=== PATIENT | male | born 1955 | race Caucasian/White ===

== ENCOUNTER → 2017-02-01 | Outpatient (CLI) | payer OTHER ==
[2017-02-01 08:24] LABS: Calcium 8.7 mg/dL (8.4-10.2); Potassium 5.4 mmol/L (3.5-5.1)
== END | disposition home or self-care (01) ==
LOC: LABWHC1 07:04
PROVIDERS: ATTEND Nurse Practitioner Family
DX: I10 Essential (primary) hypertension (principal)
CPT/HCPCS: 36415; 80048

== ENCOUNTER 2017-02-15 09:49 | Inpatient (IN) | payer OTHER ==
[2017-02-15] MEDS ORDERED: SODIUM CHLORIDE 0.9% 1,000 ML IV STA (10:04)
[2017-02-15] MEDS ORDERED: SODIUM CHLORIDE 0.9% 500 ML IV STA (10:04)
--- NOTE | 2017-02-15 10:27 | ED ---
GI Bleed HPI - General Chief complaint: GI Bleed Stated complaint: weakness, bloody stool Time Seen by Provider: 02/15/17 10:00 Source: patient, family, RN notes reviewed Mode of arrival: wheelchair Limitations: no limitations - History of Present Illness Initial comments: This is a 61-year-old male with a history of kidney disease who had the onset yesterday of some blood per rectum. Patient had nausea vomiting dizziness lightheadedness. He recurrence of this this morning. He did have burgundy- colored stool per rectum. His states she did look pale but his color is return to more normal. He also had a glucose level that was 470. He is not a known diabetic. He does have rheumatoid arthritis and is on steroids. Additional history pericarditis renal disease hypertension. The patient does relate the bleeding to his treatment for his kidney disease which she did receive 3 days ago. He states he had a similar episode with some spotting after his last injection. MD complaint: gross hematochezia - Related Data Home Medications Medication Instructions Recorded Confirmed Ergocalciferol (Vitamin D2) 50,000 unit PO QMONTH 02/05/17 02/15/17 [Vitamin D2] Furosemide [Lasix] 20 mg PO BID 02/05/17 02/15/17 Metoprolol Tartrate [Lopressor] 50 mg PO DAILY 02/05/17 02/15/17 Sodium Bicarbonate Tab 650 mg PO DAILY 02/05/17 02/15/17 amLODIPine [Norvasc] 5 mg PO DAILY 02/05/17 02/15/17 Calcitriol 0.25 mcg PO WE 02/12/17 02/15/17 Sulfamethoxazole/Trimethoprim 1 tab PO DAILY 02/12/17 02/15/17 [Bactrim SS 400-80 mg] predniSONE 10 mg PO HS 02/15/17 02/15/17 predniSONE 20 mg PO BID@0800,1200 02/15/17 02/15/17 riTUXimab [Rituxan] 1 ml IV FR 02/15/17 02/15/17 Allergies Allergy/AdvReac Type Severity Reaction Status Date / Time No Known Allergies Allergy Verified 02/15/17 10:39 Review of Systems ROS Statement: Those systems with pertinent positive or pertinent negative responses have been documented in the HPI. ROS Other: All systems not noted in ROS Statement are negative. Past Medical History Past Medical History: Renal Disease, Rheumatoid Arthritis (RA), Syncope Additional Past Medical History / Comment(s): Rheumatoid arthritis, hemorrhoids , colonic polyps, previous cardiac stress test 2 showing no evidence of any reversible ischemia. paricarditis History of Any Multi-Drug Resistant Organisms: None Reported Past Surgical History: No Surgical Hx Reported Additional Past Surgical History / Comment(s): colonoscopy/polypectomy, hemangioma removed from inside L cheek. Past Anesthesia/Blood Transfusion Reactions: No Reported Reaction Past Psychological History: No Psychological Hx Reported Smoking Status: Former smoker Past Alcohol Use History: None Reported Past Drug Use History: None Reported - Past Family History Father Family Medical History: CVA/TIA, Diabetes Mellitus Additional Family Medical History / Comment(s): Father at the age of 64 yrs from diabetic complications. Mother Family Medical History: Cancer Additional Family Medical History / Comment(s): Mother of colon cancer at the age of 74yrs. General Exam - General Exam Comments Initial Comments: This a well-developed asthenic appearing male he does appear to be pale Limitations: no limitations General appearance: alert, in no apparent distress Head exam: Present: atraumatic, normocephalic, normal inspection Eye exam: Present: normal appearance, PERRL, EOMI. Absent: scleral icterus, conjunctival injection, periorbital swelling ENT exam: Present: normal exam, mucous membranes moist Neck exam: Present: normal inspection. Absent: tenderness, meningismus, lymphadenopathy Respiratory exam: Present: normal lung sounds bilaterally. Absent: respiratory distress, wheezes, rales, rhonchi, stridor Cardiovascular Exam: Present: normal rhythm, tachycardia, normal heart sounds. Absent: systolic murmur, diastolic murmur, rubs, gallop, clicks GI/Abdominal exam: Present: soft, normal bowel sounds. Absent: distended, tenderness, guarding, rebound, rigid Rectal exam: Present: normal rectal tone (Burgundy-colored stool heme positive) , heme (+) stool Extremities exam: Present: normal inspection, full ROM, normal capillary refill. Absent: tenderness, pedal edema, joint swelling, calf tenderness Back exam: Present: normal inspection Neurological exam: Present: alert, oriented X3, CN II-XII intact Psychiatric exam: Present: normal affect, normal mood Skin exam: Present: warm, dry, intact, normal color. Absent: rash Course Vital Signs 02/15/17 02/15/17 02/15/17 09:51 10:42 11:35 Temperature 97.3 F L Pulse Rate 131 H 89 90 Respiratory 17 16 18 Rate Blood Pressure 85/61 121/82 125/85 O2 Sat by Pulse 100 98 100 Oximetry Medical Decision Making - Medical Decision Making I did discuss findings the patient family patient will be admitted for transfusion and evaluation of GI bleeding. Patient did have an episode of hypotension but this resolved after fluids. - Lab Data Result diagrams: 02/15/17 10:30 02/15/17 10:31 Lab Results 02/15/17 02/15/17 02/15/17 Range/Units 10:30 10:30 10:31 WBC 10.3 (3.8-10.6) k/uL RBC 2.49 L (4.30-5.90) m/uL Hgb 7.2 L (13.0-17.5) gm/dL Hct 22.0 L (39.0-53.0) % MCV 88.3 (80.0-100.0) fL MCH 29.1 (25.0-35.0) pg MCHC 32.9 (31.0-37.0) g/dL RDW 14.4 (11.5-15.5) % Plt Count 215 (150-450) k/uL Neutrophils % 81 % Lymphocytes % 13 % Monocytes % 5 % Eosinophils % 0 % Basophils % 0 % Neutrophils # 8.3 H (1.3-7.7) k/uL Lymphocytes # 1.4 (1.0-4.8) k/uL Monocytes # 0.5 (0-1.0) k/uL Eosinophils # 0.0 (0-0.7) k/uL Basophils # 0.0 (0-0.2) k/uL PT 10.7 (9.0-12.0) sec INR 1.1 (<1.2) APTT 18.4 L (22.0-30.0) sec Sodium (137-145) mmol/L Potassium (3.5-5.1) mmol/L Chloride (98-107) mmol/L Carbon Dioxide (22-30) mmol/L Anion Gap mmol/L BUN (9-20) mg/dL Creatinine (0.66-1.25) mg/dL Est GFR (MDRD) Af Amer (>60 ml/min/1.73 sqM) Est GFR (MDRD) Non-Af (>60 ml/min/1.73 sqM) Glucose (74-99) mg/dL Calcium (8.4-10.2) mg/dL Total Bilirubin (0.2-1.3) mg/dL AST (17-59) U/L ALT (21-72) U/L Alkaline Phosphatase (38-126) U/L Total Creatine Kinase 43 L (55-170) U/L CK-MB (CK-2) 3.1 H* (0.0-2.4) ng/mL CK-MB (CK-2) Rel Index 7.2 Troponin I 0.034 (0.000-0.034) ng/mL Total Protein (6.3-8.2) g/dL Albumin (3.5-5.0) g/dL Stool Occult Blood (Negative) Acetone, Qual (Negative) Blood Type Blood Type Recheck Antibody Screen Spec Expiration Date 02/15/17 02/15/17 02/15/17 Range/Units 10:31 10:31 10:31 WBC (3.8-10.6) k/uL RBC (4.30-5.90) m/uL Hgb (13.0-17.5) gm/dL Hct (39.0-53.0) % MCV (80.0-100.0) fL MCH (25.0-35.0) pg MCHC (31.0-37.0) g/dL RDW (11.5-15.5) % Plt Count (150-450) k/uL Neutrophils % % Lymphocytes % % Monocytes % % Eosinophils % % Basophils % % Neutrophils # (1.3-7.7) k/uL Lymphocytes # (1.0-4.8) k/uL Monocytes # (0-1.0) k/uL Eosinophils # (0-0.7) k/uL Basophils # (0-0.2) k/uL PT (9.0-12.0) sec INR (<1.2) APTT (22.0-30.0) sec Sodium 134 L (137-145) mmol/L Potassium 4.3 (3.5-5.1) mmol/L Chloride 100 (98-107) mmol/L Carbon Dioxide 24 (22-30) mmol/L Anion Gap 10 mmol/L BUN 70 H (9-20) mg/dL Creatinine 2.50 H (0.66-1.25) mg/dL Est GFR (MDRD) Af Amer 32 (>60 ml/min/1.73 sqM) Est GFR (MDRD) Non-Af 26 (>60 ml/min/1.73 sqM) Glucose 235 H (74-99) mg/dL Calcium 8.5 (8.4-10.2) mg/dL Total Bilirubin 0.4 (0.2-1.3) mg/dL AST 18 (17-59) U/L ALT 48 (21-72) U/L Alkaline Phosphatase 46 (38-126) U/L Total Creatine Kinase (55-170) U/L CK-MB (CK-2) (0.0-2.4) ng/mL CK-MB (CK-2) Rel Index Troponin I (0.000-0.034) ng/mL Total Protein 4.9 L (6.3-8.2) g/dL Albumin 2.8 L (3.5-5.0) g/dL Stool Occult Blood Positive (Negative) Acetone, Qual (Negative) Blood Type O Positive Blood Type Recheck No Antibody Screen NEGATIVE Spec Expiration Date 02/18/2017 - 233002/15/17 Range/Units 10:42 WBC (3.8-10.6) k/uL RBC (4.30-5.90) m/uL Hgb (13.0-17.5) gm/dL Hct (39.0-53.0) % MCV (80.0-100.0) fL MCH (25.0-35.0) pg MCHC (31.0-37.0) g/dL RDW (11.5-15.5) % Plt Count (150-450) k/uL Neutrophils % % Lymphocytes % % Monocytes % % Eosinophils % % Basophils % % Neutrophils # (1.3-7.7) k/uL Lymphocytes # (1.0-4.8) k/uL Monocytes # (0-1.0) k/uL Eosinophils # (0-0.7) k/uL Basophils # (0-0.2) k/uL PT (9.0-12.0) sec INR (<1.2) APTT (22.0-30.0) sec Sodium (137-145) mmol/L Potassium (3.5-5.1) mmol/L Chloride (98-107) mmol/L Carbon Dioxide (22-30) mmol/L Anion Gap mmol/L BUN (9-20) mg/dL Creatinine (0.66-1.25) mg/dL Est GFR (MDRD) Af Amer (>60 ml/min/1.73 sqM) Est GFR (MDRD) Non-Af (>60 ml/min/1.73 sqM) Glucose (74-99) mg/dL Calcium (8.4-10.2) mg/dL Total Bilirubin (0.2-1.3) mg/dL AST (17-59) U/L ALT (21-72) U/L Alkaline Phosphatase (38-126) U/L Total Creatine Kinase (55-170) U/L CK-MB (CK-2) (0.0-2.4) ng/mL CK-MB (CK-2) Rel Index Troponin I (0.000-0.034) ng/mL Total Protein (6.3-8.2) g/dL Albumin (3.5-5.0) g/dL Stool Occult Blood (Negative) Acetone, Qual Negative (Negative) Blood Type Blood Type Recheck Antibody Screen Spec Expiration Date - Radiology Data Radiology results: report reviewed (I did review the imaging and reports no acute findings.), image reviewed Disposition Clinical Impression: GI bleed, Anemia, Renal insufficiency syndrome Disposition: ADMITTED IP TO THIS [facility] Condition: Serious Referrals: Aydee Mcqueen DO [Primary Care Provider] - 1-2 days
[2017-02-15] MEDS ORDERED: PANTOPRAZOLE 40 MG/10 ML VIAL IVP STA (10:28)
[2017-02-15 10:45] LABS: Basophils % (A) 0 %; Eosinophils % (A) 0 %; HGB 7.2 gm/dL (13.0-17.5); Lymphocytes # (A) 1.4 k/uL (1.0-4.8); Lymphocytes % (A) 13 %; MCH 29.1 pg (25.0-35.0); MCHC 32.9 g/dL (31.0-37.0); MCV 88.3 fL (80.0-100.0); Mean Platelet Volume 8.3; Monocytes # (A) 0.5 k/uL (0-1.0); Monocytes % (A) 5 %; Neutrophils # (A) 8.3 k/uL (1.3-7.7); Neutrophils % (A) 81 %; Platelet Count 215 k/uL (150-450); RBC 2.49 m/uL (4.30-5.90); RDW 14.4 % (11.5-15.5); WBC 10.3 k/uL (3.8-10.6)
[2017-02-15 10:55] LABS: Albumin 2.8 g/dL (3.5-5.0); Calcium 8.5 mg/dL (8.4-10.2); Potassium 4.3 mmol/L (3.5-5.1); Total Bilirubin 0.4 mg/dL (0.2-1.3); Total Protein 4.9 g/dL (6.3-8.2)
[2017-02-15 11:03] LABS: INR 1.1 (<1.2); Prothrombin Time 10.7 sec (9.0-12.0)
--- NOTE | 2017-02-15 11:17 | XR ---
EXAMINATION TYPE: XR chest 2V DATE OF EXAM: 02/15/2017 COMPARISON: 01/09/2017 HISTORY: Weakness TECHNIQUE: Frontal and lateral views of the chest are obtained. FINDINGS: There is no heart failure nor confluent pneumonic infiltrate. Heart and mediastinum are no rmal. Costophrenic angles are clear. There are chest leads. Mediastinum is normal. IMPRESSION: Normal chest. There is clearing of left lower lobe infiltrate compared to last exam. There is improved inspiration.
[2017-02-15 11:18] LABS: Partial Thromboplastin Time 18.4 sec (22.0-30.0)
--- NOTE | 2017-02-15 11:18 | XR ---
EXAMINATION TYPE: XR abdomen 1V DATE OF EXAM: 02/15/2017 COMPARISON: NONE HISTORY: Weakness TECHNIQUE: 2 views FINDINGS: Bowel gas pattern is normal. There is no sign of intestinal obstruction or pneumoperitoneum . Fecal pattern is normal. There is mild lumbar dextroscoliosis. Costophrenic angles are clear. There are no pathologic calcifications over the kidneys. IMPRESSION: Nonacute abdomen.
[2017-02-15 11:21] LABS: Troponin I 0.034 ng/mL (0.000-0.034)
[2017-02-15 11:27] LABS: Creatine Kinase MB 3.1 ng/mL (0.0-2.4)
[2017-02-15] MEDS ORDERED: ONDANSETRON 4 MG/2 ML VIAL IVP PRN (12:11)
[2017-02-15] MEDS ORDERED: NALOXONE 0.4 MG/ML 1 ML VIAL IV PRN (12:11)
[2017-02-15] MEDS: SODIUM CHLORIDE 0.9% 1,000 ML IV SCH ×2 (12:25→20:57)
[2017-02-15] MEDS ORDERED: METOPROLOL TARTRATE 50 MG TAB PO SCH (16:00)
[2017-02-15] MEDS: INSULIN ASPART 100 UNIT/ML 1 ML 10 ML VIAL SQ SCH ×2 (16:19→17:27)
[2017-02-15 16:35] LABS: Basophils % (A) 0 %; Eosinophils % (A) 0 %; Lymphocytes # (A) 1.3 k/uL (1.0-4.8); Lymphocytes % (A) 16 %; MCH 29.4 pg (25.0-35.0); MCHC 33.1 g/dL (31.0-37.0); MCV 88.8 fL (80.0-100.0); Mean Platelet Volume 7.4; Monocytes # (A) 0.4 k/uL (0-1.0); Monocytes % (A) 5 %; Neutrophils # (A) 6.3 k/uL (1.3-7.7); Neutrophils % (A) 77 %; Platelet Count 180 k/uL (150-450); RDW 13.5 % (11.5-15.5); WBC 8.1 k/uL (3.8-10.6)
[2017-02-15 16:41] LABS: HCT 18.7 % (39.0-53.0); HGB 6.2 gm/dL (13.0-17.5)
[2017-02-15 16:59] LABS: Glucose,Whole Blood 148 mg/dL (75-99)
[2017-02-15] MEDS: FUROSEMIDE 20 MG TAB PO SCH (17:26)
[2017-02-15] MEDS: PANTOPRAZOLE 40 MG/10 ML VIAL IV SCH (20:58)
[2017-02-15] MEDS ORDERED: predniSONE 10 MG TAB PO SCH (21:00)
[2017-02-15 21:17] LABS: Glucose,Whole Blood 160 mg/dL (75-99)
--- NOTE | 2017-02-15 21:51 | HP ---
HISTORY AND PHYSICAL DATE OF SERVICE: 02/15/2017 CHIEF COMPLAINT: Gastrointestinal bleed. HISTORY OF PRESENT ILLNESS: This 61-year-old gentleman with a past medical history of multiple medical problems including rheumatoid arthritis, history of hemorrhoids, history of colonic polyps, history of previous cardiac stress test, and recent history of pericarditis, also was found to be have vasculitis from a renal biopsy. Patient started on Rituxan. The patient apparently was having GI bleed, after he took Rituxan and burgundy- colored stools were noted without much pain and patient came to [facility] and was admitted for further evaluation and treatment. Initial hemoglobin was found to be 7.2. Subsequently, 6.2. Two Units transfusion arranged at this time. Gastroenterology evaluation in progress. There is no history of fever, rigors or chills. No headache, loss of consciousness, seizures. Patient had rheumatoid arthritis with multiple complications. PAST MEDICAL HISTORY: History of renal disease, history rheumatoid arthritis, syncope, history of hemorrhoids, nicotine dependence. MEDICATIONS: Prior to admission include home medications are: 1. Rituxan 1 mL as before. 2. Prednisone 10 mg q.h.s. and 20 mg p.o. b.i.d. 3. Norvasc 5 mg. 4. Bactrim SS single-strength 1 tab p.o. daily. 5. Sodium bicarb. 6. Tylenol 650 mg p.o. daily. 7. Lopressor 50 mg p.o. daily. 8. Lasix 20 mg p.o. b.i.d. 9. Vitamin D2 50,000 p.o. monthly. 10.Calcitriol 0.5 mg mcg p.o. Wednesday. ALLERGIES: None. FAMILY HISTORY: CVA, TIA, diabetes mellitus. SOCIAL HISTORY: Previous history of smoking. No history of alcohol intake. REVIEW OF SYSTEMS: ENT: No diminished hearing or vision. CARDIOVASCULAR: No angina or palpitations. RESPIRATORY: As mentioned earlier. GI: Mentioned earlier. : No dysuria. NERVOUS SYSTEM: No numbness or weakness. Allergy/Immunology: No asthma or hayfever. Musculoskeletal: As mentioned earlier. Hematology/Oncology: No history of anemia. Musculoskeletal: As mentioned earlier. Endocrine: No history of diabetes or hypothyroidism. Constitutional: As mentioned earlier. Rheumatology: Negative. Dermatology: Negative. Psychiatric: As mentioned earlier. PHYSICAL EXAM: Patient is alert, oriented x3. Pulse is 95, blood pressure 118/70, respiration 16, temperature 97.7. Pulse ox 100% on 2 L. HEENT is conjunctivae pale. Oral mucosa moist. Neck is no jugular venous distention. No carotid bruit. No lymph node enlargement. Cardiovascular system: S1, S2 muffled. Respiratory: Breath sounds diminished in the bases. A few rhonchi and no crackles. ABDOMEN: Soft, nontender. No mass palpable. No guarding. No rigidity. Bowel sounds present. Legs no edema no swelling. Central nervous system: Higher functions as mentioned earlier. Moves all four extremities. No focal deficits. Lymphatics: No lymph nodes palpable in the neck, axillae or groin. SKIN: No ulcer, rash or bleeding. LABS: WBC 8.2, hemoglobin 6.2, sodium 134. ASSESSMENT: 1. Acute gastrointestinal bleed with acute blood loss anemia. 2. History of recently diagnosis of vasculitis on Rituxan status post renal biopsy. 3. History of recent pericarditis. 4. History of rheumatoid arthritis. 5. History of chronic kidney disease stage 3. 6. Indeterminate ANCA recently. 7. History of atrial fibrillation paroxysmal. 8. Hyponatremia. RECOMMENDATIONS AND DISCUSSION: This 61-year-old gentleman who presented with multiple complex medical issues, we will monitor the patient closely, continue the current medications, management and symptomatic treatment. Otherwise at this time I recommend continue with proton pump inhibitors. Monitor hemoglobin closely. 2 units transfusion. Otherwise monitor blood pressure closely and if the patient shows any further bleeding, the patient will be transferred to ICU. Gastroenterology consultation appreciated. Otherwise once the patient is stabilized, EGD and colonoscopy. Prognosis guarded because of multiple complex medical issues. I would also recommend continued followup and nephrology consultation also. Further recommendations to follow. MMODL / IJN: [id number] / DIYA
[2017-02-15 22:01] LABS: Glucose,Whole Blood 143 mg/dL (75-99)
[2017-02-15 22:36] LABS: Basophils % (A) 0 %; Eosinophils % (A) 0 %; Lymphocytes # (A) 1.4 k/uL (1.0-4.8); Lymphocytes % (A) 22 %; MCH 29.2 pg (25.0-35.0); MCHC 32.6 g/dL (31.0-37.0); MCV 89.5 fL (80.0-100.0); Mean Platelet Volume 7.4; Monocytes # (A) 0.3 k/uL (0-1.0); Monocytes % (A) 4 %; Neutrophils # (A) 4.8 k/uL (1.3-7.7); Neutrophils % (A) 72 %; Platelet Count 181 k/uL (150-450); RBC 1.97 m/uL (4.30-5.90); RDW 13.7 % (11.5-15.5); WBC 6.7 k/uL (3.8-10.6)
[2017-02-15 22:38] LABS: HCT 17.6 % (39.0-53.0); HGB 5.8 gm/dL (13.0-17.5)
[2017-02-16] MEDS: INSULIN ASPART 100 UNIT/ML 1 ML 10 ML VIAL SQ SCH ×5 (01:00→21:25)
[2017-02-16 04:33] LABS: Basophils % (A) 0 %; Eosinophils % (A) 0 %; HCT 22.9 % (39.0-53.0); Lymphocytes % (A) 17 %; MCH 29.5 pg (25.0-35.0); MCHC 33.4 g/dL (31.0-37.0); MCV 88.4 fL (80.0-100.0); Mean Platelet Volume 8.4; Monocytes # (A) 0.3 k/uL (0-1.0); Monocytes % (A) 4 %; Neutrophils # (A) 4.5 k/uL (1.3-7.7); Neutrophils % (A) 77 %; Platelet Count 136 k/uL (150-450); RBC 2.59 m/uL (4.30-5.90); RDW 14.2 % (11.5-15.5); WBC 5.9 k/uL (3.8-10.6)
[2017-02-16 04:39] LABS: Calcium 7.6 mg/dL (8.4-10.2); Magnesium 1.7 mg/dL (1.6-2.3); Phosphorus 4.1 mg/dL (2.5-4.5); Potassium 4.1 mmol/L (3.5-5.1)
[2017-02-16 04:41] LABS: HGB 7.7 gm/dL (13.0-17.5)
[2017-02-16] MEDS: SODIUM CHLORIDE 0.9% 1,000 ML IV SCH ×2 (05:00→13:46)
[2017-02-16] MEDS ORDERED: MAGNESIUM SULFATE-D5W PMX 1 GM in DEXTROSE/WATER 1 100ML.BAG IVPB SCH (06:30)
[2017-02-16 07:28] LABS: Glucose,Whole Blood 143 mg/dL (75-99)
[2017-02-16] MEDS ORDERED: predniSONE 20 MG TAB PO SCH (08:00)
--- NOTE | 2017-02-16 08:12 | P.CNPUL ---
History of Present Illness Consult date: 02/16/17 Chief complaint: GI bleeding History of present illness: A 59-year-old male patient with known history of rheumatoid arthritis and vasculitis and a diagnosis was colitis was rather recent as the patient presented with pleural pericarditis an acute kidney injury and further investigation which included a kidney biopsy confirmed presence of vasculitis and the patient was started on a combination of Cytoxan and prednisone. The patient was receiving right proximal and once a week and he was on a 50 mg of prednisone a daily basis. The patient presented yesterday after having bright red blood per rectum. He had 2 bouts of bloody bowel movement and none since he came into the hospital. His hemoglobin gradually dropped and earlier this morning his hemoglobin was as low as 5.8 and the patient was given 2 units of packed RBC and a total of 1 L of normal saline bolus and the fluids are running at the rate of 1 25 mL an hour. Since then he has improved and he looks better and he has no specific complaints. No nausea. No vomiting no abdominal pain. His rectal bleeding was essentially painless. This occurred at home. I'm not sure what type of vasculitis he was diagnosed with over one concern will be vasculitis involving the mesenteric arteries nontender the patient has not had any previous history of GI bleeding in the past. No chest pain. No shortness of breath. Creatinine is stable at 2.0. Is under the care of Dr. Read from nephrology. No alcoholism. Correlation profile is within normal limits. He has known to have colonic polyps based on a previous colonoscopy that was done many years back. Review of Systems Constitutional: Denies chills, Denies fever Eyes: denies blurred vision, denies bulging eye, denies decreased vision Ears: deny: decreased hearing, ear discharge, earache, tinnitus Ears, nose, mouth and throat: Denies headache, Denies sore throat Cardiovascular: Reports chest pain Respiratory: Reports pleurisy which recovered with the treatment of systemic steroids Gastrointestinal: Denies abdominal pain, Denies diarrhea, Denies nausea, Denies vomiting, he is having bright red blood per rectum Genitourinary: Reports as per HPI Musculoskeletal: Denies myalgias Musculoskeletal: absent: ankle pain, ankle stiffness, ankle swelling Integumentary: Denies pruritus, Denies rash Neurological: Denies numbness, Denies weakness Psychiatric: Denies anxiety, Denies depression Endocrine: Denies fatigue, Denies weight change Past Medical History Past Medical History: Renal Disease, Rheumatoid Arthritis (RA), Syncope Additional Past Medical History / Comment(s): Rheumatoid arthritis, vasculitis confirmed by a kidney biopsy, chronic renal failure, immunosuppression febrile with a combination of rituxan and prednisone, hemorrhoids, colonic polyps, previous cardiac stress test 2 showing no evidence of any reversible ischemia, history of paricarditis History of Any Multi-Drug Resistant Organisms: None Reported Past Surgical History: No Surgical Hx Reported Additional Past Surgical History / Comment(s): colonoscopy/polypectomy, hemangioma removed from inside L cheek, kidney biopsy Past Anesthesia/Blood Transfusion Reactions: No Reported Reaction Past Psychological History: No Psychological Hx Reported Additional Psychological History / Comment(s): Pt resides with his spouse and 2 adult children. He is independent. 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 Smoking Status: Former smoker Past Alcohol Use History: None Reported Additional Past Alcohol Use History / Comment(s): Pt started smoking in 1970 and quit about 1990. Past Drug Use History: None Reported - Past Family History Father Family Medical History: CVA/TIA, Diabetes Mellitus Additional Family Medical History / Comment(s): Father at the age of 64 yrs from diabetic complications. Mother Family Medical History: Cancer Additional Family Medical History / Comment(s): Mother of colon cancer at the age of 74yrs. Medications and Allergies Home Medications Medication Instructions Recorded Confirmed Type Ergocalciferol (Vitamin D2) 50,000 unit PO QMONTH 02/05/17 02/15/17 History [Vitamin D2] Furosemide [Lasix] 20 mg PO BID 02/05/17 02/15/17 History Metoprolol Tartrate [Lopressor] 50 mg PO DAILY 02/05/17 02/15/17 History Sodium Bicarbonate Tab 650 mg PO DAILY 02/05/17 02/15/17 History amLODIPine [Norvasc] 5 mg PO DAILY 02/05/17 02/15/17 History Calcitriol 0.25 mcg PO WE 02/12/17 02/15/17 History Sulfamethoxazole/Trimethoprim 1 tab PO DAILY 02/12/17 02/15/17 History [Bactrim SS 400-80 mg] predniSONE 10 mg PO HS 02/15/17 02/15/17 History predniSONE 20 mg PO BID@0800,1200 02/15/17 02/15/17 History riTUXimab [Rituxan] 1 ml IV FR 02/15/17 02/15/17 History Allergies Allergy/AdvReac Type Severity Reaction Status Date / Time No Known Allergies Allergy Verified 02/15/17 10:39 Physical Exam Vitals: Vital Signs Temp Pulse Pulse Resp BP BP Pulse Ox 02/16/17 07:00 65 12 145/90 100 02/16/17 06:30 67 13 145/90 100 02/16/17 06:00 76 14 140/79 100 02/16/17 05:30 69 13 140/79 100 02/16/17 05:00 62 14 107/81 100 02/16/17 04:30 98.2 F 74 12 107/81 100 02/16/17 04:00 72 14 107/81 99 02/16/17 03:30 71 10 L 116/73 100 02/16/17 03:00 70 11 L 116/73 99 02/16/17 02:30 72 12 116/72 100 02/16/17 02:00 61 11 L 125/68 100 02/16/17 01:30 82 16 100 02/16/17 01:00 98.7 F 72 12 117/72 100 02/16/17 00:59 98.7 F 70 15 125/68 02/16/17 00:30 78 13 117/72 97 02/16/17 00:15 98.4 F 75 14 117/72 100 02/16/17 00:00 98.3 F 72 12 112/72 100 02/15/17 23:55 98.3 F 74 11 L 112/72 02/15/17 23:30 98.3 F 77 14 107/72 100 02/15/17 23:00 75 14 113/73 100 02/15/17 22:40 98.3 F 74 13 107/72 02/15/17 22:30 98.1 F 80 14 113/73 100 02/15/17 22:27 98.5 F 76 13 114/75 02/15/17 22:00 98.5 F 81 12 114/75 100 02/15/17 20:00 97.8 F 84 16 125/68 99 02/15/17 16:00 97.5 F L 98 16 117/76 100 02/15/17 14:06 97.7 F 95 16 118/79 100 02/15/17 12:26 97.6 F 98 18 133/82 100 02/15/17 11:35 90 18 125/85 100 02/15/17 10:42 89 16 121/82 98 02/15/17 09:51 97.3 F L 131 H 17 85/61 100 Intake and Output 02/15/17 02/16/17 02/16/17 22:59 06:59 14:59 Intake Total 815 2240 125 Output Total 1050 Balance 815 1190 125 Intake: IV 125 1620 125 Packed unit of Red Blood 620 Cells Sodium Chloride 0.9% 1, 125 1000 125 000 ml @ 125 mls/hr IV . Q8H [facility] Rx#:[id number] Oral 690 Blood Product 0 620 Rc Pheresis 2 As3 Unit 310 [id number] Rc Pheresis 2 As3 Unit 0 310 [id number] Output: Urine 1050 Emesis 0 Other: # Bowel Movements 0 Weight 75.6 kg The patient appeared well nourished and normally developed. Vital signs as documented. Head exam is unremarkable. No scleral icterus or corneal arcus noted. Neck is without jugular venous distension, thyromegaly, or carotid bruits. Carotid upstrokes are brisk bilaterally. Lungs are clear to auscultation and percussion. Cardiac exam reveals the PMI to be normally sized and situated. Rhythm is regular. First and second heart sounds normal. No murmurs, rubs or gallops. Abdominal exam reveals normal bowel sounds, no masses , no organomegaly and no aortic enlargement. Extremities are nonedematous and both femoral and pedal pulses are normal.Examination of the skin revealed no evidence of significant rashes, suspicious appearing nevi or other concerning lesions. Neurologically the patient is awake and alert and there is no focal neurological deficit this point. Results - Laboratory Findings CBC and BMP: 02/16/17 04:11 02/16/17 04:11 PT/INR, D-dimer PT 10.7 sec (9.0-12.0) 02/15/17 10:30 INR 1.1 (<1.2) 02/15/17 10:30 Abnormal lab findings: Abnormal Labs 02/15/17 02/15/17 02/15/17 10:30 10:30 10:31 RBC 2.49 L Hgb 7.2 L Hct 22.0 L Plt Count Neutrophils # 8.3 H APTT 18.4 L Sodium BUN Creatinine Glucose POC Glucose (mg/dL) Calcium Total Creatine Kinase 43 L CK-MB (CK-2) 3.1 H* Total Protein Albumin Crossmatch 02/15/17 02/15/17 02/15/17 10:31 10:31 16:15 RBC 2.10 L Hgb 6.2 L* Hct 18.7 L* Plt Count Neutrophils # APTT Sodium 134 L BUN 70 H Creatinine 2.50 H Glucose 235 H POC Glucose (mg/dL) Calcium Total Creatine Kinase CK-MB (CK-2) Total Protein 4.9 L Albumin 2.8 L Crossmatch See Detail 02/15/17 02/15/17 02/15/17 16:49 21:05 21:58 RBC Hgb Hct Plt Count Neutrophils # APTT Sodium BUN Creatinine Glucose POC Glucose (mg/dL) 148 H 160 H 143 H Calcium Total Creatine Kinase CK-MB (CK-2) Total Protein Albumin Crossmatch 02/15/17 02/16/17 02/16/17 22:15 04:11 04:11 RBC 1.97 L 2.59 L Hgb 5.8 L* 7.7 L D Hct 17.6 L* 22.9 L Plt Count 136 L Neutrophils # APTT Sodium BUN 62 H Creatinine 2.13 H Glucose 144 H POC Glucose (mg/dL) Calcium 7.6 L Total Creatine Kinase CK-MB (CK-2) Total Protein Albumin Crossmatch 02/16/17 07:24 RBC Hgb Hct Plt Count Neutrophils # APTT Sodium BUN Creatinine Glucose POC Glucose (mg/dL) 143 H Calcium Total Creatine Kinase CK-MB (CK-2) Total Protein Albumin Crossmatch - Diagnostic Findings Chest x-ray: image reviewed Assessment and Plan Plan: Assessment 1 acute lower GI bleeding. The patient had bright red blood per rectum and subsequent drop in hemoglobin down to 5.8 and he had received a total of 2 units of packed RBC and subsequent hemoglobin is up to 7.7. The patient is hemodynamically stable. The patient has been diagnosed having a combination of rheumatoid arthritis/vasculitis and currently is in a new suppressive agents. He has known to have previous history of chronic polyps and hemorrhoids based on a previous colonoscopy. No abdominal pain. No evidence of intra-abdominal/ mesenteric vasculitis at least on clinical grounds. 2 rheumatoid arthritis 3 acute vasculitis 4 chronic renal failure secondary to vasculitis currently on a combination of Rituxanand prednisone. Note that this progressive improvement in renal function with the patient's creatinine was as high as 3.7 is currently down to 2.1. 5 immunosuppression treatment with a combination of Rituxan and prednisone 6 acute anemia secondary to GI bleeding 7 pleuro- pericarditis, recovered with systemic steroids and immunosuppressive agents DORCAS Keep the patient nothing by mouth. GI consultation. Will need a colonoscopy to identify the source of bleeding. We will resume prednisone at a dose of 50 mg by mouth on a daily basis. Monitor hemoglobin. Continue IV fluids. May transfer to a medical floor at a later stage I seen by the various consultants. Will also seek the report of the kidney biopsy to identify and classify his exact type of vasculitis.
[2017-02-16] MEDS ORDERED: SULFAMETHOX-TMP 400-80MG 1 EACH TAB PO SCH (09:00)
[2017-02-16] MEDS ORDERED: predniSONE 50 MG TAB PO SCH (09:00)
[2017-02-16] MEDS: amLODIPine 5 MG TAB PO SCH (09:09)
[2017-02-16] MEDS: FUROSEMIDE 20 MG TAB PO SCH ×2 (09:10→16:13)
[2017-02-16] MEDS: SODIUM BICARBONATE TAB 650 MG TAB PO SCH (09:10)
[2017-02-16] MEDS: MAGNESIUM SULFATE-D5W PMX 1 GM in DEXTROSE/WATER 1 100ML.BAG IVPB SCH ×2 (09:10→09:27)
[2017-02-16] MEDS: PANTOPRAZOLE 40 MG/10 ML VIAL IV SCH ×2 (09:10→21:25)
--- NOTE | 2017-02-16 09:11 | P.CRDCN ---
History of Present Illness Consult date: 02/16/17 Chief complaint: Rectal bleeding History of present illness: This is a pleasant 61-year-old gentleman with a past medical history significant for rheumatoid arthritis and vasculitis who was admitted to the hospital recently with pleurisy. At that point the patient was found to be in acute renal failure and he underwent a kidney biopsy which confirmed the diagnosis of vasculitis. The patient was discharged home on prednisone by mouth. Also during that admission the patient had one episode of atrial fibrillation and he was converted to normal sinus mechanism and was discharged home in stable medical condition. He presented to the hospital this time with rectal bleeding. He was in his usual state of health until yesterday morning when he had multiple episodes of painless rectal bleeding. No chest pain or discomfort and no shortness of breath. His hemoglobin dropped to around 5 and the patient received 2 units of packed RBC and the hemoglobin currently above 7. The patient was not on any anticoagulation when he left the hospital last time but he was on prednisone by mouth. Currently the patient is in process to be seen by the GI service. He is hemodynamically stable. He has been maintaining normal sinus mechanism and normal blood pressure. He is on metoprolol at 50 mg daily and I'm going to change that to 25 mg by mouth twice a day. Past Medical History Past Medical History: Renal Disease, Rheumatoid Arthritis (RA), Syncope Additional Past Medical History / Comment(s): Rheumatoid arthritis, vasculitis confirmed by a kidney biopsy, chronic renal failure, immunosuppression febrile with a combination of rituxan and prednisone, hemorrhoids, colonic polyps, previous cardiac stress test 2 showing no evidence of any reversible ischemia, history of paricarditis History of Any Multi-Drug Resistant Organisms: None Reported Past Surgical History: No Surgical Hx Reported Additional Past Surgical History / Comment(s): colonoscopy/polypectomy, hemangioma removed from inside L cheek, kidney biopsy Past Anesthesia/Blood Transfusion Reactions: No Reported Reaction Past Psychological History: No Psychological Hx Reported Additional Psychological History / Comment(s): Pt resides with his spouse and 2 adult children. He is independent. 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 Smoking Status: Former smoker Past Alcohol Use History: None Reported Additional Past Alcohol Use History / Comment(s): Pt started smoking in 1970 and quit about 1990. Past Drug Use History: None Reported - Past Family History Father Family Medical History: CVA/TIA, Diabetes Mellitus Additional Family Medical History / Comment(s): Father at the age of 64 yrs from diabetic complications. Mother Family Medical History: Cancer Additional Family Medical History / Comment(s): Mother of colon cancer at the age of 74yrs. Medications and Allergies Home Medications Medication Instructions Recorded Confirmed Type Ergocalciferol (Vitamin D2) 50,000 unit PO QMONTH 02/05/17 02/15/17 History [Vitamin D2] Furosemide [Lasix] 20 mg PO BID 02/05/17 02/15/17 History Metoprolol Tartrate [Lopressor] 50 mg PO DAILY 02/05/17 02/15/17 History Sodium Bicarbonate Tab 650 mg PO DAILY 02/05/17 02/15/17 History amLODIPine [Norvasc] 5 mg PO DAILY 02/05/17 02/15/17 History Calcitriol 0.25 mcg PO WE 02/12/17 02/15/17 History Sulfamethoxazole/Trimethoprim 1 tab PO DAILY 02/12/17 02/15/17 History [Bactrim SS 400-80 mg] predniSONE 10 mg PO HS 02/15/17 02/15/17 History predniSONE 20 mg PO BID@0800,1200 02/15/17 02/15/17 History riTUXimab [Rituxan] 1 ml IV FR 02/15/17 02/15/17 History Allergies Allergy/AdvReac Type Severity Reaction Status Date / Time No Known Allergies Allergy Verified 02/15/17 10:39 Physical Exam Vitals: Vital Signs Temp Pulse Pulse Resp BP BP Pulse Ox 02/16/17 07:00 65 12 145/90 100 02/16/17 06:30 67 13 145/90 100 02/16/17 06:00 76 14 140/79 100 02/16/17 05:30 69 13 140/79 100 02/16/17 05:00 62 14 107/81 100 02/16/17 04:30 98.2 F 74 12 107/81 100 02/16/17 04:00 72 14 107/81 99 02/16/17 03:30 71 10 L 116/73 100 02/16/17 03:00 70 11 L 116/73 99 02/16/17 02:30 72 12 116/72 100 02/16/17 02:00 61 11 L 125/68 100 02/16/17 01:30 82 16 100 02/16/17 01:00 98.7 F 72 12 117/72 100 02/16/17 00:59 98.7 F 70 15 125/68 02/16/17 00:30 78 13 117/72 97 02/16/17 00:15 98.4 F 75 14 117/72 100 02/16/17 00:00 98.3 F 72 12 112/72 100 02/15/17 23:55 98.3 F 74 11 L 112/72 02/15/17 23:30 98.3 F 77 14 107/72 100 02/15/17 23:00 75 14 113/73 100 02/15/17 22:40 98.3 F 74 13 107/72 02/15/17 22:30 98.1 F 80 14 113/73 100 02/15/17 22:27 98.5 F 76 13 114/75 02/15/17 22:00 98.5 F 81 12 114/75 100 02/15/17 20:00 97.8 F 84 16 125/68 99 02/15/17 16:00 97.5 F L 98 16 117/76 100 02/15/17 14:06 97.7 F 95 16 118/79 100 02/15/17 12:26 97.6 F 98 18 133/82 100 02/15/17 11:35 90 18 125/85 100 02/15/17 10:42 89 16 121/82 98 02/15/17 09:51 97.3 F L 131 H 17 85/61 100 Intake and Output 02/15/17 02/16/17 02/16/17 22:59 06:59 14:59 Intake Total 815 2240 125 Output Total 1050 Balance 815 1190 125 Intake: IV 125 1620 125 Packed unit of Red Blood 620 Cells Sodium Chloride 0.9% 1, 125 1000 125 000 ml @ 125 mls/hr IV . Q8H [facility] Rx#:[id number] Oral 690 Blood Product 0 620 Rc Pheresis 2 As3 Unit 310 [id number] Rc Pheresis 2 As3 Unit 0 310 [id number] Output: Urine 1050 Emesis 0 Other: # Bowel Movements 0 Weight 75.6 kg - Constitutional General appearance: no acute distress - Respiratory Respiratory: bilateral: CTA - Cardiovascular Rhythm: regular Heart sounds: normal: S1, S2 Results 02/16/17 04:11 02/16/17 04:11 Cardiac Enzymes 02/15/17 02/15/17 Range/Units 10:31 10:31 AST 18 (17-59) U/L CK-MB (CK-2) 3.1 H* (0.0-2.4) ng/mL Troponin I 0.034 (0.000-0.034) ng/mL Coagulation 02/15/17 Range/Units 10:30 PT 10.7 (9.0-12.0) sec APTT 18.4 L (22.0-30.0) sec CBC 02/15/17 02/15/17 02/15/17 Range/Units 10:30 16:15 22:15 WBC 10.3 8.1 6.7 (3.8-10.6) k/uL RBC 2.49 L 2.10 L 1.97 L (4.30-5.90) m/uL Hgb 7.2 L 6.2 L* 5.8 L* (13.0-17.5) gm/dL Hct 22.0 L 18.7 L* 17.6 L* (39.0-53.0) % Plt Count 215 180 181 (150-450) k/uL 02/16/17 Range/Units 04:11 WBC 5.9 (3.8-10.6) k/uL RBC 2.59 L (4.30-5.90) m/uL Hgb 7.7 L D (13.0-17.5) gm/dL Hct 22.9 L (39.0-53.0) % Plt Count 136 L (150-450) k/uL Comprehensive Metabolic Panel 02/15/17 02/16/17 Range/Units 10:31 04:11 Sodium 134 L 138 (137-145) mmol/L Potassium 4.3 4.1 (3.5-5.1) mmol/L Chloride 100 106 (98-107) mmol/L Carbon Dioxide 24 26 (22-30) mmol/L BUN 70 H 62 H (9-20) mg/dL Creatinine 2.50 H 2.13 H (0.66-1.25) mg/dL Glucose 235 H 144 H (74-99) mg/dL Calcium 8.5 7.6 L (8.4-10.2) mg/dL AST 18 (17-59) U/L ALT 48 (21-72) U/L Alkaline Phosphatase 46 (38-126) U/L Total Protein 4.9 L (6.3-8.2) g/dL Albumin 2.8 L (3.5-5.0) g/dL Current Medications Generic Name Dose Route Start Last Admin Trade Name Freq PRN Reason Stop Dose Admin Amlodipine Besylate 5 mg 02/16/17 09:00 Norvasc PO DAILY [facility] Calcitriol 0.25 mcg 02/17/17 12:00 Rocaltrol PO We@1200 [facility] Ergocalciferol 50,000 unit 03/04/17 12:00 Vitamin D2 PO QMONTH [facility] Furosemide 20 mg 02/15/17 16:00 02/15/17 17:26 Lasix PO Not Given BID@0900,1600 [facility] Sodium Chloride 1,000 mls @ 125 mls/hr 02/15/17 12:15 02/16/17 05:00 Saline 0.9% IV 125 mls/hr .Q8H [facility] Administration Insulin Aspart 0 unit 02/15/17 12:30 02/16/17 01:00 Novolog SQ Not Given ACHS [facility] Protocol Metoprolol Tartrate 25 mg 02/16/17 09:15 Lopressor PO BID [facility] Naloxone HCl 0.2 mg 02/15/17 12:11 Narcan IV Q2M PRN Opioid Reversal Ondansetron HCl 4 mg 02/15/17 12:11 Zofran IVP Q8HR PRN Nausea And Vomiting Pantoprazole Sodium 40 mg 02/15/17 21:00 02/15/17 20:58 Protonix IV 40 mg BID [facility] Administration Prednisone 50 mg 02/16/17 09:00 PO DAILY [facility] Sodium Bicarbonate 650 mg 02/16/17 09:00 Sodium Bicarbonate Tab PO DAILY [facility] Trimethoprim/Sulfamethoxazole 1 each 02/16/17 09:00 Bactrim Ss PO DAILY [facility] Intake and Output 02/15/17 02/16/17 02/16/17 22:59 06:59 14:59 Intake Total 815 2240 125 Output Total 1050 Balance 815 1190 125 Intake: IV 125 1620 125 Packed unit of Red Blood 620 Cells Sodium Chloride 0.9% 1, 125 1000 125 000 ml @ 125 mls/hr IV . Q8H [facility] Rx#:[id number] Oral 690 Blood Product 0 620 Rc Pheresis 2 As3 Unit 310 [id number] Rc Pheresis 2 As3 Unit 0 310 [id number] Output: Urine 1050 Emesis 0 Other: # Bowel Movements 0 Weight 75.6 kg 02/16/17 04:11 02/16/17 04:11 Assessment and Plan Assessment: Assessment #1 rectal bleeding #2 acute anemia secondary to the above #3 paroxysmal atrial fibrillation #4 vasculitis #5 multiple comorbid conditions Plan #1 hold any kind of anticoagulation at this point #2 change the dose of metoprolol as described above #3 try to adjust the dose of metoprolol down the line to keep the patient in normal sinus mechanism #4 the patient is in process to be seen by the GI service Thank you for allowing us but spitting his care and we'll continue following up with the patient
[2017-02-16] MEDS: METOPROLOL TARTRATE 25 MG TAB PO SCH ×2 (10:13→21:25)
--- NOTE | 2017-02-16 10:19 | XR ---
EXAMINATION TYPE: XR chest 1V DATE OF EXAM: 02/16/2017 COMPARISON: 01/09/2017 HISTORY: Shortness of breath TECHNIQUE: Single frontal view of the chest is obtained. FINDINGS: There is no pneumothorax or pleural effusion. The cardiac silhouette size is within normal limits. The osseous structures are intact. Arthropathy of the shoulders. Subsegmental changes at t he left lung base. IMPRESSION: 1. Left basilar atelectasis or early infiltrate.
[2017-02-16] MEDS: predniSONE 20 MG TAB PO SCH ×2 (10:36→11:09)
[2017-02-16 10:48] LABS: Glucose,Whole Blood 126 mg/dL (75-99)
[2017-02-16 11:38] LABS: Basophils % (A) 0 %; Eosinophils % (A) 0 %; HCT 25.1 % (39.0-53.0); HGB 8.3 gm/dL (13.0-17.5); Lymphocytes # (A) 1.4 k/uL (1.0-4.8); Lymphocytes % (A) 20 %; MCH 29.7 pg (25.0-35.0); MCHC 32.9 g/dL (31.0-37.0); MCV 90.1 fL (80.0-100.0); Mean Platelet Volume 7.3; Monocytes # (A) 0.3 k/uL (0-1.0); Monocytes % (A) 5 %; Neutrophils % (A) 73 %; Platelet Count 148 k/uL (150-450); RBC 2.78 m/uL (4.30-5.90); RDW 13.7 % (11.5-15.5); WBC 6.8 k/uL (3.8-10.6)
--- NOTE | 2017-02-16 15:24 | CONS ---
CONSULTATION REASON FOR CONSULT: Renal failure. HISTORY OF PRESENT ILLNESS: Patient is a 61-year-old male who has a history of acute kidney injury secondary to vasculitis and is currently maintained on Rituxan, prednisone and Bactrim for prophylaxis. He is scheduled for 4 doses of Rituxan and has received his second dose on Wednesday. He was admitted to the hospital with bright red blood per rectum as well as dark blood. His hemoglobin was 5.8 g/dL on admission. He has received 2 units packed RBCs and this morning his hemoglobin is 8.3. There is no active bleeding noted. Serum creatinine was 2.5 on admission, now down to 2.13. His previous creatinine has been as high as 3.3 and 3.15 on 02/01/2017. PAST MEDICAL HISTORY: 1. Recent diagnosis of vasculitic glomerulonephritis. Details of the biopsy are not available at this time. The patient follows with Dr. Piper as outpatient. He is currently maintained on Rituxan and prednisone along with Bactrim for prophylaxis. His renal function seems to be improving. 2. Gastrointestinal bleed. Awaiting GI consult and patient has been started on Protonix. 3. Possible allergy to Bactrim. We will hold off on the Bactrim for now. Patient may continue with the prednisone. He will likely have his 3rd dose of Rituxan coming Wednesday depending on his general condition. PLAN: May DC Bactrim for now. Continue with the prednisone. Maintain the Protonix and repeat labs in a.m. Thank you for this consultation. Will continue to follow the patient with you during his hospitalization. MMODL / IJN: [id number] /
[2017-02-16 17:45] LABS: Glucose,Whole Blood 183 mg/dL (75-99)
[2017-02-16 18:55] LABS: Appearance,Urine Clear (Clear); Bacteria,Urine Rare /hpf; Bilirubin,Urine Negative (Negative); Blood,Urine Moderate (Negative); Color,Urine Light Yellow; Glucose,Urine (UA) 1+ (Negative); Ketones,Urine Negative (Negative); Leukocyte Esterase,Urine Negative (Negative); Mucus,Urine Rare /hpf; Nitrite,Urine Negative (Negative); Protein,Urine Negative (Negative); RBC,Urine 14 /hpf (0-5); Specific Gravity,Urine 1.008 (1.001-1.035); Urobilinogen,Urine <2.0 mg/dL (<2.0); WBC,Urine <1 /hpf (0-5)
[2017-02-16 19:00] LABS: Basophils % (A) 0 %; Eosinophils % (A) 0 %; HCT 25.5 % (39.0-53.0); HGB 8.4 gm/dL (13.0-17.5); Lymphocytes # (A) 1.1 k/uL (1.0-4.8); Lymphocytes % (A) 14 %; MCH 29.8 pg (25.0-35.0); MCHC 33.1 g/dL (31.0-37.0); MCV 90.2 fL (80.0-100.0); Mean Platelet Volume 7.4; Monocytes # (A) 0.2 k/uL (0-1.0); Monocytes % (A) 2 %; Neutrophils # (A) 6.7 k/uL (1.3-7.7); Neutrophils % (A) 82 %; Platelet Count 150 k/uL (150-450); RBC 2.83 m/uL (4.30-5.90); RDW 13.7 % (11.5-15.5); WBC 8.1 k/uL (3.8-10.6)
[2017-02-16] MEDS ORDERED: predniSONE 10 MG TAB PO SCH (21:00)
[2017-02-16 21:14] LABS: Glucose,Whole Blood 198 mg/dL (75-99)
--- NOTE | 2017-02-16 22:58 | PN ---
PROGRESS NOTE DATE OF ADMISSION: 02/16/2017 HISTORY OF PRESENT ILLNESS: This 61-year-old gentleman who was admitted with GI bleed and significant blood loss with a hemoglobin went up to 5.8. Multiple monitor in ICU at this time. The patient also had history of recent diagnosis of vasculitis and rheumatoid arthritis. The patient is on Rituxan drip also. Multiple consultants are following the patient including Cardiology. PAST MEDICAL HISTORY: Reviewed. REVIEW OF SYSTEMS: Cardiovascular: No angina or palpitations. RESPIRATORY: As mentioned earlier. GI no nausea or vomiting or diarrhea : No dysuria. Nervous system: No numbness, weakness. Allergy/Immunology: No asthma or hayfever. Musculoskeletal: As mentioned earlier. CURRENT MEDICATIONS ARE: Reviewed and include: 1. Norvasc 5 mg p.o. daily. 2. Rocaltrol 2.5 mg mcg daily. 3. Vitamin D2 50,000 every month. 4. Lasix 20 mg p.o. b.i.d. 5. NovoLog a.c. and q.h.s. 6. Lopressor 25 mg p.o. b.i.d. 7. Narcan 0.2 q.2h p.r.n. 8. Zofran 4 mg q.8h p.r.n. 9. Protonix 40 mg b.i.d. 10.Prednisone 20 mg b.i.d. 11.Sodium bicarb 650 mg p.o. daily. PHYSICAL EXAM: Patient is alert, oriented x3. Pulse 77, blood pressure 130/70, and respirations 18. Temperature is normal. Pulse ox 98% on room air. HEENT: Conjunctivae normal. Neck: No jugular venous distention. Cardiovascular : S1, S2 muffled. Respiratory: Breath sounds diminished in the bases. A few scattered rhonchi and crackles. ABDOMEN: Soft, nontender. No mass palpable. Legs: No edema and no swelling. NERVOUS SYSTEM: Higher functions as mentioned earlier. Moves all four limbs. No focal deficits. Lymphatics: No lymph nodes palpable in the neck, axillae or groin. Skin no ulcer, rashes or bleeding. LABS: WBC 8.1, hemoglobin is 8.4, creatinine 2.13. ASSESSMENT: 1. Acute gastrointestinal bleed with acute blood loss anemia. 2. History of recently diagnosed vasculitis Rituxan status post renal biopsy. 3. History of recent pericarditis. 4. History of rheumatoid arthritis. 5. History of chronic kidney disease stage 3. 6. Indeterminate ANCA recently. 7. History of atrial ablation, paroxysmal. 8. Hyponatremia. 9. Chronic kidney disease stage 3. PLAN/DISCUSSION: In this 61-year-old gentleman who presented with multiple complex medical issues , we will monitor the patient closely. Patient still has some continued and we will continue to monitor in the ICU. Patient had transfusions q.6. Continue to monitor. Gastroenterology consultation, possible endoscopy, both upper and lower. Guarded prognosis because of multiple complex medical issues. Further recommendations to follow. Discussed with the patient. See orders for details. Nephrology input appreciated. Further recommendations to follow. MMODL / IJN: [id number] / DIYA
--- NOTE | 2017-02-16 23:29 | P.CONS ---
History of Present Illness - Reason for Consult Consult date: 02/15/17 GI bleeding/anemia - History of Present Illness The patient is a 61-year-old male who presented to the emergency room with history of rectal bleeding. The patient reported bleeding that started the day prior to admission associated with nausea and vomiting. The patient has history of rheumatoid arthritis and vasculitis and has recent involvement of the kidney for which he was started on a course of prednisone and Rituxan. He is scheduled to receive a total of 4 doses. He has completed 2 doses already. He reports having experienced around 2 & 1/2 days after each dose the onset of dark or bloody stools. His hemoglobin was 5.8 on admission. The patient has been transfused. The patient has history of polyps and he had prior colonoscopy several years ago. He denied hematemesis. He did report having some heartburn. Review of Systems 12 point review of systems is, otherwise, not revealing. Past Medical History Past Medical History: Renal Disease, Rheumatoid Arthritis (RA), Syncope Additional Past Medical History / Comment(s): Rheumatoid arthritis, hemorrhoids , colonic polyps, previous cardiac stress test 2 showing no evidence of any reversible ischemia. paricarditis History of Any Multi-Drug Resistant Organisms: None Reported Past Surgical History: No Surgical Hx Reported Additional Past Surgical History / Comment(s): colonoscopy/polypectomy, hemangioma removed from inside L cheek. Past Anesthesia/Blood Transfusion Reactions: No Reported Reaction Past Psychological History: No Psychological Hx Reported Additional Psychological History / Comment(s): Pt resides with his spouse and 2 adult children. He is independent. 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 Smoking Status: Former smoker Past Alcohol Use History: None Reported Additional Past Alcohol Use History / Comment(s): Pt started smoking in 1970 and quit about 1990. Past Drug Use History: None Reported - Past Family History Father Family Medical History: CVA/TIA, Diabetes Mellitus Additional Family Medical History / Comment(s): Father at the age of 64 yrs from diabetic complications. Mother Family Medical History: Cancer Additional Family Medical History / Comment(s): Mother of colon cancer at the age of 74yrs. Medications and Allergies Home Medications Medication Instructions Recorded Confirmed Type Ergocalciferol (Vitamin D2) 50,000 unit PO QMONTH 02/05/17 02/15/17 History [Vitamin D2] Furosemide [Lasix] 20 mg PO BID 02/05/17 02/15/17 History Metoprolol Tartrate [Lopressor] 50 mg PO DAILY 02/05/17 02/15/17 History Sodium Bicarbonate Tab 650 mg PO DAILY 02/05/17 02/15/17 History amLODIPine [Norvasc] 5 mg PO DAILY 02/05/17 02/15/17 History Calcitriol 0.25 mcg PO WE 02/12/17 02/15/17 History Sulfamethoxazole/Trimethoprim 1 tab PO DAILY 02/12/17 02/15/17 History [Bactrim SS 400-80 mg] predniSONE 10 mg PO HS 02/15/17 02/15/17 History predniSONE 20 mg PO BID@0800,1200 02/15/17 02/15/17 History riTUXimab [Rituxan] 1 ml IV FR 02/15/17 02/15/17 History Allergies Allergy/AdvReac Type Severity Reaction Status Date / Time No Known Allergies Allergy Verified 02/15/17 10:39 Physical Exam Vitals: Vital Signs Temp Pulse Pulse Resp BP BP Pulse Ox 02/15/17 14:06 97.7 F 95 16 118/79 100 02/15/17 12:26 97.6 F 98 18 133/82 100 02/15/17 11:35 90 18 125/85 100 02/15/17 10:42 89 16 121/82 98 02/15/17 09:51 97.3 F L 131 H 17 85/61 100 Intake and Output 02/15/17 02/15/17 02/15/17 06:59 14:59 22:59 Other: Weight 79.379 kg Patient Weight 02/16/17 06:59 Weight 79.379 kg General: Appeared stated age, very pleasant, in no acute distress Head and neck: Normocephalic and atraumatic. Conjunctivae pink and sclerae not icteric. Mucous membranes moist and pink. No masses in the neck or tracheal shifts Lungs: Clear to auscultation with no dullness to percussion Heart: Regular, no abnormal sounds, murmurs, gallops or friction rubs Abdomen: Soft, no masses, organomegalies or tenderness, bowel sounds present Extremities: No clubbing, cyanosis or edema Neurologic: Alert and oriented 3. Cranial nerves grossly intact. No gross sensory or motor abnormalities Results CBC & Chem 7: 02/16/17 18:40 02/16/17 04:11 Labs: Abnormal Lab Results - Last 24 Hours (Table) 02/15/17 02/15/17 02/15/17 Range/Units 10:30 10:30 10:31 RBC 2.49 L (4.30-5.90) m/uL Hgb 7.2 L (13.0-17.5) gm/dL Hct 22.0 L (39.0-53.0) % Neutrophils # 8.3 H (1.3-7.7) k/uL APTT 18.4 L (22.0-30.0) sec Sodium (137-145) mmol/L BUN (9-20) mg/dL Creatinine (0.66-1.25) mg/dL Glucose (74-99) mg/dL Total Creatine Kinase 43 L (55-170) U/L CK-MB (CK-2) 3.1 H* (0.0-2.4) ng/mL Total Protein (6.3-8.2) g/dL Albumin (3.5-5.0) g/dL 02/15/17 Range/Units 10:31 RBC (4.30-5.90) m/uL Hgb (13.0-17.5) gm/dL Hct (39.0-53.0) % Neutrophils # (1.3-7.7) k/uL APTT (22.0-30.0) sec Sodium 134 L (137-145) mmol/L BUN 70 H (9-20) mg/dL Creatinine 2.50 H (0.66-1.25) mg/dL Glucose 235 H (74-99) mg/dL Total Creatine Kinase (55-170) U/L CK-MB (CK-2) (0.0-2.4) ng/mL Total Protein 4.9 L (6.3-8.2) g/dL Albumin 2.8 L (3.5-5.0) g/dL Assessment and Plan Assessment: 61-year-old male with rectal bleeding and profound anemia. An upper or lower GI source of bleeding should be considered in light of his current therapy. The possibility of colitis in the presence of vasculitis is likely. With his history of polyps, neoplasia should be considered. Plan: I agree with your current management. I would consider a colonoscopy and an upper endoscopy in the next day or 2 once his bleeding tapers off. Will continue PPI as well and continue close monitoring of his hemoglobin with transfusions if needed.
[2017-02-17 00:36] LABS: Basophils % (A) 0 %; Eosinophils % (A) 0 %; HCT 22.5 % (39.0-53.0); HGB 7.3 gm/dL (13.0-17.5); Lymphocytes # (A) 0.8 k/uL (1.0-4.8); Lymphocytes % (A) 15 %; MCH 29.1 pg (25.0-35.0); MCHC 32.3 g/dL (31.0-37.0); MCV 89.9 fL (80.0-100.0); Mean Platelet Volume 7.8; Monocytes # (A) 0.2 k/uL (0-1.0); Monocytes % (A) 4 %; Neutrophils # (A) 4.2 k/uL (1.3-7.7); Neutrophils % (A) 80 %; Platelet Count 132 k/uL (150-450); RBC 2.51 m/uL (4.30-5.90); RDW 15.1 % (11.5-15.5); WBC 5.3 k/uL (3.8-10.6)
[2017-02-17 04:29] LABS: Basophils % (A) 0 %; Eosinophils % (A) 0 %; HCT 21.7 % (39.0-53.0); HGB 7.1 gm/dL (13.0-17.5); Lymphocytes # (A) 0.9 k/uL (1.0-4.8); Lymphocytes % (A) 17 %; MCH 29.4 pg (25.0-35.0); MCHC 32.9 g/dL (31.0-37.0); MCV 89.3 fL (80.0-100.0); Mean Platelet Volume 7.3; Monocytes # (A) 0.2 k/uL (0-1.0); Monocytes % (A) 4 %; Neutrophils # (A) 3.9 k/uL (1.3-7.7); Neutrophils % (A) 77 %; Platelet Count 140 k/uL (150-450); RBC 2.43 m/uL (4.30-5.90); RDW 13.8 % (11.5-15.5)
[2017-02-17 04:52] LABS: Calcium 7.6 mg/dL (8.4-10.2); Magnesium 1.8 mg/dL (1.6-2.3); Phosphorus 4.7 mg/dL (2.5-4.5); Potassium 3.9 mmol/L (3.5-5.1)
[2017-02-17 07:26] LABS: Glucose,Whole Blood 137 mg/dL (75-99)
--- NOTE | 2017-02-17 08:04 | XR ---
EXAMINATION TYPE: XR chest 1V DATE OF EXAM: 02/17/2017 COMPARISON: 02/16/2017 HISTORY: Shortness of breath TECHNIQUE: Single frontal view of the chest is obtained. FINDINGS: There is persistent subsegmental changes at the left lung base. Right lung clear. Arthropa thy shoulders. No pneumothorax or overt failure.. Metallic density overlying the left apex stable. Ch ronic foreign body. IMPRESSION: 1. Left basilar atelectasis or infiltrate stable.
[2017-02-17] MEDS: INSULIN ASPART 100 UNIT/ML 1 ML 10 ML VIAL SQ SCH ×4 (08:07→21:00)
[2017-02-17] MEDS: PANTOPRAZOLE 40 MG/10 ML VIAL IV SCH ×2 (08:07→21:00)
[2017-02-17] MEDS: METOPROLOL TARTRATE 25 MG TAB PO SCH ×2 (08:12→21:00)
[2017-02-17] MEDS: FUROSEMIDE 20 MG TAB PO SCH ×2 (08:12→16:05)
[2017-02-17] MEDS: SODIUM BICARBONATE TAB 650 MG TAB PO SCH (08:13)
[2017-02-17] MEDS: amLODIPine 5 MG TAB PO SCH (08:13)
[2017-02-17] MEDS: predniSONE 20 MG TAB PO SCH ×2 (08:14→12:46)
--- NOTE | 2017-02-17 09:55 | P.PN ---
Subjective Progress Note Date: 02/17/17 Principal diagnosis: GI bleed 3 episodes of painless rectal bleeding yesterday none through the night. Hemoglobin earlier this morning 7.1. Platelet 140. BUN 49. Creatinine improving 2.2. Objective - Vital Signs Vital signs: Vital Signs Temp 98.3 F 02/17/17 08:00 Pulse 68 02/17/17 09:00 Resp 14 02/17/17 09:00 BP 147/80 02/17/17 09:00 Pulse Ox 100 02/17/17 08:00 Intake & Output 02/16/17 02/17/17 02/17/17 18:59 06:59 18:59 Intake Total 1250 120 20 Output Total 1700 1725 Balance -450 -1605 20 Weight 75.6 kg 75.5 kg 75.5 kg Intake: IV 1250 120 20 0.9 KVO 110 20 Sodium Chloride 0.9% 1, 1250 10 000 ml @ 125 mls/hr IV . Q8H [facility] Rx#:[id number] Output: Urine 1700 1725 Other: Voiding Method Urinal Urinal # Bowel Movements 2 1 - Exam General appearance: The patient is alert, oriented, in no acute distress. HET: Head is normocephalic and atraumatic. Pupils are equal and reactive. Oropharynx is clear without lesions. Neck: Supple without lymphadenopathy. Trachea midline. Heart: S1 S2. Regular rate and rhythm. Lungs: No crackles or wheezes are heard. Abdomen: Soft, nontender, nondistended with bowel sounds. No peritoneal signs. No palpable organomegaly or masses. Extremities: Normal skin color and turgor. No cyanosis, rash, ulceration, clubbing, or edema. Radial and pedal pulses are 2/4 bilaterally. Neurological: No focal deficits. Strength and sensation are grossly intact. - Labs CBC & Chem 7: 02/17/17 03:47 02/17/17 03:47 Labs: Abnormal Lab Results - Last 24 Hours (Table) 02/16/17 02/16/17 02/16/17 Range/Units 10:46 11:08 17:41 RBC 2.78 L (4.30-5.90) m/uL Hgb 8.3 L (13.0-17.5) gm/dL Hct 25.1 L (39.0-53.0) % Plt Count 148 L (150-450) k/uL Lymphocytes # (1.0-4.8) k/uL BUN (9-20) mg/dL Creatinine (0.66-1.25) mg/dL Glucose (74-99) mg/dL POC Glucose (mg/dL) 126 H 183 H (75-99) mg/dL Calcium (8.4-10.2) mg/dL Phosphorus (2.5-4.5) mg/dL Urine Glucose (UA) (Negative) Urine Blood (Negative) Urine RBC (0-5) /hpf Urine Bacteria (None) /hpf Urine Mucus (None) /hpf 02/16/17 02/16/17 02/16/17 Range/Units 18:40 18:45 21:12 RBC 2.83 L (4.30-5.90) m/uL Hgb 8.4 L (13.0-17.5) gm/dL Hct 25.5 L (39.0-53.0) % Plt Count (150-450) k/uL Lymphocytes # (1.0-4.8) k/uL BUN (9-20) mg/dL Creatinine (0.66-1.25) mg/dL Glucose (74-99) mg/dL POC Glucose (mg/dL) 198 H (75-99) mg/dL Calcium (8.4-10.2) mg/dL Phosphorus (2.5-4.5) mg/dL Urine Glucose (UA) 1+ H (Negative) Urine Blood Moderate H (Negative) Urine RBC 14 H (0-5) /hpf Urine Bacteria Rare H (None) /hpf Urine Mucus Rare H (None) /hpf 02/17/17 02/17/17 02/17/17 Range/Units 00:08 03:47 03:47 RBC 2.51 L 2.43 L (4.30-5.90) m/uL Hgb 7.3 L 7.1 L (13.0-17.5) gm/dL Hct 22.5 L 21.7 L (39.0-53.0) % Plt Count 132 L 140 L (150-450) k/uL Lymphocytes # 0.8 L 0.9 L (1.0-4.8) k/uL BUN 49 H (9-20) mg/dL Creatinine 2.20 H (0.66-1.25) mg/dL Glucose 109 H (74-99) mg/dL POC Glucose (mg/dL) (75-99) mg/dL Calcium 7.6 L (8.4-10.2) mg/dL Phosphorus 4.7 H (2.5-4.5) mg/dL Urine Glucose (UA) (Negative) Urine Blood (Negative) Urine RBC (0-5) /hpf Urine Bacteria (None) /hpf Urine Mucus (None) /hpf 02/17/17 Range/Units 07:23 RBC (4.30-5.90) m/uL Hgb (13.0-17.5) gm/dL Hct (39.0-53.0) % Plt Count (150-450) k/uL Lymphocytes # (1.0-4.8) k/uL BUN (9-20) mg/dL Creatinine (0.66-1.25) mg/dL Glucose (74-99) mg/dL POC Glucose (mg/dL) 137 H (75-99) mg/dL Calcium (8.4-10.2) mg/dL Phosphorus (2.5-4.5) mg/dL Urine Glucose (UA) (Negative) Urine Blood (Negative) Urine RBC (0-5) /hpf Urine Bacteria (None) /hpf Urine Mucus (None) /hpf Assessment and Plan (1) GI bleed Narrative/Plan: painless rectal bleeding bright red possible colitis possible vasculitis possible diverticular. Last colonoscopy screening 5 years ago. No history of EGD. 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 Presently maintained on Rituxan and prednisone with improved renal function. Current Visit: Yes Status: Acute Code(s): I77.6 - ARTERITIS, UNSPECIFIED SNOMED Code(s): 318468483 (3) Acute blood loss anemia Current Visit: Yes Status: Acute Code(s): D62 - ACUTE POSTHEMORRHAGIC ANEMIA SNOMED Code(s): 372814398 Plan: 1. EGD colonoscopy tomorrow. 2. Clear liquid diet. CBC monitoring. GI prophylaxis. The children[place] court magistrate has discussed the risks, benefits and alternative therapies for the above-mentioned procedure and for both sedation/analgesia as well as necessary blood product administration, if indicated, as they pertain to this patient. The patient has indicated understanding and acceptance of the risks and procedures discussed. Assessment and plan of care discussed with Dr. Fine
--- NOTE | 2017-02-17 09:57 | P.PN ---
Subjective Progress Note Date: 02/17/17 Principal diagnosis: KYLE This is a pleasant 61-year-old gentleman with a past medical history significant for rheumatoid arthritis and vasculitis who was admitted to the hospital recently with pleurisy. At that point the patient was found to be in acute renal failure and he underwent a kidney biopsy which confirmed the diagnosis of vasculitis. The patient was discharged home on prednisone by mouth. Also during that admission the patient had one episode of atrial fibrillation and he was converted to normal sinus mechanism and was discharged home in stable medical condition. He presented to the hospital this time with rectal bleeding. He was in his usual state of health until yesterday morning when he had multiple episodes of painless rectal bleeding. No chest pain or discomfort and no shortness of breath. His hemoglobin dropped to around 5 and the patient received 2 units of packed RBC and the hemoglobin currently above 7. The patient was not on any anticoagulation when he left the hospital last time but he was on prednisone by mouth. Currently the patient is in process to be seen by the GI service. He is hemodynamically stable. He has been maintaining normal sinus mechanism and normal blood pressure. He is on metoprolol at 50 mg daily and I'm going to change that to 25 mg by mouth twice a day. I'll follow-up with the patient today, he seems to be doing good. He denies having any chest pain or discomfort or difficulty breathing. He continues to maintain normal sinus mechanism. The hemoglobin is 7.1 this morning. Objective - Vital Signs Vital signs: Vital Signs Temp 98.3 F 02/17/17 08:00 Pulse 68 02/17/17 09:00 Resp 14 02/17/17 09:00 BP 147/80 02/17/17 09:00 Pulse Ox 100 02/17/17 08:00 Intake & Output 02/16/17 02/17/17 02/17/17 18:59 06:59 18:59 Intake Total 1250 120 20 Output Total 1700 1725 Balance -450 -1605 20 Weight 75.6 kg 75.5 kg 75.5 kg Intake: IV 1250 120 20 0.9 KVO 110 20 Sodium Chloride 0.9% 1, 1250 10 000 ml @ 125 mls/hr IV . Q8H [facility] Rx#:[id number] Output: Urine 1700 1725 Other: Voiding Method Urinal Urinal # Bowel Movements 2 1 - Constitutional General appearance: Present: no acute distress - Respiratory Respiratory: bilateral: CTA - Cardiovascular Rhythm: regular Heart sounds: normal: S1, S2 - Labs CBC & Chem 7: 02/17/17 03:47 02/17/17 03:47 Labs: Abnormal Lab Results - Last 24 Hours (Table) 02/16/17 02/16/17 02/16/17 Range/Units 10:46 11:08 17:41 RBC 2.78 L (4.30-5.90) m/uL Hgb 8.3 L (13.0-17.5) gm/dL Hct 25.1 L (39.0-53.0) % Plt Count 148 L (150-450) k/uL Lymphocytes # (1.0-4.8) k/uL BUN (9-20) mg/dL Creatinine (0.66-1.25) mg/dL Glucose (74-99) mg/dL POC Glucose (mg/dL) 126 H 183 H (75-99) mg/dL Calcium (8.4-10.2) mg/dL Phosphorus (2.5-4.5) mg/dL Urine Glucose (UA) (Negative) Urine Blood (Negative) Urine RBC (0-5) /hpf Urine Bacteria (None) /hpf Urine Mucus (None) /hpf 02/16/17 02/16/17 02/16/17 Range/Units 18:40 18:45 21:12 RBC 2.83 L (4.30-5.90) m/uL Hgb 8.4 L (13.0-17.5) gm/dL Hct 25.5 L (39.0-53.0) % Plt Count (150-450) k/uL Lymphocytes # (1.0-4.8) k/uL BUN (9-20) mg/dL Creatinine (0.66-1.25) mg/dL Glucose (74-99) mg/dL POC Glucose (mg/dL) 198 H (75-99) mg/dL Calcium (8.4-10.2) mg/dL Phosphorus (2.5-4.5) mg/dL Urine Glucose (UA) 1+ H (Negative) Urine Blood Moderate H (Negative) Urine RBC 14 H (0-5) /hpf Urine Bacteria Rare H (None) /hpf Urine Mucus Rare H (None) /hpf 02/17/17 02/17/17 02/17/17 Range/Units 00:08 03:47 03:47 RBC 2.51 L 2.43 L (4.30-5.90) m/uL Hgb 7.3 L 7.1 L (13.0-17.5) gm/dL Hct 22.5 L 21.7 L (39.0-53.0) % Plt Count 132 L 140 L (150-450) k/uL Lymphocytes # 0.8 L 0.9 L (1.0-4.8) k/uL BUN 49 H (9-20) mg/dL Creatinine 2.20 H (0.66-1.25) mg/dL Glucose 109 H (74-99) mg/dL POC Glucose (mg/dL) (75-99) mg/dL Calcium 7.6 L (8.4-10.2) mg/dL Phosphorus 4.7 H (2.5-4.5) mg/dL Urine Glucose (UA) (Negative) Urine Blood (Negative) Urine RBC (0-5) /hpf Urine Bacteria (None) /hpf Urine Mucus (None) /hpf 02/17/17 Range/Units 07:23 RBC (4.30-5.90) m/uL Hgb (13.0-17.5) gm/dL Hct (39.0-53.0) % Plt Count (150-450) k/uL Lymphocytes # (1.0-4.8) k/uL BUN (9-20) mg/dL Creatinine (0.66-1.25) mg/dL Glucose (74-99) mg/dL POC Glucose (mg/dL) 137 H (75-99) mg/dL Calcium (8.4-10.2) mg/dL Phosphorus (2.5-4.5) mg/dL Urine Glucose (UA) (Negative) Urine Blood (Negative) Urine RBC (0-5) /hpf Urine Bacteria (None) /hpf Urine Mucus (None) /hpf Assessment and Plan Assessment: Assessment #1 rectal bleeding #2 acute anemia secondary to the above #3 paroxysmal atrial fibrillation #4 vasculitis #5 multiple comorbid conditions Plan #1 hold any kind of anticoagulation at this point #2 continue the current dose of metoprolol #3 follow-up with the patient. Thank you for allowing us but spitting his care and we'll continue following up with the patient
[2017-02-17] MEDS ORDERED: CALCITRIOL 0.25 MCG CAP PO SCH (12:00)
[2017-02-17 12:04] LABS: Glucose,Whole Blood 179 mg/dL (75-99)
[2017-02-17 14:02] LABS: Basophils % (A) 0 %; Eosinophils % (A) 0 %; HCT 24.8 % (39.0-53.0); HGB 8.2 gm/dL (13.0-17.5); Lymphocytes # (A) 0.8 k/uL (1.0-4.8); Lymphocytes % (A) 14 %; MCH 29.5 pg (25.0-35.0); MCHC 32.9 g/dL (31.0-37.0); MCV 89.5 fL (80.0-100.0); Mean Platelet Volume 7.8; Monocytes # (A) 0.2 k/uL (0-1.0); Monocytes % (A) 3 %; Neutrophils # (A) 4.7 k/uL (1.3-7.7); Neutrophils % (A) 80 %; Platelet Count 130 k/uL (150-450); RBC 2.77 m/uL (4.30-5.90); RDW 14.8 % (11.5-15.5); WBC 5.9 k/uL (3.8-10.6)
[2017-02-17] MEDS ORDERED: PEG 3350-NA SULF,BICARB,CL/KCL 4,000 ML BOTTLE PO ONE (16:00)
--- NOTE | 2017-02-17 16:12 | P.PN ---
Subjective Progress Note Date: 02/17/17 A 59-year-old male patient with known history of rheumatoid arthritis and vasculitis and a diagnosis was colitis was rather recent as the patient presented with pleural pericarditis an acute kidney injury and further investigation which included a kidney biopsy confirmed presence of vasculitis and the patient was started on a combination of Cytoxan and prednisone. The patient was receiving right proximal and once a week and he was on a 50 mg of prednisone a daily basis. The patient presented yesterday after having bright red blood per rectum. He had 2 bouts of bloody bowel movement and none since he came into the hospital. His hemoglobin gradually dropped and earlier this morning his hemoglobin was as low as 5.8 and the patient was given 2 units of packed RBC and a total of 1 L of normal saline bolus and the fluids are running at the rate of 1 25 mL an hour. Since then he has improved and he looks better and he has no specific complaints. No nausea. No vomiting no abdominal pain. His rectal bleeding was essentially painless. This occurred at home. I'm not sure what type of vasculitis he was diagnosed with over one concern will be vasculitis involving the mesenteric arteries nontender the patient has not had any previous history of GI bleeding in the past. No chest pain. No shortness of breath. Creatinine is stable at 2.0. Is under the care of Dr. Read from nephrology. No alcoholism. Correlation profile is within normal limits. He has known to have colonic polyps based on a previous colonoscopy that was done many years back. On 02/18/2016, I'm seeing this patient in follow-up. He remains in intensive care unit. A tentative plan is to undergo a colonoscopy tomorrow. Note that over the past 24 hours the patient had small 3 episodes of painless rectal bleeding and he is mainly occurred last night. Hemoglobin earlier this morning is at 7.1. His BUN is at 49 with a creatinine of 2.2. He remains on a combination of Rituxan and prednisone. 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 He has no other complaints. No nausea. No vomiting. No abdominal pain. No abdominal distention. He'll be kept in ICU for 24 hours for telemonitoring. Objective - Vital Signs Vital signs: Vital Signs Temp 98.2 F 02/17/17 12:00 Pulse 72 02/17/17 15:00 Resp 12 02/17/17 15:00 BP 140/87 02/17/17 15:00 Pulse Ox 97 02/17/17 15:00 Intake & Output 02/16/17 02/17/17 02/17/17 18:59 06:59 18:59 Intake Total 1250 120 80 Output Total 1700 1725 1150 Balance -450 -1605 -1070 Weight 75.6 kg 75.5 kg 75.5 kg Intake: IV 1250 120 80 0.9 KVO 110 80 Sodium Chloride 0.9% 1, 1250 10 000 ml @ 125 mls/hr IV . Q8H [facility] Rx#:[id number] Output: Urine 1700 1725 1150 Other: Voiding Method Urinal Urinal # Bowel Movements 2 1 1 - Exam General appearance: The patient is alert, oriented, in no acute distress. HET: Head is normocephalic and atraumatic. Pupils are equal and reactive. Oropharynx is clear without lesions. Neck: Supple without lymphadenopathy. Trachea midline. Heart: S1 S2. Regular rate and rhythm. Lungs: No crackles or wheezes are heard. Abdomen: Soft, nontender, nondistended with bowel sounds. No peritoneal signs. No palpable organomegaly or masses. Extremities: Normal skin color and turgor. No cyanosis, rash, ulceration, clubbing, or edema. Radial and pedal pulses are 2/4 bilaterally. Neurological: No focal deficits. Strength and sensation are grossly intact. - Labs CBC & Chem 7: 02/17/17 13:25 02/17/17 03:47 Labs: Abnormal Lab Results - Last 24 Hours (Table) 02/16/17 02/16/17 02/16/17 Range/Units 17:41 18:40 18:45 RBC 2.83 L (4.30-5.90) m/uL Hgb 8.4 L (13.0-17.5) gm/dL Hct 25.5 L (39.0-53.0) % Plt Count (150-450) k/uL Lymphocytes # (1.0-4.8) k/uL BUN (9-20) mg/dL Creatinine (0.66-1.25) mg/dL Glucose (74-99) mg/dL POC Glucose (mg/dL) 183 H (75-99) mg/dL Calcium (8.4-10.2) mg/dL Phosphorus (2.5-4.5) mg/dL Urine Glucose (UA) 1+ H (Negative) Urine Blood Moderate H (Negative) Urine RBC 14 H (0-5) /hpf Urine Bacteria Rare H (None) /hpf Urine Mucus Rare H (None) /hpf 02/16/17 02/17/17 02/17/17 Range/Units 21:12 00:08 03:47 RBC 2.51 L 2.43 L (4.30-5.90) m/uL Hgb 7.3 L 7.1 L (13.0-17.5) gm/dL Hct 22.5 L 21.7 L (39.0-53.0) % Plt Count 132 L 140 L (150-450) k/uL Lymphocytes # 0.8 L 0.9 L (1.0-4.8) k/uL BUN (9-20) mg/dL Creatinine (0.66-1.25) mg/dL Glucose (74-99) mg/dL POC Glucose (mg/dL) 198 H (75-99) mg/dL Calcium (8.4-10.2) mg/dL Phosphorus (2.5-4.5) mg/dL Urine Glucose (UA) (Negative) Urine Blood (Negative) Urine RBC (0-5) /hpf Urine Bacteria (None) /hpf Urine Mucus (None) /hpf 02/17/17 02/17/17 02/17/17 Range/Units 03:47 07:23 12:03 RBC (4.30-5.90) m/uL Hgb (13.0-17.5) gm/dL Hct (39.0-53.0) % Plt Count (150-450) k/uL Lymphocytes # (1.0-4.8) k/uL BUN 49 H (9-20) mg/dL Creatinine 2.20 H (0.66-1.25) mg/dL Glucose 109 H (74-99) mg/dL POC Glucose (mg/dL) 137 H 179 H (75-99) mg/dL Calcium 7.6 L (8.4-10.2) mg/dL Phosphorus 4.7 H (2.5-4.5) mg/dL Urine Glucose (UA) (Negative) Urine Blood (Negative) Urine RBC (0-5) /hpf Urine Bacteria (None) /hpf Urine Mucus (None) /hpf 02/17/17 Range/Units 13:25 RBC 2.77 L (4.30-5.90) m/uL Hgb 8.2 L (13.0-17.5) gm/dL Hct 24.8 L (39.0-53.0) % Plt Count 130 L (150-450) k/uL Lymphocytes # 0.8 L (1.0-4.8) k/uL BUN (9-20) mg/dL Creatinine (0.66-1.25) mg/dL Glucose (74-99) mg/dL POC Glucose (mg/dL) (75-99) mg/dL Calcium (8.4-10.2) mg/dL Phosphorus (2.5-4.5) mg/dL Urine Glucose (UA) (Negative) Urine Blood (Negative) Urine RBC (0-5) /hpf Urine Bacteria (None) /hpf Urine Mucus (None) /hpf Assessment and Plan Plan: Assessment 1 acute lower GI bleeding. The patient had bright red blood per rectum and subsequent drop in hemoglobin down to 5.8 and he had received a total of 2 units of packed RBC and subsequent hemoglobin is up to 7.7. The patient is hemodynamically stable. The patient has been diagnosed having a combination of rheumatoid arthritis/vasculitis and currently is in a new suppressive agents. He has known to have previous history of chronic polyps and hemorrhoids based on a previous colonoscopy. No abdominal pain. No evidence of intra-abdominal/ mesenteric vasculitis at least on clinical grounds. On 02/18/2016 the patient is being seen in follow-up. He had 3 episodes of small bloody rectal bleeding overnight. He seemed lobe and is stable for now at 8.2 after receiving a unit of packed RBC. Monitor hemoglobin was at 7.1. The plan is to proceed with a colonoscopy first thing in the morning by gastroenterology. 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 Note that this progressive improvement in renal function with the patient's creatinine was as high as 3.7 5 immunosuppression treatment with a combination of Rituxan and prednisone 6 acute anemia secondary to GI bleeding 7 pleuro- pericarditis, recovered with systemic steroids and immunosuppressive agents DORCAS Monitor hemoglobin. Monitor bleeding. Keep the patient ICU. Proceed with colonoscopy tomorrow. We'll discuss the possibility of tapering the prednisone down to 40 mg with nephrology. Creatinine is at 2.2 and is stable for now. We' ll continue to follow.
--- NOTE | 2017-02-17 16:44 | PN ---
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 He was admitted to the hospital with GI bleed and is scheduled for endoscopy and colonoscopy tomorrow. The patient has been started on Protonix. He also states that his blood sugars were running as high as 400 as outpatient. He is currently receiving insulin per sliding scale post hospitalization. Patient also reported itching and mild redness with Bactrim when he had not received his full dose of prednisone. Therefore the Bactrim was discontinued yesterday. He has been receiving Bactrim for prophylaxis because of immunosuppression. On examination today, patient states he is feeling better. He denies any significant complaints. Blood pressure is 112/68, heart rate 82 per minute. He is afebrile. EXAMINATION OF THE HEART: S1, S2. EXAMINATION OF LUNGS: Bilateral breath sounds are heard. ABDOMEN: Soft, non-tender. Examination of lower extremities shows no evidence of edema. [employer] exam is grossly intact. Labs show sodium 137, potassium 3.9, serum creatinine 2.2, hemoglobin 8.2 g/dL. ASSESSMENT: 1. 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 The patient's states that he has had significant mood changes as well, and in view of significant high blood sugars we will taper down the steroids more rapidly, particularly in view of the kind of GN, in which case Rituxan is the most important treatment modality. We can continue without the Bactrim for now. 2. Gastrointestinal bleed, scheduled for endoscopy and colonoscopy in a.m. 3. Chronic kidney disease mineral bone disorder, maintained on Rocaltrol. 4. Hypertension, currently controlled. Blood pressure has not been significantly low. PLAN: Start Glucotrol. Continue with the sliding scale. Decrease prednisone to 40 and we can start at 30 tomorrow and wean it off within a month or so. Repeat labs in a.m. If serum creatinine is higher, I will discontinue the Lasix. MMODL / IJN: [id number] /
[2017-02-17 17:23] LABS: Glucose,Whole Blood 166 mg/dL (75-99)
[2017-02-17] MEDS: LACTATED RINGERS 1,000 ML IV SCH (21:00)
[2017-02-17 21:14] LABS: Glucose,Whole Blood 136 mg/dL (75-99)
[2017-02-18 06:08] LABS: Basophils % (A) 1 %; Eosinophils % (A) 0 %; HCT 23.6 % (39.0-53.0); HGB 7.9 gm/dL (13.0-17.5); Lymphocytes % (A) 22 %; MCH 29.8 pg (25.0-35.0); MCHC 33.6 g/dL (31.0-37.0); MCV 88.5 fL (80.0-100.0); Mean Platelet Volume 7.3; Monocytes # (A) 0.2 k/uL (0-1.0); Monocytes % (A) 5 %; Neutrophils # (A) 3.1 k/uL (1.3-7.7); Neutrophils % (A) 71 %; Platelet Count 105 k/uL (150-450); RBC 2.67 m/uL (4.30-5.90); WBC 4.4 k/uL (3.8-10.6)
[2017-02-18 06:18] LABS: Calcium 7.9 mg/dL (8.4-10.2)
[2017-02-18 06:24] LABS: Potassium 4.6 mmol/L (3.5-5.1)
[2017-02-18 06:25] LABS: Magnesium 1.8 mg/dL (1.6-2.3); Phosphorus 3.7 mg/dL (2.5-4.5)
--- NOTE | 2017-02-18 06:51 | PN ---
PROGRESS NOTE DATE OF SERVICE: 02/17/2017 This 61-year-old gentleman admitted with lower GI bleed and acute blood loss anemia had multiple transfusions. Hemoglobin apparently is 8.4 today. The patient has some bleeding. Gastroenterology is following the patient closely and endoscope is being planned today. Patient is on preparation at this time. Please also note the patient was receiving Rituxan for vasculitis after renal biopsy. The next dose is due on Wednesday morning. The patient is closely monitored in ICU. PAST MEDICAL HISTORY: Reviewed. REVIEW OF SYSTEMS: CARDIOVASCULAR: No angina or palpitations. RESPIRATORY: As mentioned earlier. GI: As mentioned earlier. : No dysuria. NERVOUS SYSTEM: No numbness or weakness. MEDICATIONS: Current medications are reviewed and include: 1. Norvasc 5 mg p.o. daily. 2. Rocaltrol 0.25 . 3. Vitamin D2, 50,000 units. 4. Lasix 20 mg b.i.d. 5. Glucotrol. 6. Lactated Ringer's. 7. Lopressor 25 mg b.i.d. 8. Narcan. 9. Zofran. 10.Protonix. 11.Prednisone 20 mg. 12.Sodium bicarb. PHYSICAL EXAM: Patient is alert and oriented x3. Pulse 73, blood pressure 143/93, respiration 13, temperature 97.3, pulse ox 98% in room air. HEENT: Conjunctivae pale. NECK: No jugular venous distention. CARDIOVASCULAR: S1, S2 muffled. RESPIRATORY: Breath sounds diminished in the bases. A few scattered rhonchi. ABDOMEN: Soft, nontender. No mass palpable. LEGS: No edema, no swelling. NERVOUS SYSTEM: Higher functions as mentioned earlier. Moves all 4 limbs. No focal deficits. LYMPHATICS: No lymphadenopathy of the neck, axillae or groin. SKIN: No ulcer, rash or bleeding. LABS: Labs are WBC 5.9, hemoglobin is 8.2. The creatinine is 2.20. Other labs are noted. ASSESSMENT: 1. Acute gastrointestinal bleed and acute blood loss anemia, status post multiple transfusions. 2. Recently diagnosed vasculitis on Rituxan, status post renal biopsy. 3. History of recent pericarditis. 4. History of rheumatoid arthritis. 5. History of chronic kidney disease stage 3. 6. Indeterminate ANCA recently. 7. History of a atrial fibrillation paroxysmal. 8. Hyponatremia. 9. Chronic kidney disease stage 3. RECOMMENDATIONS AND DISCUSSION: Recommend to continue current medication, continue symptomatic treatment. Will repeat the hemoglobin. Will await the gastroenterology report. If the endoscope did not show any acute abnormality and the patient is able to tolerate diet, the patient will be discharged tomorrow. Otherwise the patient will need further monitoring. Please note that the patient had Rituxan scheduled for Wednesday morning. We will monitor the patient's condition closely. Prognosis guarded because of multiple complex medical issues. Further recommendations to follow. See orders for details. MMODL / IJN: [id number] / MTDD
[2017-02-18 07:40] LABS: Glucose,Whole Blood 101 mg/dL (75-99)
[2017-02-18] MEDS: PANTOPRAZOLE 40 MG/10 ML VIAL IV SCH ×2 (08:32→21:33)
[2017-02-18] MEDS: amLODIPine 5 MG TAB PO SCH (08:35)
[2017-02-18] MEDS: FUROSEMIDE 20 MG TAB PO SCH ×2 (08:35→17:00)
[2017-02-18] MEDS: METOPROLOL TARTRATE 25 MG TAB PO SCH ×2 (08:35→21:33)
[2017-02-18] MEDS: glipiZIDE 5 MG TAB PO SCH (08:35)
[2017-02-18] MEDS: SODIUM BICARBONATE TAB 650 MG TAB PO SCH (08:35)
[2017-02-18] MEDS: predniSONE 20 MG TAB PO SCH ×2 (08:36→17:00)
[2017-02-18] MEDS: INSULIN ASPART 100 UNIT/ML 1 ML 10 ML VIAL SQ SCH ×4 (08:38→20:12)
--- NOTE | 2017-02-18 09:19 | XR ---
EXAMINATION TYPE: XR chest 1V DATE OF EXAM: 02/18/2017 COMPARISON: 02/17/2017 HISTORY: Shortness of breath TECHNIQUE: Single frontal view of the chest is obtained. FINDINGS: Subsegmental changes at the left lung base persist. Metallic suspect of foreign body overl koki the left bone lung. The shoulders. A pneumothorax or pleural effusion. IMPRESSION: 1. Left basilar atelectasis or infiltrate stable
--- NOTE | 2017-02-18 11:01 | P.PN ---
Subjective Progress Note Date: 02/18/17 Principal diagnosis: KYLE This is a pleasant 61-year-old gentleman with a past medical history significant for rheumatoid arthritis and vasculitis who was admitted to the hospital recently with pleurisy. At that point the patient was found to be in acute renal failure and he underwent a kidney biopsy which confirmed the diagnosis of vasculitis. The patient was discharged home on prednisone by mouth. Also during that admission the patient had one episode of atrial fibrillation and he was converted to normal sinus mechanism and was discharged home in stable medical condition. He presented to the hospital this time with rectal bleeding. He was in his usual state of health until yesterday morning when he had multiple episodes of painless rectal bleeding. No chest pain or discomfort and no shortness of breath. His hemoglobin dropped to around 5 and the patient received 2 units of packed RBC and the hemoglobin currently above 7. The patient was not on any anticoagulation when he left the hospital last time but he was on prednisone by mouth. Currently the patient is in process to be seen by the GI service. He is hemodynamically stable. He has been maintaining normal sinus mechanism and normal blood pressure. He is on metoprolol at 50 mg daily and I'm going to change that to 25 mg by mouth twice a day. I'll follow-up with the patient today on February 182017, he seems to be doing good. He denies having any chest pain or discomfort or difficulty breathing. He continues to maintain normal sinus mechanism. He did not have any more episodes of GI bleeding last night. Hemodynamically he continues to be stable. He is going to undergo upper and lower endoscopy later on today. We 'll follow-up on that. Objective - Vital Signs Vital signs: Vital Signs Temp 98.1 F 02/18/17 08:00 Pulse 70 02/18/17 10:00 Resp 11 L 02/18/17 10:00 BP 138/79 02/18/17 10:00 Pulse Ox 99 02/18/17 10:00 Intake & Output 02/17/17 02/18/17 02/18/17 18:59 06:59 18:59 Intake Total 110 1010 310 Output Total 1650 1 Balance -1540 1009 310 Weight 75.5 kg 75 kg Intake: IV 110 210 60 0.9 KVO 110 10 Lactated Ringers 1,000 ml 200 60 @ 20 mls/hr IV .Q24H [facility] Rx#:[id number] Tube Feeding 800 250 Output: Urine 1650 Stool 1 Other: Voiding Method Urinal Urinal Urinal # Voids 0 1 # Bowel Movements 1 0 - Constitutional General appearance: Present: no acute distress - Respiratory Respiratory: bilateral: CTA - Cardiovascular Rhythm: regular Heart sounds: normal: S1, S2 - Labs CBC & Chem 7: 02/18/17 05:04 02/18/17 05:04 Labs: Abnormal Lab Results - Last 24 Hours (Table) 02/17/17 02/17/17 02/17/17 Range/Units 12:03 13:25 17:21 RBC 2.77 L (4.30-5.90) m/uL Hgb 8.2 L (13.0-17.5) gm/dL Hct 24.8 L (39.0-53.0) % Plt Count 130 L (150-450) k/uL Lymphocytes # 0.8 L (1.0-4.8) k/uL BUN (9-20) mg/dL Creatinine (0.66-1.25) mg/dL Glucose (74-99) mg/dL POC Glucose (mg/dL) 179 H 166 H (75-99) mg/dL Calcium (8.4-10.2) mg/dL 02/17/17 02/18/17 02/18/17 Range/Units 21:12 05:04 05:04 RBC 2.67 L (4.30-5.90) m/uL Hgb 7.9 L (13.0-17.5) gm/dL Hct 23.6 L (39.0-53.0) % Plt Count 105 L (150-450) k/uL Lymphocytes # (1.0-4.8) k/uL BUN 46 H (9-20) mg/dL Creatinine 2.00 H (0.66-1.25) mg/dL Glucose 101 H (74-99) mg/dL POC Glucose (mg/dL) 136 H (75-99) mg/dL Calcium 7.9 L (8.4-10.2) mg/dL 02/18/17 Range/Units 07:37 RBC (4.30-5.90) m/uL Hgb (13.0-17.5) gm/dL Hct (39.0-53.0) % Plt Count (150-450) k/uL Lymphocytes # (1.0-4.8) k/uL BUN (9-20) mg/dL Creatinine (0.66-1.25) mg/dL Glucose (74-99) mg/dL POC Glucose (mg/dL) 101 H (75-99) mg/dL Calcium (8.4-10.2) mg/dL Assessment and Plan Assessment: Assessment #1 rectal bleeding #2 acute anemia secondary to the above #3 paroxysmal atrial fibrillation #4 vasculitis #5 multiple comorbid conditions Plan #1 continue holding any kind of anticoagulation at this point #2 continue the current dose of metoprolol #3 follow-up with the patient. Thank you for allowing us but spitting his care and we'll continue following up with the patient
[2017-02-18 12:21] LABS: Glucose,Whole Blood 77 mg/dL (75-99)
[2017-02-18] MEDS ORDERED: DEXTROSE 50%-WATER 50 ML SYRINGE IVP STA (12:48)
--- NOTE | 2017-02-18 12:56 | P.PN ---
Subjective Patient is seen in follow-up for acute kidney injury. Patient was diagnosed with pauci immune glomerulonephritis in December 2016. Creatinine at that time was 3.3 and is now down to 2.0. He is currently maintained on prednisone 40 mg daily and has also received 2 doses of rituximab. He presented with GI bleed and did receive potassium. Hemoglobin is stable. He scheduled for endoscopy today. He is nonoliguric. No active bleeding. Hemodynamically stable. Bactrim also had to be stopped due to ALLERGIC reaction. Vital signs are stable. General: The patient appeared well nourished and normally developed. HEENT: Head exam is unremarkable. Neck is without jugular venous distension. LUNGS: Lungs are clear to auscultation and percussion. Breath sounds decreased. HEART: Rate and Rhythm are regular. First and second heart sounds normal. No murmurs, rubs or gallops. ABDOMEN: Abdominal exam reveals normal bowel sounds. Non-tender and non- distended. No evidence of peritonitis. EXTREMITITES: No clubbing, cyanosis, or edema. Objective - Vital Signs Vital signs: Vital Signs Temp 98.1 F 02/18/17 12:00 Pulse 68 02/18/17 12:00 Resp 12 02/18/17 12:00 BP 122/74 02/18/17 12:00 Pulse Ox 100 02/18/17 12:00 Intake & Output 02/17/17 02/18/17 02/18/17 18:59 06:59 18:59 Intake Total 110 1010 350 Output Total 1650 1 Balance -1540 1009 350 Weight 75.5 kg 75 kg Intake: IV 110 210 100 0.9 KVO 110 10 Lactated Ringers 1,000 ml 200 100 @ 20 mls/hr IV .Q24H [facility] Rx#:[id number] Tube Feeding 800 250 Output: Urine 1650 Stool 1 Other: Voiding Method Urinal Urinal Urinal # Voids 0 1 # Bowel Movements 1 0 - Labs CBC & Chem 7: 02/18/17 05:04 02/18/17 05:04 Labs: Abnormal Lab Results - Last 24 Hours (Table) 02/17/17 02/17/17 02/17/17 Range/Units 13:25 17:21 21:12 RBC 2.77 L (4.30-5.90) m/uL Hgb 8.2 L (13.0-17.5) gm/dL Hct 24.8 L (39.0-53.0) % Plt Count 130 L (150-450) k/uL Lymphocytes # 0.8 L (1.0-4.8) k/uL BUN (9-20) mg/dL Creatinine (0.66-1.25) mg/dL Glucose (74-99) mg/dL POC Glucose (mg/dL) 166 H 136 H (75-99) mg/dL Calcium (8.4-10.2) mg/dL 02/18/17 02/18/17 02/18/17 Range/Units 05:04 05:04 07:37 RBC 2.67 L (4.30-5.90) m/uL Hgb 7.9 L (13.0-17.5) gm/dL Hct 23.6 L (39.0-53.0) % Plt Count 105 L (150-450) k/uL Lymphocytes # (1.0-4.8) k/uL BUN 46 H (9-20) mg/dL Creatinine 2.00 H (0.66-1.25) mg/dL Glucose 101 H (74-99) mg/dL POC Glucose (mg/dL) 101 H (75-99) mg/dL Calcium 7.9 L (8.4-10.2) mg/dL Assessment and Plan Plan: Assessment: #1. Nonoliguric acute kidney injury secondary to possibly immune glomerulonephritis diagnosed in December 2016. Patient has received 2 doses of rituximab and is scheduled to receive the third dose tomorrow but wants to postpone. He is also on prednisone, which was decreased to 40 mg on 02/17/2017. #2. Acute lower GI bleed status post blood transition. Scheduled for endoscopy today. #3. Chronic kidney disease mineral bone disease maintained on Rocaltrol. #4. Benign hypertension. Partially related to steroids. Controlled. #5. Hyperglycemia due to steroids. Maintained on Glucotrol. Hold. Plan: Continue prednisone 40 mg for now. Dose will be decreased to 30 mg in the next 1 week and then to 20 mg before end of the month. Bactrim is currently held due to possible ALLERGIC reaction. Continue with protonix. Patient wants to take third dose of rituximab next week instead of tomorrow.
--- NOTE | 2017-02-18 13:05 | P.PN ---
<Jeanna Ortiz M - Last Filed: 02/18/17 12:59> Subjective Progress Note Date: 02/18/17 Principal diagnosis: Acute lower GI bleeding A 59-year-old male patient with known history of rheumatoid arthritis and vasculitis and a diagnosis was colitis was rather recent as the patient presented with pleural pericarditis an acute kidney injury and further investigation which included a kidney biopsy confirmed presence of vasculitis and the patient was started on a combination of Cytoxan and prednisone. The patient was receiving right proximal and once a week and he was on a 50 mg of prednisone a daily basis. The patient presented yesterday after having bright red blood per rectum. He had 2 bouts of bloody bowel movement and none since he came into the hospital. His hemoglobin gradually dropped and earlier this morning his hemoglobin was as low as 5.8 and the patient was given 2 units of packed RBC and a total of 1 L of normal saline bolus and the fluids are running at the rate of 1 25 mL an hour. Since then he has improved and he looks better and he has no specific complaints. No nausea. No vomiting no abdominal pain. His rectal bleeding was essentially painless. This occurred at home. I'm not sure what type of vasculitis he was diagnosed with over one concern will be vasculitis involving the mesenteric arteries nontender the patient has not had any previous history of GI bleeding in the past. No chest pain. No shortness of breath. Creatinine is stable at 2.0. Is under the care of Dr. Read from nephrology. No alcoholism. Correlation profile is within normal limits. He has known to have colonic polyps based on a previous colonoscopy that was done many years back. On 02/18/2016, I'm seeing this patient in follow-up. He remains in intensive care unit. A tentative plan is to undergo a colonoscopy tomorrow. Note that over the past 24 hours the patient had small 3 episodes of painless rectal bleeding and he is mainly occurred last night. Hemoglobin earlier this morning is at 7.1. His BUN is at 49 with a creatinine of 2.2. He remains on a combination of Rituxan and prednisone. 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 He has no other complaints. No nausea. No vomiting. No abdominal pain. No abdominal distention. He'll be kept in ICU for 24 hours for telemonitoring. On 02/18/2017 patient remains in the intensive care, hemodynamically stable, has been prepped for EGD and colonoscopy, for which she is scheduled today on at 2 PM. Has not had any further episodes of rectal bleeding. Hemoglobin today is 7.9. He remains on room air with O2 sat 100%. Denies any dyspnea, denies any acute discomfort. Lung sounds are clear to auscultation, no rhonchi, no wheezes. Afebrile. Chest x-ray from 08/08/2017 has been reviewed and shows left basilar atelectasis. His renal profile continues to improve, his BUN is 46, and creatinine is 2, which is slightly improved from yesterday. No acute events overnight, no complaints. Objective - Vital Signs Vital signs: Vital Signs Temp 98.1 F 02/18/17 12:00 Pulse 68 02/18/17 12:00 Resp 12 02/18/17 12:00 BP 122/74 02/18/17 12:00 Pulse Ox 100 02/18/17 12:00 Intake & Output 02/17/17 02/18/17 02/18/17 18:59 06:59 18:59 Intake Total 110 1010 350 Output Total 1650 1 Balance -1540 1009 350 Weight 75.5 kg 75 kg Intake: IV 110 210 100 0.9 KVO 110 10 Lactated Ringers 1,000 ml 200 100 @ 20 mls/hr IV .Q24H [facility] Rx#:[id number] Tube Feeding 800 250 Output: Urine 1650 Stool 1 Other: Voiding Method Urinal Urinal Urinal # Voids 0 1 # Bowel Movements 1 0 - Exam General appearance: The patient is alert, oriented, in no acute distress. HET: Head is normocephalic and atraumatic. Pupils are equal and reactive. Oropharynx is clear without lesions. Neck: Supple without lymphadenopathy. Trachea midline. Heart: S1 S2. Regular rate and rhythm. Lungs: No crackles or wheezes are heard. Abdomen: Soft, nontender, nondistended with bowel sounds. No peritoneal signs. No palpable organomegaly or masses. Extremities: Normal skin color and turgor. No cyanosis, rash, ulceration, clubbing, or edema. Radial and pedal pulses are 2/4 bilaterally. Neurological: No focal deficits. Strength and sensation are grossly intact. - Labs CBC & Chem 7: 02/18/17 05:04 02/18/17 05:04 Labs: Abnormal Lab Results - Last 24 Hours (Table) 02/17/17 02/17/17 02/17/17 Range/Units 13:25 17:21 21:12 RBC 2.77 L (4.30-5.90) m/uL Hgb 8.2 L (13.0-17.5) gm/dL Hct 24.8 L (39.0-53.0) % Plt Count 130 L (150-450) k/uL Lymphocytes # 0.8 L (1.0-4.8) k/uL BUN (9-20) mg/dL Creatinine (0.66-1.25) mg/dL Glucose (74-99) mg/dL POC Glucose (mg/dL) 166 H 136 H (75-99) mg/dL Calcium (8.4-10.2) mg/dL 02/18/17 02/18/17 02/18/17 Range/Units 05:04 05:04 07:37 RBC 2.67 L (4.30-5.90) m/uL Hgb 7.9 L (13.0-17.5) gm/dL Hct 23.6 L (39.0-53.0) % Plt Count 105 L (150-450) k/uL Lymphocytes # (1.0-4.8) k/uL BUN 46 H (9-20) mg/dL Creatinine 2.00 H (0.66-1.25) mg/dL Glucose 101 H (74-99) mg/dL POC Glucose (mg/dL) 101 H (75-99) mg/dL Calcium 7.9 L (8.4-10.2) mg/dL Assessment and Plan Plan: Assessment 1 acute lower GI bleeding. The patient had bright red blood per rectum and subsequent drop in hemoglobin down to 5.8 and he had received a total of 2 units of packed RBC and today hemoglobin is up to 7.9. The patient is hemodynamically stable. The patient has been diagnosed having a combination of rheumatoid arthritis/vasculitis and currently is in a new suppressive agents. He has known to have previous history of chronic polyps and hemorrhoids based on a previous colonoscopy. No abdominal pain. No evidence of intra-abdominal/ mesenteric vasculitis at least on clinical grounds. On 02/18/2016 the patient is being seen in follow-up. He had 3 episodes of small bloody rectal bleeding overnight. He seemed lobe and is stable for now at 8.2 after receiving a unit of packed RBC. Monitor hemoglobin was at 7.1. The plan is to proceed with a colonoscopy first thing in the morning by gastroenterology. On 02/18/2017 patient is awaiting EGD and colonoscopy, no further episodes of bleeding per rectum. Remains hemodynamically stable. Hemoglobin today 7.9. 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 Note that this progressive improvement in renal function with the patient's creatinine was as high as 3.7 5 immunosuppression treatment with a combination of Rituxan and prednisone 6 acute anemia secondary to GI bleeding 7 pleuro- pericarditis, recovered with systemic steroids and immunosuppressive agents PLAN Proceed with EGD and colonoscopy, continue monitoring for reading per rectum. Continue monitoring vitals. Patient remains stable, renal profile continues to improve. Denies any dyspnea, is on room air, afebrile. No specific complaints at this time. I performed a history & physical examination of the patient and discussed their management with my nurse practitioner, Jeanna Ortiz. I reviewed the nurse practitioner's note and agree with the documented findings and plan of care. Lung sounds are clear. The findings and the impression was discussed with the patient. I attest to the documentation by the nurse practitioner. Time with Patient: Greater than 30 <Hong Madden - Last Filed: 02/18/17 16:20> Objective - Vital Signs Vital signs: Vital Signs Temp 98.1 F 02/18/17 12:00 Pulse 94 02/18/17 15:00 Resp 15 02/18/17 15:00 BP 115/75 02/18/17 15:00 Pulse Ox 100 02/18/17 15:00 Intake & Output 02/17/17 02/18/17 02/18/17 18:59 06:59 18:59 Intake Total 110 1010 780 Output Total 1650 1 Balance -1540 1009 780 Weight 75.5 kg 75 kg 75 kg Intake: IV 110 210 530 0.9 KVO 110 10 Lactated Ringers 1,000 ml 200 180 @ 20 mls/hr IV .Q24H [facility] Rx#:[id number] Tube Feeding 800 250 Output: Urine 1650 Stool 1 Other: Voiding Method Urinal Urinal Urinal # Voids 0 1 # Bowel Movements 1 0 - Labs CBC & Chem 7: 02/18/17 05:04 02/18/17 05:04 Labs: Abnormal Lab Results - Last 24 Hours (Table) 02/17/17 02/17/17 02/18/17 Range/Units 17:21 21:12 05:04 RBC 2.67 L (4.30-5.90) m/uL Hgb 7.9 L (13.0-17.5) gm/dL Hct 23.6 L (39.0-53.0) % Plt Count 105 L (150-450) k/uL BUN (9-20) mg/dL Creatinine (0.66-1.25) mg/dL Glucose (74-99) mg/dL POC Glucose (mg/dL) 166 H 136 H (75-99) mg/dL Calcium (8.4-10.2) mg/dL 02/18/17 02/18/17 02/18/17 Range/Units 05:04 07:37 13:04 RBC (4.30-5.90) m/uL Hgb (13.0-17.5) gm/dL Hct (39.0-53.0) % Plt Count (150-450) k/uL BUN 46 H (9-20) mg/dL Creatinine 2.00 H (0.66-1.25) mg/dL Glucose 101 H (74-99) mg/dL POC Glucose (mg/dL) 101 H 172 H (75-99) mg/dL Calcium 7.9 L (8.4-10.2) mg/dL Assessment and Plan Plan: This is a joint evaluation that was done along with a nurse practitioner. I tested above-mentioned formation. I was able to review the results of the endoscopy. The patient underwent EGD and colonoscopy. He was found to have slight sliding hernia/hiatal hernia and there was no other abnormalities in the upper GI system. There was no evidence of any ulceration in the stomach or the duodenum. Colonoscopy was within normal limits. The patient out of the intensive care unit. Continue immunosuppression treatment.
[2017-02-18 13:06] LABS: Glucose,Whole Blood 172 mg/dL (75-99)
[2017-02-18] MEDS ORDERED: PROPOFOL 10 MG/ML 20 ML VIAL IV ONE (13:19)
[2017-02-18] MEDS ORDERED: LIDOCAINE 1% INJ 10MG/ML (20 ML MDV) ONE (13:19)
[2017-02-18] MEDS ORDERED: IV FLUID CONTINUATION 1,000 ML IV ONE (13:21)
--- NOTE | 2017-02-18 14:04 | P.PCN ---
Date of Procedure: 02/18/17 Procedure(s) Performed: Procedures: 1. Esophagogastroduodenoscopy. 2. Total colonoscopy. Preoperative diagnosis: GI bleeding and profound anemia. Postoperative diagnosis: 1. Sliding hiatal hernia with no obvious esophagitis or complicated reflux disease. 2. No ulcers or active bleeding in the stomach or duodenum. 3. Colon exam including the terminal ileum within normal limits. Preparation: GoLYTELY prep. Sedation: Was provided by anesthesia. Brief clinical history: The patient is a 61-year-old male who presented to the emergency room with history of rectal bleeding. The patient reported bleeding that started the day prior to admission associated with nausea and vomiting. The patient has history of rheumatoid arthritis and vasculitis and has recent involvement of the kidney for which he was started on a course of prednisone and Rituxan. He is scheduled to receive a total of 4 doses. He has completed 2 doses already. He reports having experienced 2 & 1/2 days after each dose the onset of dark or bloody stools. His hemoglobin was 5.8 on admission. The patient has been transfused. His hemoglobin was 8.4 after transfusions and has drifted down gradually, today it is 7.9. The patient has history of polyps and he had prior colonoscopy several years ago. He denied hematemesis. He did report having some heartburn. The details are summarized in the history and physical and dictated consultations and progress notes. This evaluation to assess for a source of bleeding and profound anemia. Procedure: With the patient on his left lateral decubitus position and after informed consent and adequate sedation, I passed the Olympus-GIF 160 video upper endoscope through the cricopharyngeus down the esophagus. GE junction was around 36 cm from the incisors and there was a sliding hiatal hernia measuring around 2 cm but no obvious esophagitis or complicated reflux disease. No mucosal tears or varices. The endoscope was then passed into the stomach which was insufflated with air and inspected in detail including the retroflex view in the cardia. Finally the endoscope was passed through the pylorus into the duodenum. The stomach, pyloric channel, duodenal bulb, post bulbar area and descending duodenum appeared normal with no evidence of bleeding. The endoscope was withdrawn and I proceeded to do colonoscopy. Perianal area did not show any fissures or fistulas. There were no masses felt on digital rectal examination. The Olympus CFQ 160L video colonoscope was then inserted in the rectum in the usual fashion and advanced to the cecum. I intubated the ileocecal valve and examined the terminal ileum. Terminal ileum and colon appeared healthy with no edema, erythema, friability, ulceration, exudation or spontaneous bleeding. No polyps or tumors were seen or any obvious diverticular disease or any evidence of bleeding. I retroflexed the endoscope in the rectum before the endoscope was withdrawn. Low-grade internal hemorrhoids were noted but there was no evidence of bleeding. The patient tolerated the procedure well. Plan: The patient was reassured and I discussed with his . Because of the profound anemia and the paucity of findings today, we will proceed with a capsule endoscopy today to rule out small bowel pathology. Further plans will be made accordingly.
[2017-02-18] MEDS ORDERED: SIMETHICONE 40 MG/0.6 ML DROPS 2,000 MG/30 ML BOTTLE PO ONE (14:55)
[2017-02-18 16:43] VITALS: BMI 24.4
[2017-02-18 17:01] LABS: Glucose,Whole Blood 82 mg/dL (75-99)
[2017-02-18 19:59] LABS: Glucose,Whole Blood 93 mg/dL (75-99)
--- NOTE | 2017-02-18 21:24 | PN ---
PROGRESS NOTE DATE OF SERVICE: 02/18/17 This 61-year-old gentleman admitted with lower gastrointestinal bleed is being closely monitored at this time. Hemoglobin is gone down to 7.9 today. The patient is closely monitored. Accu-Cheks are being monitored. Creatinine is 2. The patient tomorrow which has been rescheduled at this time. The patient also underwent endoscopes by Dr. Fine. The EGD showed a sliding hiatal hernia with no obvious esophagitis or complicated Crohn disease. No ulcers or active bleeding terminal ileum was within normal limits. Capsule endoscopy is being planned at this time. There is no history of fever, rigors or chills. PAST MEDICAL HISTORY: Reviewed. REVIEW OF SYSTEMS: Cardiovascular: No angina or palpitations. RESPIRATORY: As mentioned earlier. GI: As mentioned earlier. : No dysuria. NERVOUS SYSTEM: No numbness weakness. CURRENT MEDICATIONS: Reviewed and include: 1. Norvasc 5 mg p.o. daily. 2. Rocaltrol 0.25 mg p.o. daily. 3. Vitamin D2 50,000 units. 4. Lasix 20 mg p.o. b.i.d. 5. Glucotrol 5 mg a.c. at breakfast. 6. NovoLog scale. 7. Lactated Ringers q 24 hours. 8. Lopressor 25 mg p.o. b.i.d. 9. Narcan 0.2 q.2h p.r.n. 10.Zofran 4 mg IV q.8h. 11.Protonix 40 mg IV b.i.d. 12.Prednisone 20 mg b.i.d. 13.Sodium bicarb 650 mg p.o. daily. PHYSICAL EXAM: Patient is alert, oriented x2. Pulse is 69, blood pressure is 141/81, respiration 18, temperature 97.4. Pulse ox 100% on room air. HEENT: Conjunctivae pale. Oral mucosa moist. Neck is no jugular venous distention. No carotid bruit. No lymph node enlargement. Cardiovascular system: S1, S2 muffled. No S3, no S4. RESPIRATORY : Breath sounds diminished in the bases. No rhonchi and no crackles. ABDOMEN: Soft, nontender. No mass palpable. Legs no edema. Central nervous system: Higher functions as mentioned earlier. Moves all 4 limbs. No focal motor or sensory deficits. Lymphatics: No lymph nodes palpable in the neck, axillae or groin. Skin: No ulcer, rash, bleeding. LABS: At this time shows WBC 4.2, hemoglobin 7.9, creatinine 2, glucose 101. 77, 172. ASSESSMENT: 1. Acute gastrointestinal bleed and acute blood loss anemia, status post multiple transfusions. 2. History of recently diagnosed vasculitis on Rituxan, status post renal biopsy. 3. EGD and colonoscopy not showing acute lesions. 4. History of recent. 5. Rheumatoid arthritis. 6. History of chronic kidney disease stage 3. 7. History of ANCA indeterminate recently. 8. History of atrial fibrillation, paroxysmal. 9. Hyponatremia. 10.Chronic kidney disease stage 3. RECOMMENDATIONS AND DISCUSSION: Recommend to continue current management and symptomatic treatment. Otherwise avoid antiplatelet agents, anticoagulants. Otherwise I would recommend continued continue to monitor, await capsule enteroscopy. Repeat labs, CBC, BMP. Guarded prognosis because of multiple complex medical issues. Further recommendations to follow. MMODL / IJN: [id number] / DIYA
[2017-02-18] MEDS: LACTATED RINGERS 1,000 ML IV SCH (21:38)
[2017-02-19 07:04] LABS: Glucose,Whole Blood 114 mg/dL (75-99)
[2017-02-19 07:42] LABS: Basophils % (A) 0 %; Eosinophils % (A) 0 %; HCT 24.5 % (39.0-53.0); HGB 7.9 gm/dL (13.0-17.5); Lymphocytes # (A) 1.1 k/uL (1.0-4.8); Lymphocytes % (A) 25 %; MCH 29.8 pg (25.0-35.0); MCHC 32.3 g/dL (31.0-37.0); MCV 92.4 fL (80.0-100.0); Mean Platelet Volume 7.6; Monocytes # (A) 0.2 k/uL (0-1.0); Monocytes % (A) 5 %; Neutrophils # (A) 2.9 k/uL (1.3-7.7); Neutrophils % (A) 67 %; Platelet Count 141 k/uL (150-450); RBC 2.65 m/uL (4.30-5.90); RDW 14.9 % (11.5-15.5); WBC 4.3 k/uL (3.8-10.6)
[2017-02-19 07:43] LABS: Magnesium 1.6 mg/dL (1.6-2.3); Phosphorus 3.6 mg/dL (2.5-4.5); Potassium 3.8 mmol/L (3.5-5.1)
[2017-02-19 08:00] VITALS: BP 133/85; RESP 20; TEMP 98.5
--- NOTE | 2017-02-19 08:19 | XR ---
EXAMINATION TYPE: XR chest 1V DATE OF EXAM: 02/19/2017 COMPARISON: 02/18/2017 HISTORY: Shortness of breath TECHNIQUE: Single frontal view of the chest is obtained. FINDINGS: Subsegmental changes at the left lung base persist. Metallic suspect of foreign body overl koki the left bone lung. The shoulders. A pneumothorax or pleural effusion. IMPRESSION: 1. Near complete resolution of left basilar atelectasis
[2017-02-19] MEDS: glipiZIDE 5 MG TAB PO SCH (08:31)
[2017-02-19] MEDS: amLODIPine 5 MG TAB PO SCH (08:31)
[2017-02-19] MEDS: predniSONE 20 MG TAB PO SCH (08:31)
[2017-02-19] MEDS: FUROSEMIDE 20 MG TAB PO SCH (08:31)
[2017-02-19] MEDS: SODIUM BICARBONATE TAB 650 MG TAB PO SCH (08:31)
[2017-02-19] MEDS: PANTOPRAZOLE 40 MG/10 ML VIAL IV SCH (08:32)
[2017-02-19] MEDS: METOPROLOL TARTRATE 25 MG TAB PO SCH (08:32)
[2017-02-19] MEDS: INSULIN ASPART 100 UNIT/ML 1 ML 10 ML VIAL SQ SCH (08:35)
[2017-02-19 11:04] LABS: Glucose,Whole Blood 138 mg/dL (75-99)
--- NOTE | 2017-02-19 11:08 | P.PN ---
Progress Note - Text Patient's chart reviewed. Transferred from 6 floor and seen by gee hall presented with GI bleeding and granulation is on hold. Spoke to internal medicine nurse practitioner. From a cardiac standpoint adequately she should be held until a clear-cut source of GI bleeding was determined and following that and granulation may be restarted for history of paroxysmal atrial fibrillation with an elevated MAGGI VASC score by primary team/primary care physician. No further cardiac workup or cardiac intervention at this point indicated. Patient has a history of atrial fibrillation and has been on anticoagulation and adequate aeration is indicated given his underlying risk factors. But he also has a risk of future GI bleeding and that needs to be taken to count in the decision-making process by the primary team Nurse practitioner of the internal medicine team
--- NOTE | 2017-02-19 11:24 | P.PN ---
Progress Note - Text Progress Note Date: 02/19/[address] Crowe Discharge summary progress note Final diagnoses1. Diabetes mellitus, steroid-induced
[2017-02-19 11:34] VITALS: PULSE 109
--- NOTE | 2017-02-19 20:34 | PN ---
PROGRESS NOTE Patient is seen for followup for acute kidney injury from , maintained on Rituxan and prednisone. The patient admitted to the hospital with GI bleed which is stable. His sugars have been running high as outpatient, currently they improved. I started him on glyburide. However, his blood sugars had been dropping. Therefore, this will be discontinued. Patient will be discharged home on sliding scale. EXAMINATION: Blood pressure is 133/85, heart rate 74 per minute. Patient is afebrile. Examination of the heart S1, S2. Examination of the lungs bilateral breath sounds are heard. Abdomen is soft, nontender. Examination of the lower extremities shows no edema. LAB: Show sodium 136, potassium 3.8, creatinine down to 1.8, hemoglobin 7.9. ASSESSMENT: 1. Acute kidney injury from acute glomerulonephritis, maintained on Rituxan and prednisone. Currently doing well. Creatinine continues to decrease. 2. Gastrointestinal bleed status post endoscopy, which did not show any active bleeding or ulcers. PLAN: The patient can be discharged home. I will decrease his prednisone to 30 mg. He should continue with Rituxan, which is scheduled for today. We will continue with the Protonix and for now we will do the sliding scale and reassess his hyperglycemia which is steroid induced as outpatient. MMODL / IJN: [id number] /
--- NOTE | 2017-02-20 09:23 | DS ---
DISCHARGE SUMMARY FINAL DIAGNOSES: 1. Acute gastrointestinal bleed and acute blood loss anemia, status post multiple transfusions, exact location unknown, status post EGD, colonoscopy and as well as capsule enteroscopy. 2. History of recently diagnosed vasculitis on status post renal biopsy. 3. 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 4. History of EGD colonoscopy not showing acute lesions. 5. Rheumatoid arthritis. 6. History of chronic kidney stage 3 underlying. 7. History of anca indeterminate. 8. History of atrial ablation paroxysmal. 10.Hyponatremia. 11.Chronic kidney disease stage 3. DISCHARGE DISPOSITION: Patient being discharged in stable condition with guarded prognosis. Total time taken: 35 minutes. HISTORY: This 61-year-old woman with a past medical history of multiple medical problems , was admitted with acute blood loss anemia. The patient had multiple transfusions. Hemoglobin stabilized at 7.9 at this time. EGD and colonoscopy showed no acute abnormality. Gastroenterology performed capsule enteroscopy. The final report is pending at this time. Patient improved significantly. On exam, vital signs stable. Cardiovascular system: S1, S2 muffled. Abdomen soft. Nervous system: No focal deficits. The patient was seen by Dr. Toth also. DISCHARGE ADVICE AND MEDICATIONS: Patient being discharged in stable condition with guarded prognosis. 1. Diet is cardiac diet. 2. Activity limited until followup. 3. Follow up with Dr. Mcqueen in 2-3 days. 4. Follow up with Dr. Fine and cardiology as advised. 5. Follow up with Dr. Toth as advised. 6. Medications to be as follows Norvasc 5 mg p.o. daily. 7. Calcitriol 0.5 mcg p.o. daily. 8. Vitamin D2 50,000. 9. Lasix 20 mg p.o. b.i.d. 10.Humalog scale as before Accu-Cheks a.c. and q.h.s. 11.Lopressor 25 mg p.o. b.i.d. 12.Protonix 40 mg. 13.Prednisone 30 mg p.o. daily per Nephrology. 14.Rituxan per Nephrology. 15.Sodium bicarb 650 p.o. daily. Once again, the patient is being discharged in stable condition with guarded prognosis. MMODL / IJN: [id number] / [facility]
[2017-03-04] MEDS ORDERED: ERGOCALCIFEROL 50,000 UNIT CAP PO SCH (12:00)
== END 2017-02-19 13:45 | disposition home or self-care (01) | DRG 377 ==
LOC: EC 09:49 → 6SEL 12:16 → 6ICU 21:57 → 5ONC 02-18 19:56
PROVIDERS: ADMIT Hospitalist; ATTEND Hospitalist
PROC: 30230N1 Transfusion of Nonautologous Red Blood Cells into Peripheral Vein, Open Approach (ICD-10-PCS; 2017-02-15)
PROC: 0DJ07ZZ Inspection of Upper Intestinal Tract, Via Natural or Artificial Opening (ICD-10-PCS; 2017-02-18)
PROC: 0DJ08ZZ Inspection of Upper Intestinal Tract, Via Natural or Artificial Opening Endoscopic (ICD-10-PCS; principal; 2017-02-18 12:20)
PROC: 0DJD8ZZ Inspection of Lower Intestinal Tract, Via Natural or Artificial Opening Endoscopic (ICD-10-PCS; 2017-02-18 12:20)
DX: K92.2 Gastrointestinal hemorrhage, unspecified (principal); N00.7 Acute nephritic syndrome with diffuse crescentic glomerulonephritis; I95.9 Hypotension, unspecified; N17.9 Acute kidney failure, unspecified; E87.1 Hypo-osmolality and hyponatremia; E09.65 Drug or chemical induced diabetes mellitus with hyperglycemia; N18.3 Chronic kidney disease, stage 3 (moderate); I48.0 Paroxysmal atrial fibrillation; D62 Acute posthemorrhagic anemia; F41.9 Anxiety disorder, unspecified; I12.9 Hypertensive chronic kidney disease with stage 1 through stage 4 chronic kidney disease, or unspecified chronic kidney disease; I77.89 Other specified disorders of arteries and arterioles; K44.9 Diaphragmatic hernia without obstruction or gangrene; K64.8 Other hemorrhoids; M06.9 Rheumatoid arthritis, unspecified; M89.9 Disorder of bone, unspecified; T38.0X5A Adverse effect of glucocorticoids and synthetic analogues, initial encounter; Z79.52 Long term (current) use of systemic steroids; Z79.899 Other long term (current) drug therapy; Z87.891 Personal history of nicotine dependence; Z86.010 Personal history of colon polyps; Z88.1 Allergy status to other antibiotic agents
CPT/HCPCS: 36415; 43235; 45378; 71045; 71046; 74018; 80048; 80053; 81001; 82009; 82272; 82330; 82550; 82553; 83036; 83735; 84100; 84132; 84478; 84484; 85025; 85610; 85652; 85730; 86140; 86850; 86900; 86901; 86920; 91110; 93005; 96360; 96361; 96374; 99285; 99291

== ENCOUNTER 2017-02-20 16:50 | Inpatient (IN) | payer OTHER ==
[2017-02-20] MEDS ORDERED: SODIUM CHLORIDE 0.9% 1,000 ML IV STA (17:09)
[2017-02-20] MEDS ORDERED: ACETAMINOPHEN TAB 500 MG TAB PO STA (17:10)
--- NOTE | 2017-02-20 17:13 | ED ---
General Adult HPI - General Chief complaint: GI Bleed Stated complaint: Poss GI Bleed Time Seen by Provider: 02/20/17 16:55 Source: patient, family, RN notes reviewed Mode of arrival: wheelchair Limitations: no limitations - History of Present Illness Initial comments: This is a 61-year-old male who presents to the emergency department stating that he was just discharged yesterday after having been in the hospital for a GI bleed. Patient states there were unable to find with a GI bleed was after they have scoped him and had him swallowed camera. Patient states she had not blood in the hospital for 2 days and then go home. Patient states this morning he felt as though he needed a bowel movement and he had a bowel movement was all bright red blood. Patient states on the way here he passed out in a car. Patient states he does get lightheaded if he stands. Patient denies any chest pain palpitations difficulty breathing or shortness of breath. Patient denies any abdominal pain. Patient denies any headache patient denies numbness or focal weakness. - Related Data Home Medications Medication Instructions Recorded Confirmed Ergocalciferol (Vitamin D2) 50,000 unit PO QMONTH 02/05/17 02/20/17 [Vitamin D2] Furosemide [Lasix] 20 mg PO BID 02/05/17 02/20/17 Sodium Bicarbonate Tab 650 mg PO DAILY 02/05/17 02/20/17 amLODIPine [Norvasc] 5 mg PO DAILY 02/05/17 02/20/17 Calcitriol 0.25 mcg PO WE 02/12/17 02/20/17 INSULIN LISPRO (HumaLOG) [humaLOG] See Protocol SQ ACHS 02/20/17 02/20/17 riTUXimab [Rituxan] 10 mg IV FR 02/20/17 02/20/17 Previous Rx's Medication Instructions Recorded Metoprolol Tartrate [Lopressor] 25 mg PO BID #60 tab 02/19/17 Pantoprazole Sodium [Protonix] 40 mg PO BID #60 tablet. 02/19/17 predniSONE 30 mg PO DAILY #90 tab 02/19/17 Allergies Allergy/AdvReac Type Severity Reaction Status Date / Time No Known Allergies Allergy Verified 02/20/17 17:46 Review of Systems ROS Statement: Those systems with pertinent positive or pertinent negative responses have been documented in the HPI. ROS Other: All systems not noted in ROS Statement are negative. Past Medical History Past Medical History: Renal Disease, Rheumatoid Arthritis (RA), Syncope Additional Past Medical History / Comment(s): Rheumatoid arthritis, hemorrhoids , colonic polyps, previous cardiac stress test 2 showing no evidence of any reversible ischemia. paricarditis History of Any Multi-Drug Resistant Organisms: None Reported Past Surgical History: No Surgical Hx Reported Additional Past Surgical History / Comment(s): colonoscopy/polypectomy, hemangioma removed from inside L cheek. Past Anesthesia/Blood Transfusion Reactions: No Reported Reaction Past Psychological History: No Psychological Hx Reported Smoking Status: Former smoker Past Alcohol Use History: None Reported Past Drug Use History: None Reported - Past Family History Father Family Medical History: CVA/TIA, Diabetes Mellitus Additional Family Medical History / Comment(s): Father at the age of 64 yrs from diabetic complications. Mother Family Medical History: Cancer Additional Family Medical History / Comment(s): Mother of colon cancer at the age of 74yrs. General Exam - General Exam Comments Initial Comments: GENERAL: Patient is well-developed and well-nourished. Patient is nontoxic and well- hydrated and is in mild distress. ENT: Neck is soft and supple. No significant lymphadenopathy is noted. Oropharynx is clear. Moist mucous membranes. Neck has full range of motion without eliciting any pain. EYES: Conjunctiva is pale. Extraocular movements were intact and pupils were equal round and reactive to light. Eyelids were unremarkable. PULMONARY: Unlabored respirations. Good breath sounds bilaterally. No audible rales rhonchi or wheezing was noted. CARDIOVASCULAR: There is a regular rate and rhythm without any murmurs gallops or rubs. ABDOMEN: Soft and nontender with normal bowel sounds. No palpable organomegaly was noted. There is no palpable pulsatile mass. SKIN: Patient's skin is pale. NEUROLOGIC: Patient is alert and oriented x3. Cranial nerves II through XII are grossly intact. Motor and sensory are also intact. Normal speech, volume and content. Symmetrical smile. MUSCULOSKELETAL: Normal extremities with adequate strength and full range of motion. No lower extremity swelling or edema. No calf tenderness. LYMPHATICS: No significant lymphadenopathy is noted PSYCHIATRIC: Normal psychiatric evaluation. Normal interpersonal interactions appears functionally intact in deals appropriately with others. No signs of depression. No signs of anxiety. Limitations: no limitations Course Vital Signs 01/08/0202/20/17 02/20/17 16:53 17:08 17:59 Temperature 100.5 F H Pulse Rate 107 H 111 H 97 Respiratory 20 16 16 Rate Blood Pressure 74/47 114/64 99/65 O2 Sat by Pulse 99 100 100 Oximetry Medical Decision Making - Medical Decision Making EKG shows normal sinus rhythm at 97 bpm MS interval is 116 QRS is 80 QT interval 334 QTC is 424 patient's EKG shows some T-wave inversions in precordial leads which are the same as the previous EKG the patient had. No acute changes from the previous EKG are noted Patient's hemoglobin was 6.0. I gave the patient 2 units of packed red blood cells. I spoke with Dr. Crowe he agreed to accept the admission. I spoke with Dr. Fine to make him aware that the patient was in the emergency department and going to the ICU and actively bleeding. Spoke with Dr. Ashby he agreed to be on consult. I wrote admitting orders. - Lab Data Result diagrams: 02/20/17 17:20 02/20/17 17:20 Lab Results 02/20/17 02/20/17 Range/Units 17:20 17:20 WBC 5.2 (3.8-10.6) k/uL RBC 2.00 L (4.30-5.90) m/uL Hgb 6.0 L* D (13.0-17.5) gm/dL Hct 18.0 L* (39.0-53.0) % MCV 90.2 (80.0-100.0) fL MCH 30.0 (25.0-35.0) pg MCHC 33.3 (31.0-37.0) g/dL RDW 14.9 (11.5-15.5) % Plt Count 157 (150-450) k/uL Neutrophils % 70 % Lymphocytes % 23 % Monocytes % 4 % Eosinophils % 0 % Basophils % 0 % Neutrophils # 3.6 (1.3-7.7) k/uL Lymphocytes # 1.2 (1.0-4.8) k/uL Monocytes # 0.2 (0-1.0) k/uL Eosinophils # 0.0 (0-0.7) k/uL Basophils # 0.0 (0-0.2) k/uL Sodium 133 L (137-145) mmol/L Potassium 4.2 (3.5-5.1) mmol/L Chloride 98 (98-107) mmol/L Carbon Dioxide 26 (22-30) mmol/L Anion Gap 9 mmol/L BUN 59 H (9-20) mg/dL Creatinine 2.00 H (0.66-1.25) mg/dL Est GFR (MDRD) Af Amer 41 (>60 ml/min/1.73 sqM) Est GFR (MDRD) Non-Af 34 (>60 ml/min/1.73 sqM) Glucose 187 H (74-99) mg/dL Calcium 7.1 L (8.4-10.2) mg/dL Magnesium 1.4 L (1.6-2.3) mg/dL Total Bilirubin 0.4 (0.2-1.3) mg/dL AST 17 (17-59) U/L ALT 44 (21-72) U/L Alkaline Phosphatase 36 L (38-126) U/L Total Protein 4.0 L (6.3-8.2) g/dL Albumin 2.2 L (3.5-5.0) g/dL Critical Care Time Critical Care Time: Yes Total Critical Care Time: 35 Disposition Clinical Impression: Lower gastrointestinal hemorrhage Disposition: ADMITTED IP TO THIS HOSP Referrals: Aydee Mcqueen DO [Primary Care Provider] - 1-2 days Time of Disposition: 18:13
[2017-02-20 17:37] LABS: Basophils % (A) 0 %; Eosinophils % (A) 0 %; Lymphocytes # (A) 1.2 k/uL (1.0-4.8); Lymphocytes % (A) 23 %; MCHC 33.3 g/dL (31.0-37.0); MCV 90.2 fL (80.0-100.0); Monocytes # (A) 0.2 k/uL (0-1.0); Monocytes % (A) 4 %; Neutrophils # (A) 3.6 k/uL (1.3-7.7); Neutrophils % (A) 70 %; Platelet Count 157 k/uL (150-450); RDW 14.9 % (11.5-15.5); WBC 5.2 k/uL (3.8-10.6)
[2017-02-20 17:45] LABS: Albumin 2.2 g/dL (3.5-5.0); Calcium 7.1 mg/dL (8.4-10.2); Magnesium 1.4 mg/dL (1.6-2.3); Potassium 4.2 mmol/L (3.5-5.1); Total Bilirubin 0.4 mg/dL (0.2-1.3)
[2017-02-20 18:01] LABS: INR 1.2 (<1.2); Prothrombin Time 11.2 sec (9.0-12.0)
[2017-02-20 18:12] LABS: Creatine Kinase MB 1.1 ng/mL (0.0-2.4); Troponin I 0.014 ng/mL (0.000-0.034)
[2017-02-20] MEDS ORDERED: NALOXONE 0.4 MG/ML 1 ML VIAL IV PRN ×2 (18:13→20:23)
[2017-02-20 19:18] LABS: Glucose,Whole Blood 164 mg/dL (75-99)
[2017-02-20] MEDS ORDERED: TEMAZEPAM 15 MG CAP PO PRN (19:51)
[2017-02-20] MEDS ORDERED: ALPRAZolam 0.25 MG TAB PO PRN (19:51)
[2017-02-20] MEDS ORDERED: HYDROmorphone 2 MG/ML 1 ML SYRINGE IVP PRN (19:51)
[2017-02-20] MEDS ORDERED: HYDROcodone/APAP 5-325MG 1 EACH TAB PO PRN (19:51)
[2017-02-20] MEDS ORDERED: ACETAMINOPHEN TAB 325 MG TAB PO PRN (20:23)
--- NOTE | 2017-02-20 20:36 | XR ---
EXAMINATION TYPE: XR chest 1V portable DATE OF EXAM: 02/20/2017 CLINICAL HISTORY: Difficulty breathing progress study. TECHNIQUE: Single AP portable upright view of the chest is obtained. COMPARISON: Chest x-ray from one day earlier FINDINGS: There is no suspicious new focal airspace opacity, pleural effusion, or pneumothorax seen bilaterally. Continued improved aeration left lung base is present. Cardiac silhouette size is within normal limits. Osseous structures are intact. IMPRESSION: Resolved left basilar atelectasis, no new infiltrate is seen.
[2017-02-20] MEDS: PANTOPRAZOLE 40 MG/10 ML VIAL IVP SCH (21:09)
[2017-02-20] MEDS: METOPROLOL TARTRATE 25 MG TAB PO SCH (21:09)
[2017-02-20] MEDS ORDERED: MAGNESIUM SULFATE-D5W PMX 1 GM in DEXTROSE/WATER 1 100ML.BAG IVPB SCH (23:15)
[2017-02-20 23:36] LABS: Appearance,Urine Clear (Clear); Bilirubin,Urine Negative (Negative); Blood,Urine Moderate (Negative); Color,Urine Light Yellow; Glucose,Urine (UA) Negative (Negative); Ketones,Urine Negative (Negative); Leukocyte Esterase,Urine Negative (Negative); Mucus,Urine Rare /hpf; Nitrite,Urine Negative (Negative); Protein,Urine Negative (Negative); RBC,Urine 5 /hpf (0-5); Specific Gravity,Urine 1.011 (1.001-1.035); Urobilinogen,Urine <2.0 mg/dL (<2.0); WBC,Urine 1 /hpf (0-5)
[2017-02-21] MEDS: MAGNESIUM SULFATE-D5W PMX 1 GM in DEXTROSE/WATER 1 100ML.BAG IVPB SCH ×2 (00:01→01:01)
[2017-02-21 00:50] LABS: Basophils % (A) 0 %; Eosinophils % (A) 0 %; HCT 23.2 % (39.0-53.0); Lymphocytes # (A) 1.8 k/uL (1.0-4.8); Lymphocytes % (A) 34 %; MCH 30.2 pg (25.0-35.0); MCHC 33.6 g/dL (31.0-37.0); MCV 89.9 fL (80.0-100.0); Mean Platelet Volume 7.2; Monocytes # (A) 0.3 k/uL (0-1.0); Monocytes % (A) 5 %; Neutrophils % (A) 57 %; Platelet Count 109 k/uL (150-450); RBC 2.58 m/uL (4.30-5.90); RDW 14.3 % (11.5-15.5); WBC 5.2 k/uL (3.8-10.6)
[2017-02-21 00:52] LABS: HGB 7.8 gm/dL (13.0-17.5)
[2017-02-21 05:35] LABS: Basophils % (A) 1 %; Eosinophils % (A) 0 %; HCT 22.5 % (39.0-53.0); HGB 7.5 gm/dL (13.0-17.5); Lymphocytes # (A) 1.7 k/uL (1.0-4.8); Lymphocytes % (A) 41 %; MCH 29.5 pg (25.0-35.0); MCHC 33.3 g/dL (31.0-37.0); MCV 88.5 fL (80.0-100.0); Mean Platelet Volume 7.9; Monocytes # (A) 0.2 k/uL (0-1.0); Monocytes % (A) 4 %; Neutrophils # (A) 2.2 k/uL (1.3-7.7); Neutrophils % (A) 51 %; Platelet Count 117 k/uL (150-450); RBC 2.54 m/uL (4.30-5.90); RDW 15.4 % (11.5-15.5); WBC 4.2 k/uL (3.8-10.6)
[2017-02-21 05:51] LABS: Albumin 2.1 g/dL (3.5-5.0); C Reactive Protein 7.7 mg/L (<10.0); Magnesium 2.2 mg/dL (1.6-2.3); Phosphorus 3.1 mg/dL (2.5-4.5); Potassium 3.8 mmol/L (3.5-5.1); Total Bilirubin 0.4 mg/dL (0.2-1.3); Total Protein 3.8 g/dL (6.3-8.2)
[2017-02-21 07:45] LABS: Erythrocyte Sedimentation Rate 7 mm/hr (0-15)
[2017-02-21] MEDS: PANTOPRAZOLE 40 MG/10 ML VIAL IVP SCH ×2 (08:33→20:49)
[2017-02-21] MEDS: METOPROLOL TARTRATE 25 MG TAB PO SCH ×3 (08:36→21:01)
--- NOTE | 2017-02-21 09:18 | HP ---
HISTORY AND PHYSICAL CHIEF COMPLAINT: GI bleed. HISTORY OF PRESENT ILLNESS: This 61-year-old gentleman with a past history of multiple medical problems including chronic kidney disease, recently diagnosed vasculitis was on Rituxan as well as steroids previously admitted with GI bleed. Patient had blood-loss anemia. Patient transfused and monitored closely in ICU. The patient had EGD and colonoscopy that showed no acute abnormality. Patient also had a capsule endoscopy, but in the meantime, hemoglobin stabilized. There no more bleeding. Patient is feeling better. Patient went home. Last night she was okay, but this morning when the patient was sitting patient felt dizziness and feeling weak and subsequently patient had bright red maroon-colored significant amount of blood per rectum and with some clots. Also the patient was taken to [facility] and was admitted for evaluation and treatment. On the way, the was driving him and the patient had light-headed, dizzy and presyncopal episode. There is no history of fever, rigors. No headache, loss of consciousness, seizures. Hemoglobin is found to be 6. Multiple transfusion has been arranged at this time. Dr. Fine and Dr. Madden have been consulted. PAST MEDICAL HISTORY: History of recent vasculitis, history of chronic kidney disease, atrial fibrillation, history of rheumatoid arthritis, history of syncope. MEDICATIONS: Prior to admission include home medications: 1. Rituxan 10 mg IV Wednesday. 2. Prednisone 30 mg p.o. daily. 3. Norvasc 5 mg p.o. daily. 4. Sodium bicarb 650 p.o. daily. 5. Protonix 40 mg p.o. b.i.d. 6. Lopressor 25 mg p.o. b.i.d. 7. Humalog q.a.c. and at bedtime. 8. Lasix 20 mg p.o. b.i.d. 9. Vitamin D2 50,000 monthly. 10.Calcitriol 0.5 mg p.o. Wednesday. ALLERGIES: None. FAMILY HISTORY: History of CVA, TIA, history of diabetes mellitus type 2. SOCIAL HISTORY: Previous history of smoking. No history of current smoking or alcohol intake. REVIEW OF SYSTEMS: ENT: No diminished hearing or vision. CARDIOVASCULAR: No angina. RESPIRATORY: No cough. GI: As mentioned earlier. : No dysuria. NERVOUS SYSTEM: No numbness, weakness. ALLERGY/IMMUNOLOGY: No history of asthma. MUSCULOSKELETAL: As mentioned earlier. HEMATOLOGY/ONCOLOGY: As mentioned. ENDOCRINE: As mentioned earlier. CONSTITUTIONAL: As mentioned earlier. DERMATOLOGY: Negative. RHEUMATOLOGY: Negative. PSYCHIATRY: As mentioned earlier. PHYSICAL EXAMINATION: Alert and oriented x3. Pulse is 82, blood pressure 130/89, respirations 14, temperature 98.6, pulse ox 100% on 2 L. Blood pressure was initially 74/47. HEENT: Conjunctivae normal. Oral mucosa moist, but pale. NECK: No jugular venous distention. No carotid bruit. No lymph node enlargement. CARDIOVASCULAR: S1, S2. No S3, no S4. RESPIRATORY: Breath sounds diminished in the bases. No rhonchi, no crackles. ABDOMEN: Soft, nontender. No mass palpable. No guarding. No rigidity. LEGS: No edema, no swelling. NERVOUS SYSTEM: Higher functions as mentioned earlier, moves all 4 limbs. No focal motor sensory deficits. LYMPHATICS: No lymphadenopathy in the neck, axillae, groin. SKIN: No rashes. LABS: WBC 5, hemoglobin 6, and INR to 1.2. Sodium 133. Creatinine is 2. ASSESSMENT: 1. Acute gastrointestinal blood loss anemia, recurrent etiology and site of bleeding unknown with hypotension secondary to GI bleed. 2. History of recent gastrointestinal bleed and with a normal EGD, colonoscopy pending capsule enteroscopy. 3. History of recently diagnosed vasculitis, status post renal biopsy. 4. Chronic kidney disease stage III. 5. Steroid induced diabetes mellitus type 2. 6. History of rheumatoid arthritis. 7. History of atrial fibrillation paroxysmal. 8. Hyponatremia. 9. Hypoalbuminemia, mild to moderate protein calorie malnutrition. RECOMMENDATION AND DISCUSSION: This 61-year-old gentleman who presented with multiple complex medical issues, will monitor the patient closely. Continue the current medications, symptomatic treatment. At this time I recommend at least 2 units transfusion. Monitor closely and if needed, we will transfuse more. The H and H q.4. Discussed with Gastroenterology. Dr. Fine is going to check a capsule enteroscopy study and proceed further. Otherwise I would also recommend consult Dr. Madden for ICU management. Hold antiplatelet agents and anticoagulants. Dr. Toth also will be consulted for from the Nephrology point of view. Guarded prognosis because of multiple complex medical issues. Copy of dictation forwarded to Dr. Mcqueen who is the primary physician. MMODL / IJN: [id number] /
--- NOTE | 2017-02-21 09:37 | P.NPCON ---
History of Present Illness - Reason for Consult end stage renal disease - History of Present Illness Reason for consultation: End-stage renal disease History of present illness: Patient is a 61-year-old male seen in renal consultation for acute kidney injury. 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 He has received 2 doses of rituximab and is currently maintained on prednisone 30 mg daily. Patient was recently admitted to the hospital for lower GI bleed and at that time endoscopy studies were negative. Patient was discharged home and returned last night again with lower GI bleed. Patient states he went to the bathroom and noticed bright red blood in the toilet seat. Last bloody bowel movement was 11:30 last night. He denies any abdominal pain. Denies vomiting. Denies chest pain or shortness of breath. His hemoglobin was 6.0 on admission for which she did receive blood transfusion. Hemoglobin is 7.5 this morning. Admits to good urine output. No hematuria or dysuria. Creatinine is stable at 2.0. Patient states he didn't eat much all last week or even when he was discharged. He is scheduled to be started on PPN today. He does admit to puffiness in his hands and some lower extremity edema. Vital signs are stable. General: The patient appeared well nourished and normally developed. HEENT: Head exam is unremarkable. Neck is without jugular venous distension. LUNGS: Lungs are clear to auscultation and percussion. Breath sounds decreased. HEART: Rate and Rhythm are regular. First and second heart sounds normal. No murmurs, rubs or gallops. ABDOMEN: Abdominal exam reveals normal bowel sounds. Non-tender and non- distended. No evidence of peritonitis. EXTREMITITES: 1+ edema. Past Medical History Past Medical History: Atrial Fibrillation, GI Bleed, Renal Disease, Rheumatoid Arthritis (RA), Syncope Additional Past Medical History / Comment(s): Rheumatoid arthritis, hemorrhoids , colonic polyps, previous cardiac stress test 2 showing no evidence of any reversible ischemia. paricarditis History of Any Multi-Drug Resistant Organisms: None Reported Past Surgical History: No Surgical Hx Reported Additional Past Surgical History / Comment(s): colonoscopy/polypectomy, hemangioma removed from inside L cheek. Past Anesthesia/Blood Transfusion Reactions: No Reported Reaction Past Psychological History: No Psychological Hx Reported Additional Psychological History / Comment(s): Pt resides with his spouse and 2 adult children. He is independent. 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 Smoking Status: Former smoker Past Alcohol Use History: None Reported Additional Past Alcohol Use History / Comment(s): Pt started smoking in 1970 and quit about 1990. Past Drug Use History: None Reported - Past Family History Father Family Medical History: CVA/TIA, Diabetes Mellitus Additional Family Medical History / Comment(s): Father at the age of 64 yrs from diabetic complications. Mother Family Medical History: Cancer Additional Family Medical History / Comment(s): Mother of colon cancer at the age of 74yrs. Medications and Allergies Home Medications Medication Instructions Recorded Confirmed Type Ergocalciferol (Vitamin D2) 50,000 unit PO QMONTH 02/05/17 02/20/17 History [Vitamin D2] Furosemide [Lasix] 20 mg PO BID 02/05/17 02/20/17 History Sodium Bicarbonate Tab 650 mg PO DAILY 02/05/17 02/20/17 History amLODIPine [Norvasc] 5 mg PO DAILY 02/05/17 02/20/17 History Calcitriol 0.25 mcg PO WE 02/12/17 02/20/17 History Metoprolol Tartrate [Lopressor] 25 mg PO BID #60 tab 02/19/17 02/20/17 Rx Pantoprazole Sodium [Protonix] 40 mg PO BID #60 tablet. 02/19/17 02/20/17 Rx predniSONE 30 mg PO DAILY #90 tab 02/19/17 02/20/17 Rx INSULIN LISPRO (HumaLOG) [humaLOG] See Protocol SQ ACHS 02/20/17 02/20/17 History riTUXimab [Rituxan] 10 mg IV FR 02/20/17 02/20/17 History Allergies Allergy/AdvReac Type Severity Reaction Status Date / Time No Known Allergies Allergy Verified 02/20/17 17:46 Physical Exam Vitals: Vital Signs Temp Pulse Resp BP Pulse Ox 02/21/17 08:00 97.9 F 78 12 107/68 98 02/21/17 07:00 67 13 114/70 98 02/21/17 06:50 68 12 114/70 98 02/21/17 06:40 66 12 114/70 96 02/21/17 06:30 68 11 L 114/70 97 02/21/17 06:20 67 13 114/70 97 02/21/17 06:10 69 13 114/70 99 02/21/17 06:00 70 13 113/65 97 02/21/17 05:50 65 11 L 113/65 98 02/21/17 05:40 69 11 L 113/65 99 02/21/17 05:30 69 11 L 113/65 99 02/21/17 05:20 67 10 L 113/65 99 02/21/17 05:10 113/65 02/21/17 05:00 92/54 02/21/17 04:50 92/54 99 02/21/17 04:40 75 12 92/54 98 02/21/17 04:30 76 14 92/54 98 02/21/17 04:20 74 13 92/54 98 02/21/17 04:10 76 8 L 92/54 97 02/21/17 04:00 98.5 F 75 12 98/51 98 02/21/17 03:50 75 13 98/51 98 02/21/17 03:40 75 12 98/51 99 02/21/17 03:30 74 12 98/51 98 02/21/17 03:20 72 12 98/51 98 02/21/17 03:10 73 13 98/51 98 02/21/17 03:00 78 10 L 107/74 100 02/21/17 02:50 68 14 107/74 98 02/21/17 02:40 66 12 107/74 98 02/21/17 02:30 64 12 107/74 98 02/21/17 02:20 62 12 107/74 98 02/21/17 02:10 66 12 107/74 97 02/21/17 02:00 70 12 101/65 97 02/21/17 01:50 70 11 L 101/65 98 02/21/17 01:40 66 12 101/65 99 02/21/17 01:30 67 12 101/65 98 02/21/17 01:20 66 11 L 101/65 98 02/21/17 01:10 66 11 L 101/65 97 02/21/17 01:00 64 10 L 104/68 97 02/21/17 00:50 62 12 104/68 98 02/21/17 00:40 68 17 104/68 99 02/21/17 00:30 71 14 103/69 99 02/21/17 00:20 66 13 103/69 99 02/21/17 00:10 70 13 103/69 99 02/21/17 00:09 98.9 F 73 13 103/69 99 02/21/17 00:00 71 15 96/68 99 02/20/17 23:50 72 17 100 02/20/17 23:40 72 16 103/71 100 02/20/17 23:30 98.9 F 69 119/71 99 02/20/17 23:20 119/71 02/20/17 23:10 119/71 02/20/17 23:00 68 31 H 120/73 100 02/20/17 22:50 68 14 120/73 100 02/20/17 22:40 69 13 122/71 100 02/20/17 22:30 79 9 L 124/76 100 02/20/17 22:20 73 12 124/76 100 02/20/17 22:10 119 H 22 124/75 100 02/20/17 22:00 97.2 F L 85 11 L 118/70 100 02/20/17 21:50 97.8 F 76 12 118/70 100 02/20/17 21:40 90 17 107/68 100 02/20/17 21:30 81 14 119/72 99 02/20/17 21:20 85 8 L 119/72 100 02/20/17 21:14 97.3 F L 85 16 119/72 100 02/20/17 21:10 98.6 F 82 14 138/87 100 02/20/17 21:00 82 12 116/73 100 02/20/17 20:50 86 13 116/73 100 02/20/17 20:40 98.6 F 82 15 115/70 100 02/20/17 20:30 80 13 111/65 100 02/20/17 20:20 88 28 H 111/65 100 02/20/17 20:10 84 13 118/73 100 02/20/17 20:00 100.2 F H 80 23 109/73 100 02/20/17 19:50 88 18 109/73 100 02/20/17 19:40 79 14 116/65 100 02/20/17 19:30 84 21 117/75 100 02/20/17 19:20 83 17 117/75 100 02/20/17 19:17 88 117/75 100 02/20/17 18:57 97.9 F 86 16 104/60 100 02/20/17 18:55 97.9 F 86 16 104/60 100 02/20/17 18:45 97.9 F 88 16 97/65 100 02/20/17 17:59 97 16 99/65 100 02/20/17 17:08 111 H 16 114/64 100 02/20/17 16:53 100.5 F H 107 H 20 74/47 99 Intake and Output 02/20/17 02/21/17 02/21/17 22:59 06:59 14:59 Intake Total 1240 160 40 Output Total 500 Balance 1240 -340 40 Intake: IV 160 40 KVO 160 40 Blood Product 1240 Rc As-1 Unit 310 [id number] Rc As-1 Unit 310 [id number] Output: Urine 500 Other: Voiding Method Urinal # Voids 1 Weight 75.75 kg 71.9 kg Results - Lab Results Most recent lab results Calcium 7.0 mg/dL (8.4-10.2) L 02/21/17 05:18 Phosphorus 3.1 mg/dL (2.5-4.5) 02/21/17 05:18 Magnesium 2.2 mg/dL (1.6-2.3) 02/21/17 05:18 02/21/17 05:18 02/21/17 05:18 Assessment and Plan Plan: Assessment: #1. 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 Creatinine is stable at 2. He has received 2 doses of rituximab so far. Also maintained on prednisone 30 mg daily. He seems to be responding well to the treatment. His urinalysis this admission reveals no protein and only 5 RBCs. #2. Lower GI bleed status post protestation. Hemoglobin 7.5 this morning. EGD and colonoscopy from February 18 revealed no acute abnormalities. #3. Lower extremity edema. Plan: Resume prednisone 30 mg once daily. Can further be tapered to 20 mg daily over the next few days. Maintain Protonix. Monitor hemoglobin and transfuse as needed. GI recommendations pending. PPN to be initiated today. Add Lasix 20 mg daily. He is scheduled to receive third dose of rituximab this Wednesday. Thank you for the consultation. I will continue to follow the patient with you during his hospital stay.
[2017-02-21] MEDS: predniSONE 10 MG TAB PO SCH ×5 (10:29→21:02)
[2017-02-21] MEDS: FUROSEMIDE 10 MG/ML 2 ML VIAL IV SCH (10:34)
[2017-02-21] MEDS: SODIUM CHLORIDE 0.9% 1,000 ML IV SCH (11:26)
[2017-02-21] MEDS ORDERED: MVI, ADULT NO.4 WITH VIT K 10 ML, TRACE (CONC-1ML/DOSE) 1 ML in AMINO ACID 4.25%-D10W+L... IV SCH ×3 (12:00)
--- NOTE | 2017-02-21 13:57 | P.CNPUL ---
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 The patient was earlier in the hospital this week for GI bleeding. He was in the ICU briefly. He underwent an EGD and a colonoscopy and the procedure did not yield any positive findings and no source of bleeding was identified. The patient was discharged home. Within 48 hours of discharge, the patient presented back. The patient had 2 episodes of bright red bloody rectal bleed at home and another episode here in IC at around 11 PM. For that reason the patient presented back to the hospital. He is a little been on admission was 6.0. He received transfusion and his hemoglobin this morning is up to 7.5. Fortunately his renal function is stable at at creatinine of 2.0. No abdominal pain. No nausea or vomiting. No diarrhea. No intake of any anticoagulants or nonsteroidal anti-inflammatory medications. No alcoholism. The patient is hemodynamically stable at this point. Note that the capsule endoscopy has also been done yet the results have not been reported and yielded yet. Review of Systems Constitutional: Denies chills, Denies fever Eyes: denies blurred vision, denies bulging eye, denies decreased vision Ears: deny: decreased hearing, ear discharge, earache, tinnitus Ears, nose, mouth and throat: Denies headache, Denies sore throat Cardiovascular: Reports chest pain Respiratory: Reports pleurisy which recovered with the treatment of systemic steroids Gastrointestinal: Denies abdominal pain, Denies diarrhea, Denies nausea, Denies vomiting, he is having bright red blood per rectum Genitourinary: Reports as per HPI Musculoskeletal: Denies myalgias Musculoskeletal: absent: ankle pain, ankle stiffness, ankle swelling Integumentary: Denies pruritus, Denies rash Neurological: Denies numbness, Denies weakness Psychiatric: Denies anxiety, Denies depression Endocrine: Denies fatigue, Denies weight change Past Medical History Past Medical History: Atrial Fibrillation, GI Bleed, Renal Disease, Rheumatoid Arthritis (RA), Syncope Additional Past Medical History / Comment(s): Rheumatoid arthritis, hemorrhoids , colonic polyps, previous cardiac stress test 2 showing no evidence of any reversible ischemia. 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 Past Anesthesia/Blood Transfusion Reactions: No Reported Reaction Past Psychological History: No Psychological Hx Reported Additional Psychological History / Comment(s): Pt resides with his spouse and 2 adult children. He is independent. 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 Smoking Status: Former smoker Past Alcohol Use History: None Reported Additional Past Alcohol Use History / Comment(s): Pt started smoking in 1970 and quit about 1990. Past Drug Use History: None Reported - Past Family History Father Family Medical History: CVA/TIA, Diabetes Mellitus Additional Family Medical History / Comment(s): Father at the age of 64 yrs from diabetic complications. Mother Family Medical History: Cancer Additional Family Medical History / Comment(s): Mother of colon cancer at the age of 74yrs. Medications and Allergies Home Medications Medication Instructions Recorded Confirmed Type Ergocalciferol (Vitamin D2) 50,000 unit PO QMONTH 02/05/17 02/20/17 History [Vitamin D2] Furosemide [Lasix] 20 mg PO BID 02/05/17 02/20/17 History Sodium Bicarbonate Tab 650 mg PO DAILY 02/05/17 02/20/17 History amLODIPine [Norvasc] 5 mg PO DAILY 02/05/17 02/20/17 History Calcitriol 0.25 mcg PO WE 02/12/17 02/20/17 History Metoprolol Tartrate [Lopressor] 25 mg PO BID #60 tab 02/19/17 02/20/17 Rx Pantoprazole Sodium [Protonix] 40 mg PO BID #60 tablet. 02/19/17 02/20/17 Rx predniSONE 30 mg PO DAILY #90 tab 02/19/17 02/20/17 Rx INSULIN LISPRO (HumaLOG) [humaLOG] See Protocol SQ ACHS 02/20/17 02/20/17 History riTUXimab [Rituxan] 10 mg IV FR 02/20/17 02/20/17 History Allergies Allergy/AdvReac Type Severity Reaction Status Date / Time No Known Allergies Allergy Verified 02/20/17 17:46 Physical Exam Vitals: Vital Signs Temp Pulse Resp BP Pulse Ox 02/21/17 13:00 100 21 119/73 98 02/21/17 12:00 95 21 129/77 100 02/21/17 11:00 98.3 F 89 14 121/77 99 02/21/17 10:00 80 10 L 128/71 97 02/21/17 09:00 78 15 107/78 98 02/21/17 08:00 97.9 F 78 10 L 107/68 98 02/21/17 07:00 67 13 114/70 98 02/21/17 06:50 68 12 114/70 98 02/21/17 06:40 66 12 114/70 96 02/21/17 06:30 68 11 L 114/70 97 02/21/17 06:20 67 13 114/70 97 02/21/17 06:10 69 13 114/70 99 02/21/17 06:00 70 13 113/65 97 02/21/17 05:50 65 11 L 113/65 98 02/21/17 05:40 69 11 L 113/65 99 02/21/17 05:30 69 11 L 113/65 99 02/21/17 05:20 67 10 L 113/65 99 02/21/17 05:10 113/65 02/21/17 05:00 92/54 02/21/17 04:50 92/54 99 02/21/17 04:40 75 12 92/54 98 02/21/17 04:30 76 14 92/54 98 02/21/17 04:20 74 13 92/54 98 02/21/17 04:10 76 8 L 92/54 97 02/21/17 04:00 98.5 F 75 12 98/51 98 02/21/17 03:50 75 13 98/51 98 02/21/17 03:40 75 12 98/51 99 02/21/17 03:30 74 12 98/51 98 02/21/17 03:20 72 12 98/51 98 02/21/17 03:10 73 13 98/51 98 02/21/17 03:00 78 10 L 107/74 100 02/21/17 02:50 68 14 107/74 98 02/21/17 02:40 66 12 107/74 98 02/21/17 02:30 64 12 107/74 98 02/21/17 02:20 62 12 107/74 98 01/07/18 02:10 66 12 107/74 97 02/21/17 02:00 70 12 101/65 97 02/21/17 01:50 70 11 L 101/65 98 02/21/17 01:40 66 12 101/65 99 02/21/17 01:30 67 12 101/65 98 02/21/17 01:20 66 11 L 101/65 98 02/21/17 01:10 66 11 L 101/65 97 02/21/17 01:00 64 10 L 104/68 97 02/21/17 00:50 62 12 104/68 98 02/21/17 00:40 68 17 104/68 99 02/21/17 00:30 71 14 103/69 99 02/21/17 00:20 66 13 103/69 99 02/21/17 00:10 70 13 103/69 99 02/21/17 00:09 98.9 F 73 13 103/69 99 02/21/17 00:00 71 15 96/68 99 02/20/17 23:50 72 17 100 02/20/17 23:40 72 16 103/71 100 02/20/17 23:30 98.9 F 69 119/71 99 02/20/17 23:20 119/71 02/20/17 23:10 119/71 02/20/17 23:00 68 31 H 120/73 100 02/20/17 22:50 68 14 120/73 100 02/20/17 22:40 69 13 122/71 100 02/20/17 22:30 79 9 L 124/76 100 02/20/17 22:20 73 12 124/76 100 02/20/17 22:10 119 H 22 124/75 100 02/20/17 22:00 97.2 F L 85 11 L 118/70 100 02/20/17 21:50 97.8 F 76 12 118/70 100 02/20/17 21:40 90 17 107/68 100 02/20/17 21:30 81 14 119/72 99 02/20/17 21:20 85 8 L 119/72 100 02/20/17 21:14 97.3 F L 85 16 119/72 100 02/20/17 21:10 98.6 F 82 14 138/87 100 01/06/18 21:00 82 12 116/73 100 02/20/17 20:50 86 13 116/73 100 02/20/17 20:40 98.6 F 82 15 115/70 100 02/20/17 20:30 80 13 111/65 100 02/20/17 20:20 88 28 H 111/65 100 02/20/17 20:10 84 13 118/73 100 02/20/17 20:00 100.2 F H 80 23 109/73 100 02/20/17 19:50 88 18 109/73 100 02/20/17 19:40 79 14 116/65 100 02/20/17 19:30 84 21 117/75 100 02/20/17 19:20 83 17 117/75 100 02/20/17 19:17 88 117/75 100 02/20/17 18:57 97.9 F 86 16 104/60 100 02/20/17 18:55 97.9 F 86 16 104/60 100 02/20/17 18:45 97.9 F 88 16 97/65 100 02/20/17 17:59 97 16 99/65 100 02/20/17 17:08 111 H 16 114/64 100 02/20/17 16:53 100.5 F H 107 H 20 74/47 99 Intake and Output 02/20/17 02/21/17 02/21/17 22:59 06:59 14:59 Intake Total 1240 160 230 Output Total 500 1250 Balance 1240 -340 -1020 Intake: IV 160 130 KVO 160 130 Intake, IV Titration 100 Amount Sodium Chloride 0.9% 1, 100 000 ml @ 50 mls/hr IV . Q20H [facility] Rx#:[id number] Blood Product 1240 As-1 Unit 310 [id number] As-1 Unit 310 [id number] Output: Urine 500 1250 Other: Voiding Method Urinal Urinal # Voids 1 0 Weight 75.75 kg 71.9 kg 71.9 kg Patient Weight 02/22/17 06:59 Weight 71.9 kg The patient appeared well nourished and normally developed. Vital signs as documented. Head exam is unremarkable. No scleral icterus or corneal arcus noted. Neck is without jugular venous distension, thyromegaly, or carotid bruits. Carotid upstrokes are brisk bilaterally. Lungs are clear to auscultation and percussion. Cardiac exam reveals the PMI to be normally sized and situated. Rhythm is regular. First and second heart sounds normal. No murmurs, rubs or gallops. Abdominal exam reveals normal bowel sounds, no masses , no organomegaly and no aortic enlargement. Extremities are nonedematous and both femoral and pedal pulses are normal.Examination of the skin revealed no evidence of significant rashes, suspicious appearing nevi or other concerning lesions. Neurologically the patient is awake and alert and there is no focal neurological deficit this point. Results - Laboratory Findings CBC and BMP: 02/21/17 05:18 02/21/17 05:18 PT/INR, D-dimer PT 11.2 sec (9.0-12.0) 02/20/17 17:20 INR 1.2 (<1.2) H 02/20/17 17:20 Abnormal lab findings: Abnormal Labs 02/20/17 02/20/17 02/20/17 17:20 17:20 17:20 RBC Hgb Hct Plt Count INR 1.2 H APTT 19.0 L Sodium 133 L BUN 59 H Creatinine 2.00 H Glucose 187 H POC Glucose (mg/dL) Calcium 7.1 L Magnesium 1.4 L Alkaline Phosphatase 36 L Total Creatine Kinase Total Protein 4.0 L Albumin 2.2 L Triglycerides Urine Blood Urine Mucus Crossmatch See Detail 02/20/17 02/20/17 02/20/17 17:20 17:20 19:16 RBC 2.00 L Hgb 6.0 L* D Hct 18.0 L* Plt Count INR APTT Sodium BUN Creatinine Glucose POC Glucose (mg/dL) 164 H Calcium Magnesium Alkaline Phosphatase Total Creatine Kinase 24 L Total Protein Albumin Triglycerides Urine Blood Urine Mucus Crossmatch 02/20/17 02/21/17 02/21/17 23:25 00:37 05:18 RBC 2.58 L 2.54 L Hgb 7.8 L D 7.5 L Hct 23.2 L 22.5 L Plt Count 109 L 117 L INR APTT Sodium BUN Creatinine Glucose POC Glucose (mg/dL) Calcium Magnesium Alkaline Phosphatase Total Creatine Kinase Total Protein Albumin Triglycerides Urine Blood Moderate H Urine Mucus Rare H Crossmatch 02/21/17 02/21/17 05:18 05:18 RBC Hgb Hct Plt Count INR APTT Sodium 135 L BUN 57 H Creatinine 2.00 H Glucose 115 H POC Glucose (mg/dL) Calcium 7.0 L Magnesium Alkaline Phosphatase 30 L Total Creatine Kinase Total Protein 3.8 L Albumin 2.1 L Triglycerides 376 H Urine Blood Urine Mucus Crossmatch - Diagnostic Findings Chest x-ray: image reviewed Assessment and Plan Plan: Assessment 1 acute GI bleeding. The patient had bright red blood per rectum and subsequent drop in hemoglobin down to 6.0 and he had received a total of 2 units of packed RBC and subsequent hemoglobin is up to 7.5. The patient is hemodynamically stable. The patient has been diagnosed having a combination of rheumatoid arthritis/vasculitis and currently is in a new suppressive agents. He underwent a recent endoscopy including EGD and colonoscopy and capsule endoscopy. The EGD and colonoscopy did not yield any source of bleeding. The capsule endoscopy results are still pending for now. The patient is being monitored in the ICU. We will reconsult GI. 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 Note that this progressive improvement in renal function with the patient's creatinine was as high as 3.7 is currently down to 2.1. 5 immunosuppression treatment with a combination of Rituxan and prednisone 6 acute anemia secondary to GI bleeding 7 pleuro- pericarditis, recovered with systemic steroids and immunosuppressive agents Plan Monitor hemoglobin. Keep the patient ICU. Consult GI. Retrieve the results of the capsule endoscopy. We'll follow.
[2017-02-21 14:50] LABS: Basophils % (A) 0 %; Eosinophils % (A) 0 %; HCT 20.6 % (39.0-53.0); HGB 7.1 gm/dL (13.0-17.5); Lymphocytes # (A) 1.4 k/uL (1.0-4.8); Lymphocytes % (A) 31 %; MCH 30.1 pg (25.0-35.0); MCHC 34.5 g/dL (31.0-37.0); MCV 87.2 fL (80.0-100.0); Mean Platelet Volume 7.4; Monocytes # (A) 0.2 k/uL (0-1.0); Monocytes % (A) 4 %; Neutrophils # (A) 2.7 k/uL (1.3-7.7); Neutrophils % (A) 61 %; Platelet Count 123 k/uL (150-450); RBC 2.37 m/uL (4.30-5.90); RDW 14.5 % (11.5-15.5); WBC 4.3 k/uL (3.8-10.6)
[2017-02-21 17:20] LABS: Glucose,Whole Blood 284 mg/dL (75-99)
[2017-02-21] MEDS: INSULIN ASPART 100 UNIT/ML 1 ML 10 ML VIAL SQ SCH ×2 (17:41→20:55)
--- NOTE | 2017-02-21 19:03 | PN ---
PROGRESS NOTE DATE OF SERVICE: 02/21/2017 This is a 61-year-old gentleman who was admitted with recurrent acute gastrointestinal bleed, also had capsule endoscopy recently. Capsule endoscopy showed negative per the staff. The official report is not available at this time, but however, after multiple transfusions hemoglobin is stable at 7.1 and creatinine is 2. Dr. Madden and Dr. Read is following the patient closely. Steroids have been tapered off. TPN has been started. The patient also had previously pleural pericarditis. Patient being closely monitored. PAST MEDICAL HISTORY: Reviewed. REVIEW OF SYSTEMS: Cardiovascular: As mentioned. RESPIRATORY: As mentioned earlier. GI as mentioned earlier. : No dysuria. CURRENT MEDICATIONS: Reviewed and include: 1. Tylenol 650 q.4h p.r.n. 2. [place] 5 mg q.6h p.r.n. 3. Xanax 0.5 t.i.d. p.r.n. 4. TPN. 6. Lasix 20 mg IV daily. 7. Dilaudid. 8. NovoLog. 9. Lopressor. 10.Narcan. 11.Protonix. 12.Prednisone. 13.Restoril. PHYSICAL EXAM: Patient is alert, oriented times three. Pulse 96, blood pressure 106/72, temperature 98.2, pulse ox 98% on room air. HEENT is conjunctivae pale. Oral mucosa moist. Neck is no jugular venous distention. No carotid bruit. No lymph node enlargement. Cardiovascular S1-S2. No S3, no S4. Respiratory: Breath sounds diminished in the bases. A few scattered rhonchi and crackles. ABDOMEN: Soft, obese, nontender. Legs: No edema, no swelling. Central nervous system: Diffusely weak. LABS: WBC 4.2, hemoglobin 7.1. Otherwise, total protein 3.8, albumin is 2.1, 376. ASSESSMENT: 1. Acute gastrointestinal bleed, recurrent etiology and site of bleeding unknown with hypotension secondary to gastrointestinal bleed. 2. History of recent gastrointestinal bleed and with normal EGD, colonoscopy with normal capsule endoscopy. 3. History of recently diagnosed gastritis status post renal biopsy. 4. Chronic kidney disease stage 3. 5. History of steroid induced diabetes mellitus type 2. 6. History of rheumatoid arthritis. 7. History of atrial ablation paroxysmal. 8. Hyponatremia. 9. Hypoalbuminemia, mild to moderate protein calorie malnutrition. 10.History of ANCA positivity. RECOMMENDATIONS AND DISCUSSION: In this 61-year-old gentleman who presented with multiple complex medical issues , we will monitor the patient closely. Continue the current medications, continue symptomatic treatment. Otherwise, currently we will continue to monitor with Gastroenterology. Capsule endoscopy is normal at this time. I would consider repeat colonoscopy if the patient has recurrence of bleeding. Otherwise continue to monitor. Prognosis guarded because of multiple complex medical issues. Further recommendations to follow. See orders for details. MMODL / IJN: [id number] / MTDD
[2017-02-21 20:55] LABS: Glucose,Whole Blood 189 mg/dL (75-99)
[2017-02-21 21:09] LABS: Basophils % (A) 0 %; Eosinophils % (A) 1 %; HCT 24.8 % (39.0-53.0); HGB 8.2 gm/dL (13.0-17.5); Lymphocytes # (A) 0.8 k/uL (1.0-4.8); Lymphocytes % (A) 24 %; MCH 28.7 pg (25.0-35.0); MCHC 32.9 g/dL (31.0-37.0); MCV 87.3 fL (80.0-100.0); Mean Platelet Volume 7.8; Monocytes # (A) 0.1 k/uL (0-1.0); Monocytes % (A) 3 %; Neutrophils # (A) 2.5 k/uL (1.3-7.7); Neutrophils % (A) 71 %; Platelet Count 108 k/uL (150-450); RBC 2.85 m/uL (4.30-5.90); RDW 15.4 % (11.5-15.5); WBC 3.5 k/uL (3.8-10.6)
[2017-02-22 04:41] LABS: Ionized Calcium 4.3 mg/dL (4.5-5.3)
[2017-02-22 04:54] LABS: Albumin 1.9 g/dL (3.5-5.0); Magnesium 1.8 mg/dL (1.6-2.3); Phosphorus 3.6 mg/dL (2.5-4.5); Potassium 3.9 mmol/L (3.5-5.1); Total Bilirubin 0.2 mg/dL (0.2-1.3); Total Protein 3.7 g/dL (6.3-8.2)
[2017-02-22 05:29] LABS: Basophils % (A) 0 %; Eosinophils % (A) 0 %; Lymphocytes # (A) 1.1 k/uL (1.0-4.8); Lymphocytes % (A) 28 %; MCH 29.4 pg (25.0-35.0); MCHC 32.3 g/dL (31.0-37.0); Mean Platelet Volume 7.9; Monocytes # (A) 0.2 k/uL (0-1.0); Monocytes % (A) 4 %; Neutrophils # (A) 2.6 k/uL (1.3-7.7); Neutrophils % (A) 66 %; Platelet Count 114 k/uL (150-450); RBC 2.08 m/uL (4.30-5.90); RDW 15.3 % (11.5-15.5); WBC 3.9 k/uL (3.8-10.6)
[2017-02-22 05:35] LABS: HCT 18.9 % (39.0-53.0); HGB 6.1 gm/dL (13.0-17.5)
[2017-02-22] MEDS: 1: MVI, ADULT NO.4 WITH VIT K 10 ML, TRACE (CONC-1ML/DOSE) 1 ML in AMINO ACID 4.25%-D10W IV SCH ×6 (05:52→19:14)
--- NOTE | 2017-02-22 07:49 | P.CONS ---
History of Present Illness - Reason for Consult Consult date: 02/21/17 GI bleeding/anemia - History of Present Illness The patient is a 61-year-old male who was recently hospitalized for GI bleeding and profound anemia. I performed an upper endoscopy and colonoscopy on and since that did not show significant findings, I followed that with the capsule endoscopy same night which was normal. The patient was discharged yesterday then returned because of recurrent bleeding. He described waking up in the morning on the day of this admission feeling dizzy and weak and when he had a bowel movement the first movement was dark bloody and that was followed by a more reddish bowel movement. He was brought to the emergency room and was found to have profound anemia. The patient initially presented to the emergency room with history of rectal bleeding. The patient reported bleeding that started the day prior to admission associated with nausea and vomiting. The patient has history of rheumatoid arthritis and vasculitis and has recent involvement of the kidney for which he was started on a course of prednisone and Rituxan. He is scheduled to receive a total of 4 doses. He has completed 2 doses already. He reports having experienced 2 & 1/2 days after each dose the onset of dark or bloody stools. His hemoglobin was 5.8 on admission. The patient has been transfused. His hemoglobin was 8.4 after transfusions and has drifted down gradually, today it is 7.9. The patient has history of polyps and he had prior colonoscopy several years ago. He denied hematemesis. He did report having some heartburn. The details are summarized in the history and physical and dictated consultations and progress notes. This evaluation to assess for a source of bleeding and profound anemia. Review of Systems 12 point review of systems is, otherwise, not revealing Past Medical History Past Medical History: Atrial Fibrillation, GI Bleed, Renal Disease, Rheumatoid Arthritis (RA), Syncope Additional Past Medical History / Comment(s): Rheumatoid arthritis, hemorrhoids , colonic polyps, previous cardiac stress test 2 showing no evidence of any reversible ischemia. paricarditis History of Any Multi-Drug Resistant Organisms: None Reported Past Surgical History: No Surgical Hx Reported Additional Past Surgical History / Comment(s): colonoscopy/polypectomy, hemangioma removed from inside L cheek. Past Anesthesia/Blood Transfusion Reactions: No Reported Reaction Past Psychological History: No Psychological Hx Reported Additional Psychological History / Comment(s): Pt resides with his spouse and 2 adult children. He is independent. 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 Smoking Status: Former smoker Past Alcohol Use History: None Reported Additional Past Alcohol Use History / Comment(s): Pt started smoking in 1970 and quit about 1990. Past Drug Use History: None Reported - Past Family History Father Family Medical History: CVA/TIA, Diabetes Mellitus Additional Family Medical History / Comment(s): Father at the age of 64 yrs from diabetic complications. Mother Family Medical History: Cancer Additional Family Medical History / Comment(s): Mother of colon cancer at the age of 74yrs. Medications and Allergies Home Medications Medication Instructions Recorded Confirmed Type Ergocalciferol (Vitamin D2) 50,000 unit PO QMONTH 02/05/17 02/20/17 History [Vitamin D2] Furosemide [Lasix] 20 mg PO BID 02/05/17 02/20/17 History Sodium Bicarbonate Tab 650 mg PO DAILY 02/05/17 02/20/17 History amLODIPine [Norvasc] 5 mg PO DAILY 02/05/17 02/20/17 History Calcitriol 0.25 mcg PO WE 02/12/17 02/20/17 History Metoprolol Tartrate [Lopressor] 25 mg PO BID #60 tab 02/19/17 02/20/17 Rx Pantoprazole Sodium [Protonix] 40 mg PO BID #60 tablet. 02/19/17 02/20/17 Rx predniSONE 30 mg PO DAILY #90 tab 02/19/17 02/20/17 Rx INSULIN LISPRO (HumaLOG) [humaLOG] See Protocol SQ ACHS 02/20/17 02/20/17 History riTUXimab [Rituxan] 10 mg IV FR 02/20/17 02/20/17 History Allergies Allergy/AdvReac Type Severity Reaction Status Date / Time No Known Allergies Allergy Verified 02/20/17 17:46 Physical Exam Vitals: Vital Signs Temp Pulse Resp BP Pulse Ox 02/21/17 09:00 78 15 107/78 98 02/21/17 08:00 97.9 F 78 12 107/68 98 02/21/17 07:00 67 13 114/70 98 02/21/17 06:50 68 12 114/70 98 02/21/17 06:40 66 12 114/70 96 02/21/17 06:30 68 11 L 114/70 97 02/21/17 06:20 67 13 114/70 97 02/21/17 06:10 69 13 114/70 99 02/21/17 06:00 70 13 113/65 97 02/21/17 05:50 65 11 L 113/65 98 02/21/17 05:40 69 11 L 113/65 99 02/21/17 05:30 69 11 L 113/65 99 02/21/17 05:20 67 10 L 113/65 99 02/21/17 05:10 113/65 02/21/17 05:00 92/54 02/21/17 04:50 92/54 99 02/21/17 04:40 75 12 92/54 98 02/21/17 04:30 76 14 92/54 98 02/21/17 04:20 74 13 92/54 98 02/21/17 04:10 76 8 L 92/54 97 02/21/17 04:00 98.5 F 75 12 98/51 98 02/21/17 03:50 75 13 98/51 98 02/21/17 03:40 75 12 98/51 99 02/21/17 03:30 74 12 98/51 98 02/21/17 03:20 72 12 98/51 98 02/21/17 03:10 73 13 98/51 98 02/21/17 03:00 78 10 L 107/74 100 02/21/17 02:50 68 14 107/74 98 02/21/17 02:40 66 12 107/74 98 02/21/17 02:30 64 12 107/74 98 02/21/17 02:20 62 12 107/74 98 02/21/17 02:10 66 12 107/74 97 02/21/17 02:00 70 12 101/65 97 02/21/17 01:50 70 11 L 101/65 98 02/21/17 01:40 66 12 101/65 99 02/21/17 01:30 67 12 101/65 98 02/21/17 01:20 66 11 L 101/65 98 02/21/17 01:10 66 11 L 101/65 97 02/21/17 01:00 64 10 L 104/68 97 02/21/17 00:50 62 12 104/68 98 02/21/17 00:40 68 17 104/68 99 02/21/17 00:30 71 14 103/69 99 02/21/17 00:20 66 13 103/69 99 02/21/17 00:10 70 13 103/69 99 02/21/17 00:09 98.9 F 73 13 103/69 99 02/21/17 00:00 71 15 96/68 99 02/20/17 23:50 72 17 100 02/20/17 23:40 72 16 103/71 100 02/20/17 23:30 98.9 F 69 119/71 99 02/20/17 23:20 119/71 02/20/17 23:10 119/71 02/20/17 23:00 68 31 H 120/73 100 02/20/17 22:50 68 14 120/73 100 02/20/17 22:40 69 13 122/71 100 02/20/17 22:30 79 9 L 124/76 100 02/20/17 22:20 73 12 124/76 100 02/20/17 22:10 119 H 22 124/75 100 02/20/17 22:00 97.2 F L 85 11 L 118/70 100 02/20/17 21:50 97.8 F 76 12 118/70 100 02/20/17 21:40 90 17 107/68 100 02/20/17 21:30 81 14 119/72 99 02/20/17 21:20 85 8 L 119/72 100 02/20/17 21:14 97.3 F L 85 16 119/72 100 02/20/17 21:10 98.6 F 82 14 138/87 100 02/20/17 21:00 82 12 116/73 100 02/20/17 20:50 86 13 116/73 100 02/20/17 20:40 98.6 F 82 15 115/70 100 02/20/17 20:30 80 13 111/65 100 02/20/17 20:20 88 28 H 111/65 100 02/20/17 20:10 84 13 118/73 100 02/20/17 20:00 100.2 F H 80 23 109/73 100 02/20/17 19:50 88 18 109/73 100 02/20/17 19:40 79 14 116/65 100 02/20/17 19:30 84 21 117/75 100 02/20/17 19:20 83 17 117/75 100 02/20/17 19:17 88 117/75 100 02/20/17 18:57 97.9 F 86 16 104/60 100 02/20/17 18:55 97.9 F 86 16 104/60 100 02/20/17 18:45 97.9 F 88 16 97/65 100 02/20/17 17:59 97 16 99/65 100 02/20/17 17:08 111 H 16 114/64 100 02/20/17 16:53 100.5 F H 107 H 20 74/47 99 Intake and Output 02/20/17 02/21/17 02/21/17 22:59 06:59 14:59 Intake Total 1240 160 60 Output Total 500 300 Balance 1240 -340 -240 Intake: IV 160 60 KVO 160 60 Blood Product 1240 Rc As-1 Unit 310 [id number] Rc As-1 Unit 310 [id number] Output: Urine 500 300 Other: Voiding Method Urinal # Voids 1 Weight 75.75 kg 71.9 kg General: Appeared stated age, very pleasant, in no acute distress Head and neck: Normocephalic and atraumatic. Conjunctivae pink and sclerae not icteric. Mucous membranes moist and pink. No masses in the neck or tracheal shifts Lungs: Clear to auscultation with no dullness to percussion Heart: Regular, no abnormal sounds, murmurs, gallops or friction rubs Abdomen: Soft, no masses, organomegalies or tenderness, bowel sounds present Extremities: No clubbing, cyanosis or edema Neurologic: Alert and oriented 3. Cranial nerves grossly intact. No gross sensory or motor abnormalities Results CBC & Chem 7: 02/22/17 05:21 02/22/17 04:21 Labs: Abnormal Lab Results - Last 24 Hours (Table) 02/20/17 02/20/17 02/20/17 Range/Units 17:20 17:20 17:20 RBC (4.30-5.90) m/uL Hgb (13.0-17.5) gm/dL Hct (39.0-53.0) % Plt Count (150-450) k/uL INR 1.2 H (<1.2) APTT 19.0 L (22.0-30.0) sec Sodium 133 L (137-145) mmol/L BUN 59 H (9-20) mg/dL Creatinine 2.00 H (0.66-1.25) mg/dL Glucose 187 H (74-99) mg/dL POC Glucose (mg/dL) (75-99) mg/dL Calcium 7.1 L (8.4-10.2) mg/dL Magnesium 1.4 L (1.6-2.3) mg/dL Alkaline Phosphatase 36 L (38-126) U/L Total Creatine Kinase (55-170) U/L Total Protein 4.0 L (6.3-8.2) g/dL Albumin 2.2 L (3.5-5.0) g/dL Urine Blood (Negative) Urine Mucus (None) /hpf Crossmatch See Detail 02/20/17 02/20/17 02/20/17 Range/Units 17:20 17:20 19:16 RBC 2.00 L (4.30-5.90) m/uL Hgb 6.0 L* D (13.0-17.5) gm/dL Hct 18.0 L* (39.0-53.0) % Plt Count (150-450) k/uL INR (<1.2) APTT (22.0-30.0) sec Sodium (137-145) mmol/L BUN (9-20) mg/dL Creatinine (0.66-1.25) mg/dL Glucose (74-99) mg/dL POC Glucose (mg/dL) 164 H (75-99) mg/dL Calcium (8.4-10.2) mg/dL Magnesium (1.6-2.3) mg/dL Alkaline Phosphatase (38-126) U/L Total Creatine Kinase 24 L (55-170) U/L Total Protein (6.3-8.2) g/dL Albumin (3.5-5.0) g/dL Urine Blood (Negative) Urine Mucus (None) /hpf Crossmatch 02/20/17 02/21/17 02/21/17 Range/Units 23:25 00:37 05:18 RBC 2.58 L 2.54 L (4.30-5.90) m/uL Hgb 7.8 L D 7.5 L (13.0-17.5) gm/dL Hct 23.2 L 22.5 L (39.0-53.0) % Plt Count 109 L 117 L (150-450) k/uL INR (<1.2) APTT (22.0-30.0) sec Sodium (137-145) mmol/L BUN (9-20) mg/dL Creatinine (0.66-1.25) mg/dL Glucose (74-99) mg/dL POC Glucose (mg/dL) (75-99) mg/dL Calcium (8.4-10.2) mg/dL Magnesium (1.6-2.3) mg/dL Alkaline Phosphatase (38-126) U/L Total Creatine Kinase (55-170) U/L Total Protein (6.3-8.2) g/dL Albumin (3.5-5.0) g/dL Urine Blood Moderate H (Negative) Urine Mucus Rare H (None) /hpf Crossmatch 02/21/17 Range/Units 05:18 RBC (4.30-5.90) m/uL Hgb (13.0-17.5) gm/dL Hct (39.0-53.0) % Plt Count (150-450) k/uL INR (<1.2) APTT (22.0-30.0) sec Sodium 135 L (137-145) mmol/L BUN 57 H (9-20) mg/dL Creatinine 2.00 H (0.66-1.25) mg/dL Glucose 115 H (74-99) mg/dL POC Glucose (mg/dL) (75-99) mg/dL Calcium 7.0 L (8.4-10.2) mg/dL Magnesium (1.6-2.3) mg/dL Alkaline Phosphatase 30 L (38-126) U/L Total Creatine Kinase (55-170) U/L Total Protein 3.8 L (6.3-8.2) g/dL Albumin 2.1 L (3.5-5.0) g/dL Urine Blood (Negative) Urine Mucus (None) /hpf Crossmatch Assessment and Plan Assessment: Recurrent GI bleeding and profound anemia. No clear etiology based on thorough recent workup. Intravascular lesion would be likely in light of his history. Plan: Agree with your current management. Consideration could be given to angiography with extreme caution because of his kidney issues. I am not planning to repeat endoscopies at this time and this can be considered based on his course. I will discuss with you and follow with you with interest.
[2017-02-22 07:51] LABS: Glucose,Whole Blood 232 mg/dL (75-99)
[2017-02-22] MEDS: INSULIN ASPART 100 UNIT/ML 1 ML 10 ML VIAL SQ SCH ×4 (08:00→21:10)
[2017-02-22] MEDS: predniSONE 10 MG TAB PO SCH ×3 (08:33→21:10)
[2017-02-22] MEDS: METOPROLOL TARTRATE 25 MG TAB PO SCH ×2 (08:33→21:10)
[2017-02-22] MEDS: SODIUM CHLORIDE 0.9% 1,000 ML IV SCH (08:34)
--- NOTE | 2017-02-22 09:14 | P.PN ---
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 The patient was earlier in the hospital this week for GI bleeding. He was in the ICU briefly. He underwent an EGD and a colonoscopy and the procedure did not yield any positive findings and no source of bleeding was identified. The patient was discharged home. Within 48 hours of discharge, the patient presented back. The patient had 2 episodes of bright red bloody rectal bleed at home and another episode here in IC at around 11 PM. For that reason the patient presented back to the hospital. He is a little been on admission was 6.0. He received transfusion and his hemoglobin this morning is up to 7.5. Fortunately his renal function is stable at at creatinine of 2.0. No abdominal pain. No nausea or vomiting. No diarrhea. No intake of any anticoagulants or nonsteroidal anti-inflammatory medications. No alcoholism. The patient is hemodynamically stable at this point. Note that the capsule endoscopy has also been done, and supposedly results are nondiagnostic. Patient was reevaluated today on 02/22/2017, clinically he is doing well, however he continues to drop his hemoglobin down, and he had one episode of black tarry stools today. More blood is being transfused, he is now receiving one of 2 units which were ordered this morning for a hemoglobin of 6.1. Patient remains on prednisone, he is at 30 mg daily. Renal functioning is about baseline with a BUN of 40 creatinine 1.75, patient presented initially with glomerulonephritis , and it was felt to be related to anca Induced vasculitis. So far the patient has received a total of 2 out of 4 units ordered for low hemoglobin. Patient denies any nausea vomiting abdominal pain, no shortness of breath, no chest pain. Objective - Vital Signs Vital signs: Vital Signs Temp 97.9 F 02/22/17 08:00 Pulse 75 02/22/17 08:00 Resp 14 02/22/17 08:00 BP 146/72 02/22/17 08:00 Pulse Ox 99 02/22/17 08:00 Intake & Output 02/21/17 02/22/17 02/22/17 18:59 06:59 18:59 Intake Total 730 1638 266 Output Total 1250 950 Balance -520 688 266 Weight 71.9 kg 72 kg Intake: IV 130 KVO 130 Intake, IV Titration 600 1398 266 Amount Mvi, Adult No.4 with Vit 250 798 83 K 10 ml Trace (Conc-1Ml/ Dose) 1 ml In Amino Acid 4.25%-D10w+Lytes*E* 1,000 ml @ 50 mls/hr IV . [id number] [facility]IOR Rx#:[id number] Mvi, Adult No.4 with Vit 83 K 10 ml Trace (Conc-1Ml/ Dose) 1 ml In Amino Acid 4.25%-D10w+Lytes*E* 1,000 ml @ 83 mls/hr IV .BY DURATION YUNIOR Rx#: [id number] Sodium Chloride 0.9% 1, 350 600 100 000 ml @ 50 mls/hr IV . Q20H [facility]IOR Rx#:[id number] Oral 240 Blood Product 0 Rc As-3 Unit 0 [id number] Output: Urine 1250 950 Other: Voiding Method Urinal Urinal # Voids 0 1 # Bowel Movements 1 - Exam Physical Exam: Revealed a 61-year-old white male, slightly pale, in no distress. HEENT:[Neck is supple.] [No neck masses.] [No thyromegaly.] [No JVD.] Chest: [Clear throughout, no crackles, no rhonchi, no wheezes.] Cardiac Exam: [Normal S1 and S2, no S3 gallop, no murmur.] Abdomen: [Soft, nontender, no megaly, no rebound, no guarding, normal bowel sounds.] Extremities: [No clubbing, no edema, no cyanosis.] Neurological Exam: [No focal neurologic deficit.] Lymphatic: No lymphadenopathy. Psychiatric: Normal mood affect and mental status examination. - Labs CBC & Chem 7: 02/22/17 05:21 02/22/17 04:21 Labs: Abnormal Lab Results - Last 24 Hours (Table) 02/20/17 02/21/17 02/21/17 Range/Units 17:20 05:18 14:35 WBC (3.8-10.6) k/uL RBC 2.37 L (4.30-5.90) m/uL Hgb 7.1 L (13.0-17.5) gm/dL Hct 20.6 L (39.0-53.0) % Plt Count 123 L (150-450) k/uL Lymphocytes # (1.0-4.8) k/uL Sodium (137-145) mmol/L BUN (9-20) mg/dL Creatinine (0.66-1.25) mg/dL Glucose (74-99) mg/dL POC Glucose (mg/dL) (75-99) mg/dL Calcium (8.4-10.2) mg/dL Ionized Calcium Shanthi (4.5-5.3) mg/dL AST (17-59) U/L Alkaline Phosphatase (38-126) U/L Total Protein (6.3-8.2) g/dL Albumin (3.5-5.0) g/dL Triglycerides 376 H (<150) mg/dL Crossmatch See Detail 02/21/17 02/21/17 02/21/17 Range/Units 17:18 20:49 20:51 WBC 3.5 L (3.8-10.6) k/uL RBC 2.85 L (4.30-5.90) m/uL Hgb 8.2 L (13.0-17.5) gm/dL Hct 24.8 L (39.0-53.0) % Plt Count 108 L (150-450) k/uL Lymphocytes # 0.8 L (1.0-4.8) k/uL Sodium (137-145) mmol/L BUN (9-20) mg/dL Creatinine (0.66-1.25) mg/dL Glucose (74-99) mg/dL POC Glucose (mg/dL) 284 H 189 H (75-99) mg/dL Calcium (8.4-10.2) mg/dL Ionized Calcium Shanthi (4.5-5.3) mg/dL AST (17-59) U/L Alkaline Phosphatase (38-126) U/L Total Protein (6.3-8.2) g/dL Albumin (3.5-5.0) g/dL Triglycerides (<150) mg/dL Crossmatch 02/22/17 02/22/17 02/22/17 Range/Units 04:21 05:21 07:50 WBC (3.8-10.6) k/uL RBC 2.08 L (4.30-5.90) m/uL Hgb 6.1 L* D (13.0-17.5) gm/dL Hct 18.9 L* (39.0-53.0) % Plt Count 114 L (150-450) k/uL Lymphocytes # (1.0-4.8) k/uL Sodium 135 L (137-145) mmol/L BUN 40 H (9-20) mg/dL Creatinine 1.75 H (0.66-1.25) mg/dL Glucose 204 H (74-99) mg/dL POC Glucose (mg/dL) 232 H (75-99) mg/dL Calcium 7.0 L (8.4-10.2) mg/dL Ionized Calcium Shanthi 4.3 L (4.5-5.3) mg/dL AST 15 L (17-59) U/L Alkaline Phosphatase 29 L (38-126) U/L Total Protein 3.7 L (6.3-8.2) g/dL Albumin 1.9 L (3.5-5.0) g/dL Triglycerides (<150) mg/dL Crossmatch Assessment and Plan Assessment: 1 acute GI bleeding. The patient had bright red blood per rectum and subsequent drop in hemoglobin down to 6.0 and he had received a total of 2 units of packed RBC and subsequent hemoglobin is up to 7.5. The patient is hemodynamically stable. The patient has been diagnosed having a combination of rheumatoid arthritis/vasculitis and currently is in a new suppressive agents. He underwent a recent endoscopy including EGD and colonoscopy and capsule endoscopy. The EGD and colonoscopy did not yield any source of bleeding. The capsule endoscopy results are nondiagnostic, patient is being followed by gastroenterology, I have a feeling at this point that are planning to observe. 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 Note that this progressive improvement in renal function with the patient's creatinine was as high as 3.7 is currently down to 1.75 5 immunosuppression treatment with a combination of Rituxan and prednisone 6 acute anemia secondary to GI bleeding 7 pleuro- pericarditis, recovered with systemic steroids and immunosuppressive agents Plan: Continue present treatment plan, continue to monitor in the ICU, transfuse for hemoglobin below 7, await GI input regarding further diagnostic or therapeutic plans. Prognosis is relatively guarded. We'll continue to follow while in the ICU. Time with Patient: Less than 30
[2017-02-22] MEDS: PANTOPRAZOLE 40 MG/10 ML VIAL IVP SCH ×2 (09:16→21:10)
[2017-02-22] MEDS: FAT EMULSION 20% 250 ML IV SCH (09:19)
[2017-02-22] MEDS ORDERED: POTASSIUM CHLORIDE ER 20 MEQ TAB.ER PO ONE (09:30)
[2017-02-22] MEDS: FUROSEMIDE 10 MG/ML 2 ML VIAL IV SCH (09:30)
[2017-02-22] MEDS ORDERED: CALCIUM GLUCONATE 1,000 MG in SODIUM CHLORIDE 0.9% 100 ML IVPB ONE (10:00)
[2017-02-22] MEDS: MAGNESIUM SULFATE-D5W PMX 1 GM in DEXTROSE/WATER 1 100ML.BAG IVPB SCH ×2 (12:02→13:34)
[2017-02-22 12:49] LABS: Glucose,Whole Blood 181 mg/dL (75-99)
[2017-02-22] MEDS ORDERED: MAGNESIUM CITRATE 296 ML BOTTLE PO ONE (13:11)
[2017-02-22 14:13] LABS: Basophils % (A) 1 %; Eosinophils % (A) 0 %; HCT 27.4 % (39.0-53.0); Lymphocytes # (A) 1.6 k/uL (1.0-4.8); Lymphocytes % (A) 26 %; MCH 31.1 pg (25.0-35.0); MCHC 34.8 g/dL (31.0-37.0); MCV 89.2 fL (80.0-100.0); Monocytes # (A) 0.3 k/uL (0-1.0); Monocytes % (A) 4 %; Neutrophils # (A) 4.2 k/uL (1.3-7.7); Neutrophils % (A) 68 %; Platelet Count 132 k/uL (150-450); RBC 3.07 m/uL (4.30-5.90); RDW 15.9 % (11.5-15.5); WBC 6.2 k/uL (3.8-10.6)
[2017-02-22 14:16] LABS: HGB 9.6 gm/dL (13.0-17.5)
--- NOTE | 2017-02-22 14:55 | PN ---
PROGRESS NOTE DATE OF SERVICE: 02/22/2017 Patient is a 61-year-old pleasant white male who was recently hospitalized a week ago to [facility] with acute GI bleed. He underwent an upper endoscopy as well as colonoscopy by Dr. Fine on February 18, which was unremarkable. Subsequently, he had a small bowel capsule endoscopy done that was also unremarkable. The patient; however, was discharged home on Wednesday and he returned back on Wednesday with more bleeding. He had multiple episodes of black tarry stools with large clots and was noted to have severe anemia with a hemoglobin of 6.2. So far, he received 4 units of blood transfusion during this hospitalization. However, since being admitted to the hospital on Wednesday, he did not have any further episodes of bleeding. He did have one dark colored stool this morning. No abdominal pain. No nausea, vomiting. Never had these symptoms in the past. Last hemoglobin was 9.3 g/dL. He reports no abdominal pain. No fever, chills, or night sweats. PHYSICAL EXAMINATION: He appears comfortable, in no apparent distress. Vital signs are stable. Blood pressure is 130/82, pulse rate 86 per minute and afebrile. HEENT examination unremarkable. Conjunctivae are pink and sclerae nonicteric. Oral cavity no lesions. NECK: No JVD or lymph node enlargement. CHEST: Clear to auscultation. HEART: Regular rate and rhythm. ABDOMEN: Soft. Bowel sounds are positive. No organomegaly. EXTREMITIES: No pedal edema. SKIN; No rashes. NEURO: Alert and oriented x3. No focal deficits. LAB: From this morning, hemoglobin was 6.1, WBC of 3.9, platelets 114. BUN was 40, creatinine 1.75. IMPRESSION: Obscure acute gastrointestinal bleed, possibly small bowel source of bleeding. Patient was admitted to hospital a week ago with similar symptoms. EGD, colonoscopy by Dr. Fine was unremarkable and a small bowel capsule endoscopy was also unremarkable. During this hospitalization, he presents with a hemoglobin of 6, requiring 2 units of blood and this morning it dropped to 6, again and he received 2 units of blood. Currently, hemodynamically stable and clinically no active bleeding in the last 24 hours. RECOMMENDATIONS: I had a lengthy discussion with the patient regarding further management. He was given an option to be transferred to [facility], but at this time, he and his refuse to go there. Hence, I suggested that we can continue to investigate either with a repeat small bowel capsule endoscopy or consider a tagged RBC scan at this time. However, since it appears that he is not bleeding in the last 24 hours, I recommend to proceed with a repeat small bowel capsule endoscopy, which will be done later today and based on the findings, we can consider further workup or if he has severe active bleeding, transfer him to a tertiary institute. The family was a agreeable with this plan. Will follow him closely during his hospital stay. Thank you for this consultation. TIESHA / GURPREET: [id number] /
[2017-02-22 15:36] LABS: Hemoglobin A1C 5.9 % (4.0-6.0)
[2017-02-22 17:48] LABS: Glucose,Whole Blood 156 mg/dL (75-99)
[2017-02-22 21:10] LABS: Glucose,Whole Blood 274 mg/dL (75-99)
--- NOTE | 2017-02-22 22:28 | PN ---
PROGRESS NOTE The patient is seen for followup for an acute kidney injury secondary to immune vasculitis, maintained on Rituxan and prednisone. The patient was admitted to the hospital with an episode of GI bleed and he has not had any further bleeding since his hospitalization. Hemoglobin was initially down to 6.1. It is at 9.6 g/dL now. The possibility of transfer to a tertiary care center was discussed with the patient. At this time is reluctant regarding transfer unless there is any further intervention that may be planned. Currently we are awaiting GI input. It appears that had the patient did have a discussion with GI later on during the day and the plan is to proceed with capsule endoscopy for now. EXAMINATION: This morning the patient is comfortable. Blood pressure is 134/81, heart rate 79 per minute. Patient is afebrile. Examination of the heart S1, S2. Examination lungs bilateral breath sounds are heard. Abdomen is soft, nontender. Examination lower extremities shows no evidence of edema. [employer] exam is grossly intact. LABS SHOW: A hemoglobin 9.6 g/dL, serum creatinine was 1.75. Sodium 135, potassium 3.9. ASSESSMENT: 1. Acute kidney injury secondary to vasculitis. Currently, he is improving. The patient has been maintained on Rituxan and prednisone. His renal function has improved. 2. Acute gastrointestinal bleed with negative colonoscopy and endoscopy previously. Awaiting capsule endoscopy and then possible transfer to a tertiary care center. 3. Rheumatoid arthritis. Currently stable. 4. History of pericarditis. PLAN: No changes from nephrology standpoint. Awaiting decision regarding further intervention from Nephrology standpoint. Continue with the IV fluids at 50 mL an hour for now. MMODL / IJN: [id number] /
[2017-02-23] MEDS: SODIUM CHLORIDE 0.9% 1,000 ML IV SCH ×2 (04:12→07:14)
[2017-02-23 05:23] LABS: HCT 26.8 % (39.0-53.0); HGB 9.2 gm/dL (13.0-17.5); MCH 29.8 pg (25.0-35.0); MCHC 34.3 g/dL (31.0-37.0); MCV 86.8 fL (80.0-100.0); Mean Platelet Volume 7.3; Platelet Count 127 k/uL (150-450); RBC 3.08 m/uL (4.30-5.90); RDW 14.9 % (11.5-15.5); WBC 5.8 k/uL (3.8-10.6)
[2017-02-23 05:45] LABS: Albumin 2.3 g/dL (3.5-5.0); Calcium 7.8 mg/dL (8.4-10.2); Magnesium 2.3 mg/dL (1.6-2.3); Phosphorus 3.6 mg/dL (2.5-4.5); Potassium 4.4 mmol/L (3.5-5.1); Total Bilirubin 0.4 mg/dL (0.2-1.3); Total Protein 4.2 g/dL (6.3-8.2)
[2017-02-23 06:11] LABS: Band Neutrophils % 2 %; Lymphocytes # (M) 0.87 k/uL (1.0-4.8); Monocytes # (M) 0.52 k/uL (0-1.0); Myelocytes # (M) 0.06 k/uL (0); Myelocytes % 1 %; Neutrophils % (M) 74 %; Nucleated Red Blood Cells 0 /100 WBC (0-0); Total Cells Counted 200
[2017-02-23] MEDS: 1: MVI, ADULT NO.4 WITH VIT K 10 ML, TRACE (CONC-1ML/DOSE) 1 ML in AMINO ACID 4.25%-D10W IV SCH ×6 (06:59→17:53)
[2017-02-23 07:24] LABS: Glucose,Whole Blood 195 mg/dL (75-99)
[2017-02-23] MEDS: INSULIN ASPART 100 UNIT/ML 1 ML 10 ML VIAL SQ SCH ×4 (07:57→21:52)
[2017-02-23] MEDS: FUROSEMIDE 10 MG/ML 2 ML VIAL IV SCH (08:31)
[2017-02-23] MEDS: predniSONE 10 MG TAB PO SCH ×3 (08:31→20:30)
[2017-02-23] MEDS: PANTOPRAZOLE 40 MG/10 ML VIAL IVP SCH ×2 (08:31→20:30)
[2017-02-23] MEDS: METOPROLOL TARTRATE 25 MG TAB PO SCH ×2 (08:31→20:30)
--- NOTE | 2017-02-23 09:59 | P.PN ---
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 The patient was earlier in the hospital this week for GI bleeding. He was in the ICU briefly. He underwent an EGD and a colonoscopy and the procedure did not yield any positive findings and no source of bleeding was identified. The patient was discharged home. Within 48 hours of discharge, the patient presented back. The patient had 2 episodes of bright red bloody rectal bleed at home and another episode here in IC at around 11 PM. For that reason the patient presented back to the hospital. He is a little been on admission was 6.0. He received transfusion and his hemoglobin this morning is up to 7.5. Fortunately his renal function is stable at at creatinine of 2.0. No abdominal pain. No nausea or vomiting. No diarrhea. No intake of any anticoagulants or nonsteroidal anti-inflammatory medications. No alcoholism. The patient is hemodynamically stable at this point. Note that the capsule endoscopy has also been done, and supposedly results are nondiagnostic. Patient was reevaluated today on 02/22/2017, clinically he is doing well, however he continues to drop his hemoglobin down, and he had one episode of black tarry stools today. More blood is being transfused, he is now receiving one of 2 units which were ordered this morning for a hemoglobin of 6.1. Patient remains on prednisone, he is at 30 mg daily. Renal functioning is about baseline with a BUN of 40 creatinine 1.75, patient presented initially with glomerulonephritis , and it was felt to be related to anca Induced vasculitis. So far the patient has received a total of 2 out of 4 units ordered for low hemoglobin. Patient denies any nausea vomiting abdominal pain, no shortness of breath, no chest pain. Reevaluated today on 02/23/2017, patient is doing well, hemoglobin is stable today patient received a total of 4 units of packed RBCs since admission. Hemoglobin today is 9.2 and it was 9.6 yesterday. Electrolytes are normal BUN is 37 creatinine is 1.51, improving. Patient had another capsule endoscopy, results of which are pending again. Gastroenterology on the case seems to be inclined to consider sending the patient to [facility]. Objective - Vital Signs Vital signs: Vital Signs Temp 97.7 F 02/23/17 08:00 Pulse 80 02/23/17 09:00 Resp 14 02/23/17 09:00 BP 147/78 02/23/17 09:00 Pulse Ox 99 02/23/17 09:00 Intake & Output 02/22/17 02/23/17 02/23/17 18:59 06:59 18:59 Intake Total 2261 1855 225 Output Total 1850 1 Balance 411 1855 224 Weight 72 kg 73.8 kg Intake: IV 60 0 KVO 60 0 Intake, IV Titration 1581 1630 0 Amount Calcium Gluconate 1,000 100 mg In Sodium Chloride 0.9 % 100 ml @ 100 mls/hr IVPB ONCE ONE Rx#: [id number] Fat Emulsion 20% 250 ml @ 168 84 21 mls/hr IV MoWeFr [facility] Rx#:[id number] Magnesium Sulfate-D5w Pmx 200 1 gm In Dextrose/Water 1 100ml.bag @ 100 mls/hr IVPB Q1H [facility] Rx#: [id number] Mvi, Adult No.4 with Vit 83 K 10 ml Trace (Conc-1Ml/ Dose) 1 ml In Amino Acid 4.25%-D10w+Lytes*E* 1,000 ml @ 50 mls/hr IV . [id number] [facility] Rx#:[id number] Mvi, Adult No.4 with Vit 830 996 0 K 10 ml Trace (Conc-1Ml/ Dose) 1 ml In Amino Acid 4.25%-D10w+Lytes*E* 1,000 ml @ 83 mls/hr IV .BY DURATION [facility] Rx#: [id number] Sodium Chloride 0.9% 1, 200 550 0 000 ml @ 50 mls/hr IV . Q20H [facility] Rx#:[id number] Oral 225 Tube Feeding 225 Blood Product 620 Rc As-1 Unit 310 [id number] Rc As-3 Unit 310 [id number] Output: Urine 1850 Urine/Stool Mix 1 Other: Voiding Method Urinal Urinal Urinal # Voids 1 1 # Bowel Movements 1 1 - Exam Physical Exam: Revealed a 61-year-old white male, slightly pale, in no distress. HEENT:[Neck is supple.] [No neck masses.] [No thyromegaly.] [No JVD.] Chest: [Clear throughout, no crackles, no rhonchi, no wheezes.] Cardiac Exam: [Normal S1 and S2, no S3 gallop, no murmur.] Abdomen: [Soft, nontender, no megaly, no rebound, no guarding, normal bowel sounds.] Extremities: [No clubbing, no edema, no cyanosis.] Neurological Exam: [No focal neurologic deficit.] Lymphatic: No lymphadenopathy. Psychiatric: Normal mood affect and mental status examination. - Labs CBC & Chem 7: 02/23/17 04:53 02/23/17 04:53 Labs: Abnormal Lab Results - Last 24 Hours (Table) 02/20/17 02/22/17 02/22/17 Range/Units 17:20 12:32 13:22 RBC 3.07 L (4.30-5.90) m/uL Hgb 9.6 L D (13.0-17.5) gm/dL Hct 27.4 L (39.0-53.0) % RDW 15.9 H (11.5-15.5) % Plt Count 132 L (150-450) k/uL Lymphocytes # (Manual) (1.0-4.8) k/uL Myelocytes # (Manual) (0) k/uL Sodium (137-145) mmol/L BUN (9-20) mg/dL Creatinine (0.66-1.25) mg/dL Glucose (74-99) mg/dL POC Glucose (mg/dL) 181 H (75-99) mg/dL Calcium (8.4-10.2) mg/dL Alkaline Phosphatase (38-126) U/L Total Protein (6.3-8.2) g/dL Albumin (3.5-5.0) g/dL Crossmatch See Detail 02/22/17 02/22/17 02/23/17 Range/Units 17:46 20:45 04:53 RBC (4.30-5.90) m/uL Hgb (13.0-17.5) gm/dL Hct (39.0-53.0) % RDW (11.5-15.5) % Plt Count (150-450) k/uL Lymphocytes # (Manual) (1.0-4.8) k/uL Myelocytes # (Manual) (0) k/uL Sodium 134 L (137-145) mmol/L BUN 37 H (9-20) mg/dL Creatinine 1.51 H (0.66-1.25) mg/dL Glucose 207 H (74-99) mg/dL POC Glucose (mg/dL) 156 H 274 H (75-99) mg/dL Calcium 7.8 L (8.4-10.2) mg/dL Alkaline Phosphatase 24 L (38-126) U/L Total Protein 4.2 L (6.3-8.2) g/dL Albumin 2.3 L (3.5-5.0) g/dL Crossmatch 02/23/17 02/23/17 Range/Units 04:53 07:20 RBC 3.08 L (4.30-5.90) m/uL Hgb 9.2 L (13.0-17.5) gm/dL Hct 26.8 L (39.0-53.0) % RDW (11.5-15.5) % Plt Count 127 L (150-450) k/uL Lymphocytes # (Manual) 0.87 L (1.0-4.8) k/uL Myelocytes # (Manual) 0.06 H (0) k/uL Sodium (137-145) mmol/L BUN (9-20) mg/dL Creatinine (0.66-1.25) mg/dL Glucose (74-99) mg/dL POC Glucose (mg/dL) 195 H (75-99) mg/dL Calcium (8.4-10.2) mg/dL Alkaline Phosphatase (38-126) U/L Total Protein (6.3-8.2) g/dL Albumin (3.5-5.0) g/dL Crossmatch Assessment and Plan Assessment: 1 acute GI bleeding. The patient had bright red blood per rectum and subsequent drop in hemoglobin down to 6.0 and he had received a total of 2 units of packed RBC and subsequent hemoglobin is up to 7.5. The patient is hemodynamically stable. The patient has been diagnosed having a combination of rheumatoid arthritis/vasculitis and currently is in a new suppressive agents. He underwent a recent endoscopy including EGD and colonoscopy and capsule endoscopy. The EGD and colonoscopy did not yield any source of bleeding. The capsule endoscopy results are nondiagnostic, patient is being followed by gastroenterology, repeat capsule endoscopy was done, results of which are pending, hemoglobin today is 9.2, may or may not require transfer to [facility]. We will leave it up to the gastroenterology staff on the case to decide. 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 Note that this progressive improvement in renal function with the patient's creatinine was as high as 3.7 is currently down to 1.5 5 immunosuppression treatment with a combination of Rituxan and prednisone 6 acute anemia secondary to GI bleeding 7 pleuro- pericarditis, recovered with systemic steroids and immunosuppressive agents Plan: Continue present treatment plan, await further input from gastroenterology on the case, and hopefully will have an answer from the capsule endoscopy which was repeated yesterday, may consider transferring the patient out of the ICU in the next 24 hours. Assuming his hemoglobin remains stable and no active bleeding. Time with Patient: Less than 30
--- NOTE | 2017-02-23 10:07 | P.PN ---
Subjective Progress Note Date: 02/23/17 Principal diagnosis: GI bleed anemia No active bleeding since Wednesday. Hemoglobin 9.2. Afebrile. Small bowel capsule study completed results pending. Denies abdominal pain. Objective - Vital Signs Vital signs: Vital Signs Temp 97.7 F 02/23/17 08:00 Pulse 80 02/23/17 09:00 Resp 14 02/23/17 09:00 BP 147/78 02/23/17 09:00 Pulse Ox 99 02/23/17 09:00 Intake & Output 02/22/17 02/23/17 02/23/17 18:59 06:59 18:59 Intake Total 2261 1855 225 Output Total 1850 1 Balance 411 1855 224 Weight 72 kg 73.8 kg Intake: IV 60 0 KVO 60 0 Intake, IV Titration 1581 1630 0 Amount Calcium Gluconate 1,000 100 mg In Sodium Chloride 0.9 % 100 ml @ 100 mls/hr IVPB ONCE ONE Rx#: [id number] Fat Emulsion 20% 250 ml @ 168 84 21 mls/hr IV MoWeFr [facility] Rx#:[id number] Magnesium Sulfate-D5w Pmx 200 1 gm In Dextrose/Water 1 100ml.bag @ 100 mls/hr IVPB Q1H [facility] Rx#: [id number] Mvi, Adult No.4 with Vit 83 K 10 ml Trace (Conc-1Ml/ Dose) 1 ml In Amino Acid 4.25%-D10w+Lytes*E* 1,000 ml @ 50 mls/hr IV . [id number] [facility] Rx#:[id number] Mvi, Adult No.4 with Vit 830 996 0 K 10 ml Trace (Conc-1Ml/ Dose) 1 ml In Amino Acid 4.25%-D10w+Lytes*E* 1,000 ml @ 83 mls/hr IV .BY DURATION [facility] Rx#: [id number] Sodium Chloride 0.9% 1, 200 550 0 000 ml @ 50 mls/hr IV . Q20H [facility] Rx#:[id number] Oral 225 Tube Feeding 225 Blood Product 620 Rc As-1 Unit 310 [id number] Rc As-3 Unit 310 [id number] Output: Urine 1850 Urine/Stool Mix 1 Other: Voiding Method Urinal Urinal Urinal # Voids 1 1 # Bowel Movements 1 1 - Exam General appearance: The patient is alert, oriented, in no acute distress. HET: Head is normocephalic and atraumatic. Pupils are equal and reactive. Oropharynx is clear without lesions. Neck: Supple without lymphadenopathy. Trachea midline. Heart: S1 S2. Regular rate and rhythm. Lungs: No crackles or wheezes are heard. Abdomen: Soft, nontender, nondistended with bowel sounds. No peritoneal signs. No palpable organomegaly or masses. Extremities: Normal skin color and turgor. No cyanosis, rash, ulceration, clubbing, or edema. Radial and pedal pulses are 2/4 bilaterally. Neurological: No focal deficits. Strength and sensation are grossly intact. - Labs CBC & Chem 7: 02/23/17 04:53 02/23/17 04:53 Labs: Abnormal Lab Results - Last 24 Hours (Table) 02/20/17 02/22/17 02/22/17 Range/Units 17:20 12:32 13:22 RBC 3.07 L (4.30-5.90) m/uL Hgb 9.6 L D (13.0-17.5) gm/dL Hct 27.4 L (39.0-53.0) % RDW 15.9 H (11.5-15.5) % Plt Count 132 L (150-450) k/uL Lymphocytes # (Manual) (1.0-4.8) k/uL Myelocytes # (Manual) (0) k/uL Sodium (137-145) mmol/L BUN (9-20) mg/dL Creatinine (0.66-1.25) mg/dL Glucose (74-99) mg/dL POC Glucose (mg/dL) 181 H (75-99) mg/dL Calcium (8.4-10.2) mg/dL Alkaline Phosphatase (38-126) U/L Total Protein (6.3-8.2) g/dL Albumin (3.5-5.0) g/dL Crossmatch See Detail 02/22/17 02/22/17 02/23/17 Range/Units 17:46 20:45 04:53 RBC (4.30-5.90) m/uL Hgb (13.0-17.5) gm/dL Hct (39.0-53.0) % RDW (11.5-15.5) % Plt Count (150-450) k/uL Lymphocytes # (Manual) (1.0-4.8) k/uL Myelocytes # (Manual) (0) k/uL Sodium 134 L (137-145) mmol/L BUN 37 H (9-20) mg/dL Creatinine 1.51 H (0.66-1.25) mg/dL Glucose 207 H (74-99) mg/dL POC Glucose (mg/dL) 156 H 274 H (75-99) mg/dL Calcium 7.8 L (8.4-10.2) mg/dL Alkaline Phosphatase 24 L (38-126) U/L Total Protein 4.2 L (6.3-8.2) g/dL Albumin 2.3 L (3.5-5.0) g/dL Crossmatch 02/23/17 02/23/17 Range/Units 04:53 07:20 RBC 3.08 L (4.30-5.90) m/uL Hgb 9.2 L (13.0-17.5) gm/dL Hct 26.8 L (39.0-53.0) % RDW (11.5-15.5) % Plt Count 127 L (150-450) k/uL Lymphocytes # (Manual) 0.87 L (1.0-4.8) k/uL Myelocytes # (Manual) 0.06 H (0) k/uL Sodium (137-145) mmol/L BUN (9-20) mg/dL Creatinine (0.66-1.25) mg/dL Glucose (74-99) mg/dL POC Glucose (mg/dL) 195 H (75-99) mg/dL Calcium (8.4-10.2) mg/dL Alkaline Phosphatase (38-126) U/L Total Protein (6.3-8.2) g/dL Albumin (3.5-5.0) g/dL Crossmatch Assessment and Plan (1) Acute blood loss anemia Current Visit: No Status: Acute Code(s): D62 - ACUTE POSTHEMORRHAGIC ANEMIA SNOMED Code(s): 576769818 (2) Anemia Current Visit: No Status: Acute Code(s): D64.9 - ANEMIA, UNSPECIFIED SNOMED Code(s): 840756198 (3) GI bleed Current Visit: No Status: Acute Code(s): K92.2 - GASTROINTESTINAL HEMORRHAGE , UNSPECIFIED SNOMED Code(s): 18827772 (4) Vasculitis, ANCA positive Current Visit: No Status: Acute Code(s): I77.6 - ARTERITIS, UNSPECIFIED SNOMED Code(s): 195913268 Plan: 1. Will review capsule study. Further recommendations forthcoming. Assessment and plan of care discussed with Dr. Paez.
[2017-02-23 12:18] LABS: Glucose,Whole Blood 171 mg/dL (75-99)
--- NOTE | 2017-02-23 12:21 | P.PN ---
Progress Note - Text Progress Note Date: 02/23/17 Small bowel capsule reviewed with Dr. Paez. Technically a good study. Evidence of old blood mixed with bilious secretions seen in last 1-1/2 hours of study. Source of small bowel bleed is unclear considering fresh blood was not identified. Results of capsule discussed with spouse and patient as well as attending [employer] Eloy Bai. Transfer to tertiary was discussed but patient declined. Recommend to observe over night. Full liquid diet. Agreeable to transfer out of ICU to medical floor with close observation CBC monitoring. If patient has recurrent bleed recommend transfer to tertiary center where further workup can be initiated possible double balloon endoscopy possible angiography to help delineate small bowel source more clearly. Patient and spouse agree with plan of care.
--- NOTE | 2017-02-23 17:48 | P.PN ---
Subjective Progress Note Date: 02/22/17 Progress note being dictated for Dr. Crowe. Interval history: This is a 61-year-old gentleman admitted with recurrent acute GI bleed, recent EGD, on colonoscopy, capsule study reported as negative. Hemoglobin 6.1 this morning, status post 2 units packed RBC transfusion with repeat hemoglobin currently 9.6. Vital signs stable. One small dark stool this morning. No further signs or symptoms of bleeding. Transfer to tertiary center offered, patient and spouse currently declining. Repeat small bowel capsule endoscopy initiated as per GI. Review of systems: CONSTITUTIONAL: No fever, no malaise, no fatigue. No focal deficits. No lightheadedness, no dizziness HEENT: No recent visual problems or hearing problems. Denied any sore throat. CARDIOVASCULAR: No chest pain, orthopnea, PND, no palpitations, no syncope. PULMONARY: No shortness of breath, no cough, no hemoptysis. GASTROINTESTINAL: No diarrhea, no nausea, no vomiting, no abdominal pain. Normoactive bowel sounds. NEUROLOGICAL: No headaches, no weakness, no numbness. HEMATOLOGICAL: Denies any bleeding or petechiae. GENITOURINARY: Denies any burning micturition, frequency, or urgency. MUSCULOSKELETAL/RHEUMATOLOGICAL: Denies any joint pain, swelling, or any muscle pain. ENDOCRINE: Denies any polyuria or polydipsia. PSYCHIATRIC: No anxiety, no depression The rest of the 14 point review of systems is negative Active Medications Acetaminophen (Tylenol Tab) 650 mg PO Q4HR PRN PRN Reason: Fever and/or Mild Pain Hydrocodone Bitart/Acetaminophen ([place] 5-325) 1 each PO Q6HR PRN PRN Reason: Moderate Pain Alprazolam (Xanax) 0.25 mg PO TID PRN PRN Reason: Anxiety Furosemide (Lasix) 20 mg IV DAILY [facility] Last Admin: 02/22/17 09:30 Dose: 20 mg Hydromorphone HCl (Dilaudid) 0.5 mg IVP Q6HR PRN PRN Reason: Severe Pain Sodium Chloride (Saline 0.9%) 1,000 mls @ 50 mls/hr IV .Q20H [facility] Last Admin: 02/22/17 08:34 Dose: 50 mls/hr Parenteral Vitamin Supplement 10 ml/ Chromium/Copper/Manganese/Seleni/Zn 1 ml/ Amino Ac/Electrol/Dextrose/Calcium 1,011 mls @ 83 mls/hr IV .BY DURATION [facility] Last Admin: 02/22/17 05:52 Dose: 83 mls/hr Amino Ac/Electrol/Dextrose/Calcium (Clinimix E 4.25%-D10% Solution) 1,000 mls @ 83 mls/hr IV .BY DURATION [facility] Fat Emulsion Intravenous (Lipids 20%) 250 mls @ 21 mls/hr IV MoWeFr [facility] Last Admin: 02/22/17 09:19 Dose: 21 mls/hr Insulin Aspart (Novolog) 0 unit SQ ACHS [facility] PRN Reason: Protocol Last Admin: 02/22/17 12:55 Dose: 2 unit Metoprolol Tartrate (Lopressor) 25 mg PO BID [facility] Last Admin: 02/22/17 08:33 Dose: 25 mg Naloxone HCl (Narcan) 0.2 mg IV Q2M PRN PRN Reason: Opioid Reversal Naloxone HCl (Narcan) 0.2 mg IV Q2M PRN PRN Reason: Opioid Reversal Pantoprazole Sodium (Protonix) 40 mg IVP BID [facility] Last Admin: 02/22/17 09:16 Dose: 40 mg Prednisone () 10 mg PO TID [facility] Last Admin: 02/22/17 08:33 Dose: 10 mg Temazepam (Restoril) 15 mg PO HS PRN PRN Reason: Insomnia Objective - Vital Signs Vital signs: Vital Signs Temp 97.9 F 02/22/17 16:00 Pulse 79 02/22/17 17:00 Resp 16 02/22/17 17:00 BP 139/90 02/22/17 17:00 Pulse Ox 98 02/22/17 17:00 Intake & Output 02/21/17 02/22/17 02/22/17 18:59 06:59 18:59 Intake Total 730 1638 2157 Output Total 8663 456 2392 Balance -520 688 307 Weight 71.9 kg 72 kg 72 kg Intake: IV 130 60 KVO 130 60 Intake, IV Titration 600 1398 1477 Amount Calcium Gluconate 1,000 100 mg In Sodium Chloride 0.9 % 100 ml @ 100 mls/hr IVPB ONCE ONE Rx#: [id number] Fat Emulsion 20% 250 ml @ 147 21 mls/hr IV MoWeFr [facility] Rx#:[id number] Magnesium Sulfate-D5w Pmx 200 1 gm In Dextrose/Water 1 100ml.bag @ 100 mls/hr IVPB Q1H [facility] Rx#: [id number] Mvi, Adult No.4 with Vit 250 798 83 K 10 ml Trace (Conc-1Ml/ Dose) 1 ml In Amino Acid 4.25%-D10w+Lytes*E* 1,000 ml @ 50 mls/hr IV . [id number] [facility] Rx#:[id number] Mvi, Adult No.4 with Vit 747 K 10 ml Trace (Conc-1Ml/ Dose) 1 ml In Amino Acid 4.25%-D10w+Lytes*E* 1,000 ml @ 83 mls/hr IV .BY DURATION [facility] Rx#: [id number] Sodium Chloride 0.9% 1, 350 600 200 000 ml @ 50 mls/hr IV . Q20H [facility] Rx#:[id number] Oral 240 Blood Product 0 620 Rc As-1 Unit 310 [id number] Rc As-3 Unit 0 310 [id number] Output: Urine 0955 405 5173 Other: Voiding Method Urinal Urinal Urinal # Voids 0 1 1 # Bowel Movements 1 1 - Exam PHYSICAL EXAM: VITAL SIGNS: As above GENERAL: Sitting up in bed, no acute distress HEENT: Conjunctivae normal. eyes normal. NECK: No JVD. No thyroid enlargement. No LNs CARDIOVASCULAR: S1, S2 muffled. No murmur RESPIRATION: Breath sounds diminished in the bases. No rhonchi or crackles. No bronchial breathing. ABDOMEN: Soft, nontender . No guarding. no masses palpable. No ascites, No hepatosplenomegaly.Bowel sounds heard. LEGS: No edema. no swelling PSYCHIATRY: Alert and oriented -3, mood and affect normal. NERVOUS SYSTEM: Cranial N 2-12 grossly normal. Moves all 4 limbs. Diffuse weakness No focal deficits. No sensory deficit. No signs of cerebellar dysfucntion. Skin: no ulcer no rash Joints: No active swelling. No inflammation. Lymphatic system. No LN neck axilla or groin. - Labs CBC & Chem 7: 02/23/17 04:53 02/23/17 04:53 Labs: Abnormal Lab Results - Last 24 Hours (Table) 02/20/17 02/21/17 02/21/17 Range/Units 17:20 20:49 20:51 WBC 3.5 L (3.8-10.6) k/uL RBC 2.85 L (4.30-5.90) m/uL Hgb 8.2 L (13.0-17.5) gm/dL Hct 24.8 L (39.0-53.0) % RDW (11.5-15.5) % Plt Count 108 L (150-450) k/uL Lymphocytes # 0.8 L (1.0-4.8) k/uL Sodium (137-145) mmol/L BUN (9-20) mg/dL Creatinine (0.66-1.25) mg/dL Glucose (74-99) mg/dL POC Glucose (mg/dL) 189 H (75-99) mg/dL Calcium (8.4-10.2) mg/dL Ionized Calcium Shanthi (4.5-5.3) mg/dL AST (17-59) U/L Alkaline Phosphatase (38-126) U/L Total Protein (6.3-8.2) g/dL Albumin (3.5-5.0) g/dL Crossmatch See Detail 02/22/17 02/22/17 02/22/17 Range/Units 04:21 05:21 07:50 WBC (3.8-10.6) k/uL RBC 2.08 L (4.30-5.90) m/uL Hgb 6.1 L* D (13.0-17.5) gm/dL Hct 18.9 L* (39.0-53.0) % RDW (11.5-15.5) % Plt Count 114 L (150-450) k/uL Lymphocytes # (1.0-4.8) k/uL Sodium 135 L (137-145) mmol/L BUN 40 H (9-20) mg/dL Creatinine 1.75 H (0.66-1.25) mg/dL Glucose 204 H (74-99) mg/dL POC Glucose (mg/dL) 232 H (75-99) mg/dL Calcium 7.0 L (8.4-10.2) mg/dL Ionized Calcium Shanthi 4.3 L (4.5-5.3) mg/dL AST 15 L (17-59) U/L Alkaline Phosphatase 29 L (38-126) U/L Total Protein 3.7 L (6.3-8.2) g/dL Albumin 1.9 L (3.5-5.0) g/dL Crossmatch 02/22/17 02/22/17 Range/Units 12:32 13:22 WBC (3.8-10.6) k/uL RBC 3.07 L (4.30-5.90) m/uL Hgb 9.6 L D (13.0-17.5) gm/dL Hct 27.4 L (39.0-53.0) % RDW 15.9 H (11.5-15.5) % Plt Count 132 L (150-450) k/uL Lymphocytes # (1.0-4.8) k/uL Sodium (137-145) mmol/L BUN (9-20) mg/dL Creatinine (0.66-1.25) mg/dL Glucose (74-99) mg/dL POC Glucose (mg/dL) 181 H (75-99) mg/dL Calcium (8.4-10.2) mg/dL Ionized Calcium Shanthi (4.5-5.3) mg/dL AST (17-59) U/L Alkaline Phosphatase (38-126) U/L Total Protein (6.3-8.2) g/dL Albumin (3.5-5.0) g/dL Crossmatch Assessment and Plan Assessment: 1. Acute GI bleed, recurrent, etiology and site of bleeding unknown with hypotension secondary to GI bleed 2. Recent GI bleed with normal EGD, colonoscopy and capsule endoscopy 3. Recent diagnosed vasculitis status post renal biopsy 4. Chronic kidney disease, stage III 5. Steroid-induced diabetes mellitus type 2 Plan: Continue on current medication regime ,monitoring and symptomatic treatment. As mentioned above small bowel capsule endoscopy initiated as per GI. Transfer to tertiary center on hold per patient. Close monitoring of CBC with repeat labs ordered for a.m. Close monitoring and await capsule study results. The impression and plan of care has been dictated as directed. : I performed a history and examination of this patient, discussed the same with the dictator. I agree with the dictator's note ,documented as a scribe. Any additional findings or plans will be noted.
--- NOTE | 2017-02-23 17:56 | P.PN ---
Subjective Progress Note Date: 02/23/17 Progress note being dictated for Dr. Kaur Interval history: This is a 61-year-old gentleman admitted with recurrent acute GI bleed, recent EGD, on colonoscopy, capsule study reported as negative. Hemoglobin 6.1 this morning, status post 2 units packed RBC transfusion with repeat hemoglobin currently 9.6. Vital signs stable. One small dark stool this morning. No further signs or symptoms of bleeding. Transfer to tertiary center offered, patient and spouse currently declining. Repeat small bowel capsule endoscopy initiated as per GI. Review of systems: CONSTITUTIONAL: No fever, no malaise, no fatigue. No focal deficits. No lightheadedness, no dizziness HEENT: No recent visual problems or hearing problems. Denied any sore throat. CARDIOVASCULAR: No chest pain, orthopnea, PND, no palpitations, no syncope. PULMONARY: No shortness of breath, no cough, no hemoptysis. GASTROINTESTINAL: No diarrhea, no nausea, no vomiting, no abdominal pain. Normoactive bowel sounds. NEUROLOGICAL: No headaches, no weakness, no numbness. HEMATOLOGICAL: Denies any bleeding or petechiae. GENITOURINARY: Denies any burning micturition, frequency, or urgency. MUSCULOSKELETAL/RHEUMATOLOGICAL: Denies any joint pain, swelling, or any muscle pain. ENDOCRINE: Denies any polyuria or polydipsia. PSYCHIATRIC: No anxiety, no depression The rest of the 14 point review of systems is negative Active Medications Acetaminophen (Tylenol Tab) 650 mg PO Q4HR PRN PRN Reason: Fever and/or Mild Pain Hydrocodone Bitart/Acetaminophen (Ary 5-325) 1 each PO Q6HR PRN PRN Reason: Moderate Pain Alprazolam (Xanax) 0.25 mg PO TID PRN PRN Reason: Anxiety Furosemide (Lasix) 20 mg IV DAILY [facility] Last Admin: 02/22/17 09:30 Dose: 20 mg Hydromorphone HCl (Dilaudid) 0.5 mg IVP Q6HR PRN PRN Reason: Severe Pain Sodium Chloride (Saline 0.9%) 1,000 mls @ 50 mls/hr IV .Q20H [facility] Last Admin: 02/22/17 08:34 Dose: 50 mls/hr Parenteral Vitamin Supplement 10 ml/ Chromium/Copper/Manganese/Seleni/Zn 1 ml/ Amino Ac/Electrol/Dextrose/Calcium 1,011 mls @ 83 mls/hr IV .BY DURATION [facility] Last Admin: 02/22/17 05:52 Dose: 83 mls/hr Amino Ac/Electrol/Dextrose/Calcium (Clinimix E 4.25%-D10% Solution) 1,000 mls @ 83 mls/hr IV .BY DURATION [facility] Fat Emulsion Intravenous (Lipids 20%) 250 mls @ 21 mls/hr IV MoWeFr [facility] Last Admin: 02/22/17 09:19 Dose: 21 mls/hr Insulin Aspart (Novolog) 0 unit SQ ACHS [facility] PRN Reason: Protocol Last Admin: 02/22/17 12:55 Dose: 2 unit Metoprolol Tartrate (Lopressor) 25 mg PO BID [facility] Last Admin: 02/22/17 08:33 Dose: 25 mg Naloxone HCl (Narcan) 0.2 mg IV Q2M PRN PRN Reason: Opioid Reversal Naloxone HCl (Narcan) 0.2 mg IV Q2M PRN PRN Reason: Opioid Reversal Pantoprazole Sodium (Protonix) 40 mg IVP BID [facility] Last Admin: 02/22/17 09:16 Dose: 40 mg Prednisone () 10 mg PO TID [facility] Last Admin: 02/22/17 08:33 Dose: 10 mg Temazepam (Restoril) 15 mg PO HS PRN PRN Reason: Insomnia 02/23/2017 hemoglobin remained stable at 9.2 .No further bleeding reported. No abdominal pain. VSS. Capsule study reporting old blood mixed with bilious secretions, source of small bowel bleed unclear. Diet advanced per GI. Blood sugars stable. Objective - Vital Signs Vital signs: Vital Signs Temp 97.8 F 02/23/17 15:00 Pulse 80 02/23/17 15:00 Resp 16 02/23/17 15:00 BP 145/86 02/23/17 15:00 Pulse Ox 98 02/23/17 15:00 Intake & Output 02/22/17 02/23/17 02/23/17 18:59 06:59 18:59 Intake Total 2261 1855 725 Output Total 1850 926 Balance 411 1855 -201 Weight 72 kg 73.8 kg Intake: IV 60 0 KVO 60 0 Intake, IV Titration 1581 1630 0 Amount Calcium Gluconate 1,000 100 mg In Sodium Chloride 0.9 % 100 ml @ 100 mls/hr IVPB ONCE ONE Rx#: [id number] Fat Emulsion 20% 250 ml @ 168 84 21 mls/hr IV MoWeFr [facility] Rx#:[id number] Magnesium Sulfate-D5w Pmx 200 1 gm In Dextrose/Water 1 100ml.bag @ 100 mls/hr IVPB Q1H [facility] Rx#: [id number] Mvi, Adult No.4 with Vit 83 K 10 ml Trace (Conc-1Ml/ Dose) 1 ml In Amino Acid 4.25%-D10w+Lytes*E* 1,000 ml @ 50 mls/hr IV . [id number] [facility] Rx#:[id number] Mvi, Adult No.4 with Vit 830 996 0 K 10 ml Trace (Conc-1Ml/ Dose) 1 ml In Amino Acid 4.25%-D10w+Lytes*E* 1,000 ml @ 83 mls/hr IV .BY DURATION [facility] Rx#: [id number] Sodium Chloride 0.9% 1, 200 550 0 000 ml @ 50 mls/hr IV . Q20H [facility] Rx#:[id number] Oral 725 Tube Feeding 225 Blood Product 620 Rc As-1 Unit 310 [id number] Rc As-3 Unit 310 [id number] Output: Urine 1850 925 Urine/Stool Mix 1 Other: Voiding Method Urinal Urinal Urinal # Voids 1 1 # Bowel Movements 1 1 - Exam PHYSICAL EXAM: VITAL SIGNS: As above GENERAL: Sitting up in bed, no acute distress HEENT: Conjunctivae normal. eyes normal. NECK: No JVD. No thyroid enlargement. No LNs CARDIOVASCULAR: S1, S2 muffled. No murmur RESPIRATION: Breath sounds diminished in the bases. No rhonchi or crackles. No bronchial breathing. ABDOMEN: Soft, nontender . No guarding. no masses palpable. Bowel sounds heard. LEGS: No edema. no swelling PSYCHIATRY: Alert and oriented -3, mood and affect normal. NERVOUS SYSTEM: Cranial N 2-12 grossly normal. Moves all 4 limbs. Diffuse weakness No focal deficits. No sensory deficit. Skin: no ulcer no rash Joints: No active swelling. No inflammation. Lymphatic system. No LN neck axilla or groin. - Labs CBC & Chem 7: 02/23/17 04:53 02/23/17 04:53 Labs: Abnormal Lab Results - Last 24 Hours (Table) 02/22/17 02/23/17 02/23/17 Range/Units 20:45 04:53 04:53 RBC 3.08 L (4.30-5.90) m/uL Hgb 9.2 L (13.0-17.5) gm/dL Hct 26.8 L (39.0-53.0) % Plt Count 127 L (150-450) k/uL Lymphocytes # (Manual) 0.87 L (1.0-4.8) k/uL Myelocytes # (Manual) 0.06 H (0) k/uL Sodium 134 L (137-145) mmol/L BUN 37 H (9-20) mg/dL Creatinine 1.51 H (0.66-1.25) mg/dL Glucose 207 H (74-99) mg/dL POC Glucose (mg/dL) 274 H (75-99) mg/dL Calcium 7.8 L (8.4-10.2) mg/dL Alkaline Phosphatase 24 L (38-126) U/L Total Protein 4.2 L (6.3-8.2) g/dL Albumin 2.3 L (3.5-5.0) g/dL 02/23/17 02/23/17 Range/Units 07:20 12:17 RBC (4.30-5.90) m/uL Hgb (13.0-17.5) gm/dL Hct (39.0-53.0) % Plt Count (150-450) k/uL Lymphocytes # (Manual) (1.0-4.8) k/uL Myelocytes # (Manual) (0) k/uL Sodium (137-145) mmol/L BUN (9-20) mg/dL Creatinine (0.66-1.25) mg/dL Glucose (74-99) mg/dL POC Glucose (mg/dL) 195 H 171 H (75-99) mg/dL Calcium (8.4-10.2) mg/dL Alkaline Phosphatase (38-126) U/L Total Protein (6.3-8.2) g/dL Albumin (3.5-5.0) g/dL Assessment and Plan Assessment: 1. Acute GI bleed, recurrent, etiology and site of bleeding unknown with hypotension secondary to GI bleed, status post small bowel capsule study reported old blood mixed with bilious secretions with source unclear. 2. Recent GI bleed with normal EGD, colonoscopy and capsule endoscopy 3. Recent diagnosed vasculitis status post renal biopsy 4. Chronic kidney disease, stage III 5. Steroid-induced diabetes mellitus type 2 Plan: Continue on current medication regime ,monitoring and symptomatic treatment. Transfer out of ICU to [facility] with remote telemetry. Close monitoring of CBC with repeat labs ordered for a.m. Discussed transfer to tertiary center if recurrent bleed occurs. Advance diet as per GI. Discharge planning in progress for tomorrow. Prognosis guarded given multiple complex medical issues. The impression and plan of care has been dictated as directed. : I performed a history and examination of this patient, discussed the same with the dictator. I agree with the dictator's note ,documented as a scribe. Any additional findings or plans will be noted.
[2017-02-23 17:59] LABS: Glucose,Whole Blood 153 mg/dL (75-99)
[2017-02-23 21:06] LABS: Glucose,Whole Blood 216 mg/dL (75-99)
[2017-02-24] MEDS: 1: MVI, ADULT NO.4 WITH VIT K 10 ML, TRACE (CONC-1ML/DOSE) 1 ML in AMINO ACID 4.25%-D10W IV SCH ×3 (06:32)
[2017-02-24 07:38] LABS: Glucose,Whole Blood 182 mg/dL (75-99)
[2017-02-24] MEDS: FUROSEMIDE 10 MG/ML 2 ML VIAL IV SCH (07:42)
[2017-02-24] MEDS: METOPROLOL TARTRATE 25 MG TAB PO SCH (07:42)
[2017-02-24] MEDS: PANTOPRAZOLE 40 MG/10 ML VIAL IVP SCH (07:42)
[2017-02-24] MEDS: predniSONE 10 MG TAB PO SCH ×2 (07:42→16:15)
[2017-02-24] MEDS: INSULIN ASPART 100 UNIT/ML 1 ML 10 ML VIAL SQ SCH ×2 (07:42→12:45)
[2017-02-24] MEDS: FAT EMULSION 20% 250 ML IV SCH (07:48)
[2017-02-24 07:51] VITALS: RESP 16
[2017-02-24 08:15] LABS: Albumin 2.4 g/dL (3.5-5.0); Calcium 8.1 mg/dL (8.4-10.2); Phosphorus 3.4 mg/dL (2.5-4.5); Potassium 4.3 mmol/L (3.5-5.1); Total Bilirubin 0.4 mg/dL (0.2-1.3); Total Protein 4.4 g/dL (6.3-8.2)
[2017-02-24 08:23] LABS: Anisocytosis Slight; Basophils % (A) 0 %; Eosinophils % (A) 0 %; HCT 27.9 % (39.0-53.0); HGB 9.3 gm/dL (13.0-17.5); Lymphocytes # (A) 1.3 k/uL (1.0-4.8); Lymphocytes % (A) 25 %; MCH 29.4 pg (25.0-35.0); MCHC 33.1 g/dL (31.0-37.0); MCV 88.8 fL (80.0-100.0); Mean Platelet Volume 8.1; Monocytes # (A) 0.3 k/uL (0-1.0); Monocytes % (A) 5 %; Neutrophils # (A) 3.4 k/uL (1.3-7.7); Neutrophils % (A) 68 %; Platelet Count 130 k/uL (150-450); RBC 3.15 m/uL (4.30-5.90); RDW 16.3 % (11.5-15.5)
--- NOTE | 2017-02-24 10:11 | P.PN ---
Subjective Progress Note Date: 02/24/17 Principal diagnosis: GI bleed anemia Feels well. No bleeding. Ambulating. Denies abdominal pain. Hemoglobin 9.2. Afebrile. Tolerating full liquid diet. Objective - Vital Signs Vital signs: Vital Signs Temp 97.8 F 02/24/17 07:00 Pulse 70 02/24/17 07:00 Resp 16 02/24/17 07:00 BP 122/77 02/24/17 07:00 Pulse Ox 98 02/24/17 07:00 Intake & Output 02/23/17 02/24/17 02/24/17 18:59 06:59 18:59 Intake Total 725 Output Total 926 Balance -201 Intake: IV 0 KVO 0 Intake, IV Titration 0 Amount Mvi, Adult No.4 with Vit 0 K 10 ml Trace (Conc-1Ml/ Dose) 1 ml In Amino Acid 4.25%-D10w+Lytes*E* 1,000 ml @ 83 mls/hr IV .BY DURATION [facility] Rx#: [id number] Sodium Chloride 0.9% 1, 0 000 ml @ 50 mls/hr IV . Q20H [facility] Rx#:[id number] Oral 725 Output: Urine 925 Urine/Stool Mix 1 Other: Voiding Method Urinal Toilet Urinal # Voids 2 - Exam General appearance: The patient is alert, oriented, in no acute distress. HET: Head is normocephalic and atraumatic. Pupils are equal and reactive. Oropharynx is clear without lesions. Neck: Supple without lymphadenopathy. Trachea midline. Heart: S1 S2. Regular rate and rhythm. Lungs: No crackles or wheezes are heard. Abdomen: Soft, nontender, nondistended with bowel sounds. No peritoneal signs. No palpable organomegaly or masses. Extremities: Normal skin color and turgor. No cyanosis, rash, ulceration, clubbing, or edema. Radial and pedal pulses are 2/4 bilaterally. Neurological: No focal deficits. Strength and sensation are grossly intact. - Labs CBC & Chem 7: 02/24/17 07:11 02/24/17 07:11 Labs: Abnormal Lab Results - Last 24 Hours (Table) 02/23/17 02/23/17 02/23/17 Range/Units 12:17 17:57 21:03 RBC (4.30-5.90) m/uL Hgb (13.0-17.5) gm/dL Hct (39.0-53.0) % RDW (11.5-15.5) % Plt Count (150-450) k/uL BUN (9-20) mg/dL Creatinine (0.66-1.25) mg/dL Glucose (74-99) mg/dL POC Glucose (mg/dL) 171 H 153 H 216 H (75-99) mg/dL Calcium (8.4-10.2) mg/dL AST (17-59) U/L Total Protein (6.3-8.2) g/dL Albumin (3.5-5.0) g/dL 02/24/17 02/24/17 02/24/17 Range/Units 07:11 07:11 07:31 RBC 3.15 L (4.30-5.90) m/uL Hgb 9.3 L (13.0-17.5) gm/dL Hct 27.9 L (39.0-53.0) % RDW 16.3 H (11.5-15.5) % Plt Count 130 L (150-450) k/uL BUN 34 H (9-20) mg/dL Creatinine 1.64 H (0.66-1.25) mg/dL Glucose 167 H (74-99) mg/dL POC Glucose (mg/dL) 182 H (75-99) mg/dL Calcium 8.1 L (8.4-10.2) mg/dL AST 16 L (17-59) U/L Total Protein 4.4 L (6.3-8.2) g/dL Albumin 2.4 L (3.5-5.0) g/dL Assessment and Plan (1) GI bleed Narrative/Plan: Suspect small bowel pathology status post capsule endoscopy with evidence of old blood mixed with bilious secretions in the distal bowel however origin of bleeding is unclear secondary to absence of active bleeding on capsule study. Current Visit: No Status: Acute Code(s): K92.2 - GASTROINTESTINAL HEMORRHAGE , UNSPECIFIED SNOMED Code(s): 26860602 (2) Acute blood loss anemia Current Visit: No Status: Acute Code(s): D62 - ACUTE POSTHEMORRHAGIC ANEMIA SNOMED Code(s): 367054594 (3) Anemia Current Visit: No Status: Acute Code(s): D64.9 - ANEMIA, UNSPECIFIED SNOMED Code(s): 345226023 (4) Vasculitis, ANCA positive Current Visit: No Status: Acute Code(s): I77.6 - ARTERITIS, UNSPECIFIED SNOMED Code(s): 294561848 Plan: 1. Low residue diet. 2. Discharge per medicine. 3. Follow-up in GI office in 7-10 days. 4. CBC in 3-5 days. 5. Long discussion was held at bedside yesterday and today if patient has recurrent bleeding he is to be transferred to a tertiary center which he understands. Assessment and plan a care discussed with Dr. Paez
[2017-02-24 11:04] VITALS: BMI 24.0
[2017-02-24 11:26] LABS: Glucose,Whole Blood 160 mg/dL (75-99)
--- NOTE | 2017-02-24 11:58 | P.PN ---
Subjective Patient is seen in follow-up for acute kidney injury. Renal function has improved since admission with creatinine of 1.64 today. Patient's currently maintained on prednisone 30 mg daily for vasculitis. Patient percent of a GI bleed for which she did receive blood for estrogen. Hemoglobin is stable. Denies any melena or hematochezia or hematemesis. Admits to good urine output. No hematuria or dysuria. Vital signs are stable. General: The patient appeared well nourished and normally developed. HEENT: Head exam is unremarkable. Neck is without jugular venous distension. LUNGS: Lungs are clear to auscultation and percussion. Breath sounds decreased. HEART: Rate and Rhythm are regular. First and second heart sounds normal. No murmurs, rubs or gallops. ABDOMEN: Abdominal exam reveals normal bowel sounds. Non-tender and non- distended. No evidence of peritonitis. EXTREMITITES: No clubbing, cyanosis, or edema. Objective - Vital Signs Vital signs: Vital Signs Temp 97.8 F 02/24/17 07:00 Pulse 70 02/24/17 07:00 Resp 16 02/24/17 07:00 BP 122/77 02/24/17 07:00 Pulse Ox 98 02/24/17 07:00 Intake & Output 02/23/17 02/24/17 02/24/17 18:59 06:59 18:59 Intake Total 725 Output Total 926 Balance -201 Weight 73.8 kg Intake: IV 0 KVO 0 Intake, IV Titration 0 Amount Mvi, Adult No.4 with Vit 0 K 10 ml Trace (Conc-1Ml/ Dose) 1 ml In Amino Acid 4.25%-D10w+Lytes*E* 1,000 ml @ 83 mls/hr IV .BY DURATION [facility] Rx#: [id number] Sodium Chloride 0.9% 1, 0 000 ml @ 50 mls/hr IV . Q20H [facility] Rx#:[id number] Oral 725 Output: Urine 925 Urine/Stool Mix 1 Other: Voiding Method Urinal Toilet Urinal # Voids 2 - Labs CBC & Chem 7: 02/24/17 07:11 02/24/17 07:11 Labs: Abnormal Lab Results - Last 24 Hours (Table) 02/23/17 02/23/17 02/23/17 Range/Units 12:17 17:57 21:03 RBC (4.30-5.90) m/uL Hgb (13.0-17.5) gm/dL Hct (39.0-53.0) % RDW (11.5-15.5) % Plt Count (150-450) k/uL BUN (9-20) mg/dL Creatinine (0.66-1.25) mg/dL Glucose (74-99) mg/dL POC Glucose (mg/dL) 171 H 153 H 216 H (75-99) mg/dL Calcium (8.4-10.2) mg/dL AST (17-59) U/L Total Protein (6.3-8.2) g/dL Albumin (3.5-5.0) g/dL 02/24/17 02/24/17 02/24/17 Range/Units 07:11 07:11 07:31 RBC 3.15 L (4.30-5.90) m/uL Hgb 9.3 L (13.0-17.5) gm/dL Hct 27.9 L (39.0-53.0) % RDW 16.3 H (11.5-15.5) % Plt Count 130 L (150-450) k/uL BUN 34 H (9-20) mg/dL Creatinine 1.64 H (0.66-1.25) mg/dL Glucose 167 H (74-99) mg/dL POC Glucose (mg/dL) 182 H (75-99) mg/dL Calcium 8.1 L (8.4-10.2) mg/dL AST 16 L (17-59) U/L Total Protein 4.4 L (6.3-8.2) g/dL Albumin 2.4 L (3.5-5.0) g/dL 02/24/17 Range/Units 11:18 RBC (4.30-5.90) m/uL Hgb (13.0-17.5) gm/dL Hct (39.0-53.0) % RDW (11.5-15.5) % Plt Count (150-450) k/uL BUN (9-20) mg/dL Creatinine (0.66-1.25) mg/dL Glucose (74-99) mg/dL POC Glucose (mg/dL) 160 H (75-99) mg/dL Calcium (8.4-10.2) mg/dL AST (17-59) U/L Total Protein (6.3-8.2) g/dL Albumin (3.5-5.0) g/dL Assessment and Plan Plan: Assessment: #1. 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 Creatinine is relatively stable at 1.64 today. He has received 2 doses of rituximab so far. Also maintained on prednisone 30 mg daily. He seems to be responding well to the treatment. His urinalysis this admission reveals no protein and only 5 RBCs. #2. Lower GI bleed status post blood transfusion. Hemoglobin 9.3 this morning. EGD and colonoscopy from February 18 revealed no acute abnormalities. Likely sources small bowel. #3. Lower extremity edema. Improved. Plan: Continue prednisone 30 mg once daily. Can further be tapered to 20 mg daily over the next 2 weeks. Maintain Protonix. Monitor hemoglobin and transfuse as needed. Continue Lasix 20 mg daily. He is scheduled to receive third dose of rituximab this Wednesday. Potential discharge today. He'll need to follow-up as an outpatient in the next 2 weeks.
--- NOTE | 2017-02-24 12:04 | P.PN ---
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 The patient was earlier in the hospital this week for GI bleeding. He was in the ICU briefly. He underwent an EGD and a colonoscopy and the procedure did not yield any positive findings and no source of bleeding was identified. The patient was discharged home. Within 48 hours of discharge, the patient presented back. The patient had 2 episodes of bright red bloody rectal bleed at home and another episode here in IC at around 11 PM. For that reason the patient presented back to the hospital. He is a little been on admission was 6.0. He received transfusion and his hemoglobin this morning is up to 7.5. Fortunately his renal function is stable at at creatinine of 2.0. No abdominal pain. No nausea or vomiting. No diarrhea. No intake of any anticoagulants or nonsteroidal anti-inflammatory medications. No alcoholism. The patient is hemodynamically stable at this point. Note that the capsule endoscopy has also been done, and supposedly results are nondiagnostic. Patient was reevaluated today on 02/22/2017, clinically he is doing well, however he continues to drop his hemoglobin down, and he had one episode of black tarry stools today. More blood is being transfused, he is now receiving one of 2 units which were ordered this morning for a hemoglobin of 6.1. Patient remains on prednisone, he is at 30 mg daily. Renal functioning is about baseline with a BUN of 40 creatinine 1.75, patient presented initially with glomerulonephritis , and it was felt to be related to anca Induced vasculitis. So far the patient has received a total of 2 out of 4 units ordered for low hemoglobin. Patient denies any nausea vomiting abdominal pain, no shortness of breath, no chest pain. Reevaluated today on 02/23/2017, patient is doing well, hemoglobin is stable today patient received a total of 4 units of packed RBCs since admission. Hemoglobin today is 9.2 and it was 9.6 yesterday. Electrolytes are normal BUN is 37 creatinine is 1.51, improving. Patient had another capsule endoscopy, results of which are pending again. Gastroenterology on the case seems to be inclined to consider sending the patient to [facility]. On 02/24/2017 patient seen in follow-up on medical surgical floor. Doing very well, his last episode of GI bleeding with passing of bright red stool was last Wednesday, no further episodes since then. Patient is status post post transfusion with 4 units of packed red blood cells, his current hemoglobin is 9.3. His renal profile is stable, his BUN is 34, and creatinine is 1.64. He states he feels better today. He was started on the regular diet, a few does not have any further episodes of bleeding he will be discharged home today. Objective - Vital Signs Vital signs: Vital Signs Temp 97.8 F 02/24/17 07:00 Pulse 70 02/24/17 07:00 Resp 16 02/24/17 07:00 BP 122/77 02/24/17 07:00 Pulse Ox 98 02/24/17 07:00 Intake & Output 02/23/17 02/24/17 02/24/17 18:59 06:59 18:59 Intake Total 725 Output Total 926 Balance -201 Weight 73.8 kg Intake: IV 0 KVO 0 Intake, IV Titration 0 Amount Mvi, Adult No.4 with Vit 0 K 10 ml Trace (Conc-1Ml/ Dose) 1 ml In Amino Acid 4.25%-D10w+Lytes*E* 1,000 ml @ 83 mls/hr IV .BY DURATION [facility] Rx#: [id number] Sodium Chloride 0.9% 1, 0 000 ml @ 50 mls/hr IV . Q20H [facility] Rx#:[id number] Oral 725 Output: Urine 925 Urine/Stool Mix 1 Other: Voiding Method Urinal Toilet Urinal # Voids 2 - Exam Physical Exam: Revealed a 61-year-old white male, slightly pale, in no distress. HEENT:[Neck is supple.] [No neck masses.] [No thyromegaly.] [No JVD.] Chest: [Clear throughout, no crackles, no rhonchi, no wheezes.] Cardiac Exam: [Normal S1 and S2, no S3 gallop, no murmur.] Abdomen: Soft, nontender, no megaly, no rebound, no guarding, normal bowel sounds. Extremities: [No clubbing, no edema, no cyanosis.] Neurological Exam: [No focal neurologic deficit.] Lymphatic: No lymphadenopathy. Psychiatric: Normal mood affect and mental status examination. - Labs CBC & Chem 7: 02/24/17 07:11 02/24/17 07:11 Labs: Abnormal Lab Results - Last 24 Hours (Table) 02/23/17 02/23/17 02/23/17 Range/Units 12:17 17:57 21:03 RBC (4.30-5.90) m/uL Hgb (13.0-17.5) gm/dL Hct (39.0-53.0) % RDW (11.5-15.5) % Plt Count (150-450) k/uL BUN (9-20) mg/dL Creatinine (0.66-1.25) mg/dL Glucose (74-99) mg/dL POC Glucose (mg/dL) 171 H 153 H 216 H (75-99) mg/dL Calcium (8.4-10.2) mg/dL AST (17-59) U/L Total Protein (6.3-8.2) g/dL Albumin (3.5-5.0) g/dL 02/24/17 02/24/17 02/24/17 Range/Units 07:11 07:11 07:31 RBC 3.15 L (4.30-5.90) m/uL Hgb 9.3 L (13.0-17.5) gm/dL Hct 27.9 L (39.0-53.0) % RDW 16.3 H (11.5-15.5) % Plt Count 130 L (150-450) k/uL BUN 34 H (9-20) mg/dL Creatinine 1.64 H (0.66-1.25) mg/dL Glucose 167 H (74-99) mg/dL POC Glucose (mg/dL) 182 H (75-99) mg/dL Calcium 8.1 L (8.4-10.2) mg/dL AST 16 L (17-59) U/L Total Protein 4.4 L (6.3-8.2) g/dL Albumin 2.4 L (3.5-5.0) g/dL 02/24/17 Range/Units 11:18 RBC (4.30-5.90) m/uL Hgb (13.0-17.5) gm/dL Hct (39.0-53.0) % RDW (11.5-15.5) % Plt Count (150-450) k/uL BUN (9-20) mg/dL Creatinine (0.66-1.25) mg/dL Glucose (74-99) mg/dL POC Glucose (mg/dL) 160 H (75-99) mg/dL Calcium (8.4-10.2) mg/dL AST (17-59) U/L Total Protein (6.3-8.2) g/dL Albumin (3.5-5.0) g/dL Assessment and Plan Plan: Assessment: 1 acute GI bleeding. The patient had bright red blood per rectum and subsequent drop in hemoglobin down to 6.0 and he had received a total of 4 units of packed RBC and subsequent hemoglobin is up to 7.5. The patient is hemodynamically stable. The patient has been diagnosed having a combination of rheumatoid arthritis/vasculitis and currently is in a new suppressive agents. He underwent a recent endoscopy including EGD and colonoscopy and capsule endoscopy. The EGD and colonoscopy did not yield any source of bleeding. The capsule endoscopy results are nondiagnostic, patient is being followed by gastroenterology, repeat capsule endoscopy was done, results were nondiagnostic hemoglobin today is 9.3. 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 Note that this progressive improvement in renal function with the patient's creatinine was as high as 3.7 is currently down to 1.5 5 immunosuppression treatment with a combination of Rituxan and prednisone 6 acute anemia secondary to GI bleeding 7 pleuro- pericarditis, recovered with systemic steroids and immunosuppressive agents Plan: Patient remains hemodynamically stable, no further episodes of bleeding since Wednesday. He has been up ambulating tolerating activity well. No acute distress, lung sounds are clear to auscultation. he was started on regular diet per gastroenterology, if no further bleeding by this afternoon, patient will be discharged home. I performed a history & physical examination of the patient and discussed their management with my nurse practitioner, Jeanna Ortiz. I reviewed the nurse practitioner's note and agree with the documented findings and plan of care. Lung sounds are clear. The findings and the impression was discussed with the patient. I attest to the documentation by the nurse practitioner. Time with Patient: Less than 30
[2017-02-24 15:16] VITALS: BP 125/75; PULSE 89; TEMP 98.4
--- NOTE | 2017-02-25 16:14 | P.DS ---
Providers Date of admission: 02/20/17 18:13 Expected date of discharge: 02/24/17 Attending physician: Debby Kaur Consults: 02/20/17 18:13 Consult Physician Urgent Consulting Provider: Hong Madden Consult Reason/Comments: Critical care management Do you want consulting provider notified?: Yes Consult Physician Urgent Consulting Provider: Sivakumar Fine Consult Reason/Comments: GI bleed Do you want consulting provider notified?: Yes 02/20/17 19:51 Consult Physician Routine Consulting Provider: Dianne Toth Consult Reason/Comments: vasculitis Do you want consulting provider notified?: Yes Primary care physician: Aydee Charisse [facility] Course: final Diagnoses: 1. Acute GI bleed, recurrent, etiology and site of bleeding unknown with hypotension secondary to GI bleed, status post small bowel capsule study reported old blood mixed with bilious secretions with source unclear.acute blood loss anemia, status post blood transfusions. 2. Recent GI bleed with normal EGD, colonoscopy and capsule endoscopy 3. Recent diagnosed vasculitis status post renal biopsy 4. Chronic kidney disease, stage III 5. Steroid-induced diabetes mellitus type 2 Hospital course:This is a 61-year-old gentleman admitted with recurrent acute GI bleed, recent EGD, on colonoscopy, capsule study reported as negative. status post transfusion of packed RBCs.evaluated by GI, pulmonary, nephrology. No further signs or symptoms of bleeding. Transfer to tertiary center offered, patient and spouse currently declined. Repeat small bowel capsule endoscopy performed reporting old blood mixed with bilious secretions, source unclear. Diet advanced. No abdominal pain, no further bleeding. Hemoglobin remained stable. significant clinical improvement. Patient and are in agreement if bleeding should reoccur, patient to be further evaluated at tertiary center.patient has been cleared by consults for discharge. Patient is being discharged home in a stable condition with guarded prognosis. Physical exam:VSS,cardiovascular regular S1 and S2, no edema, pulmonary, good air entry, bilateral bases diminished, no crackles or wheezes. Abdomen soft nontender nondistended, positive bowel sounds. Psychiatry alert and oriented 3 , mood and affect normal, no focal deficits. The impression and plan of care has been dictated as directed. : I performed a history and examination of this patient, discussed the same with the dictator. I agree with the dictator's note ,documented as a scribe. Any additional findings or plans will be noted. Patient Condition at Discharge: Stable Plan - Discharge Summary New Discharge Prescriptions: Continue Sodium Bicarbonate Tab 650 mg PO DAILY Furosemide [Lasix] 20 mg PO BID Ergocalciferol (Vitamin D2) [Vitamin D2] 50,000 unit PO QMONTH Calcitriol 0.25 mcg PO WE Pantoprazole Sodium [Protonix] 40 mg PO BID #60 tablet. predniSONE 30 mg PO DAILY #90 tab Metoprolol Tartrate [Lopressor] 25 mg PO BID #60 tab INSULIN LISPRO (HumaLOG) [humaLOG] See Protocol SQ ACHS riTUXimab [Rituxan] 10 mg IV FR #0 Discontinued amLODIPine [Norvasc] 5 mg PO DAILY Discharge Medication List Ergocalciferol (Vitamin D2) [Vitamin D2] 50,000 unit PO QMONTH 02/05/17 [History ] Furosemide [Lasix] 20 mg PO BID 02/05/17 [History] Sodium Bicarbonate Tab 650 mg PO DAILY 02/05/17 [History] Calcitriol 0.25 mcg PO WE 02/12/17 [History] Metoprolol Tartrate [Lopressor] 25 mg PO BID #60 tab 02/19/17 [Rx] Pantoprazole Sodium [Protonix] 40 mg PO BID #60 tablet. 02/19/17 [Rx] predniSONE 30 mg PO DAILY #90 tab 02/19/17 [Rx] INSULIN LISPRO (HumaLOG) [humaLOG] See Protocol SQ ACHS 02/20/17 [History] riTUXimab [Rituxan] 10 mg IV FR #0 02/24/17 [Rx] Follow up Appointment(s)/Referral(s): Aidee Paez MD [STAFF PHYSICIAN] - 10 Days Aydee Mcqueen DO [Primary Care Provider] - 3 Days Dianne Toth MD [STAFF PHYSICIAN] - 1 Week Ambulatory/Diagnostic Orders: Complete Blood Count w/diff [LAB.AMB] Time Frame: 3 Days, Location: Determined By Patient Discharge Disposition: HOME SELF-CARE
== END 2017-02-24 17:05 | disposition home or self-care (01) | DRG 378 ==
LOC: EC 16:50 → 6ICU 18:13 → 5MS5E 02-23 15:39
PROVIDERS: ADMIT Hospitalist; ATTEND Hospitalist
DX: K92.2 Gastrointestinal hemorrhage, unspecified (principal); D62 Acute posthemorrhagic anemia; E44.0 Moderate protein-calorie malnutrition; N17.9 Acute kidney failure, unspecified; E87.1 Hypo-osmolality and hyponatremia; I48.0 Paroxysmal atrial fibrillation; D50.0 Iron deficiency anemia secondary to blood loss (chronic); N18.3 Chronic kidney disease, stage 3 (moderate); E09.9 Drug or chemical induced diabetes mellitus without complications; I77.6 Arteritis, unspecified; M06.9 Rheumatoid arthritis, unspecified; N05.7 Unspecified nephritic syndrome with diffuse crescentic glomerulonephritis; T38.0X5A Adverse effect of glucocorticoids and synthetic analogues, initial encounter; Z79.52 Long term (current) use of systemic steroids; Z79.899 Other long term (current) drug therapy; Z80.0 Family history of malignant neoplasm of digestive organs; Z83.3 Family history of diabetes mellitus; Z86.010 Personal history of colon polyps; Z87.891 Personal history of nicotine dependence; Z79.4 Long term (current) use of insulin; Z82.3 Family history of stroke
CPT/HCPCS: 36415; 71045; 80053; 81001; 82330; 82550; 82553; 83036; 83735; 84100; 84132; 84478; 84484; 85025; 85610; 85652; 85730; 86140; 86850; 86900; 86901; 86920; 91110; 93005; 96360; 99291

== ENCOUNTER → 2017-04-01 | Outpatient (CLI) | payer OTHER ==
[2017-04-01 07:11] LABS: HCT 30.1 % (39.0-53.0); HGB 9.7 gm/dL (13.0-17.5); MCH 28.9 pg (25.0-35.0); MCHC 32.2 g/dL (31.0-37.0); MCV 89.9 fL (80.0-100.0); Mean Platelet Volume 7.5; Platelet Count 296 k/uL (150-450); RBC 3.35 m/uL (4.30-5.90); RDW 13.7 % (11.5-15.5); WBC 10.6 k/uL (3.8-10.6)
[2017-04-01 07:28] LABS: Appearance,Urine Clear (Clear); Bilirubin,Urine Negative (Negative); Blood,Urine Moderate (Negative); Color,Urine Light Yellow; Glucose,Urine (UA) Negative (Negative); Ketones,Urine Negative (Negative); Leukocyte Esterase,Urine Negative (Negative); Nitrite,Urine Negative (Negative); Protein,Urine Negative (Negative); RBC,Urine 13 /hpf (0-5); Specific Gravity,Urine 1.009 (1.001-1.035); Urobilinogen,Urine <2.0 mg/dL (<2.0); WBC,Urine <1 /hpf (0-5)
[2017-04-01 07:46] LABS: Albumin 3.4 g/dL (3.5-5.0); Calcium 9.4 mg/dL (8.4-10.2); Magnesium 1.7 mg/dL (1.6-2.3); Phosphorus 4.3 mg/dL (2.5-4.5); Potassium 4.4 mmol/L (3.5-5.1); Total Bilirubin 0.5 mg/dL (0.2-1.3); Total Protein 5.9 g/dL (6.3-8.2); Uric Acid 7.8 mg/dL (3.5-8.5)
[2017-04-01 09:57] LABS: Creatinine,Urine Random 74.5 mg/dL
[2017-04-01 11:35] LABS: Vitamin D 25 Hydroxy 18.3 ng/mL (30.0-100.0)
[2017-04-01 11:36] LABS: Iron Saturation 8.37 (15.00-50.00)
[2017-04-01 11:42] LABS: Parathyroid Hormone Intact 47.7 pg/mL (14.0-72.0)
== END | disposition home or self-care (01) ==
LOC: LABWHC1 06:51
PROVIDERS: ATTEND Internal Medicine
DX: I77.6 Arteritis, unspecified (principal); N39.0 Urinary tract infection, site not specified; R80.9 Proteinuria, unspecified; E21.3 Hyperparathyroidism, unspecified; E55.9 Vitamin D deficiency, unspecified; M10.9 Gout, unspecified
CPT/HCPCS: 36415; 80053; 81001; 82306; 82570; 82728; 83540; 83550; 83735; 83970; 84100; 84156; 84550; 85027

== ENCOUNTER → 2017-05-06 | Outpatient (CLI) | payer OTHER ==
[2017-05-06 07:33] LABS: HGB 8.5 gm/dL (13.0-17.5); Hypochromasia Slight; MCH 27.8 pg (25.0-35.0); MCHC 31.5 g/dL (31.0-37.0); MCV 88.1 fL (80.0-100.0); Mean Platelet Volume 7.4; Platelet Count 388 k/uL (150-450); RBC 3.07 m/uL (4.30-5.90); RDW 14.3 % (11.5-15.5); WBC 6.8 k/uL (3.8-10.6)
[2017-05-06 07:44] LABS: Albumin 3.2 g/dL (3.5-5.0); Calcium 9.5 mg/dL (8.4-10.2); Phosphorus 4.9 mg/dL (2.5-4.5); Potassium 4.6 mmol/L (3.5-5.1); Total Bilirubin 0.3 mg/dL (0.2-1.3); Total Protein 5.8 g/dL (6.3-8.2); Uric Acid 8.2 mg/dL (3.5-8.5)
[2017-05-06 08:02] LABS: Appearance,Urine Clear (Clear); Bilirubin,Urine Negative (Negative); Blood,Urine Small (Negative); Color,Urine Light Yellow; Glucose,Urine (UA) Negative (Negative); Ketones,Urine Negative (Negative); Leukocyte Esterase,Urine Negative (Negative); Mucus,Urine Rare /hpf; Nitrite,Urine Negative (Negative); Protein,Urine Negative (Negative); RBC,Urine 2 /hpf (0-5); Specific Gravity,Urine 1.011 (1.001-1.035); Urobilinogen,Urine <2.0 mg/dL (<2.0); WBC,Urine <1 /hpf (0-5)
[2017-05-06 09:16] LABS: Creatinine,Urine Random 99.4 mg/dL
[2017-05-06 11:37] LABS: Vitamin D 25 Hydroxy 49.9 ng/mL (30.0-100.0)
[2017-05-06 12:27] LABS: Iron Saturation 17.21 (15.00-50.00)
[2017-05-07 15:16] LABS: C-ANCA <1:20 Titer (<1:20)
== END | disposition home or self-care (01) ==
LOC: LABWHC1 06:48
PROVIDERS: ATTEND Internal Medicine
DX: I77.6 Arteritis, unspecified (principal); D64.9 Anemia, unspecified; N39.0 Urinary tract infection, site not specified; N25.81 Secondary hyperparathyroidism of renal origin; E55.9 Vitamin D deficiency, unspecified; M10.9 Gout, unspecified
CPT/HCPCS: 36415; 80053; 81001; 82306; 82570; 82728; 83516; 83540; 83550; 83735; 83970; 84100; 84156; 84550; 85027; 86255

== ENCOUNTER → 2017-07-02 | Outpatient (CLI) | payer OTHER ==
[2017-07-02 07:12] LABS: HCT 38.5 % (39.0-53.0); HGB 12.4 gm/dL (13.0-17.5); MCHC 32.3 g/dL (31.0-37.0); MCV 86.7 fL (80.0-100.0); Mean Platelet Volume 7.3; Platelet Count 246 k/uL (150-450); RBC 4.44 m/uL (4.30-5.90); RDW 15.4 % (11.5-15.5); WBC 7.6 k/uL (3.8-10.6)
[2017-07-02 07:22] LABS: Albumin 3.9 g/dL (3.5-5.0); Appearance,Urine Clear (Clear); Bilirubin,Urine Negative (Negative); Blood,Urine Small (Negative); Calcium 9.3 mg/dL (8.4-10.2); Color,Urine Light Yellow; Glucose,Urine (UA) Negative (Negative); Ketones,Urine Negative (Negative); Leukocyte Esterase,Urine Negative (Negative); Magnesium 2.1 mg/dL (1.6-2.3); Mucus,Urine Rare /hpf; Nitrite,Urine Negative (Negative); Phosphorus 5.2 mg/dL (2.5-4.5); Potassium 4.5 mmol/L (3.5-5.1); Protein,Urine Negative (Negative); RBC,Urine 2 /hpf (0-5); Specific Gravity,Urine 1.012 (1.001-1.035); Total Bilirubin 0.3 mg/dL (0.2-1.3); Total Protein 6.1 g/dL (6.3-8.2); Uric Acid 6.3 mg/dL (3.5-8.5); Urobilinogen,Urine <2.0 mg/dL (<2.0); WBC,Urine <1 /hpf (0-5)
[2017-07-02 08:47] LABS: Creatinine,Urine Random 82.5 mg/dL
[2017-07-03 00:44] LABS: Parathyroid Hormone Intact 52.1 pg/mL (14.0-72.0)
[2017-07-03 00:55] LABS: Iron Saturation 29.6 (15.00-50.00); Vitamin D 25 Hydroxy 39.8 ng/mL (30.0-100.0)
== END | disposition home or self-care (01) ==
LOC: LABWHC1 06:43
PROVIDERS: ATTEND Internal Medicine
DX: E55.9 Vitamin D deficiency, unspecified (principal); D64.9 Anemia, unspecified; E21.3 Hyperparathyroidism, unspecified; N39.0 Urinary tract infection, site not specified; M10.9 Gout, unspecified; I77.6 Arteritis, unspecified; R80.9 Proteinuria, unspecified
CPT/HCPCS: 36415; 80053; 81001; 82306; 82570; 82728; 83540; 83550; 83735; 83970; 84100; 84156; 84550; 85027

== ENCOUNTER → 2017-09-01 | Outpatient (CLI) | payer OTHER ==
[2017-09-01 07:26] LABS: HCT 42.4 % (39.0-53.0); HGB 14.1 gm/dL (13.0-17.5); MCH 28.5 pg (25.0-35.0); MCHC 33.2 g/dL (31.0-37.0); MCV 85.8 fL (80.0-100.0); Platelet Count 225 k/uL (150-450); RBC 4.94 m/uL (4.30-5.90); WBC 5.7 k/uL (3.8-10.6)
[2017-09-01 07:29] LABS: Appearance,Urine Clear (Clear); Bilirubin,Urine Negative (Negative); Blood,Urine Trace (Negative); Color,Urine Light Yellow; Glucose,Urine (UA) Negative (Negative); Ketones,Urine Negative (Negative); Leukocyte Esterase,Urine Negative (Negative); Mucus,Urine Rare /hpf; Nitrite,Urine Negative (Negative); PH, Urine 5.5 (5.0-8.0); Protein,Urine Negative (Negative); RBC,Urine 2 /hpf (0-5); Urobilinogen,Urine <2.0 mg/dL (<2.0); WBC,Urine <1 /hpf (0-5)
[2017-09-01 07:42] LABS: Albumin 3.6 g/dL (3.5-5.0); Calcium 8.9 mg/dL (8.4-10.2); Phosphorus 4.2 mg/dL (2.5-4.5); Potassium 4.7 mmol/L (3.5-5.1); Total Bilirubin 0.4 mg/dL (0.2-1.3); Total Protein 5.8 g/dL (6.3-8.2); Uric Acid 6.8 mg/dL (3.5-8.5)
[2017-09-01 09:59] LABS: Creatinine,Urine Random 89.2 mg/dL
[2017-09-01 16:26] LABS: Iron Saturation 30.68 (15.00-50.00)
[2017-09-01 16:33] LABS: Vitamin D 25 Hydroxy 31.2 ng/mL (30.0-100.0)
[2017-09-01 16:41] LABS: Parathyroid Hormone Intact 60.8 pg/mL (14.0-72.0)
== END | disposition home or self-care (01) ==
LOC: LABWHC1 06:56
PROVIDERS: ATTEND Internal Medicine
DX: I77.6 Arteritis, unspecified (principal); D64.9 Anemia, unspecified; N39.0 Urinary tract infection, site not specified; R80.9 Proteinuria, unspecified; E21.3 Hyperparathyroidism, unspecified; E55.9 Vitamin D deficiency, unspecified; M10.9 Gout, unspecified
CPT/HCPCS: 36415; 80053; 81001; 82306; 82570; 82728; 83540; 83550; 83735; 83970; 84100; 84156; 84550; 85027

== ENCOUNTER → 2017-11-02 | Outpatient (CLI) | payer OTHER ==
[2017-11-02 08:09] LABS: HCT 36.8 % (39.0-53.0); HGB 12.3 gm/dL (13.0-17.5); MCH 29.8 pg (25.0-35.0); MCHC 33.4 g/dL (31.0-37.0); MCV 89.5 fL (80.0-100.0); Mean Platelet Volume 7.2; Platelet Count 202 k/uL (150-450); RBC 4.11 m/uL (4.30-5.90); RDW 13.8 % (11.5-15.5); WBC 5.4 k/uL (3.8-10.6)
[2017-11-02 08:13] LABS: Appearance,Urine Clear (Clear); Bilirubin,Urine Negative (Negative); Blood,Urine Negative (Negative); Color,Urine Light Yellow; Glucose,Urine (UA) Negative (Negative); Ketones,Urine Negative (Negative); Leukocyte Esterase,Urine Negative (Negative); Nitrite,Urine Negative (Negative); Protein,Urine Negative (Negative); Specific Gravity,Urine 1.012 (1.001-1.035); Urobilinogen,Urine <2.0 mg/dL (<2.0)
[2017-11-02 08:40] LABS: Albumin 3.5 g/dL (3.5-5.0); Calcium 8.8 mg/dL (8.4-10.2); Phosphorus 3.8 mg/dL (2.5-4.5); Potassium 4.6 mmol/L (3.5-5.1); Total Bilirubin 0.6 mg/dL (0.2-1.3); Total Protein 5.9 g/dL (6.3-8.2); Uric Acid 6.9 mg/dL (3.5-8.5)
[2017-11-02 09:37] LABS: Creatinine,Urine Random 102.4 mg/dL
[2017-11-02 16:21] LABS: Parathyroid Hormone Intact 56.5 pg/mL (14.0-72.0)
[2017-11-02 17:07] LABS: Iron Saturation 33.77 (15.00-50.00)
[2017-11-02 17:19] LABS: Vitamin D 25 Hydroxy 21.1 ng/mL (30.0-100.0)
== END ==
LOC: LABWHC1 06:57
PROVIDERS: ATTEND Nurse Practitioner Family
DX: D64.9 Anemia, unspecified (principal); N39.0 Urinary tract infection, site not specified; R80.9 Proteinuria, unspecified; E21.3 Hyperparathyroidism, unspecified; E55.9 Vitamin D deficiency, unspecified; M10.9 Gout, unspecified; I77.6 Arteritis, unspecified
CPT/HCPCS: 36415; 80053; 81003; 82306; 82570; 82728; 83540; 83550; 83735; 83970; 84100; 84156; 84550; 85027

== ENCOUNTER → 2018-02-18 | Outpatient (CLI) | payer OTHER ==
[2018-02-18 07:28] LABS: Appearance,Urine Clear (Clear); Bilirubin,Urine Negative (Negative); Blood,Urine Negative (Negative); Color,Urine Light Yellow; Glucose,Urine (UA) Negative (Negative); Ketones,Urine Negative (Negative); Leukocyte Esterase,Urine Negative (Negative); Nitrite,Urine Negative (Negative); Protein,Urine Negative (Negative); Specific Gravity,Urine 1.014 (1.001-1.035); Urobilinogen,Urine <2.0 mg/dL (<2.0)
[2018-02-18 07:30] LABS: HGB 13.5 gm/dL (13.0-17.5); MCH 29.9 pg (25.0-35.0); MCHC 33.7 g/dL (31.0-37.0); MCV 88.8 fL (80.0-100.0); Platelet Count 225 k/uL (150-450); RBC 4.51 m/uL (4.30-5.90); RDW 12.8 % (11.5-15.5); WBC 6.3 k/uL (3.8-10.6)
[2018-02-18 11:51] LABS: Total Protein,Urine Random 5.9 mg/dL (0.0-13.5)
[2018-02-18 12:46] LABS: Creatinine,Urine Random 114.4 mg/dL
[2018-02-18 16:02] LABS: Iron Saturation 34.96 (15.00-50.00)
[2018-02-18 16:10] LABS: Vitamin D 25 Hydroxy 30.9 ng/mL (30.0-100.0)
[2018-02-18 16:14] LABS: Phosphorus 4.1 mg/dL (2.4-5.1); Uric Acid 6.9 mg/dL (3.7-8.7)
[2018-02-18 16:15] LABS: Albumin 3.9 g/dL (3.80-4.90); Albumin/Globulin Ratio 2.6 (1.20-2.10); Calcium 8.4 mg/dL (8.7-10.3); Globulin 1.5 g/dL (1.6-3.3); Magnesium 1.9 mg/dL (1.5-2.4); Potassium 4.3 mmol/L (3.5-5.5); Total Bilirubin 0.3 mg/dL (0.3-1.2); Total Protein 5.4 g/dL (6.2-8.2)
[2018-02-18 16:17] LABS: Parathyroid Hormone Intact 86.3 pg/mL (14.0-72.0)
== END | disposition home or self-care (01) ==
LOC: LABWHC1 06:44
PROVIDERS: ATTEND Nurse Practitioner Family
DX: N39.0 Urinary tract infection, site not specified (principal); R80.9 Proteinuria, unspecified; D64.9 Anemia, unspecified; I77.6 Arteritis, unspecified; E79.0 Hyperuricemia without signs of inflammatory arthritis and tophaceous disease; E83.39 Other disorders of phosphorus metabolism
CPT/HCPCS: 36415; 80053; 81003; 82306; 82570; 82728; 83540; 83550; 83735; 83970; 84100; 84156; 84550; 85027

== ENCOUNTER → 2018-05-25 | Outpatient (CLI) | payer OTHER ==
[2018-05-25 08:01] LABS: Appearance,Urine Clear (Clear); Bilirubin,Urine Negative (Negative); Blood,Urine Negative (Negative); Color,Urine Yellow; Glucose,Urine (UA) Negative (Negative); Ketones,Urine Negative (Negative); Leukocyte Esterase,Urine Negative (Negative); Nitrite,Urine Negative (Negative); Protein,Urine Negative (Negative); Specific Gravity,Urine 1.016 (1.001-1.035); Urobilinogen,Urine <2.0 mg/dL (<2.0)
[2018-05-25 12:01] LABS: Iron Saturation 26.09 (15.00-50.00)
[2018-05-25 12:03] LABS: Parathyroid Hormone Intact 67.4 pg/mL (14.0-72.0)
[2018-05-25 12:09] LABS: Albumin 3.9 g/dL (3.80-4.90); Albumin/Globulin Ratio 2.44 (1.60-3.17); Calcium 8.5 mg/dL (8.7-10.3); Globulin 1.6 g/dL (1.6-3.3); Magnesium 1.9 mg/dL (1.5-2.4); Phosphorus 3.5 mg/dL (2.4-5.1); Potassium 4.3 mmol/L (3.5-5.5); Total Bilirubin 0.3 mg/dL (0.3-1.2); Total Protein 5.5 g/dL (6.2-8.2); Uric Acid 5.4 mg/dL (3.7-8.7)
[2018-05-25 12:10] LABS: Vitamin D 25 Hydroxy 26.3 ng/mL (30.0-100.0)
[2018-05-25 13:47] LABS: Total Protein,Urine Random 5.6 mg/dL (0.0-13.5)
== END | disposition home or self-care (01) ==
LOC: LABWHC1 06:49
PROVIDERS: ATTEND Internal Medicine
DX: E55.9 Vitamin D deficiency, unspecified (principal); E21.3 Hyperparathyroidism, unspecified; N39.0 Urinary tract infection, site not specified; I77.6 Arteritis, unspecified; D64.9 Anemia, unspecified; R80.9 Proteinuria, unspecified; M10.9 Gout, unspecified
CPT/HCPCS: 36415; 80053; 81003; 82306; 82570; 82728; 83540; 83550; 83735; 83970; 84100; 84156; 84550

== ENCOUNTER → 2018-08-25 | Outpatient (CLI) | payer OTHER ==
[2018-08-25 07:25] LABS: Appearance,Urine Clear (Clear); Bilirubin,Urine Negative (Negative); Blood,Urine Negative (Negative); Color,Urine Yellow; Glucose,Urine (UA) Negative (Negative); HGB 13.3 gm/dL (13.0-17.5); Ketones,Urine Negative (Negative); Leukocyte Esterase,Urine Negative (Negative); MCH 29.7 pg (25.0-35.0); MCHC 33.2 g/dL (31.0-37.0); MCV 89.6 fL (80.0-100.0); Mean Platelet Volume 7.1; Nitrite,Urine Negative (Negative); Platelet Count 242 k/uL (150-450); Protein,Urine Negative (Negative); RBC 4.47 m/uL (4.30-5.90); RDW 13.4 % (11.5-15.5); Specific Gravity,Urine 1.012 (1.001-1.035); Urobilinogen,Urine <2.0 mg/dL (<2.0); WBC 6.4 k/uL (3.8-10.6)
[2018-08-25 11:44] LABS: Iron Saturation 18.68 (15.00-50.00)
[2018-08-25 11:48] LABS: African American GFR (CKD) 45.4 (60.0-200.0); Albumin 3.9 g/dL (3.80-4.90); Albumin/Globulin Ratio 2.44 (1.60-3.17); Anion Gap 7.6 mmol/L (4.00-12.00); BUN/Creat Ratio 15.56 Ratio (12.00-20.00); Calcium 8.8 mg/dL (8.7-10.3); Carbon Dioxide 26.4 mmol/L (21.6-31.8); Globulin 1.6 g/dL (1.6-3.3); Parathyroid Hormone Intact 68.4 pg/mL (14.0-72.0); Phosphorus 3.6 mg/dL (2.4-5.1); Potassium 4.4 mmol/L (3.5-5.5); Total Bilirubin 0.4 mg/dL (0.3-1.2); Total Protein 5.5 g/dL (6.2-8.2); Uric Acid 5.7 mg/dL (3.7-8.7)
[2018-08-25 12:21] LABS: Total Protein,Urine Random 5.6 mg/dL (0.0-13.5)
[2018-08-25 14:36] LABS: Hemoglobin A1C 6.1 % (4.0-6.0)
== END | disposition home or self-care (01) ==
LOC: LABWHC1 06:44
PROVIDERS: ATTEND Nurse Practitioner Family
DX: D64.9 Anemia, unspecified (principal); R73.09 Other abnormal glucose; E83.39 Other disorders of phosphorus metabolism; E21.3 Hyperparathyroidism, unspecified; I77.6 Arteritis, unspecified; M10.9 Gout, unspecified; E55.9 Vitamin D deficiency, unspecified
CPT/HCPCS: 36415; 80053; 81003; 82306; 82570; 82728; 83036; 83540; 83550; 83735; 83970; 84100; 84156; 84550; 85027

== ENCOUNTER → 2018-11-22 | Outpatient (CLI) | payer OTHER ==
[2018-11-22 07:31] LABS: Appearance,Urine Clear (Clear); Bilirubin,Urine Negative (Negative); Blood,Urine Negative (Negative); Color,Urine Light Yellow; Glucose,Urine (UA) Negative (Negative); Ketones,Urine Negative (Negative); Leukocyte Esterase,Urine Negative (Negative); Nitrite,Urine Negative (Negative); Protein,Urine Negative (Negative); Specific Gravity,Urine 1.011 (1.001-1.035); Urobilinogen,Urine <2.0 mg/dL (<2.0)
[2018-11-22 11:47] LABS: Creatinine,Urine Random 76.8 mg/dL
[2018-11-22 11:53] LABS: Total Protein,Urine Random 4.4 mg/dL (0.0-13.5)
[2018-11-22 17:21] LABS: Hemoglobin A1C 5.6 % (4.0-6.0)
[2018-11-22 17:52] LABS: Albumin 4.1 g/dL (3.80-4.90); Albumin/Globulin Ratio 2.41 (1.60-3.17); Anion Gap 6.8 mmol/L (4.00-12.00); BUN/Creat Ratio 18.75 Ratio (12.00-20.00); Calcium 8.6 mg/dL (8.7-10.3); Carbon Dioxide 26.2 mmol/L (21.6-31.8); Globulin 1.7 g/dL (1.6-3.3); Iron Saturation 29.92 (15.00-50.00); Magnesium 1.9 mg/dL (1.5-2.4); Potassium 4.6 mmol/L (3.5-5.5); Total Bilirubin 0.4 mg/dL (0.3-1.2); Total Protein 5.8 g/dL (6.2-8.2); Uric Acid 5.5 mg/dL (3.7-8.7)
== END | disposition home or self-care (01) ==
LOC: LABWHC1 06:38
PROVIDERS: ATTEND Nurse Practitioner Family
DX: I77.6 Arteritis, unspecified (principal); E21.3 Hyperparathyroidism, unspecified; R73.09 Other abnormal glucose; E55.9 Vitamin D deficiency, unspecified; D64.9 Anemia, unspecified; N39.0 Urinary tract infection, site not specified; R80.9 Proteinuria, unspecified; M10.9 Gout, unspecified
CPT/HCPCS: 36415; 80053; 81003; 82306; 82570; 82728; 83036; 83540; 83550; 83735; 83970; 84100; 84156; 84550

== ENCOUNTER → 2019-03-21 | Outpatient (CLI) | payer OTHER ==
[2019-03-21 08:29] LABS: Appearance,Urine Clear (Clear); Bilirubin,Urine Negative (Negative); Blood,Urine Negative (Negative); Color,Urine Yellow; Glucose,Urine (UA) Negative (Negative); Ketones,Urine Negative (Negative); Leukocyte Esterase,Urine Negative (Negative); Nitrite,Urine Negative (Negative); Protein,Urine Negative (Negative); Specific Gravity,Urine 1.017 (1.001-1.035); Urobilinogen,Urine <2.0 mg/dL (<2.0)
[2019-03-21 08:32] LABS: HCT 45.7 % (39.0-53.0); HGB 15.5 gm/dL (13.0-17.5); MCH 30.9 pg (25.0-35.0); MCHC 33.9 g/dL (31.0-37.0); MCV 91.3 fL (80.0-100.0); Mean Platelet Volume 7.8; Platelet Count 183 k/uL (150-450); RBC 5.01 m/uL (4.30-5.90); RDW 13.3 % (11.5-15.5); WBC 6.6 k/uL (3.8-10.6)
[2019-03-21 11:44] LABS: % Iron Saturation 31.64 (15.00-50.00); African American GFR (CKD) 66.8 (60.0-200.0); Albumin 4.2 g/dL (3.80-4.90); Albumin/Globulin Ratio 2.63 (1.60-3.17); Anion Gap 6.3 mmol/L (4.00-12.00); Calcium 9.1 mg/dL (8.7-10.3); Carbon Dioxide 26.7 mmol/L (21.6-31.8); Globulin 1.6 g/dL (1.6-3.3); Magnesium 1.9 mg/dL (1.5-2.4); Non-African American GFR(CKD) 57.7 (60.0-200.0); Phosphorus 3.9 mg/dL (2.4-5.1); Potassium 4.3 mmol/L (3.5-5.5); Total Bilirubin 0.6 mg/dL (0.3-1.2); Total Protein 5.8 g/dL (6.2-8.2); Uric Acid 5.3 mg/dL (3.7-8.7)
[2019-03-21 11:55] LABS: Ferritin 430.9 ng/mL (22.0-322.0)
== END | disposition home or self-care (01) ==
LOC: LABWHC1 06:54
PROVIDERS: ATTEND Internal Medicine
DX: I77.6 Arteritis, unspecified (principal); D64.9 Anemia, unspecified; N39.0 Urinary tract infection, site not specified; N25.81 Secondary hyperparathyroidism of renal origin; M10.9 Gout, unspecified; E55.9 Vitamin D deficiency, unspecified
CPT/HCPCS: 36415; 80053; 81003; 82306; 82728; 83540; 83550; 83735; 83970; 84100; 84550; 85027

== ENCOUNTER → 2019-07-18 | Outpatient (CLI) | payer OTHER ==
[2019-07-18 10:07] LABS: Appearance,Urine Clear (Clear); Bilirubin,Urine Negative (Negative); Blood,Urine Negative (Negative); Color,Urine Light Yellow; Glucose,Urine (UA) Negative (Negative); Ketones,Urine Negative (Negative); Leukocyte Esterase,Urine Negative (Negative); Nitrite,Urine Negative (Negative); Protein,Urine Negative (Negative); Specific Gravity,Urine 1.013 (1.001-1.035); Urobilinogen,Urine <2.0 mg/dL (<2.0)
[2019-07-18 14:44] LABS: HCT 50.2 % (39.0-53.0); HGB 15.9 gm/dL (13.0-17.5); MCH 29.2 pg (25.0-35.0); MCHC 31.6 g/dL (31.0-37.0); MCV 92.2 fL (80.0-100.0); Mean Platelet Volume 8.7; Platelet Count 207 k/uL (150-450); RBC 5.44 m/uL (4.30-5.90); RDW 13.6 % (11.5-15.5); WBC 7.2 k/uL (3.8-10.6)
[2019-07-18 17:03] LABS: % Iron Saturation 40.77 (15.00-50.00); African American GFR (CKD) 61.1 (60.0-200.0); Albumin 4.2 g/dL (3.80-4.90); Albumin/Globulin Ratio 2.63 (1.60-3.17); Anion Gap 4.1 mmol/L (4.00-12.00); BUN/Creat Ratio 18.57 Ratio (12.00-20.00); Calcium 9.1 mg/dL (8.7-10.3); Carbon Dioxide 27.9 mmol/L (21.6-31.8); Globulin 1.6 g/dL (1.6-3.3); Magnesium 1.9 mg/dL (1.5-2.4); Non-African American GFR(CKD) 52.7 (60.0-200.0); Phosphorus 3.6 mg/dL (2.4-5.1); Potassium 4.6 mmol/L (3.5-5.5); Total Bilirubin 0.7 mg/dL (0.3-1.2); Total Protein 5.8 g/dL (6.2-8.2); Uric Acid 5.3 mg/dL (3.7-8.7)
[2019-07-18 17:50] LABS: Ferritin 385.6 ng/mL (22.0-322.0)
== END | disposition home or self-care (01) ==
LOC: LABWHC1 08:46
PROVIDERS: ATTEND Internal Medicine
DX: I77.6 Arteritis, unspecified (principal); D64.9 Anemia, unspecified; N39.0 Urinary tract infection, site not specified; N25.81 Secondary hyperparathyroidism of renal origin; E55.9 Vitamin D deficiency, unspecified; M10.9 Gout, unspecified
CPT/HCPCS: 36415; 80053; 81003; 82306; 82728; 83540; 83550; 83735; 83970; 84100; 84550; 85027

== ENCOUNTER → 2019-11-29 | Outpatient (CLI) | payer MEDICARE, BC ==
[2019-11-29 08:33] LABS: HCT 47.6 % (39.0-53.0); HGB 15.8 gm/dL (13.0-17.5); MCH 30.6 pg (25.0-35.0); MCHC 33.2 g/dL (31.0-37.0); MCV 92.1 fL (80.0-100.0); Mean Platelet Volume 7.2; Platelet Count 213 k/uL (150-450); RBC 5.16 m/uL (4.30-5.90); WBC 6.7 k/uL (3.8-10.6)
[2019-11-29 08:35] LABS: Appearance,Urine Clear (Clear); Bilirubin,Urine Negative (Negative); Blood,Urine Negative (Negative); Color,Urine Light Yellow; Glucose,Urine (UA) Negative (Negative); Ketones,Urine Negative (Negative); Leukocyte Esterase,Urine Negative (Negative); Nitrite,Urine Negative (Negative); PH, Urine 5.5 (5.0-8.0); Protein,Urine Negative (Negative); Specific Gravity,Urine 1.012 (1.001-1.035); Urobilinogen,Urine <2.0 mg/dL (<2.0)
[2019-11-29 17:48] LABS: % Iron Saturation 25.65 (15.00-50.00); African American GFR (CKD) 66.4 (60.0-200.0); Albumin 4.1 g/dL (3.80-4.90); Albumin/Globulin Ratio 2.28 (1.60-3.17); Anion Gap 9.1 mmol/L (4.00-12.00); BUN/Creat Ratio 21.54 Ratio (12.00-20.00); Calcium 8.9 mg/dL (8.7-10.3); Carbon Dioxide 25.9 mmol/L (21.6-31.8); Globulin 1.8 g/dL (1.6-3.3); Magnesium 1.9 mg/dL (1.5-2.4); Non-African American GFR(CKD) 57.3 (60.0-200.0); Phosphorus 3.8 mg/dL (2.4-5.1); Potassium 4.6 mmol/L (3.5-5.5); Total Bilirubin 0.7 mg/dL (0.2-1.2); Total Protein 5.9 g/dL (6.2-8.2); Uric Acid 4.8 mg/dL (3.7-8.7)
[2019-11-29 18:13] LABS: Ferritin 390.3 ng/mL (22.0-322.0)
== END | disposition home or self-care (01) ==
LOC: LABWHC1 07:13
PROVIDERS: ATTEND Nurse Practitioner Family
DX: N39.0 Urinary tract infection, site not specified (principal); D64.9 Anemia, unspecified; E83.39 Other disorders of phosphorus metabolism; N25.81 Secondary hyperparathyroidism of renal origin; E55.9 Vitamin D deficiency, unspecified; M10.9 Gout, unspecified; I77.6 Arteritis, unspecified
CPT/HCPCS: 36415; 80053; 81003; 82306; 82728; 83540; 83550; 83735; 83970; 84100; 84550; 85027

== ENCOUNTER → 2020-02-13 | Outpatient (CLI) | payer MEDICARE, BC ==
--- NOTE | 2020-02-13 15:25 | CT ---
EXAMINATION TYPE: CT sinus w con DATE OF EXAM: 02/13/2020 COMPARISON: None. HISTORY: Arteritis and chronic cough. ANCA positive CT DLP: 603 mGycm Automated exposure control for dose reduction was used. CONTRAST: CT scan of the facial bones is performed with IV Contrast, patient injected with 100ml mL of Isovue 3 00. FINDINGS: Heterogeneous hyperdense material completely fills right sphenoid sinus. Heterogeneous hype rdense material partially fills right-sided ethmoid sinuses. There is mucosal thickening and partial opacification of the posterior left ethmoid sinuses. Ostiomeatal complexes patent bilaterally on beckie nal image 29 Visualized portion of mastoid air cells show no abnormal opacification. The globes are intact bilate rally. Visualized portion of brain parenchyma is unremarkable. IMPRESSION: Some acute on chronic right sphenoid and bilateral ethmoid sinus disease as detailed flaquita stewart
--- NOTE | 2020-02-13 15:45 | CT ---
EXAMINATION TYPE: CT chest w con DATE OF EXAM: 02/13/2020 COMPARISON: Chest x-ray February 20, 2017 and older x-rays HISTORY: Arteritis and chronic cough. ANCA Positive. CT DLP: 328.9 mGycm. Automated Exposure Control for Dose Reduction was Utilized. TECHNIQUE: CT scan of the thorax is performed following with IV Contrast, patient injected with 100m l mL of Isovue 300. FINDINGS: LUNGS: Focal mild to moderate scarring in the left lung base anterolaterally. Additional scarring and /or atelectasis in the medial posterior right lower lobe. Occasional scattered subpleural micronodule right upper lobe axial image 16. Few nonspecific groundglass nodules in the right midlung anteriorly along fissure, 4 reference 6 x 4 mm nodule axial image 35. MEDIASTINUM: There are no greater than 1 cm hilar or mediastinal lymph nodes. Few prominent with scat tered subcentimeter thoracic lymph nodes. No cardiomegaly or pericardial effusion is seen. Slight h eterogeneity lower pole left thyroid suspicious for nodule, consider ultrasound follow-up. OTHER: No additional significant abnormality is seen. IMPRESSION: Some mild chronic parenchymal changes. No suspicious acute pulmonary process.
== END | disposition home or self-care (01) ==
LOC: RADCTMAIN 13:55
PROVIDERS: ATTEND Internal Medicine Rheumatology
DX: J32.2 Chronic ethmoidal sinusitis (principal); J32.3 Chronic sphenoidal sinusitis; R91.8 Other nonspecific abnormal finding of lung field
CPT/HCPCS: 71260; 70487; Q9967

== ENCOUNTER → 2020-02-13 | Outpatient (CLI) | payer MEDICARE, BC ==
[~2020-02-13] MED LIST: SODIUM CHLORIDE 0.9% 500 ML 500 ML IV NR; SODIUM CHLORIDE 0.9% 500 ML 500 ML in EMPTY BAG 1 BAG IV PRN
[2020-02-13 11:33] VITALS: BP 161/90; PULSE 66; RESP 16; TEMP 97.8
== END | disposition home or self-care (01) ==
LOC: PROCWHC3 11:03
PROVIDERS: ATTEND Internal Medicine Nephrology
DX: N17.9 Acute kidney failure, unspecified (principal)
CPT/HCPCS: 36415; 82565; 84520; 96360; 96361

== ENCOUNTER 2020-05-13 17:18 | Inpatient (IN) | payer MEDICARE, BC ==
--- NOTE | 2020-05-13 18:08 | ED ---
General Adult HPI - General Chief complaint: Weakness Stated complaint: COVID+ Time Seen by Provider: 05/13/20 17:40 Source: patient, EMS Mode of arrival: EMS - History of Present Illness Initial comments: Dictation was produced using [employer] dictation software. please excuse any grammatical, word or spelling errors. This patient was cared for during a federal and state declared state of emergency secondary to Covid 19 Chief Complaint: 64-year-old male past medical history of arthritis, rheumatoid arthritis, GI bleed presents to the emergency department for worsening Covid symptoms History of Present Illness: Patient is a 64-year-old male has multiple co morbidities. He states that he was tested positive for Covid 3 days ago. He has been symptomatically for 4 days. Patient has multiple comorbidities. He states that over the last 2 days he's been having worsening symptoms. States he feels very ill. He has muscle aches, constitutional symptoms. Patient denies any history of respiratory issues. Patient does complain of shortness of breath. He also has chest pain clearly with all his diffuse myalgias. The ROS documented in this emergency department record has been reviewed and confirmed by me. Those systems with pertinent positive or negative responses have been documented in the HPI. All other systems are other negative and/or noncontributory. PHYSICAL EXAM: General Impression: Alert and oriented x3, fatigue HEENT: Normocephalic atraumatic, extra-ocular movements intact, pupils equal and reactive to light bilaterally, mucous membranes moist. Cardiovascular: Heart regular rate and rhythm Chest: Able to complete full sentences, no retractions, no tachypnea Abdomen: abdomen soft, non-tender, non-distended, no organomegaly Musculoskeletal: Pulses present and equal in all extremities, no peripheral edema Motor: no focal deficits noted Neurological: CN II-XII grossly intact, no focal motor or sensory deficits noted Skin: Intact with no visualized rashes Psych: Normal affect and mood ED course: 64-year-old male presents to the emergency department for worsening Covid symptoms. He is been symptomatic for approximately 4 days. Signs upon arrival shows oxygen saturation 94% on 3 L nasal cannula. Rest of vital signs w ithin acceptable limits. His cannula was removed and patient oxygen dropped to 89%. He has multiple comorbidities. Laboratory evaluation obtained. CBC unremarkable. Coag panel is negative. D-dimer is 0.94. Metabolic panel is within acceptable limits. CRP is 149. Chest x-ray shows diffuse bilateral infiltrates. Elevated d-dimer prompted order of CT of the chest showing no evidence of PE but there is extensive bilateral pulmonary and for traits consistent with pneumonia. Patient be admi tted for hypoxic respiratory failure. Patient given 10 mg of by mouth Decadron. He is satting well with 2 L nasal cannula. Patient be admitted to covid unit. For oxygen therapy. - Related Data Home Medications Medication Instructions Recorded Confirmed allopurinoL [Zyloprim] 100 mg PO BID 05/18/17 05/13/20 Carvedilol [Coreg] 6.25 mg PO BID 05/13/20 05/13/20 Fluticasone Nasal [place] [Flonase 1 spray EA NOSTRIL DAILY 05/13/20 05/13/20 Nasal [place]] Fluticasone/Vilanterol [Breo 1 puff INHALATION RT-BID 05/13/20 05/13/20 Ellipta 200-25 Mcg INH] Losartan [Cozaar] 25 mg PO DAILY 05/13/20 05/13/20 Rituxan (Unknown Dose) 1 dose IV Q112D 05/13/20 05/13/20 calcitrioL [Calcitriol] 0.25 mcg PO QMONTHLY 05/13/20 05/13/20 Allergies Allergy/AdvReac Type Severity Reaction Status Date / Time amlodipine Allergy Unknown Verified 05/13/20 18:47 sulfamethoxazole Allergy Rash/Hives Verified 05/13/20 18:47 [From Bactrim] trimethoprim [From Bactrim] Allergy Rash/Hives Verified 05/13/20 18:47 metoprolol AdvReac Swelling Verified 05/13/20 18:47 Review of Systems ROS Statement: Those systems with pertinent positive or pertinent negative responses have been documented in the HPI. ROS Other: All systems not noted in ROS Statement are negative. Past Medical History Past Medical History: GI Bleed, Rheumatoid Arthritis (RA) Additional Past Medical History / Comment(s): Rheumatoid arthritis, hemorrhoids, colonic polyps, previous cardiac stress test 2 showing no evidence of any reversible ischemia. Hospitalization x 2 for rectal bleedingl 2016 and 2017. Gout - left little toe. Vasculitis History of Any Multi-Drug Resistant Organisms: None Reported Past Surgical History: No Surgical Hx Reported Additional Past Surgical History / Comment(s): colonoscopy/polypectomy, hemangioma removed from inside L cheek. Past Anesthesia/Blood Transfusion Reactions: No Reported Reaction Past Psychological History: No Psychological Hx Reported Smoking Status: Former smoker Past Alcohol Use History: None Reported Past Drug Use History: None Reported - Past Family History Father Family Medical History: CVA/TIA, Diabetes Mellitus Additional Family Medical History / Comment(s): Father at the age of 64 yrs from diabetic complications. Mother Family Medical History: Cancer Additional Family Medical History / Comment(s): Mother of colon cancer at the age of 74yrs. Course Vital Signs 05/13/20 05/13/20 17:21 18:53 Temperature 99 F Pulse Rate 77 84 Respiratory 22 22 Rate Blood Pressure 117/75 112/69 O2 Sat by Pulse 94 L 92 L Oximetry Medical Decision Making - Lab Data Result diagrams: 05/13/20 18:22 05/13/20 18:22 Lab Results 05/13/20 05/13/20 05/13/20 Range/Units 18:22 18:22 18:22 WBC 7.3 (3.8-10.6) k/uL RBC 5.15 (4.30-5.90) m/uL Hgb 15.4 (13.0-17.5) gm/dL Hct 43.6 (39.0-53.0) % MCV 84.5 (80.0-100.0) fL MCH 29.8 (25.0-35.0) pg MCHC 35.2 (31.0-37.0) g/dL RDW 13.0 (11.5-15.5) % Plt Count 268 (150-450) k/uL MPV 7.4 Neutrophils % 77 % Lymphocytes % 17 % Monocytes % 5 % Eosinophils % 0 % Basophils % 0 % Neutrophils # 5.7 (1.3-7.7) k/uL Lymphocytes # 1.2 (1.0-4.8) k/uL Monocytes # 0.4 (0-1.0) k/uL Eosinophils # 0.0 (0-0.7) k/uL Basophils # 0.0 (0-0.2) k/uL PT 10.1 (9.0-12.0) sec INR 0.9 (<1.2) APTT 23.8 (22.0-30.0) sec D-Dimer 0.94 H (<0.60) mg/L FEU Sodium 133 L (137-145) mmol/L Potassium 4.7 (3.5-5.1) mmol/L Chloride 96 L (98-107) mmol/L Carbon Dioxide 27 (22-30) mmol/L Anion Gap 10 mmol/L BUN 26 H (9-20) mg/dL Creatinine 1.26 H (0.66-1.25) mg/dL Est GFR (CKD-EPI)AfAm 69 (>60 ml/min/1.73 sqM) Est GFR (CKD-EPI)NonAf 59 (>60 ml/min/1.73 sqM) Glucose 100 H (74-99) mg/dL Calcium 8.7 (8.4-10.2) mg/dL Total Bilirubin 0.8 (0.2-1.3) mg/dL AST 54 (17-59) U/L ALT 28 (4-49) U/L Alkaline Phosphatase 63 (38-126) U/L Troponin I (0.000-0.034) ng/mL C-Reactive Protein 149.3 H (<10.0) mg/L Total Protein 5.9 L (6.3-8.2) g/dL Albumin 3.5 (3.5-5.0) g/dL 05/13/20 Range/Units 18:22 WBC (3.8-10.6) k/uL RBC (4.30-5.90) m/uL Hgb (13.0-17.5) gm/dL Hct (39.0-53.0) % MCV (80.0-100.0) fL MCH (25.0-35.0) pg MCHC (31.0-37.0) g/dL RDW (11.5-15.5) % Plt Count (150-450) k/uL MPV Neutrophils % % Lymphocytes % % Monocytes % % Eosinophils % % Basophils % % Neutrophils # (1.3-7.7) k/uL Lymphocytes # (1.0-4.8) k/uL Monocytes # (0-1.0) k/uL Eosinophils # (0-0.7) k/uL Basophils # (0-0.2) k/uL PT (9.0-12.0) sec INR (<1.2) APTT (22.0-30.0) sec D-Dimer (<0.60) mg/L FEU Sodium (137-145) mmol/L Potassium (3.5-5.1) mmol/L Chloride (98-107) mmol/L Carbon Dioxide (22-30) mmol/L Anion Gap mmol/L BUN (9-20) mg/dL Creatinine (0.66-1.25) mg/dL Est GFR (CKD-EPI)AfAm (>60 ml/min/1.73 sqM) Est GFR (CKD-EPI)NonAf (>60 ml/min/1.73 sqM) Glucose (74-99) mg/dL Calcium (8.4-10.2) mg/dL Total Bilirubin (0.2-1.3) mg/dL AST (17-59) U/L ALT (4-49) U/L Alkaline Phosphatase (38-126) U/L Troponin I <0.012 (0.000-0.034) ng/mL C-Reactive Protein (<10.0) mg/L Total Protein (6.3-8.2) g/dL Albumin (3.5-5.0) g/dL Disposition Clinical Impression: COVID-19, Hypoxia Disposition: ADMITTED IP TO THIS HOSP Condition: Fair Referrals: Aydee Mcqueen DO [Primary Care Provider] - 1-2 days Decision Time: 20:49
[2020-05-13 18:32] LABS: Basophils % (A) 0 %; Eosinophils % (A) 0 %; HCT 43.6 % (39.0-53.0); HGB 15.4 gm/dL (13.0-17.5); Lymphocytes # (A) 1.2 k/uL (1.0-4.8); Lymphocytes % (A) 17 %; MCH 29.8 pg (25.0-35.0); MCHC 35.2 g/dL (31.0-37.0); MCV 84.5 fL (80.0-100.0); Mean Platelet Volume 7.4; Monocytes # (A) 0.4 k/uL (0-1.0); Monocytes % (A) 5 %; Neutrophils # (A) 5.7 k/uL (1.3-7.7); Neutrophils % (A) 77 %; Platelet Count 268 k/uL (150-450); RBC 5.15 m/uL (4.30-5.90); WBC 7.3 k/uL (3.8-10.6)
--- NOTE | 2020-05-13 18:36 | XR ---
EXAMINATION TYPE: XR chest 1V portable DATE OF EXAM: 05/13/2020 COMPARISON: 02/20/2017 HISTORY: Weakness. Short of breath. Fever. TECHNIQUE: FINDINGS: There is a 3 cm irregular patch of infiltrate in the right lower lobe. There is no heart fa ilure. Heart size is normal. There is slight coarsening of interstitial markings in the left lower lo be. There are chest leads. IMPRESSION: There are some bilateral pneumonic infiltrates in the lower lung shrestha as above which ap pear new compared to old exam. Normal heart.
[2020-05-13 18:47] LABS: INR 0.9 (<1.2); Partial Thromboplastin Time 23.8 sec (22.0-30.0); Prothrombin Time 10.1 sec (9.0-12.0)
[2020-05-13 18:52] LABS: Albumin 3.5 g/dL (3.5-5.0); Calcium 8.7 mg/dL (8.4-10.2); Potassium 4.7 mmol/L (3.5-5.1); Total Bilirubin 0.8 mg/dL (0.2-1.3); Total Protein 5.9 g/dL (6.3-8.2)
[2020-05-13 18:56] LABS: D-Dimer 0.94 mg/L FEU (<0.60)
[2020-05-13 19:04] LABS: C Reactive Protein 149.3 mg/L (<10.0)
[2020-05-13] MEDS ORDERED: HYDROcodone/APAP 5-325MG 1 EACH TAB PO STA (19:26)
--- NOTE | 2020-05-13 19:55 | CT ---
EXAMINATION TYPE: CT angio chest DATE OF EXAM: 05/13/2020 COMPARISON: 02/13/2020 HISTORY: Shortness of breath, fever and cough. CT DLP: 325.3 mGycm Automated exposure control for dose reduction was used. CONTRAST: Performed with IV Contrast, patient injected with 100 mL of Isovue 370. There are 3-D post processed images. There is patchy airspace and interstitial infiltrates in the lung shrestha bilaterally. There is patchy peripheral areas of groundglass interstitial infiltrate. There is some coalescent density at the pos terior lung bases. There is no pleural effusion. Heart size is normal. There is no pericardial effusi on. There is no mediastinal adenopathy. There are a few bronchial lymph nodes measuring up to 1 cm. There is normal contrast opacification of the pulmonary arteries. There is no mediastinal adenopathy. Thoracic vertebra have normal alignment. There is no compression fracture. The sternum is intact. I s ee no bony destructive process. IMPRESSION: No evidence of pulmonary embolism. Extensive bilateral pulmonary infiltrates with groundglass interst itial density consistent with predominantly interstitial pneumonia. This is a change compared to old exam.
[2020-05-13] MEDS ORDERED: dexAMETHasone 4 MG TAB PO STA (20:47)
[2020-05-13] MEDS ORDERED: NALOXONE 0.4 MG/ML 1 ML VIAL IV PRN (20:50)
[2020-05-13] MEDS: SODIUM CHLORIDE 0.9% 1,000 ML IV SCH (21:01)
[2020-05-13] MEDS ORDERED: REMDESIVIR 200 MG in SODIUM CHLORIDE 0.9% 250 ML IVPB ONE (21:37)
[2020-05-13] MEDS: ENOXAPARIN 40 MG/0.4 ML SYRINGE SQ SCH (22:22)
[2020-05-13] MEDS: ZINC SULFATE 220 MG CAP PO SCH (22:23)
[2020-05-13] MEDS: CHOLECALCIFEROL 25 MCG (1000 IU) TABLET PO SCH (22:23)
[2020-05-13] MEDS: ASCORBIC ACID 500 MG TAB PO SCH (22:23)
[2020-05-13] MEDS: ONDANSETRON 4 MG/2 ML VIAL IVP PRN (22:42)
[2020-05-14] MEDS: DEXAMETHASONE SOD PHOSPHATE 10 MG/ML 1 ML VIAL IV SCH (09:13)
[2020-05-14] MEDS: ASCORBIC ACID 500 MG TAB PO SCH (09:13)
[2020-05-14] MEDS: CHOLECALCIFEROL 25 MCG (1000 IU) TABLET PO SCH (09:13)
[2020-05-14] MEDS: ENOXAPARIN 40 MG/0.4 ML SYRINGE SQ SCH (09:13)
[2020-05-14] MEDS: ZINC SULFATE 220 MG CAP PO SCH (09:23)
[2020-05-14] MEDS ORDERED: LORazepam 2 MG/ML INJ IV PRN (10:27)
--- NOTE | 2020-05-14 10:30 | P.HPIM ---
History of Present Illness This is a pleasant 64 years old male with past medical history of rheumatoid arthritis, gout and history of GI bleed.he Is a patient of Dr. Forde. Patient is lethargic and weak and is not very good historian. He states his main complaint was inability to eat and drink with dizziness and weakness for about a week or more, yesterday his sister convinced him to come to the hospital. Also patient can benefit from fever and mild dyspnea with, but no phlegm and no chest pain. Patient has diarrhea about 2-3 times per day with the total abdominal pain but no vomiting No headache or blurred vision or slurred speech or weakness or numbness Patient smokes about half pack per day and patient is consult but he does not want to quit and he declines nicotine patch, patient states he drinks every day but he states he drinks only one beer with no liquor or wine. No illicit tracts Patient states that he was diagnosed with Covid on 05/09 On admission patient is afebrile and his saturation 94% on 4 L oxygen via nasal cannula, on room air is oxygen dropped to 89%. Labs show an unremarkable CBC, and INR. D-dimer slightly elevated at 0.9. Sodium is 133, creatinine 1.2. Creatinine slightly elevated at 1.2, over baseline creatinine is 1.0 and goes up to 2 or 3 easily. Liver enzymes are not elevated. C-reactive protein is elevated at 149. EKG: Normal sinus rhythm at [address]-T changes Chest x-ray: Ayad bilateral pneumonic infiltrates in the lower lung shrestha. CTA of the chest: No pulmonary embolism, bilateral groundglass opacity Emergency room patient was started on dexamethasone, zinc and vitamin C. Also received remdesivir by guard chief Review of Systems CONSTITUTIONAL: No fever, no malaise, no fatigue. HEENT: No recent visual problems or hearing problems. Denied any sore throat. CARDIOVASCULAR: No orthopnea, PND, no palpitations, no syncope. PULMONARY: No chest pain and tenderness, no hemoptysis. GASTROINTESTINAL: No diarrhea, no nausea, no vomiting, no abdominal pain. Normoactive bowel sounds. NEUROLOGICAL: No headaches, no weakness, no numbness. HEMATOLOGICAL: Denies any bleeding or petechiae. GENITOURINARY: Denies any burning micturition, frequency, or urgency. MUSCULOSKELETAL/RHEUMATOLOGICAL: Denies any joint pain, swelling, or any muscle pain. ENDOCRINE: Denies any polyuria or polydipsia. Past Medical History Past Medical History: GI Bleed, Rheumatoid Arthritis (RA) Additional Past Medical History / Comment(s): Rheumatoid arthritis, hemorrhoids, colonic polyps, previous cardiac stress test 2 showing no evidence of any reversible ischemia. Hospitalization x 2 for rectal bleedingl 2016 and 2017. Gout - left little toe. Vasculitis History of Any Multi-Drug Resistant Organisms: None Reported Past Surgical History: No Surgical Hx Reported Additional Past Surgical History / Comment(s): colonoscopy/polypectomy, hemangioma removed from inside L cheek. Past Anesthesia/Blood Transfusion Reactions: No Reported Reaction Past Psychological History: No Psychological Hx Reported Smoking Status: Former smoker Past Alcohol Use History: None Reported Past Drug Use History: None Reported - Past Family History Father Family Medical History: CVA/TIA, Diabetes Mellitus Additional Family Medical History / Comment(s): Father at the age of 64 yrs from diabetic complications. Mother Family Medical History: Cancer Additional Family Medical History / Comment(s): Mother of colon cancer at the age of 74yrs. Medications and Allergies Home Medications Medication Instructions Recorded Confirmed Type allopurinoL [Zyloprim] 100 mg PO BID 05/18/17 05/13/20 History Carvedilol [Coreg] 6.25 mg PO BID 05/13/20 05/13/20 History Fluticasone Nasal [place] [Flonase 1 spray EA NOSTRIL DAILY 05/13/20 05/13/20 History Nasal [place]] Fluticasone/Vilanterol [Breo 1 puff INHALATION RT-BID 05/13/20 05/13/20 History Ellipta 200-25 Mcg INH] Losartan [Cozaar] 25 mg PO DAILY 05/13/20 05/13/20 History Rituxan (Unknown Dose) 1 dose IV Q112D 05/13/20 05/13/20 History calcitrioL [Calcitriol] 0.25 mcg PO QMONTHLY 05/13/20 05/13/20 History Allergies Allergy/AdvReac Type Severity Reaction Status Date / Time amlodipine Allergy Unknown Verified 05/13/20 18:47 sulfamethoxazole Allergy Rash/Hives Verified 05/13/20 18:47 [From Bactrim] trimethoprim [From Bactrim] Allergy Rash/Hives Verified 05/13/20 18:47 metoprolol AdvReac Swelling Verified 05/13/20 18:47 Physical Exam Vitals: Vital Signs Temp Pulse Resp BP Pulse Ox 05/14/20 07:36 94 L 05/14/20 06:48 97.6 F 64 18 96/62 95 05/14/20 03:16 71 18 98/64 94 L 05/14/20 01:00 98.8 F 68 18 101/62 95 05/13/20 21:04 98.6 F 84 18 106/71 95 05/13/20 19:10 89 L 05/13/20 18:53 84 22 112/69 92 L 05/13/20 17:21 99 F 77 22 117/75 94 L Intake and Output 05/13/20 05/14/20 05/14/20 22:59 06:59 14:59 Other: Weight 74.843 kg GENERAL: The patient is alert and oriented x3, not in any acute distress. Well developed, well nourished. HEENT: Pupils are round and equally reacting to light. EOMI. No scleral icterus. No conjunctival pallor. Normocephalic, atraumatic. No pharyngeal erythema. No thyromegaly. CARDIOVASCULAR: S1 and S2 present. No murmurs, rubs, or gallops. -PULMONARY: Chest is clear to auscultation, no wheezing. Bilateral mild crepitation ABDOMEN: Soft, nontender, nondistended, normoactive bowel sounds. No palpable organomegaly. MUSCULOSKELETAL: No joint swelling or deformity. EXTREMITIES: No cyanosis, clubbing, or pedal edema. NEUROLOGICAL: Gross neurological examination did not reveal any focal deficits. SKIN: No rashes. No petechiae Results CBC & Chem 7: 05/13/20 18:22 05/13/20 18:22 Labs: Abnormal Lab Results - Last 24 Hours (Table) 05/13/20 05/13/20 Range/Units 18:22 18:22 D-Dimer 0.94 H (<0.60) mg/L FEU Sodium 133 L (137-145) mmol/L Chloride 96 L (98-107) mmol/L BUN 26 H (9-20) mg/dL Creatinine 1.26 H (0.66-1.25) mg/dL Glucose 100 H (74-99) mg/dL C-Reactive Protein 149.3 H (<10.0) mg/L Total Protein 5.9 L (6.3-8.2) g/dL Assessment and Plan Assessment: Acute Covid pneumonia Acute hypoxic respiratory failure secondary to above Increase inflammatory markers Nicotine dependence Topical abuse at-risk of alcohol withdrawal Chronic rheumatoid arthritis Chronic kidney disease stage III Gout History of GI bleed Plan: This is a pleasant 60 years old male who presents because of Covid and hypoxia. Continue zinc, vitamin C, steroids. Pulmonary consult. Continue with remd esivir Some gentle hydration, given 2 as needed and foraminotomy Labs and medication were reviewed.. Continue same treatment. Continue with symptomatic treatment. Resume home medication. Monitor lytes and vitals. DVT and GI prophylaxis. Further recommendations depends on the clinical course of the patient DVT prophylaxis: Subcutaneous Lovenox GI Prophylaxis: Pepcid Prognosis is guarded
--- NOTE | 2020-05-14 11:37 | P.CNPUL ---
History of Present Illness Consult date: 05/14/20 Requesting physician: Debby Crowe Reason for consult: dyspnea, cough, hypoxemia, pneumonia, abnormal CXR/CT Chief complaint: Shortness of breath, cough, weakness, fatigue, muscle soreness. History of present illness: 64-year-old male, who is seen in the emergency department for weakness, and the patient has additional symptoms including shortness of breath, cough, and muscle soreness. The patient tested positive for COVID 19 on May 09. He's been having symptoms so far about 14 days. He was hoping to be able to stay home. The patient does look chronically ill. His oral intake has been poor. His symptoms have worsened over the last 2 or 3 days. In addition, the patient has joint aches, some fever, and chills. He was seen in the emergency room by Dr. Redmond. The patient mentions that he has a number of different rheumatologic illnesses including rheumatoid arthritis, microscopic polyangiitis, and vasculitis. He apparently takes Rituxan for this. He also has a history of hemorrhoids, GI bleed, colonic polyps, gout, and rectal bleeding. White count is 7.3, hemoglobin 15.4, hematocrit 43.6, and platelet count 260,000. PT INR and PTT normal. D-dimer is 0.94. Sodium 133, potassium 4.7, chlorides 96, CO2 27, anion gap 10, BUN 26, and creatinine 1.26. C-reactive protein is 149.3. Review of Systems REVIEW OF SYSTEMS: CONSTITUTIONAL: Fever, chills, muscle aches, joint aches, weakness and fatigue. NEUROLOGIC: [ Negative.] HEENT: [ Negative.] CARDIAC: [Negative.] PULMONARY: Shortness of breath and cough. Pain with coughing. GI: [Negative.] : [Negative.] RHEUMATOLOGIC: Severe muscle soreness. IMMUNOLOGIC: [ Negative.] ENDOCRINE: [Negative. ] DERMATOLOGIC: [Negative.] Past Medical History Past Medical History: GI Bleed, Rheumatoid Arthritis (RA) Additional Past Medical History / Comment(s): Rheumatoid arthritis, hemorrhoids, colonic polyps, previous cardiac stress test 2 showing no evidence of any reversible ischemia. Hospitalization x 2 for rectal bleedingl 2016 and 2017. Gout - left little toe. Vasculitis History of Any Multi-Drug Resistant Organisms: None Reported Past Surgical History: No Surgical Hx Reported Additional Past Surgical History / Comment(s): colonoscopy/polypectomy, hemangioma removed from inside L cheek. Past Anesthesia/Blood Transfusion Reactions: No Reported Reaction Past Psychological History: No Psychological Hx Reported Smoking Status: Former smoker Past Alcohol Use History: None Reported Past Drug Use History: None Reported - Past Family History Father Family Medical History: CVA/TIA, Diabetes Mellitus Additional Family Medical History / Comment(s): Father at the age of 64 yrs from diabetic complications. Mother Family Medical History: Cancer Additional Family Medical History / Comment(s): Mother of colon cancer at the age of 74yrs. Medications and Allergies Home Medications Medication Instructions Recorded Confirmed Type allopurinoL [Zyloprim] 100 mg PO BID 05/18/17 05/13/20 History Carvedilol [Coreg] 6.25 mg PO BID 05/13/20 05/13/20 History Fluticasone Nasal [place] [Flonase 1 spray EA NOSTRIL DAILY 05/13/20 05/13/20 History Nasal [place]] Fluticasone/Vilanterol [Breo 1 puff INHALATION RT-BID 05/13/20 05/13/20 History Ellipta 200-25 Mcg INH] Losartan [Cozaar] 25 mg PO DAILY 05/13/20 05/13/20 History Rituxan (Unknown Dose) 1 dose IV Q112D 05/13/20 05/13/20 History calcitrioL [Calcitriol] 0.25 mcg PO QMONTHLY 05/13/20 05/13/20 History Allergies Allergy/AdvReac Type Severity Reaction Status Date / Time amlodipine Allergy Unknown Verified 05/13/20 18:47 sulfamethoxazole Allergy Rash/Hives Verified 05/13/20 18:47 [From Bactrim] trimethoprim [From Bactrim] Allergy Rash/Hives Verified 05/13/20 18:47 metoprolol AdvReac Swelling Verified 05/13/20 18:47 Physical Exam Osteopathic Statement: *. No significant issues noted on an osteopathic structural exam other than those noted in the History and Physical/Consult. Vitals: Vital Signs Temp Pulse Resp BP Pulse Ox 05/14/20 10:00 78 16 94/68 95 05/14/20 09:00 97.5 F L 78 16 97/71 95 05/14/20 08:00 86 18 95 03/30/21 07:36 94 L 05/14/20 06:48 97.6 F 64 18 96/62 95 05/14/20 03:16 71 18 98/64 94 L 05/14/20 01:00 98.8 F 68 18 101/62 95 05/13/20 21:04 98.6 F 84 18 106/71 95 05/13/20 19:10 89 L 05/13/20 18:53 84 22 112/69 92 L 05/13/20 17:21 99 F 77 22 117/75 94 L Intake and Output 05/13/20 05/14/20 05/14/20 22:59 06:59 14:59 Other: Weight 74.843 kg No acute distress, oriented 3. Chronically ill-appearing. Patient's currently on 4 L nasal cannula. No audible wheezing, conversational dyspnea, or use of accessory muscles. HEENT examination is grossly unremarkable. Mucous membranes are moist. No oral lesions. Neck supple. Full range of motion. No adenopathy thyromegaly or neck vein distention. Cardiovascular examination reveals regular rhythm rate. S1-S2 normal. No S3 or S4. No discernible murmur noted. Heart sounds distant. Heart rate 78 bpm. Lungs reveal clear breath sounds. Her sounds are equal bilaterally. No adventitious lung sounds including wheezes rhonchi or crackles. Abdomen soft bowel sounds are heard. No masses or tenderness. Extremities are intact. No cyanosis clubbing or edema. Skin is without rash or lesion. Neurologic examination is brief but nonfocal. Results - Laboratory Findings CBC and BMP: 05/13/20 18:22 05/13/20 18:22 PT/INR, D-dimer PT 10.1 sec (9.0-12.0) 05/13/20 18:22 INR 0.9 (<1.2) 05/13/20 18:22 D-Dimer 0.94 mg/L FEU (<0.60) H 05/13/20 18:22 Abnormal lab findings: Abnormal Labs 05/13/20 05/13/20 18:22 18:22 D-Dimer 0.94 H Sodium 133 L Chloride 96 L BUN 26 H Creatinine 1.26 H Glucose 100 H C-Reactive Protein 149.3 H Total Protein 5.9 L - Diagnostic Findings Chest x-ray: image reviewed CT scan - chest: image reviewed Assessment and Plan Assessment: Acute hypoxemic, secondary to COVID 19 pneumonitis/pneumonia. Significant systemic symptoms including muscle aches, joint aches, fever, chills, etc., all secondary to COVID 19. History of rheumatoid arthritis. History of microscopic polyangiitis (MPO). History of hypertension. History of vasculitis. History of gout. History of GI bleed. Plan: Plan dated 05/14/2020. The patient is outside the window for REM. The patient should get all other usual medications including Lovenox, Decadron, vitamin C, vitamin D3, and zinc. The patient apparently gets Rituxan therapy for his microscopic polyangiitis, and rheumatoid arthritis, and vasculitis. The patient looks chronically ill. He is currently on 4 L nasal cannula. We will continue to follow and make recommendations were appropriate. Prognosis is guarded. Time with Patient: Greater than 30
[2020-05-14] MEDS: THIAMINE 100 MG/ML 2 ML VIAL IVP SCH (17:58)
[2020-05-14] MEDS: SODIUM CHLORIDE 0.9% 1,000 ML IV SCH (17:59)
[2020-05-14] MEDS: HYDROcodone/APAP 5-325MG 1 EACH TAB PO PRN (21:12)
[2020-05-14] MEDS ORDERED: REMDESIVIR 100 MG in SODIUM CHLORIDE 0.9% 250 ML IVPB SCH (22:00)
[2020-05-15] MEDS: SODIUM CHLORIDE 0.9% 1,000 ML IV SCH ×3 (02:07→08:31)
[2020-05-15] MEDS: HYDROcodone/APAP 5-325MG 1 EACH TAB PO PRN (02:14)
[2020-05-15] MEDS: CHOLECALCIFEROL 25 MCG (1000 IU) TABLET PO SCH (08:29)
[2020-05-15] MEDS: DEXAMETHASONE SOD PHOSPHATE 10 MG/ML 1 ML VIAL IV SCH (08:30)
[2020-05-15] MEDS: ENOXAPARIN 40 MG/0.4 ML SYRINGE SQ SCH (08:30)
[2020-05-15] MEDS: ASCORBIC ACID 500 MG TAB PO SCH (08:30)
[2020-05-15] MEDS: THIAMINE 100 MG/ML 2 ML VIAL IVP SCH (08:30)
[2020-05-15] MEDS: ZINC SULFATE 220 MG CAP PO SCH (08:30)
[2020-05-15 09:40] LABS: African American GFR (CKD) 66.4 (60.0-200.0); Anion Gap 7.8 mmol/L (4.00-12.00); BUN/Creat Ratio 26.15 Ratio (12.00-20.00); Calcium 8.3 mg/dL (8.7-10.3); Carbon Dioxide 27.2 mmol/L (21.6-31.8); Non-African American GFR(CKD) 57.3 (60.0-200.0); Potassium 4.4 mmol/L (3.5-5.5)
--- NOTE | 2020-05-15 12:55 | P.PN ---
Subjective Progress Note Date: 05/15/20 Principal diagnosis: Acute CoVID 19 pneumonia 64-year-old male, who is seen in the emergency department for weakness, and the patient has additional symptoms including shortness of breath, cough, and muscle soreness. The patient tested positive for COVID 19 on May 09. He's been having symptoms so far about 14 days. He was hoping to be able to stay home. The patient does look chronically ill. His oral intake has been poor. His symptoms have worsened over the last 2 or 3 days. In addition, the patient has joint aches, some fever, and chills. He was seen in the emergency room by Dr. Redmond. The patient mentions that he has a number of different rheumatologic illnesses including rheumatoid arthritis, microscopic polyangiitis, and vasculitis. He apparently takes Rituxan for this. He also has a history of hemorrhoids, GI bleed, colonic polyps, gout, and rectal bleeding. White count is 7.3, hemoglobin 15.4, hematocrit 43.6, and platelet count 260,000. PT INR and PTT normal. D-dimer is 0.94. Sodium 133, potassium 4.7, chlorides 96, CO2 27, anion gap 10, BUN 26, and creatinine 1.26. C-reactive protein is 149.3. The patient is seen today 05/15/2020 in follow-up on the regular medical floor. He is currently sitting up in bed. Awake and alert in no acute distress. Maintaining O2 saturations in the 90s on 5 L/m per nasal cannula. No worsening shortness of breath, cough or congestion. He is receiving Lovenox, dexamethasone, multivitamins. Sodium 136. Potassium 4.4. Creatinine 1.3. Objective - Vital Signs Vital signs: Vital Signs Temp 99.9 F H 05/15/20 08:00 Pulse 102 H 05/15/20 08:00 Resp 20 05/15/20 08:00 BP 133/69 05/15/20 08:00 Pulse Ox 95 05/15/20 08:00 Intake & Output 05/14/20 05/15/20 05/15/20 18:59 06:59 18:59 Intake Total 180 Output Total 600 Balance -600 180 Intake: Oral 180 Output: Urine 600 Other: Voiding Method Toilet # Voids 1 - Exam No acute distress, oriented 3. Chronically ill-appearing. Patient's currently on 5 L nasal cannula. No audible wheezing, conversational dyspnea, or use of accessory muscles. HEENT examination is grossly unremarkable. Mucous membranes are moist. No oral lesions. Neck supple. Full range of motion. No adenopathy thyromegaly or neck vein distention. Cardiovascular examination reveals regular rhythm rate. S1-S2 normal. No S3 or S4. No discernible murmur noted. Heart sounds distant. Heart rate 78 bpm. Lungs reveal coarse crackles in the bilateral bases Abdomen soft bowel sounds are heard. No masses or tenderness. Extremities are intact. No cyanosis clubbing or edema. Skin is without rash or lesion. Neurologic examination is brief but nonfocal. - Labs CBC & Chem 7: 05/13/20 18:22 05/15/20 05:18 Labs: Abnormal Lab Results - Last 24 Hours (Table) 05/14/20 05/15/20 Range/Units 18:12 05:18 BUN 34.0 H (9.0-27.0) mg/dL Est GFR (CKD-EPI)NonAf 57.3 L (60.0-200.0) BUN/Creatinine Ratio 26.15 H (12.00-20.00) Ratio Glucose 241 H (70-110) mg/dL Calcium 8.3 L (8.7-10.3) mg/dL Coronavirus (PCR) Detected A (Not Detectd) Microbiology - Last 24 Hours (Table) 05/13/20 18:22 Blood Culture - Preliminary Blood No Growth after 24 hours Assessment and Plan Assessment: Acute on chronic hypoxemic respiratory failure secondary to CoVID 19 pneumonitis/pneumonia 2 History of microscopic polyangiitis 3 History of vasculitis 4 History of rheumatoid arthritis 5 History of gout 6 Hypertension 7 History of GI bleed Plan: The patient was seen and evaluated by Dr. Núñez Continue with the current treatment plan Titrate down the FiO2 as tolerated Repeat chest x-ray and inflammatory markers in a.m. We will continue to follow I, the cosigning physician, performed a history & physical examination of the patient. Lungs sounds worse crackles in the posterior bases. Maintaining good O2 saturations in the 90s on 5 L/m per nasal cannula I discussed the assessment and plan of care with my nurse practitioner, Anne Marie Amado. I attest to the above note as dictated by her.
--- NOTE | 2020-05-15 15:26 | P.PN ---
Subjective This is a pleasant 64 years old male with past medical history of rheumatoid arthritis, gout and history of GI bleed.he Is a patient of Dr. Forde. Patient is lethargic and weak and is not very good historian. He states his main complaint was inability to eat and drink with dizziness and weakness for about a week or more, yesterday his sister convinced him to come to the hospital. Also patient can benefit from fever and mild dyspnea with, but no phlegm and no chest pain. Patient has diarrhea about 2-3 times per day with the total abdominal pain but no vomiting No headache or blurred vision or slurred speech or weakness or numbness Patient smokes about half pack per day and patient is consult but he does not want to quit and he declines nicotine patch, patient states he drinks every day but he states he drinks only one beer with no liquor or wine. No illicit tracts Patient states that he was diagnosed with Covid on 05/09 On admission patient is afebrile and his saturation 94% on 4 L oxygen via nasal cannula, on room air is oxygen dropped to 89%. Labs show an unremarkable CBC, and INR. D-dimer slightly elevated at 0.9. Sodium is 133, creatinine 1.2. Creatinine slightly elevated at 1.2, over baseline creatinine is 1.0 and goes up to 2 or 3 easily. Liver enzymes are not elevated. C-reactive protein is elevated at 149. EKG: Normal sinus rhythm at [address]-T changes Chest x-ray: Ayad bilateral pneumonic infiltrates in the lower lung shrestha. CTA of the chest: No pulmonary embolism, bilateral groundglass opacity Emergency room patient was started on dexamethasone, zinc and vitamin C. Also received remdesivir by shirt ironer supervisor 05/15/2020 Today patient still with some dyspnea and his oxygen requirement went up slightly from 4 up to 5 L/m. He has low-grade temperature today 99.9, his oxygen requirement up to 5 L. Creatinine is stable at 1.3. Patient remains on dexamethasone and gentle hydration of normal sinus 50 mm per hour and multiple vitamins Pulmonary input is appreciated Repeat chest x-ray and inflammatory markers tomorrow Review of Systems CONSTITUTIONAL: No fever, no malaise, no fatigue. HEENT: No recent visual problems or hearing problems. Denied any sore throat. CARDIOVASCULAR: No orthopnea, PND, no palpitations, no syncope. PULMONARY: No chest pain and tenderness, no hemoptysis. GASTROINTESTINAL: No diarrhea, no nausea, no vomiting, no abdominal pain. Normoactive bowel sounds. NEUROLOGICAL: No headaches, no weakness, no numbness. Active Medications Generic Name Dose Route Start Last Admin Trade Name Freq PRN Reason Stop Dose Admin Hydrocodone Bitart/Acetaminophen 1 each 05/13/20 21:23 05/15/20 02:14 Hydrocodone/Apap 5-325mg 1 Each Tab PO 1 each Q4HR PRN Administration Pain Ascorbic Acid 500 mg 05/13/20 21:45 05/15/20 08:30 Ascorbic Acid 500 Mg Tab PO 500 mg DAILY YUNIOR Administration Cholecalciferol 50 mcg 05/13/20 21:45 05/15/20 08:29 Cholecalciferol 25 Mcg (1000 Iu) Tablet PO 50 mcg DAILY YUNIOR Administration Dexamethasone Sodium Phosphate 6 mg 05/14/20 09:00 05/15/20 08:30 Dexamethasone Sod Phosphate 10 Mg/Ml 1 Ml Vial IV 6 mg DAILY YUNIOR Administration Enoxaparin Sodium 40 mg 05/13/20 21:45 05/15/20 08:30 Enoxaparin 40 Mg/0.4 Ml Syringe SQ 40 mg DAILY YUNIOR Administration Sodium Chloride 1,000 mls @ 20 mls/hr 05/13/20 21:00 05/15/20 08:31 Saline 0.9% IV 20 mls/hr .Q24H YUNIOR Administration Sodium Chloride 1,000 mls @ 50 mls/hr 05/14/20 10:30 05/15/20 08:31 Saline 0.9% IV 50 mls/hr .Q20H YUNIOR Administration Lorazepam 1 mg 05/14/20 10:27 Lorazepam 2 Mg/Ml Inj IV Q6HR PRN Anxiety Naloxone HCl 0.2 mg 05/13/20 20:50 Naloxone 0.4 Mg/Ml 1 Ml Vial IV Q2M PRN Opioid Reversal Ondansetron HCl 4 mg 05/13/20 20:50 05/13/20 22:42 Ondansetron 4 Mg/2 Ml Vial IVP 4 mg Q8HR PRN Administration Nausea And Vomiting Thiamine HCl 100 mg 05/14/20 10:30 05/15/20 08:30 Thiamine 100 Mg/Ml 2 Ml Vial IVP 100 mg DAILY YUNIOR Administration Zinc Sulfate 220 mg 05/13/20 21:45 05/15/20 08:30 Zinc Sulfate 220 Mg Cap PO 220 mg DAILY YUNIOR Administration Objective - Vital Signs Vital signs: Vital Signs Temp 97.2 F L 05/15/20 14:00 Pulse 72 05/15/20 14:00 Resp 18 05/15/20 14:00 BP 113/67 05/15/20 14:00 Pulse Ox 94 L 05/15/20 14:00 Intake & Output 05/14/20 05/15/20 05/15/20 18:59 06:59 18:59 Intake Total 416 Output Total 600 Balance -600 416 Intake: Oral 416 Output: Urine 600 Other: Voiding Method Toilet # Voids 1 - Exam GENERAL: The patient is alert and oriented x3, not in any acute distress. Well developed, well nourished. HEENT: Pupils are round and equally reacting to light. EOMI. No scleral icterus. No conjunctival pallor. Normocephalic, atraumatic. No pharyngeal erythema. No thyromegaly. CARDIOVASCULAR: S1 and S2 present. No murmurs, rubs, or gallops. -PULMONARY: Chest is clear to auscultation, no wheezing. Bilateral mild crepitation ABDOMEN: Soft, nontender, nondistended, normoactive bowel sounds. No palpable organomegaly. MUSCULOSKELETAL: No joint swelling or deformity. EXTREMITIES: No cyanosis, clubbing, or pedal edema. NEUROLOGICAL: Gross neurological examination did not reveal any focal deficits. SKIN: No rashes. No petechiae - Labs CBC & Chem 7: 05/13/20 18:22 05/15/20 05:18 Labs: Abnormal Lab Results - Last 24 Hours (Table) 05/14/20 05/15/20 Range/Units 18:12 05:18 BUN 34.0 H (9.0-27.0) mg/dL Est GFR (CKD-EPI)NonAf 57.3 L (60.0-200.0) BUN/Creatinine Ratio 26.15 H (12.00-20.00) Ratio Glucose 241 H (70-110) mg/dL Calcium 8.3 L (8.7-10.3) mg/dL Coronavirus (PCR) Detected A (Not Detectd) Microbiology - Last 24 Hours (Table) 05/13/20 18:22 Blood Culture - Preliminary Blood No Growth after 24 hours Assessment and Plan Assessment: Acute Covid pneumonia Acute hypoxic respiratory failure secondary to above Increase inflammatory markers Nicotine dependence Topical abuse at-risk of alcohol withdrawal Chronic rheumatoid arthritis Chronic kidney disease stage III Gout History of GI bleed Plan: This is a pleasant 60 years old male who presents because of Covid and hypoxia. Continue zinc, vitamin C, steroids. Pulmonary consult. Continue with remdesivir Some gentle hydration, given 2 as needed and foraminotomy Labs and medication were reviewed.. Continue same treatment. Continue with symptomatic treatment. Resume home medication. Monitor lytes and vitals. DVT and GI prophylaxis. Further recommendations depends on the clinical course of the patient DVT prophylaxis: Subcutaneous Lovenox GI Prophylaxis: Pepcid Prognosis is guarded
[2020-05-15] MEDS: ONDANSETRON 4 MG/2 ML VIAL IVP PRN (22:56)
[2020-05-16] MEDS: SODIUM CHLORIDE 0.9% 1,000 ML IV SCH ×3 (03:49→23:34)
[2020-05-16] MEDS: ASCORBIC ACID 500 MG TAB PO SCH (09:14)
[2020-05-16] MEDS: DEXAMETHASONE SOD PHOSPHATE 10 MG/ML 1 ML VIAL IV SCH (09:14)
[2020-05-16] MEDS: CHOLECALCIFEROL 25 MCG (1000 IU) TABLET PO SCH (09:14)
[2020-05-16] MEDS: ZINC SULFATE 220 MG CAP PO SCH (09:14)
[2020-05-16] MEDS: ENOXAPARIN 40 MG/0.4 ML SYRINGE SQ SCH (09:15)
[2020-05-16] MEDS: THIAMINE 100 MG/ML 2 ML VIAL IVP SCH (09:32)
--- NOTE | 2020-05-16 10:12 | XR ---
EXAMINATION TYPE: XR chest 1V DATE OF EXAM: 05/16/2020 COMPARISON: Chest x-ray and CT 05/13/2020 HISTORY: Chest x-ray dated 05/13/2020 TECHNIQUE: Single frontal view of the chest is obtained. FINDINGS: Patchy bibasilar density is again noted, additional groundglass opacities seen on previous CT not as well-visualized on plain film. There is no evident pneumothorax or pleural effusion. Metal lic density is present at the left lung apex thought to be vascular. Cardiac mediastinal silhouette i s within normal limits. IMPRESSION: Correlate for pneumonia.
[2020-05-16] MEDS ORDERED: bisacodyL 5 MG TABLET.DR PO STA (10:25)
[2020-05-16 12:51] LABS: African American GFR (CKD) 81.2 (60.0-200.0); Anion Gap 9.2 mmol/L (4.00-12.00); BUN/Creat Ratio 27.27 Ratio (12.00-20.00); C Reactive Protein 3.4 mg/dL (0.0-0.8); Calcium 8.4 mg/dL (8.7-10.3); Carbon Dioxide 27.8 mmol/L (21.6-31.8); Non-African American GFR(CKD) 70.1 (60.0-200.0); Potassium 4.7 mmol/L (3.5-5.5)
--- NOTE | 2020-05-16 12:56 | P.PN ---
Subjective Progress Note Date: 05/16/20 Principal diagnosis: Acute hypoxic respiratory failure secondary to acute covid 19 pneumonitis. 64-year-old male, who is seen in the emergency department for weakness, and the patient has additional symptoms including shortness of breath, cough, and muscle soreness. The patient tested positive for COVID 19 on May 09. He's been having symptoms so far about 14 days. He was hoping to be able to stay home. The patient does look chronically ill. His oral intake has been poor. His symptoms have worsened over the last 2 or 3 days. In addition, the patient has joint aches, some fever, and chills. He was seen in the emergency room by Dr. Redmond. The patient mentions that he has a number of different rheumatologic illnesses including rheumatoid arthritis, microscopic polyangiitis, and vasculitis. He apparently takes Rituxan for this. He also has a history of hemorrhoids, GI bleed, colonic polyps, gout, and rectal bleeding. White count is 7.3, hemoglobin 15.4, hematocrit 43.6, and platelet count 260,000. PT INR and PTT normal. D-dimer is 0.94. Sodium 133, potassium 4.7, chlorides 96, CO2 27, anion gap 10, BUN 26, and creatinine 1.26. C-reactive protein is 149.3. The patient is seen today 05/15/2020 in follow-up on the regular medical floor. He is currently sitting up in bed. Awake and alert in no acute distress. Maintaining O2 saturations in the 90s on 5 L/m per nasal cannula. No worsening shortness of breath, cough or congestion. He is receiving Lovenox, dexamethasone, multivitamins. Sodium 136. Potassium 4.4. Creatinine 1.3. Patient was reevaluated today on 05/16/2020, remains on the regular medical floor, remains on 5 L nasal cannula, O2 saturation is in the low 90s. Patient is feeling a bit better, continues to have some cough and shortness of breath. CBC is relatively normal, left was abnormal renal profile is abnormal with creatinine up to 1.3. Pro-calcitonin is 0.11 not considered to be clinically significant. Chest x-ray is basically the same, not much different compared to the chest x-ray on admission. Patient remains on the Covid 19 cocktail. Objective - Vital Signs Vital signs: Vital Signs Temp 98.1 F 05/16/20 09:06 Pulse 86 05/16/20 09:06 Resp 18 05/16/20 09:06 BP 112/74 05/16/20 09:06 Pulse Ox 90 L 05/16/20 09:06 Intake & Output 05/15/20 05/16/20 05/16/20 18:59 06:59 18:59 Intake Total 416 480 100 Balance 416 480 100 Intake: Oral 416 480 100 Other: Voiding Method Toilet Urinal # Voids 1 2 - Exam Physical Exam: Revealed a 64-year-old white male in no distress, on 5 L nasal cannula. Head: Atraumatic, normocephalic. HEENT:[Neck is supple.] [No neck masses.] [No thyromegaly.] [No JVD.] Chest: [Fine crackles at the bases no rhonchi and no wheezes. Cardiac Exam: [Normal S1 and S2, no S3 gallop, no murmur.] Abdomen: [Soft, nontender, no megaly, no rebound, no guarding, normal bowel sounds.] Extremities: [No clubbing, no edema, no cyanosis.] Neurological Exam: [No focal neurologic deficit.] Alert oriented 3. Psychiatric: Normal mood affect and normal mental status examination. Skin: No rashes. [place] skeletal: No deformities noted limitation in range of motion. - Labs CBC & Chem 7: 05/13/20 18:22 05/15/20 05:18 Labs: Abnormal Lab Results - Last 24 Hours (Table) 05/16/20 Range/Units 06:37 Procalcitonin 0.11 H (0.02-0.09) ng/mL Microbiology - Last 24 Hours (Table) 05/13/20 18:22 Blood Culture - Preliminary Blood No Growth after 48 hours Assessment and Plan Assessment: Impression: Acute on chronic hypoxic respiratory failure secondary to covid 19 pneumonia. History of microscopic polyangiitis. History of rheumatoid arthritis. History of gout. History of hypertension. Previous history of GI bleeding. Recommendation: Continue oxygen and titrate accordingly. Continue the present Covid 19 cocktails. Continue to monitor inflammatory markers Not quite ready for discharge planning, possibly consider discharge in the next 24 hours, and may need home O2. We'll continue to follow Time with Patient: Less than 30
[2020-05-16] MEDS ORDERED: SENNOSIDES-DOCUSATE SODIUM 1 EACH TAB PO PRN (13:44)
--- NOTE | 2020-05-16 13:48 | P.PN ---
Subjective This is a pleasant 64 years old male with past medical history of rheumatoid arthritis, gout and history of GI bleed.he Is a patient of Dr. Forde. Patient is lethargic and weak and is not very good historian. He states his main complaint was inability to eat and drink with dizziness and weakness for about a week or more, yesterday his sister convinced him to come to the hospital. Also patient can benefit from fever and mild dyspnea with, but no phlegm and no chest pain. Patient has diarrhea about 2-3 times per day with the total abdominal pain but no vomiting No headache or blurred vision or slurred speech or weakness or numbness Patient smokes about half pack per day and patient is consult but he does not want to quit and he declines nicotine patch, patient states he drinks every day but he states he drinks only one beer with no liquor or wine. No illicit tracts Patient states that he was diagnosed with Covid on 05/09 On admission patient is afebrile and his saturation 94% on 4 L oxygen via nasal cannula, on room air is oxygen dropped to 89%. Labs show an unremarkable CBC, and INR. D-dimer slightly elevated at 0.9. Sodium is 133, creatinine 1.2. Creatinine slightly elevated at 1.2, over baseline creatinine is 1.0 and goes up to 2 or 3 easily. Liver enzymes are not elevated. C-reactive protein is elevated at 149. EKG: Normal sinus rhythm at [address]-T changes Chest x-ray: Ayad bilateral pneumonic infiltrates in the lower lung shrestha. CTA of the chest: No pulmonary embolism, bilateral groundglass opacity Emergency room patient was started on dexamethasone, zinc and vitamin C. Also received remdesivir by assistant librarian 05/15/2020 Today patient still with some dyspnea and his oxygen requirement went up slightly from 4 up to 5 L/m. He has low-grade temperature today 99.9, his oxygen requirement up to 5 L. Creatinine is stable at 1.3. Patient remains on dexamethasone and gentle hydration of normal sinus 50 mm per hour and multiple vitamins Pulmonary input is appreciated Repeat chest x-ray and inflammatory markers tomorrow 05/16/2020 Patient still with some dyspnea but no diarrhea. Actually he is complaining of from constipation and wants some laxative. A still saturating 90% on 5 L oxygen via nasal cannula but afebrile today, he had low-grade temperature 99.9 yesterday. BMP is unremarkable. Acute coronary virus detected. High lactic dehydrogenase 311 and C-reactive protein improving 149 down to 3.4. Broadcalcitonin only mildly elevated at 0.11 chest x-ray today: Patchy basilar groundglass opacity on both sides for pneumonia. He is on dexamethasone, vitamin C, vitamin D, ascorbic acid, Lovenox. And normal saline and 50 mL per hour Review of Systems CONSTITUTIONAL: No fever, no malaise, no fatigue. HEENT: No recent visual problems or hearing problems. Denied any sore throat. CARDIOVASCULAR: No orthopnea, PND, no palpitations, no syncope. PULMONARY: No chest pain and tenderness, no hemoptysis. GASTROINTESTINAL: No diarrhea, no nausea, no vomiting, no abdominal pain. Normoactive bowel sounds. NEUROLOGICAL: No headaches, no weakness, no numbness. Active Medications Generic Name Dose Route Start Last Admin Trade Name Freq PRN Reason Stop Dose Admin Hydrocodone Bitart/Acetaminophen 1 each 05/13/20 21:23 05/15/20 02:14 Hydrocodone/Apap 5-325mg 1 Each Tab PO 1 each Q4HR PRN Administration Pain Ascorbic Acid 500 mg 05/13/20 21:45 05/16/20 09:14 Ascorbic Acid 500 Mg Tab PO 500 mg DAILY YUNIOR Administration Cholecalciferol 50 mcg 05/13/20 21:45 05/16/20 09:14 Cholecalciferol 25 Mcg (1000 Iu) Tablet PO 50 mcg DAILY YUNIOR Administration Dexamethasone Sodium Phosphate 6 mg 05/14/20 09:00 05/16/20 09:14 Dexamethasone Sod Phosphate 10 Mg/Ml 1 Ml Vial IV 6 mg DAILY YUNIOR Administration Enoxaparin Sodium 40 mg 05/13/20 21:45 05/16/20 09:15 Enoxaparin 40 Mg/0.4 Ml Syringe SQ 40 mg DAILY YUNIOR Administration Sodium Chloride 1,000 mls @ 20 mls/hr 05/13/20 21:00 05/15/20 08:31 Saline 0.9% IV 20 mls/hr .Q24H YUNIOR Administration Sodium Chloride 1,000 mls @ 50 mls/hr 05/14/20 10:30 05/16/20 03:49 Saline 0.9% IV Not Given .Q20H YUNIOR Lorazepam 1 mg 05/14/20 10:27 Lorazepam 2 Mg/Ml Inj IV Q6HR PRN Anxiety Naloxone HCl 0.2 mg 05/13/20 20:50 Naloxone 0.4 Mg/Ml 1 Ml Vial IV Q2M PRN Opioid Reversal Ondansetron HCl 4 mg 05/13/20 20:50 05/15/20 22:56 Ondansetron 4 Mg/2 Ml Vial IVP 4 mg Q8HR PRN Administration Nausea And Vomiting Thiamine HCl 100 mg 05/14/20 10:30 05/16/20 09:32 Thiamine 100 Mg/Ml 2 Ml Vial IVP 100 mg DAILY YUNIOR Administration Zinc Sulfate 220 mg 05/13/20 21:45 05/16/20 09:14 Zinc Sulfate 220 Mg Cap PO 220 mg DAILY YUNIOR Administration Objective - Vital Signs Vital signs: Vital Signs Temp 98.1 F 05/16/20 09:06 Pulse 86 05/16/20 09:06 Resp 18 05/16/20 09:06 BP 112/74 05/16/20 09:06 Pulse Ox 90 L 05/16/20 09:06 Intake & Output 05/15/20 05/16/20 05/16/20 18:59 06:59 18:59 Intake Total 416 480 100 Balance 416 480 100 Intake: Oral 416 480 100 Other: Voiding Method Toilet Urinal # Voids 1 2 - Exam GENERAL: The patient is alert and oriented x3, not in any acute distress. Well developed, well nourished. HEENT: Pupils are round and equally reacting to light. EOMI. No scleral icterus. No conjunctival pallor. Normocephalic, atraumatic. No pharyngeal erythema. No thyromegaly. CARDIOVASCULAR: S1 and S2 present. No murmurs, rubs, or gallops. -PULMONARY: Chest is clear to auscultation, no wheezing. Bilateral mild crepitation ABDOMEN: Soft, nontender, nondistended, normoactive bowel sounds. No palpable organomegaly. MUSCULOSKELETAL: No joint swelling or deformity. EXTREMITIES: No cyanosis, clubbing, or pedal edema. NEUROLOGICAL: Gross neurological examination did not reveal any focal deficits. SKIN: No rashes. No petechiae - Labs CBC & Chem 7: 05/13/20 18:22 05/16/20 06:37 Labs: Abnormal Lab Results - Last 24 Hours (Table) 05/16/20 05/16/20 Range/Units 06:37 06:37 BUN 30.0 H (9.0-27.0) mg/dL BUN/Creatinine Ratio 27.27 H (12.00-20.00) Ratio Glucose 141 H (70-110) mg/dL Calcium 8.4 L (8.7-10.3) mg/dL Lactate Dehydrogenase 311 H (120-246) U/L C-Reactive Protein 3.4 H (0.0-0.8) mg/dL Procalcitonin 0.11 H (0.02-0.09) ng/mL Microbiology - Last 24 Hours (Table) 05/13/20 18:22 Blood Culture - Preliminary Blood No Growth after 48 hours Assessment and Plan Assessment: Acute Covid pneumonia Acute hypoxic respiratory failure secondary to above Increase inflammatory markers Nicotine dependence Constipation Alcohol abuse at-risk of alcohol withdrawal Chronic rheumatoid arthritis Chronic kidney disease stage III Gout History of GI bleed Plan: This is a pleasant 60 years old male who presents because of Covid and hypoxia. Continue zinc, vitamin C, steroids. Pulmonary consult. Some gentle hydration Labs and medication were reviewed.. Continue same treatment. Continue with symptomatic treatment. Resume home medication. Monitor lytes and vitals. DVT and GI prophylaxis. Further recommendations depends on the clinical course of the patient DVT prophylaxis: Subcutaneous Lovenox GI Prophylaxis: Pepcid Prognosis is guarded
[2020-05-17] MEDS: ASCORBIC ACID 500 MG TAB PO SCH (09:24)
[2020-05-17] MEDS: THIAMINE 100 MG/ML 2 ML VIAL IVP SCH (09:24)
[2020-05-17] MEDS: ZINC SULFATE 220 MG CAP PO SCH (09:24)
[2020-05-17] MEDS: CHOLECALCIFEROL 25 MCG (1000 IU) TABLET PO SCH (09:24)
[2020-05-17] MEDS: DEXAMETHASONE SOD PHOSPHATE 10 MG/ML 1 ML VIAL IV SCH (09:25)
[2020-05-17] MEDS: ENOXAPARIN 40 MG/0.4 ML SYRINGE SQ SCH (09:25)
[2020-05-17 09:59] LABS: African American GFR (CKD) 73.1 (60.0-200.0); Anion Gap 7.3 mmol/L (4.00-12.00); BUN/Creat Ratio 20.83 Ratio (12.00-20.00); Calcium 8.4 mg/dL (8.7-10.3); Carbon Dioxide 29.7 mmol/L (21.6-31.8); Non-African American GFR(CKD) 63.1 (60.0-200.0); Potassium 5.2 mmol/L (3.5-5.5)
--- NOTE | 2020-05-17 13:50 | P.PN ---
Subjective Progress Note Date: 05/17/20 Principal diagnosis: Acute hypoxic respiratory failure secondary to acute covid 19 pneumonitis. 64-year-old male, who is seen in the emergency department for weakness, and the patient has additional symptoms including shortness of breath, cough, and muscle soreness. The patient tested positive for COVID 19 on May 09. He's been having symptoms so far about 14 days. He was hoping to be able to stay home. The patient does look chronically ill. His oral intake has been poor. His symptoms have worsened over the last 2 or 3 days. In addition, the patient has joint aches, some fever, and chills. He was seen in the emergency room by Dr. Redmond. The patient mentions that he has a number of different rheumatologic illnesses including rheumatoid arthritis, microscopic polyangiitis, and vasculitis. He apparently takes Rituxan for this. He also has a history of hemorrhoids, GI bleed, colonic polyps, gout, and rectal bleeding. White count is 7.3, hemoglobin 15.4, hematocrit 43.6, and platelet count 260,000. PT INR and PTT normal. D-dimer is 0.94. Sodium 133, potassium 4.7, chlorides 96, CO2 27, anion gap 10, BUN 26, and creatinine 1.26. C-reactive protein is 149.3. The patient is seen today 05/15/2020 in follow-up on the regular medical floor. He is currently sitting up in bed. Awake and alert in no acute distress. Maintaining O2 saturations in the 90s on 5 L/m per nasal cannula. No worsening shortness of breath, cough or congestion. He is receiving Lovenox, dexamethasone, multivitamins. Sodium 136. Potassium 4.4. Creatinine 1.3. Patient was reevaluated today on 05/16/2020, remains on the regular medical floor, remains on 5 L nasal cannula, O2 saturation is in the low 90s. Patient is feeling a bit better, continues to have some cough and shortness of breath. CBC is relatively normal, left was abnormal renal profile is abnormal with creatinine up to 1.3. Pro-calcitonin is 0.11 not considered to be clinically significant. Chest x-ray is basically the same, not much different compared to the chest x-ray on admission. Patient remains on the Covid 19 cocktail. Reevaluated today on 05/17/2020, patient remains on the regular medical floor, continues to have significant and intermittent cough, remains on oxygen at 5 L nasal cannula, O2 saturation is in the low 90s. Patient tells me that he feels much worse now that he felt before. Chest x-ray does not seem to be quite impressive. Nonetheless it showed groundglass opacities/bibasilar. Labs are relatively unremarkable. Creatinine is 1.2. Improving C-reactive protein is 3.4, and LDH was only 311. Objective - Vital Signs Vital signs: Vital Signs Temp 97.9 F 05/17/20 08:00 Pulse 72 05/17/20 08:00 Resp 20 05/17/20 08:00 BP 131/82 05/17/20 08:00 Pulse Ox 95 05/17/20 08:00 Intake & Output 05/16/20 05/17/20 05/17/20 18:59 06:59 18:59 Intake Total 400 240 Balance 400 240 Intake: Oral 400 240 Other: Voiding Method Urinal Urinal Urinal # Voids 1 2 - Exam Physical Exam: Revealed a 64-year-old white male coughing continuously, on 5 L nasal cannula. Head: Atraumatic, normocephalic. HEENT:[Neck is supple.] [No neck masses.] [No thyromegaly.] [No JVD.] Chest: [Fine crackles at the bases no rhonchi and no wheezes. Cardiac Exam: [Normal S1 and S2, no S3 gallop, no murmur.] Abdomen: [Soft, nontender, no megaly, no rebound, no guarding, normal bowel sounds.] Extremities: [No clubbing, no edema, no cyanosis.] Neurological Exam: [No focal neurologic deficit.] Alert oriented 3. Psychiatric: Normal mood affect and normal mental status examination. Skin: No rashes. Musko skeletal: No deformities noted limitation in range of motion. - Labs CBC & Chem 7: 05/13/20 18:22 05/17/20 05:34 Labs: Abnormal Lab Results - Last 24 Hours (Table) 05/17/20 Range/Units 05:34 BUN/Creatinine Ratio 20.83 H (12.00-20.00) Ratio Glucose 170 H (70-110) mg/dL Calcium 8.4 L (8.7-10.3) mg/dL Microbiology - Last 24 Hours (Table) 05/13/20 18:22 Blood Culture - Preliminary Blood No Growth after 72 hours Assessment and Plan Assessment: Impression: Acute on chronic hypoxic respiratory failure secondary to covid 19 pneumonia. History of microscopic polyangiitis. History of rheumatoid arthritis. History of gout. History of hypertension. Previous history of GI bleeding. Recommendation: Continue oxygen and titrate accordingly. Continue the present Covid 19 cocktails. Continue to monitor inflammatory markers Not quite ready for discharge planning, we will continue to follow. Possible discharge planning in the next 24 hours Time with Patient: Less than 30
[2020-05-17] MEDS: ACETAMINOPHEN TAB 325 MG TAB PO PRN (15:00)
[2020-05-17] MEDS: SODIUM CHLORIDE 0.9% 1,000 ML IV SCH ×2 (20:28→20:29)
--- NOTE | 2020-05-18 07:02 | XR ---
EXAMINATION TYPE: XR chest 1V DATE OF EXAM: 05/18/2020 COMPARISON: 05/16/2020 HISTORY: Progress study. TECHNIQUE: Single frontal view of the chest is obtained. FINDINGS: There are scattered small predominantly peripheral partially consolidative/airspace opacit y with mild interval worsening compared to previous. The heart size is normal and the pulmonary vasculature is not congested. There is no pleural effusion or pneumothorax. The osseous structures are intact IMPRESSION: Slight interval worsening in the small peripheral opacities bilaterally.
[2020-05-18] MEDS: CHOLECALCIFEROL 25 MCG (1000 IU) TABLET PO SCH (08:13)
[2020-05-18] MEDS: ASCORBIC ACID 500 MG TAB PO SCH (08:13)
[2020-05-18] MEDS: THIAMINE 100 MG/ML 2 ML VIAL IVP SCH (08:13)
[2020-05-18] MEDS: ZINC SULFATE 220 MG CAP PO SCH (08:13)
[2020-05-18] MEDS: DEXAMETHASONE SOD PHOSPHATE 10 MG/ML 1 ML VIAL IV SCH (08:13)
[2020-05-18] MEDS: ENOXAPARIN 40 MG/0.4 ML SYRINGE SQ SCH (08:14)
--- NOTE | 2020-05-18 09:00 | P.PN ---
Subjective Progress Note Date: 05/17/20 64 years old male with past medical history of rheumatoid arthritis, gout and history of GI bleed.he Is a patient of Dr. Forde. Patient is lethargic and weak and is not very good historian. He states his main complaint was inability to eat and drink with dizziness and weakness for about a week or more, yesterday his sister convinced him to come to the hospital. Also patient can benefit from fever and mild dyspnea with, but no phlegm and no chest pain. Patient has diarrhea about 2-3 times per day with the total abdominal pain but no vomiting No headache or blurred vision or slurred speech or weakness or numbness Patient smokes about half pack per day and patient is consult but he does not want to quit and he declines nicotine patch, patient states he drinks every day but he states he drinks only one beer with no liquor or wine. No illicit tracts Patient states that he was diagnosed with Covid on 05/0905/17/2020, patient is seen and evaluated in room at bedside, continues to have significant and intermittent cough, remains on oxygen at 5 L nasal cannula, O2 saturation is in the low 90s. Patient tells me that he feels much worse now that he felt before. Chest x-ray does not seem to be quite impressive. Nonetheless it showed groundglass opacities/bibasilar. Labs are relatively unremarkable. Creatinine is 1.2. Improving C-reactive protein is 3.4, and LDH was only 311. Patient remains on COVID19 cocktails; plan is to continue to titrate oxygen off as able; pulmonary recommending to continue to monitor for another 24 hours if possible discharge tomorrow morning Review of Systems CONSTITUTIONAL: No fever, no malaise, no fatigue. HEENT: No recent visual problems or hearing problems. Denied any sore throat. CARDIOVASCULAR: No orthopnea, PND, no palpitations, no syncope. PULMONARY: No chest pain and tenderness, no hemoptysis. GASTROINTESTINAL: No diarrhea, no nausea, no vomiting, no abdominal pain. Normoactive bowel sounds. NEUROLOGICAL: No headaches, no weakness, no numbness. Objective - Vital Signs Vital signs: Vital Signs Temp 97.9 F 05/17/20 08:00 Pulse 72 05/17/20 08:00 Resp 20 05/17/20 08:00 BP 131/82 05/17/20 08:00 Pulse Ox 95 05/17/20 08:00 Intake & Output 05/16/20 05/17/20 05/17/20 18:59 06:59 18:59 Intake Total 400 240 Balance 400 240 Intake: Oral 400 240 Other: Voiding Method Urinal Urinal Urinal # Voids 1 2 - Exam GENERAL: The patient is alert and oriented x3, not in any acute distress. Well developed, well nourished. HEENT: Pupils are round and equally reacting to light. EOMI. No scleral icterus. No conjunctival pallor. Normocephalic, atraumatic. No pharyngeal erythema. No thyromegaly. CARDIOVASCULAR: S1 and S2 present. No murmurs, rubs, or gallops. -PULMONARY: Chest is clear to auscultation, no wheezing. Bilateral mild crepitation ABDOMEN: Soft, nontender, nondistended, normoactive bowel sounds. No palpable organomegaly. MUSCULOSKELETAL: No joint swelling or deformity. EXTREMITIES: No cyanosis, clubbing, or pedal edema. NEUROLOGICAL: Gross neurological examination did not reveal any focal deficits. SKIN: No rashes. No petechiae - Labs CBC & Chem 7: 05/13/20 18:22 05/17/20 05:34 Labs: Abnormal Lab Results - Last 24 Hours (Table) 05/16/20 05/16/20 05/17/20 Range/Units 06:37 06:37 05:34 BUN 30.0 H (9.0-27.0) mg/dL BUN/Creatinine Ratio 27.27 H 20.83 H (12.00-20.00) Ratio Glucose 141 H 170 H (70-110) mg/dL Calcium 8.4 L 8.4 L (8.7-10.3) mg/dL Lactate Dehydrogenase 311 H (120-246) U/L C-Reactive Protein 3.4 H (0.0-0.8) mg/dL Procalcitonin 0.11 H (0.02-0.09) ng/mL Microbiology - Last 24 Hours (Table) 05/13/20 18:22 Blood Culture - Preliminary Blood No Growth after 72 hours Assessment and Plan Assessment: Acute Covid pneumonia Acute hypoxic respiratory failure secondary to above Increase inflammatory markers Nicotine dependence Constipation Alcohol abuse at-risk of alcohol withdrawal Chronic rheumatoid arthritis Chronic kidney disease stage III Gout History of GI bleed Plan: 60 years old male who presents because of Covid and hypoxia. Continue zinc, vitamin C, steroids. Pulmonary consult. Some gentle hydration Labs and medication were reviewed.. Continue same treatment. Continue with symptomatic treatment. Resume home medication. Monitor lytes and vitals. DVT and GI prophylaxis. Further recommendations depends on the clinical course of the patient DVT prophylaxis: Subcutaneous Lovenox GI Prophylaxis: Pepcid Prognosis is guarded
[2020-05-18] MEDS: polyethylene glycoL 3350 17 GM POWD.PACK PO SCH (09:32)
--- NOTE | 2020-05-18 09:51 | P.PN ---
Subjective Progress Note Date: 05/18/20 Principal diagnosis: Shortness of breath. 64-year-old male, who is seen in the emergency department for weakness, and the patient has additional symptoms including shortness of breath, cough, and muscle soreness. The patient tested positive for COVID 19 on May 09. He's been having symptoms so far about 14 days. He was hoping to be able to stay home. The patient does look chronically ill. His oral intake has been poor. His symptoms have worsened over the last 2 or 3 days. In addition, the patient has joint aches, some fever, and chills. He was seen in the emergency room by Dr. Redmond. The patient mentions that he has a number of different rheumatologic illnesses including rheumatoid arthritis, microscopic polyangiitis, and vasculitis. He apparently takes Rituxan for this. He also has a history of hemorrhoids, GI bleed, colonic polyps, gout, and rectal bleeding. White count is 7.3, hemoglobin 15.4, hematocrit 43.6, and platelet count 260,000. PT INR a nd PTT normal. D-dimer is 0.94. Sodium 133, potassium 4.7, chlorides 96, CO2 27, anion gap 10, BUN 26, and creatinine 1.26. C-reactive protein is 149.3. The patient is seen today 05/15/2020 in follow-up on the regular medical floor. He is currently sitting up in bed. Awake and alert in no acute distress. Maintaining O2 saturations in the 90s on 5 L/m per nasal cannula. No worsening shortness of breath, cough or congestion. He is receiving Lovenox, dexamethasone, multivitamins. Sodium 136. Potassium 4.4. Creatinine 1.3. Patient was reevaluated today on 05/16/2020, remains on the regular medical floor, remains on 5 L nasal cannula, O2 saturation is in the low 90s. Patient is feeli ng a bit better, continues to have some cough and shortness of breath. CBC is relatively normal, left was abnormal renal profile is abnormal with creatinine up to 1.3. Pro-calcitonin is 0.11 not considered to be clinically significant. Chest x-ray is basically the same, not much different compared to the chest x- ray on admission. Patient remains on the Covid 19 cocktail. Reevaluated today on 05/17/2020, patient remains on the regular medical floor, continues to have significant and intermittent cough, remains on oxygen at 5 L nasal cannula, O2 saturation is in the low 90s. Patient tells me that he feels much worse now that he felt before. Chest x-ray does not seem to be quite impressive. Nonetheless it showed groundglass opacities/bibasilar. Labs are relatively unremarkable. Creatinine is 1.2. Improving C-reactive protein is 3.4, and LDH was only 311. Progress note dated 05/18/2020. 64-year-old male initially seen in the emergency department, with complaints of shortness of breath, cough, and muscle soreness. He tested positive for Covid and May 09. When he was initially seen, he been having symptoms for about 14 days. He has a history of rheumatoid arthritis, microscopic polyangiitis, and vasculitis. Currently, he is on 5 L nasal cannula. He states he had a rough night last night. He is very frail appearing. He complained of shortness of breath, and cough. He's not receiving any IV fluids. No labs today. Chest x-ray today, which I could not see for myself, did reveal some slight worsening of his peripheral bilateral infiltrates. Objective - Vital Signs Vital signs: Vital Signs Temp 98.3 F 05/18/20 08:04 Pulse 109 H 05/18/20 08:04 Resp 20 05/18/20 08:04 BP 111/73 05/18/20 08:04 Pulse Ox 86 L 05/18/20 08:04 Intake & Output 05/17/20 05/18/20 05/18/20 18:59 06:59 18:59 Intake Total 480 Output Total 600 Balance 480 -600 Intake: Oral 480 Output: Urine 600 Other: Voiding Method Urinal Urinal # Voids 2 - Exam No acute distress, oriented 3. Currently, the patient's on 5 L. Saturations are in the high 80s, low 90s. HEENT examination is grossly unremarkable. Mucous membranes are moist. No oral lesions. Neck supple. Full range of motion. No adenopathy thyromegaly or neck vein distention. Cardiovascular examination reveals regular rhythm rate. S1-S2 normal. No S3 or S4. No discernible murmur noted. Heart rate 100 bpm. Heart sounds are distant. Lungs reveal bilateral coarse rhonchi and crackles. No wheezes. The patient coughs on deep inspiration. The patient does not take deep breaths. Abdomen soft bowel sounds are heard. No masses or tenderness. Extremities are intact. No cyanosis clubbing or edema. Skin is without rash or lesion. Neurologic examination is brief but nonfocal. - Labs CBC & Chem 7: 05/13/20 18:22 05/17/20 05:34 Labs: Abnormal Lab Results - Last 24 Hours (Table) 05/17/20 Range/Units 05:34 BUN/Creatinine Ratio 20.83 H (12.00-20.00) Ratio Glucose 170 H (70-110) mg/dL Calcium 8.4 L (8.7-10.3) mg/dL Microbiology - Last 24 Hours (Table) 05/13/20 18:22 Blood Culture - Preliminary Blood No Growth after 96 hours Assessment and Plan Assessment: Acute hypoxemic, secondary to COVID 19 pneumonitis/pneumonia. Significant systemic symptoms including muscle aches, joint aches, fever, chills, etc., all secondary to COVID 19. History of rheumatoid arthritis. History of microscopic polyangiitis (MPO). History of hypertension. History of vasculitis. History of gout. History of GI bleed. Plan: Plan dated 05/18/2020. When initially seen, the patient was outside the window for REM. The patient was started on Lovenox, Decadron, vitamin C, vitamin D3, and zinc. Currently, he is on 5 L nasal cannula. He is very frail, and doesn't seem very motivated to get out of bed and try and get better. I did tell the patient that while in bed, he needs to not only be supine, but prone, as well as right side down and left side down. Additional recommendations and suggestions are forthcoming. Prognosis is poor. The patient really has not made any progress since being admitted in late April. Time with Patient: Less than 30
[2020-05-18 17:17] LABS: Glucose,Whole Blood 155 mg/dL (75-99)
--- NOTE | 2020-05-18 17:30 | CT ---
CT scan of the brain. History altered mental status. Comparison none. TECHNIQUE: Images obtained of the brain without contrast. FINDINGS: There is mild cerebral atrophy. There is no mass effect nor mid line shift. There is no sign of intra cranial hemorrhage. The calvarium is intact. There is extensive mucosal thickening in the paranasal s inuses. IMPRESSION: Mild atrophy. No acute intracranial abnormality. Pansinusitis.
--- NOTE | 2020-05-18 18:01 | P.PN ---
Subjective Progress Note Date: 05/18/20 Principal diagnosis: Acute hypoxemic, secondary to COVID 19 pneumonitis/pneumonia 64 years old male with past medical history of rheumatoid arthritis, gout and history of GI bleed.he Is a patient of Dr. Forde. Patient is lethargic and weak and is not very good historian. He states his main complaint was inability to eat and drink with dizziness and weakness for about a week or more, yesterday his sister convinced him to come to the hospital. Also patient can benefit from fever and mild dyspnea with, but no phlegm and no chest pain. Patient has diarrhea about 2-3 times per day with the total abdominal pain but no vomiting No headache or blurred vision or slurred speech or weakness or numbness Patient smokes about half pack per day and patient is consult but he does not want to quit and he declines nicotine patch, patient states he drinks every day but he states he drinks only one beer with no liquor or wine. No illicit tracts Patient states that he was diagnosed with Covid on 05/0905/17/2020, patient is seen and evaluated in room at bedside, continues to have significant and intermittent cough, remains on oxygen at 5 L nasal cannula, O2 saturation is in the low 90s. Patient tells me that he feels much worse now that he felt before. Chest x-ray does not seem to be quite impressive. Nonetheless it show ed groundglass opacities/bibasilar. Labs are relatively unremarkable. Creatinine is 1.2. Improving C-reactive protein is 3.4, and LDH was only 311. Patient remains on COVID19 cocktails; plan is to continue to titrate oxygen off as able; pulmonary recommending to continue to monitor for another 24 hours if possible discharge tomorrow morning 05/18/2020. Patient is seen and evaluated in room at bedside; Currently, he is on 5 L nasal cannula. He states he had a rough night last night. He is very frail appearing. He complained of shortness of breath, and cough. He's not receiving any IV fluids. No labs today. Chest x-ray today reveal some slight worsening of his peripheral bilateral infiltrates. Patient remains on Lovenox, Decadron, vitamin C, vitamin C and zinc sulfate; patient remains in bed; not motivated to try to get better; we will consult PT/OT to increase activity once clinically stable Review of Systems CONSTITUTIONAL: No fever, no malaise, no fatigue. HEENT: No recent visual problems or hearing problems. Denied any sore throat. CARDIOVASCULAR: No orthopnea, PND, no palpitations, no syncope. PULMONARY: No chest pain and tenderness, no hemoptysis. GASTROINTESTINAL: No diarrhea, no nausea, no vomiting, no abdominal pain. Normoactive bowel sounds. NEUROLOGICAL: No headaches, no weakness, no numbness. Objective - Vital Signs Vital signs: Vital Signs Temp 98.3 F 05/18/20 08:04 Pulse 109 H 05/18/20 08:04 Resp 24 05/18/20 08:04 BP 111/73 05/18/20 08:04 Pulse Ox 86 L 05/18/20 08:04 Intake & Output 05/17/20 05/18/20 05/18/20 18:59 06:59 18:59 Intake Total 480 Output Total 600 Balance 480 -600 Intake: Oral 480 Output: Urine 600 Other: Voiding Method Urinal Urinal Urinal # Voids 2 - Exam GENERAL: The patient is alert and oriented x3, not in any acute distress. Well developed, well nourished. HEENT: Pupils are round and equally reacting to light. EOMI. No scleral icterus. No conjunctival pallor. Normocephalic, atraumatic. No pharyngeal erythema. No thyromegaly. CARDIOVASCULAR: S1 and S2 present. No murmurs, rubs, or gallops. -PULMONARY: Chest is clear to auscultation, no wheezing. Bilateral mild crepitation ABDOMEN: Soft, nontender, nondistended, normoactive bowel sounds. No palpable organomegaly. MUSCULOSKELETAL: No joint swelling or deformity. EXTREMITIES: No cyanosis, clubbing, or pedal edema. NEUROLOGICAL: Gross neurological examination did not reveal any focal deficits. SKIN: No rashes. No petechiae - Labs CBC & Chem 7: 05/13/20 18:22 05/17/20 05:34 Labs: Microbiology - Last 24 Hours (Table) 05/13/20 18:22 Blood Culture - Preliminary Blood No Growth after 96 hours Assessment and Plan Assessment: Acute Covid pneumonia Acute hypoxic respiratory failure secondary to above Increase inflammatory markers Nicotine dependence Constipation Alcohol abuse at-risk of alcohol withdrawal Chronic rheumatoid arthritis Chronic kidney disease stage III Gout History of GI bleed Plan: 60 years old male who presents because of Covid and hypoxia. Continue zinc, vi tamin C, steroids. Pulmonary consult. Some gentle hydration Labs and medication were reviewed.. Continue same treatment. Continue with symptomatic treatment. Resume home medication. Monitor lytes and vitals. DVT and GI prophylaxis. Further recommendations depends on the clinical course of the patient DVT prophylaxis: Subcutaneous Lovenox GI Prophylaxis: Pepcid Prognosis is guarded
--- NOTE | 2020-05-18 18:06 | CT ---
EXAMINATION TYPE: CODE STROKE: CTA head neck DATE OF EXAM: 05/18/2020 COMPARISON: None HISTORY: Altered mental status CT DLP: mGycm Automated exposure control for dose reduction was used. CONTRAST: The contrast was Isovue 65 mL. There are 3-D post processed images. There is normal branching pattern of the great vessels on the aortic arch. There is bilateral arteria l flow in the subclavian arteries. There is motion artifact that degrades the images significantly in the cervical region. There is significant decreased contrast apparently in the distal left common ca rotid artery. This could be hemodynamic stenosis. There is arterial flow in the right common internal and external carotid arteries. There is probably some plaque formation proximal right internal carot id artery without hemodynamic stenosis. There is arterial flow in both vertebral arteries. There is arterial flow in the anterior middle and posterior cerebral arteries. There is significant m otion artifact in the brain. I do not see obvious hemodynamic stenosis. There is no mass effect. Ther e is arterial flow in the vertebrobasilar artery system. There is contrast enhancement of the venous sinuses. I see no evidence of aneurysm or neovascularity in the brain. IMPRESSION: Limited exam due to motion. No evidence of hemodynamic stenosis in the brain. There is suggestion of hemodynamically significant stenosis of the distal left common carotid artery and proximal left internal carotid artery. Ultrasound would be helpful to confirm this abnormality if clinically indicated. There could be more than 80% stenosis.
[2020-05-18] MEDS: SODIUM CHLORIDE 0.9% 1,000 ML IV SCH ×2 (19:34→20:54)
[2020-05-18 20:04] LABS: Basophils % (A) 0 %; Eosinophils # (A) 0.1 k/uL (0-0.7); Eosinophils % (A) 1 %; HCT 42.2 % (39.0-53.0); HGB 14.2 gm/dL (13.0-17.5); Lymphocytes # (A) 0.5 k/uL (1.0-4.8); Lymphocytes % (A) 5 %; MCH 28.6 pg (25.0-35.0); MCHC 33.7 g/dL (31.0-37.0); MCV 84.9 fL (80.0-100.0); Mean Platelet Volume 7.2; Monocytes # (A) 0.4 k/uL (0-1.0); Monocytes % (A) 4 %; Neutrophils # (A) 8.8 k/uL (1.3-7.7); Neutrophils % (A) 90 %; Platelet Count 338 k/uL (150-450); RBC 4.97 m/uL (4.30-5.90); RDW 13.3 % (11.5-15.5); WBC 9.8 k/uL (3.8-10.6)
[2020-05-18 20:17] LABS: Prothrombin Time 11.1 sec (9.0-12.0)
[2020-05-18 20:23] LABS: ALT 53 U/L (4-49); AST 38 U/L (17-59); African American GFR (CKD) 82 (>60 ml/min/1.73 sqM); Albumin 2.8 g/dL (3.5-5.0); Albumin/Globulin Ratio 1.2; Alkaline Phosphatase 64 U/L (38-126); Anion Gap 8 mmol/L; Blood Urea Nitrogen 33 mg/dL (9-20); Calcium 8.3 mg/dL (8.4-10.2); Carbon Dioxide 25 mmol/L (22-30); Chloride 98 mmol/L (98-107); Creatine Kinase 36 U/L (55-170); Globulin 2.4 g/dL; Glucose 128 mg/dL (74-99); Non-African American GFR(CKD) 71 (>60 ml/min/1.73 sqM); Potassium 4.8 mmol/L (3.5-5.1); Sodium 131 mmol/L (137-145); Total Bilirubin 0.6 mg/dL (0.2-1.3); Total Protein 5.2 g/dL (6.3-8.2)
[2020-05-18 20:36] LABS: Creatine Kinase MB <0.2 ng/mL (0.0-2.4); Troponin I <0.012 ng/mL (0.000-0.034)
[2020-05-18] MEDS: ACETAMINOPHEN TAB 325 MG TAB PO PRN (21:55)
--- NOTE | 2020-05-19 08:42 | P.CNNES ---
History of Present Illness Consult date: 05/19/20 Requesting physician: Debby Crowe Reason for Consult: difficulty finding words History of Present Illness: This is a 64-year-old gentleman with medical history of history of GI bleed, previous cardiac stenting 2, rheumatoid arthritis that presented to the emergency department for having generalized weakness and dizziness for about a week. Some of the history is obtained from medical record since patient unable to provide all the history. Seems that the patient was diagnosed with covid 19 on 05/09/2020. Was felt during the hospital stay the patient has acute Covid pneumonia as well as acute hypoxic respite of failure secondary due to the pneumonia. Neurology is consulted since the patient had episode of difficulty finding his words on 05/18/2020. Stroke code activated at around 16:59. Per the patient he stated that he just feels generalized weak and regarding the episode yesterday he said he was feeling off he's tired he's been coughing. Upon asking him if he had any slurring of the speech or difficulty talking he said I was just weak and tired. Per the patient's nurse patient is having anxiety and difficulty breathing as a result the patient was given 1 mg of Ativan at around 1639 afterward upon the nurse check up on him the patient was having difficulty forming words and slow thought process. NIH was a 1 as stated since the patient was having slow thought processes and difficulty with date. Then after that CT CTA that NIH was a 0. Currently patient feels back to baseline and no further neurological deficits but feels generalized tiredness. Patient denies of history of TIA or stroke in the past. To that she had a GI bleeding about 5 years ago and he was on any antiplatelets or anticoagulation at that time. The patient is on Ativan 1 mg every 6 hours as needed for anxiety. Also the patient is not on any antiplatelets or statins at home or in the hospital Patient had a CT of the head and it was reported as mild atrophy. No acute intracranial abnormality. Per her sinusitis. CTA angiography of the head and neck was reported as limited exam due to motion. No evidence of hemodynamic stenosis in the brain. There is suggestion of hemodynamic significant stenosis of the distal left common carotid artery and proximal left internal carotid artery. Also would be helpful to confirm this abnormality if clinically indicated. This could be more than 80% stenosis. Patient did not get IV TPA since his symptoms resolved. Also around 1658 patient POC sugar is 155. And it's reported that right after the CT CTA of the blood pressure was 168/87 with a pulse ox of 98 respiratory rate of 20 and the patient was on 5 L of nasal cannula. Review of Systems Review of system: The 12 point system was reviewed and apparent positive and negative per HPI. Past Medical History Past Medical History: GI Bleed, Rheumatoid Arthritis (RA) Additional Past Medical History / Comment(s): Rheumatoid arthritis, hemorrhoids, colonic polyps, previous cardiac stress test 2 showing no evidence of any reversible ischemia. Hospitalization x 2 for rectal bleedingl 2016 and 2017. Gout - left little toe. Vasculitis History of Any Multi-Drug Resistant Organisms: None Reported Past Surgical History: No Surgical Hx Reported Additional Past Surgical History / Comment(s): colonoscopy/polypectomy, hemangioma removed from inside L cheek. Past Anesthesia/Blood Transfusion Reactions: No Reported Reaction Past Psychological History: No Psychological Hx Reported Smoking Status: Former smoker Past Alcohol Use History: None Reported Past Drug Use History: None Reported - Past Family History Father Family Medical History: CVA/TIA, Diabetes Mellitus Additional Family Medical History / Comment(s): Father at the age of 64 yrs from diabetic complications. Mother Family Medical History: Cancer Additional Family Medical History / Comment(s): Mother of colon cancer at the age of 74yrs. Medications and Allergies Home Medications Medication Instructions Recorded Confirmed Type allopurinoL [Zyloprim] 100 mg PO BID 05/18/17 05/13/20 History Carvedilol [Coreg] 6.25 mg PO BID 05/13/20 05/13/20 History Fluticasone Nasal [place] [Flonase 1 spray EA NOSTRIL DAILY 05/13/20 05/13/20 History Nasal [place]] Fluticasone/Vilanterol [Breo 1 puff INHALATION RT-BID 05/13/20 05/13/20 History Ellipta 200-25 Mcg INH] Losartan [Cozaar] 25 mg PO DAILY 05/13/20 05/13/20 History Rituxan (Unknown Dose) 1 dose IV Q112D 05/13/20 05/13/20 History calcitrioL [Calcitriol] 0.25 mcg PO QMONTHLY 05/13/20 05/13/20 History Allergies Allergy/AdvReac Type Severity Reaction Status Date / Time amlodipine Allergy Unknown Verified 05/13/20 18:47 sulfamethoxazole Allergy Rash/Hives Verified 05/13/20 18:47 [From Bactrim] trimethoprim [From Bactrim] Allergy Rash/Hives Verified 05/13/20 18:47 metoprolol AdvReac Swelling Verified 05/13/20 18:47 Physical Examination - Vital Signs Vital Signs: Vital Signs Temp Pulse Resp BP Pulse Ox 05/19/20 03:09 98.8 F 78 15 114/77 94 L 05/18/20 20:12 20 05/18/20 19:15 103.0 F H 101 H 16 117/70 92 L 05/18/20 16:20 98.5 F 74 24 129/79 95 05/18/20 08:04 98.3 F 109 H 24 111/73 86 L Intake and Output 05/18/20 05/19/20 05/19/20 22:59 06:59 14:59 Other: Voiding Method Urinal # Voids 1 1 GENERAL: The patient is lying in bed and is not in mild distress. Look lethargic. CHEST: The heart rate is regular rate rhythm. No murmurs to auscultation. No carotid bruit bilaterally. LUNG: Coughing. No labored breathing or in respiratory distress. ABDOMEN/GI: Bowel sounds present in all 4 quadrants. No tenderness to palpation throughout. NEUROLOGICAL: Higher mental function: The patient is awake, alert, oriented to self, place and time. Patient is following commands. No aphasia and no neglect. Cranial nerves: The pupils are round, equal and reactive to light and accommodation. Visual shrestha are full to confrontation throughout. Extraocular movement is intact no nystagmus is noted. Facial sensation is normal to touch throughout. The facial strength is normal throughout. Hearing is normal bilaterally to hand rub. Tongue is midline and moved [id number] without any difficulty. No dysarthria is noted. Shoulder shrug is normal bilaterally. Motor: Gait is deferred. The strength is 5-/5 over upper (limited because lethargic). Otherwise 5 over 5. Normal tone and bulk. Cerebellum: Normal finger to nose heel to gould bilaterally. Sensation: Sensation is normal to touch throughout. Reflexes (right/left): 2+ throughout Plantars are downgoing bilaterally. Results Patient's last sodium is 131 which the mildly low at. AST of 38 and ALT of 53 ALTs a mildly elevated. Fibrillations study last on 05/18/2020 is PT of 11.1 INR 1.0. The hawthorne virus PCR is detected on 05/14/2020 - Laboratory Findings CBC and BMP: 05/18/20 19:48 05/18/20 19:48 Abnormal Lab Findings: Abnormal Labs 05/13/20 05/13/20 05/14/20 18:22 18:22 18:12 Neutrophils # Lymphocytes # D-Dimer 0.94 H Sodium 133 L Chloride 96 L BUN 26 H Creatinine 1.26 H Est GFR (CKD-EPI)NonAf BUN/Creatinine Ratio Glucose 100 H POC Glucose (mg/dL) Calcium ALT Lactate Dehydrogenase Total Creatine Kinase C-Reactive Protein 149.3 H Total Protein 5.9 L Albumin Procalcitonin Coronavirus (PCR) Detected A 05/15/20 05/16/20 05/16/20 05:18 06:37 06:37 Neutrophils # Lymphocytes # D-Dimer Sodium Chloride BUN 34.0 H 30.0 H Creatinine Est GFR (CKD-EPI)NonAf 57.3 L BUN/Creatinine Ratio 26.15 H 27.27 H Glucose 241 H 141 H POC Glucose (mg/dL) Calcium 8.3 L 8.4 L ALT Lactate Dehydrogenase 311 H Total Creatine Kinase C-Reactive Protein 3.4 H Total Protein Albumin Procalcitonin 0.11 H Coronavirus (PCR) 05/17/20 05/18/20 05/18/20 05:34 16:58 19:48 Neutrophils # 8.8 H Lymphocytes # 0.5 L D-Dimer Sodium Chloride BUN Creatinine Est GFR (CKD-EPI)NonAf BUN/Creatinine Ratio 20.83 H Glucose 170 H POC Glucose (mg/dL) 155 H Calcium 8.4 L ALT Lactate Dehydrogenase Total Creatine Kinase C-Reactive Protein Total Protein Albumin Procalcitonin Coronavirus (PCR) 05/18/20 05/18/20 19:48 19:48 Neutrophils # Lymphocytes # D-Dimer Sodium 131 L Chloride BUN 33 H Creatinine Est GFR (CKD-EPI)NonAf BUN/Creatinine Ratio Glucose 128 H POC Glucose (mg/dL) Calcium 8.3 L ALT 53 H Lactate Dehydrogenase Total Creatine Kinase 36 L C-Reactive Protein Total Protein 5.2 L Albumin 2.8 L Procalcitonin Coronavirus (PCR) Assessment and Plan Assessment: Transient ischemic attack with an episode of word finding difficulties on 05/18/2020. Other possibilities is medication effect (Ativan during that time) and COVID 19 pneumonia. ?left carotid stenosis Acute [place] 19 Acute hypoxic respiratory failure due to pneumonia History of alcohol abuse Chronic rheumatoid arthritis Gout History of GI bleed Nicotine dependence Plan: Recommend aspirin 81 mg and I will not start him on dual antiplatelets because of his history of GI bleed. He is in agreement of being on aspirin even though I told him that the risk of aspirin. I notified the patient if he has any bleeding after starting aspirin then the to stop it immediately. I start the patient on Lipitor 40 mg which is used as a stroke prophylaxis. Ordered lipid panel, 2-D echo, TSH I ordered carotid duplex and per the tech as she notified me that the the left carotid seems patent. Pending official report. I canceled that the vascular surgery consultation but if the carotid duplex report shows the patient has the stenosis then I will I recommend vascular surgery consultation. PT is consulted therefore it consulted as well as occupation therapy and speech therapy. Placed order for every 4 hours neuro checks. As well as continuous cardiac monitoring. Recommend avoiding any sedation and that would affect the patient's mentation. The patient is currently on Ativan 1 mg every 6 hours as needed as well as on [place]. He is currently on thiamine and is to be continued. We'll defer the rest of medical management to the primary team. Dr. Rubin will take over neurology coverage starting tomorrow AM. Thank you for the consultation. Karan Shaffer M.D. Neuro-hospitalist Time with Patient: Greater than 30
--- NOTE | 2020-05-19 09:18 | US ---
EXAMINATION TYPE: US carotid duplex BILAT DATE OF EXAM: 05/19/2020 COMPARISON: NONE CLINICAL HISTORY: carotid stenosis. ?left ICA per CTA. Altered mental status, difficulty in speaking , possible left ICA stenosis on recent CT EXAM MEASUREMENTS: RIGHT: Peak Systolic Velocity (PSV) cm/sec ----- Right CCA: 103 ----- Right ICA: 107 ----- Right ECA: 119 RIGHT: End Diastole cm/sec ----- Right CCA: 24.7 ----- Right ICA: 23.4 ----- Right ECA: 18.2 LEFT: Peak Systolic Velocity (PSV) cm/sec ----- Left CCA: 102 ----- Left ICA: 93.5 ----- Left ECA: 106 LEFT: End Diastole cm/sec ----- Left CCA: 18.2 ----- Left ICA: 28.6 ----- Left ECA: 17.5 VERTEBRALS (direction of flow): Right Vertebral: Antegrade Left Vertebral: Antegrade Rhythm: Normal No evidence of increased velocities or significant stenosis IMPRESSION: No evidence of hemodynamically significant stenosis of the bilateral ICAs. Criteria for Assigning % of Stenosis / Diameter reduction (Estimation based on the indirect measurements of the internal carotid artery velocities (ICA PSV). 1. Normal (no stenosis)=ICA PSV < 125 cm/s: ratio < 2.0: ICA EDV<40 cm/s. 2. Less than 50% stenosis=ICA PSV < 125 cm/s: ratio < 2.0: ICA EDV<40 cm/s. 3. 50 to 69% stenosis=ICA PSV of 125 to 230 cm/s: ration 2.0 ? 4.0: ICA EDV 40-100 cm/s. 4. Greater than 70% stenosis to near occlusion= ICA PSV > 230 cm/s: ratio > 4.0: ICA EDV > 100 cm/s. 5. Near occlusion= ICA PSV velocities may be low or undetectable: variable ratio and ICA EDV. 6. Total occlusion=unable to detect flow.
[2020-05-19] MEDS: polyethylene glycoL 3350 17 GM POWD.PACK PO SCH (09:47)
[2020-05-19] MEDS: THIAMINE 100 MG/ML 2 ML VIAL IVP SCH (09:47)
[2020-05-19] MEDS: DEXAMETHASONE SOD PHOSPHATE 10 MG/ML 1 ML VIAL IV SCH (09:47)
[2020-05-19] MEDS: ZINC SULFATE 220 MG CAP PO SCH (09:47)
[2020-05-19] MEDS: ASPIRIN 81 MG PO SCH (09:48)
[2020-05-19] MEDS: ENOXAPARIN 40 MG/0.4 ML SYRINGE SQ SCH (09:48)
[2020-05-19] MEDS: ASCORBIC ACID 500 MG TAB PO SCH (09:48)
[2020-05-19] MEDS: CHOLECALCIFEROL 25 MCG (1000 IU) TABLET PO SCH (09:48)
[2020-05-19] MEDS: SODIUM CHLORIDE 0.9% 1,000 ML IV SCH ×2 (09:48→19:58)
[2020-05-19 11:49] LABS: Chol/HDL Ratio 4.59; LDL Cholesterol,Calculated 66.6 mg/dL (0.0-131.0); VLDL Calculation 37.4 mg/dL (5.00-40.00)
--- NOTE | 2020-05-19 12:57 | P.PN ---
Subjective Progress Note Date: 05/19/20 Principal diagnosis: Shortness of breath. 64-year-old male, who is seen in the emergency department for weakness, and the patient has additional symptoms including shortness of breath, cough, and muscle soreness. The patient tested positive for COVID 19 on May 09. He's been having symptoms so far about 14 days. He was hoping to be able to stay home. The patient does look chronically ill. His oral intake has been poor. His symptoms have worsened over the last 2 or 3 days. In addition, the patient has joint aches, some fever, and chills. He was seen in the emergency room by Dr. Redmond. The patient mentions that he has a number of different rheumatologic illnesses including rheumatoid arthritis, microscopic polyangiitis, and vasculitis. He apparently takes Rituxan for this. He also has a history of hemorrhoids, GI bleed, colonic polyps, gout, and rectal bleeding. White count is 7.3, hemoglobin 15.4, hematocrit 43.6, and platelet count 260,000. PT INR a nd PTT normal. D-dimer is 0.94. Sodium 133, potassium 4.7, chlorides 96, CO2 27, anion gap 10, BUN 26, and creatinine 1.26. C-reactive protein is 149.3. The patient is seen today 05/15/2020 in follow-up on the regular medical floor. He is currently sitting up in bed. Awake and alert in no acute distress. Maintaining O2 saturations in the 90s on 5 L/m per nasal cannula. No worsening shortness of breath, cough or congestion. He is receiving Lovenox, dexamethasone, multivitamins. Sodium 136. Potassium 4.4. Creatinine 1.3. Patient was reevaluated today on 05/16/2020, remains on the regular medical floor, remains on 5 L nasal cannula, O2 saturation is in the low 90s. Patient is feeli ng a bit better, continues to have some cough and shortness of breath. CBC is relatively normal, left was abnormal renal profile is abnormal with creatinine up to 1.3. Pro-calcitonin is 0.11 not considered to be clinically significant. Chest x-ray is basically the same, not much different compared to the chest x- ray on admission. Patient remains on the Covid 19 cocktail. Reevaluated today on 05/17/2020, patient remains on the regular medical floor, continues to have significant and intermittent cough, remains on oxygen at 5 L nasal cannula, O2 saturation is in the low 90s. Patient tells me that he feels much worse now that he felt before. Chest x-ray does not seem to be quite impressive. Nonetheless it showed groundglass opacities/bibasilar. Labs are relatively unremarkable. Creatinine is 1.2. Improving C-reactive protein is 3.4, and LDH was only 311. Progress note dated 05/18/2020. 64-year-old male initially seen in the emergency department, with complaints of shortness of breath, cough, and muscle soreness. He tested positive for Covid 19 and May 09. When he was initially seen, he been having symptoms for about 14 days. He has a history of rheumatoid arthritis, microscopic polyangiitis, and vasculitis. Currently, he is on 5 L nasal cannula. He states he had a rough night last night. He is very frail appearing. He complained of shortness of breath, and cough. He's not receiving any IV fluids. No labs today. Chest x-ray today, which I could not see for myself, did reveal some slight worsening of his peripheral bilateral infiltrates. Progress note dated 05/19/2020. 64-year-old male, initially seen in the emergency department, with complaints of shortness of breath, cough, and muscle soreness. He tested positive for COVID 19 on May 09. Currently, the patient's on 5 L nasal cannula. He is not receiving any IV fluids. He states he feels a bit better today than he did yesterday. No new laboratory data today. The patient has a history of rhe umatoid arthritis, microscopic polyangiitis, and vasculitis. He remains on 5 L. Objective - Vital Signs Vital signs: Vital Signs Temp 101.8 F H 05/19/20 08:00 Pulse 92 05/19/20 08:00 Resp 20 05/19/20 08:00 BP 105/66 05/19/20 08:00 Pulse Ox 94 L 05/19/20 08:00 Intake & Output 05/18/20 05/19/20 05/19/20 18:59 06:59 18:59 Output Total 600 Balance -600 Output: Urine 600 Other: Voiding Method Urinal Urinal Urinal # Voids 1 1 - Exam No acute distress, oriented 3. Currently, the patient's on 5 L. Saturation is 94%. HEENT examination is grossly unremarkable. Mucous membranes are moist. No oral lesions. Neck supple. Full range of motion. No adenopathy thyromegaly or neck vein distention. Cardiovascular examination reveals regular rhythm rate. S1-S2 normal. No S3 or S4. No discernible murmur noted. Heart rate 92 bpm. Heart sounds are distant. Lungs reveal bilateral rhonchi and crackles. There are no wheezes. Breath sounds equal bilaterally. He does cough on deep inspiration. Abdomen soft bowel sounds are heard. No masses or tenderness. Extremities are intact. No cyanosis clubbing or edema. Skin is without rash or lesion. Neurologic examination is brief but nonfocal. - Labs CBC & Chem 7: 05/18/20 19:48 05/18/20 19:48 Labs: Abnormal Lab Results - Last 24 Hours (Table) 05/18/20 05/18/20 05/18/20 Range/Units 16:58 19:48 19:48 Neutrophils # 8.8 H (1.3-7.7) k/uL Lymphocytes # 0.5 L (1.0-4.8) k/uL Sodium 131 L (137-145) mmol/L BUN 33 H (9-20) mg/dL Glucose 128 H (74-99) mg/dL POC Glucose (mg/dL) 155 H (75-99) mg/dL Calcium 8.3 L (8.4-10.2) mg/dL ALT 53 H (4-49) U/L Total Creatine Kinase (55-170) U/L Total Protein 5.2 L (6.3-8.2) g/dL Albumin 2.8 L (3.5-5.0) g/dL Triglycerides (0.0-149.0) mg/dL HDL Cholesterol (40.0-60.0) mg/dL TSH (0.350-5.500) uIU/mL 05/18/20 05/18/20 Range/Units 19:48 19:48 Neutrophils # (1.3-7.7) k/uL Lymphocytes # (1.0-4.8) k/uL Sodium (137-145) mmol/L BUN (9-20) mg/dL Glucose (74-99) mg/dL POC Glucose (mg/dL) (75-99) mg/dL Calcium (8.4-10.2) mg/dL ALT (4-49) U/L Total Creatine Kinase 36 L (55-170) U/L Total Protein (6.3-8.2) g/dL Albumin (3.5-5.0) g/dL Triglycerides 187.0 H (0.0-149.0) mg/dL HDL Cholesterol 29.0 L (40.0-60.0) mg/dL TSH 0.220 L (0.350-5.500) uIU/mL Microbiology - Last 24 Hours (Table) 05/13/20 18:22 Blood Culture - Preliminary Blood No Growth after 120 hours Assessment and Plan Assessment: Acute hypoxemic, secondary to COVID 19 pneumonitis/pneumonia. Significant systemic symptoms including muscle aches, joint aches, fever, chills, etc., all secondary to COVID 19. History of rheumatoid arthritis. History of microscopic polyangiitis (MPO). History of hypertension. History of vasculitis. History of gout. History of GI bleed. Plan: Plan dated 05/18/2020. When initially seen, the patient was outside the window for REM. The patient was started on Lovenox, Decadron, vitamin C, vitamin D3, and zinc. Currently, he is on 5 L nasal cannula. He is very frail, and doesn't seem very motivated to get out of bed and try and get better. I did tell the patient that while in bed, he needs to not only be supine, but prone, as well as right side down and left side down. Additional recommendations and suggestions are forthcoming. Prognosis is poor. The patient really has not made any progress since being admitted in late April. Plan dated 05/19/2020. Currently, the patient's doing a bit better today than he did yesterday. He still on 5 L. Saturations are improved. The patient was outside the window for REM. He is receiving Lovenox, Decadron, vitamin C, vitamin D3, and zinc. I did tell him to move about in bed. I also asked him to get out of bed and sit up in the chair. His shortness of breath is clearly worse on exertion. Time with Patient: Less than 30
--- NOTE | 2020-05-19 18:22 | P.PN ---
Subjective Progress Note Date: 05/19/20 Principal diagnosis: Acute hypoxemic, secondary to COVID 19 pneumonitis/pneumonia 64 years old male with past medical history of rheumatoid arthritis, gout and history of GI bleed.he Is a patient of Dr. Forde. Patient is lethargic and weak and is not very good historian. He states his main complaint was inability to eat and drink with dizziness and weakness for about a week or more, yesterday his sister convinced him to come to the hospital. Also patient can benefit from fever and mild dyspnea with, but no phlegm and no chest pain. Patient has diarrhea about 2-3 times per day with the total abdominal pain but no vomiting No headache or blurred vision or slurred speech or weakness or numbness Patient smokes about half pack per day and patient is consult but he does not want to quit and he declines nicotine patch, patient states he drinks every day but he states he drinks only one beer with no liquor or wine. No illicit tracts Patient states that he was diagnosed with Covid on 05/0905/17/2020, patient is seen and evaluated in room at bedside, continues to have significant and intermittent cough, remains on oxygen at 5 L nasal cannula, O2 saturation is in the low 90s. Patient tells me that he feels much worse now that he felt before. Chest x-ray does not seem to be quite impressive. Nonetheless it show ed groundglass opacities/bibasilar. Labs are relatively unremarkable. Creatinine is 1.2. Improving C-reactive protein is 3.4, and LDH was only 311. Patient remains on COVID19 cocktails; plan is to continue to titrate oxygen off as able; pulmonary recommending to continue to monitor for another 24 hours if possible discharge tomorrow morning 05/18/2020. Patient is seen and evaluated in room at bedside; Currently, he is on 5 L nasal cannula. He states he had a rough night last night. He is very frail appearing. He complained of shortness of breath, and cough. He's not receiving any IV fluids. No labs today. Chest x-ray today reveal some slight worsening of his peripheral bilateral infiltrates. Patient remains on Lovenox, Decadron, vitamin C, vitamin C and zinc sulfate; patient remains in bed; not motivated to try to get better; we will consult PT/OT to increase activity once clinically stable 05/19/2020 Patient is seen and evaluated in room at bedside; the patient's on 5 L nasal cannula. He is not receiving any IV fluids. He states he feels a bit better today than he did yesterday. No new laboratory data today. The patient has a history of rheumatoid arthritis, microscopic polyangiitis, and vasculitis. He remains on 5 L. The patient was outside the window for REM. He is receiving Lovenox, Decadron, vitamin C, vitamin D3, and zinc. Patient continues to have for activity despite being encouraged to get out of bed and sit up in chair; patient will have PT/OT evaluation once stable Review of Systems CONSTITUTIONAL: No fever, no malaise, no fatigue. HEENT: No recent visual problems or hearing problems. Denied any sore throat. CARDIOVASCULAR: No orthopnea, PND, no palpitations, no syncope. PULMONARY: No chest pain and tenderness, no hemoptysis. GASTROINTESTINAL: No diarrhea, no nausea, no vomiting, no abdominal pain. Normoactive bowel sounds. NEUROLOGICAL: No headaches, no weakness, no numbness. Objective - Vital Signs Vital signs: Vital Signs Temp 101.8 F H 05/19/20 08:00 Pulse 92 05/19/20 08:00 Resp 20 05/19/20 08:00 BP 105/66 05/19/20 08:00 Pulse Ox 94 L 05/19/20 08:00 Intake & Output 05/18/20 05/19/20 05/19/20 18:59 06:59 18:59 Output Total 600 Balance -600 Output: Urine 600 Other: Voiding Method Urinal Urinal Urinal # Voids 1 1 - Exam GENERAL: The patient is alert and oriented x3, not in any acute distress. Well developed, well nourished. HEENT: Pupils are round and equally reacting to light. EOMI. No scleral icterus. No conjunctival pallor. Normocephalic, atraumatic. No pharyngeal erythema. No thyromegaly. CARDIOVASCULAR: S1 and S2 present. No murmurs, rubs, or gallops. -PULMONARY: Chest is clear to auscultation, no wheezing. Bilateral mild crepitation ABDOMEN: Soft, nontender, nondistended, normoactive bowel sounds. No palpable organomegaly. MUSCULOSKELETAL: No joint swelling or deformity. EXTREMITIES: No cyanosis, clubbing, or pedal edema. NEUROLOGICAL: Gross neurological examination did not reveal any focal deficits. SKIN: No rashes. No petechiae - Labs CBC & Chem 7: 05/18/20 19:48 05/18/20 19:48 Labs: Abnormal Lab Results - Last 24 Hours (Table) 05/18/20 05/18/20 05/18/20 Range/Units 16:58 19:48 19:48 Neutrophils # 8.8 H (1.3-7.7) k/uL Lymphocytes # 0.5 L (1.0-4.8) k/uL Sodium 131 L (137-145) mmol/L BUN 33 H (9-20) mg/dL Glucose 128 H (74-99) mg/dL POC Glucose (mg/dL) 155 H (75-99) mg/dL Calcium 8.3 L (8.4-10.2) mg/dL ALT 53 H (4-49) U/L Total Creatine Kinase (55-170) U/L Total Protein 5.2 L (6.3-8.2) g/dL Albumin 2.8 L (3.5-5.0) g/dL 05/18/20 Range/Units 19:48 Neutrophils # (1.3-7.7) k/uL Lymphocytes # (1.0-4.8) k/uL Sodium (137-145) mmol/L BUN (9-20) mg/dL Glucose (74-99) mg/dL POC Glucose (mg/dL) (75-99) mg/dL Calcium (8.4-10.2) mg/dL ALT (4-49) U/L Total Creatine Kinase 36 L (55-170) U/L Total Protein (6.3-8.2) g/dL Albumin (3.5-5.0) g/dL Microbiology - Last 24 Hours (Table) 05/13/20 18:22 Blood Culture - Preliminary Blood No Growth after 120 hours Assessment and Plan Assessment: Acute Covid pneumonia Acute hypoxic respiratory failure secondary to above Increase inflammatory markers Nicotine dependence Constipation Alcohol abuse at-risk of alcohol withdrawal Chronic rheumatoid arthritis Chronic kidney disease stage III Gout History of GI bleed Plan: 60 years old male who presents because of Covid and hypoxia. Continue zinc, vitamin C, steroids. Pulmonary consult. Some gentle hydration Labs and medication were reviewed.. Continue same treatment. Continue with symptomatic treatment. Resume home medication. Monitor lytes and vitals. DVT and GI prophylaxis. Further recommendations depends on the clinical course of the patient DVT prophylaxis: Subcutaneous Lovenox GI Prophylaxis: Pepcid Prognosis is guarded
[2020-05-19] MEDS: ATORVASTATIN 40 MG TAB PO SCH (19:58)
[2020-05-19] MEDS ORDERED: ATORVASTATIN 80 MG TAB PO SCH (21:00)
[2020-05-20] MEDS: SODIUM CHLORIDE 0.9% 1,000 ML IV SCH (05:54)
[2020-05-20] MEDS ORDERED: SODIUM CHLORIDE 0.9% 500 ML 500 ML IV ONE (08:13)
[2020-05-20] MEDS ORDERED: MD COMMUNICATION TO PHARMACY 1 EACH MISC PO PRN (08:19)
[2020-05-20] MEDS ORDERED: VANCOMYCIN IV PER PHARMACY 1 EACH MISC MISCELLANE PRN (08:24)
[2020-05-20] MEDS ORDERED: VANCOMYCIN 1,500 MG in SODIUM CHLORIDE 0.9% 250 ML IVPB ONE (08:30)
[2020-05-20] MEDS: ENOXAPARIN 40 MG/0.4 ML SYRINGE SQ SCH (09:44)
[2020-05-20] MEDS: ZINC SULFATE 220 MG CAP PO SCH (09:44)
[2020-05-20] MEDS: DEXAMETHASONE SOD PHOSPHATE 10 MG/ML 1 ML VIAL IV SCH (09:44)
[2020-05-20] MEDS: ASPIRIN 81 MG PO SCH (09:44)
[2020-05-20] MEDS: ASCORBIC ACID 500 MG TAB PO SCH (09:44)
[2020-05-20] MEDS: CHOLECALCIFEROL 25 MCG (1000 IU) TABLET PO SCH (09:44)
[2020-05-20] MEDS: THIAMINE 100 MG/ML 2 ML VIAL IVP SCH (09:44)
[2020-05-20] MEDS: polyethylene glycoL 3350 17 GM POWD.PACK PO SCH (09:45)
[2020-05-20] MEDS: ACETAMINOPHEN TAB 325 MG TAB PO PRN (10:22)
--- NOTE | 2020-05-20 10:45 | XR ---
EXAMINATION TYPE: XR chest 1V portable DATE OF EXAM: 05/20/2020 COMPARISON: 05/18/2020 HISTORY: Cough TECHNIQUE: Single frontal view of the chest is obtained. FINDINGS: Patchy bilateral infiltrates are stable. Size normal. No pneumothorax. Metallic density ov erlying the left lung apex stable. Could be superficial. Informed body not excluded. Arthropathy of t he shoulders. IMPRESSION: Stable patchy bilateral infiltrate.
[2020-05-20 11:49] LABS: Basophils % (A) 0 %; Eosinophils % (A) 0 %; HCT 40.9 % (39.0-53.0); HGB 13.7 gm/dL (13.0-17.5); Lymphocytes # (A) 0.5 k/uL (1.0-4.8); Lymphocytes % (A) 6 %; MCH 28.4 pg (25.0-35.0); MCHC 33.4 g/dL (31.0-37.0); MCV 85.1 fL (80.0-100.0); Mean Platelet Volume 8.2; Monocytes # (A) 0.3 k/uL (0-1.0); Monocytes % (A) 4 %; Neutrophils # (A) 7.4 k/uL (1.3-7.7); Neutrophils % (A) 90 %; Platelet Count 341 k/uL (150-450); RDW 13.4 % (11.5-15.5); WBC 8.3 k/uL (3.8-10.6)
[2020-05-20] MEDS ORDERED: RX INFO: IV CONTRAST WAS GIVEN 1 EACH MISC MISCELLANE PRN (12:38)
--- NOTE | 2020-05-20 12:43 | P.PN ---
Subjective Progress Note Date: 05/20/20 Principal diagnosis: Acute hypoxic respiratory failure secondary to acute covid 19 pneumonitis. 64-year-old male, who is seen in the emergency department for weakness, and the patient has additional symptoms including shortness of breath, cough, and muscle soreness. The patient tested positive for COVID 19 on May 09. He's been having symptoms so far about 14 days. He was hoping to be able to stay home. The patient does look chronically ill. His oral intake has been poor. His symptoms have worsened over the last 2 or 3 days. In addition, the patient has joint aches, some fever, and chills. He was seen in the emergency room by Dr. Redmond. The patient mentions that he has a number of different rheumatologic illnesses including rheumatoid arthritis, microscopic polyangiitis, and vasculitis. He apparently takes Rituxan for this. He also has a history of hemorrhoids, GI bleed, colonic polyps, gout, and rectal bleeding. White count is 7.3, hemoglobin 15.4, hematocrit 43.6, and platelet count 260,000. PT INR and PTT normal. D-dimer is 0.94. Sodium 133, potassium 4.7, chlorides 96, CO2 27, anion gap 10, BUN 26, and creatinine 1.26. C-reactive protein is 149.3. The patient is seen today 05/15/2020 in follow-up on the regular medical floor. He is currently sitting up in bed. Awake and alert in no acute distress. Maintaining O2 saturations in the 90s on 5 L/m per nasal cannula. No worsening shortness of breath, cough or congestion. He is receiving Lovenox, dexamethasone, multivitamins. Sodium 136. Potassium 4.4. Creatinine 1.3. Patient was reevaluated today on 05/16/2020, remains on the regular medical floor, remains on 5 L nasal cannula, O2 saturation is in the low 90s. Patient is feeling a bit better, continues to have some cough and shortness of breath. CBC is relatively normal, left was abnormal renal profile is abnormal with creatinine up to 1.3. Pro-calcitonin is 0.11 not considered to be clinically significant. Chest x-ray is basically the same, not much different compared to the chest x-ray on admission. Patient remains on the Covid 19 cocktail. Reevaluated today on 05/17/2020, patient remains on the regular medical floor, continues to have significant and intermittent cough, remains on oxygen at 5 L nasal cannula, O2 saturation is in the low 90s. Patient tells me that he feels much worse now that he felt before. Chest x-ray does not seem to be quite impressive. Nonetheless it showed groundglass opacities/bibasilar. Labs are relatively unremarkable. Creatinine is 1.2. Improving C-reactive protein is 3.4, and LDH was only 311. Patient was reevaluated today on 05/20/2020, remains on the regular medical floor, patient is coughing continuously almost. Continues to have increased shortness of breath. He is now on 15 L high flow nasal cannula. In spite of the fact that his chest x-ray doesn't show significant worsening. His d-dimer is 1.57 today, hence I'm seriously considering a CT angiogram of the chest on this patient. Again mostly because that his chest x-ray does not show significant airspace disease that correlates with his O2 requirement. Patient is on Lovenox at 40 mg subcu daily. He is on Zosyn and vancomycin however his blood cultures have been negative and I will discontinue vancomycin today. His inflammatory markers have not been significantly high. LDH was only 311. And CRP was only 3.4. Considering the rise in his d-dimer and the fact that the patient is having more symptoms, I would proceed with a CT angiogram of the chest on this patient. His creatinine is borderline elevated, I will go ahead and discontinued his vancomycin and increase his IV fluid. Objective - Vital Signs Vital signs: Vital Signs Temp 99.6 F 05/20/20 02:00 Pulse 103 H 05/20/20 02:00 Resp 22 05/20/20 02:00 BP 92/61 05/20/20 02:00 Pulse Ox 88 L 05/20/20 02:00 Intake & Output 05/19/20 05/20/20 05/20/20 18:59 06:59 18:59 Intake Total 550 Output Total 600 200 Balance -50 -200 Intake: Oral 550 Output: Urine 600 200 Other: Voiding Method Urinal Urinal # Voids 3 1 - Exam Physical Exam: Revealed a 64-year-old white male coughing continuously, on 15 L high flow nasal cannula. Head: Atraumatic, normocephalic. HEENT:[Neck is supple.] [No neck masses.] [No thyromegaly.] [No JVD.] Chest: [Fine crackles at the bases no rhonchi and no wheezes. Cardiac Exam: [Normal S1 and S2, no S3 gallop, no murmur.] Abdomen: [Soft, nontender, no megaly, no rebound, no guarding, normal bowel sounds.] Extremities: [No clubbing, no edema, no cyanosis.] Neurological Exam: [No focal neurologic deficit.] Alert oriented 3. Psychiatric: Normal mood affect and normal mental status examination. Skin: No rashes. Musko skeletal: No deformities noted limitation in range of motion. - Labs CBC & Chem 7: 05/20/20 10:13 05/20/20 09:00 Labs: Abnormal Lab Results - Last 24 Hours (Table) 05/20/20 05/20/20 05/20/20 Range/Units 09:09 10:13 10:13 Lymphocytes # 0.5 L (1.0-4.8) k/uL D-Dimer 1.57 H (<0.60) mg/L FEU Plasma Lactic Acid Oj 2.4 H* (0.7-2.0) mmol/L Microbiology - Last 24 Hours (Table) 05/13/20 18:22 Blood Culture - Final Blood No Growth after 144 hours Assessment and Plan Assessment: Impression: Acute on chronic hypoxic respiratory failure secondary to covid 19 pneumonia. History of microscopic polyangiitis. History of rheumatoid arthritis. History of gout. History of hypertension. Previous history of GI bleeding. Recommendation: Considering the patient is quite symptomatic, and his O2 requirement has gone up significantly without significant change on the chest x-ray, I will go ahead and recommended CT angiogram of the chest on this patient. His d-dimer is elevated. Continue oxygen and titrate accordingly. Continue the present Covid 19 cocktails. Continue to monitor inflammatory markers Patient has been gradually getting worse since admission, hence he is not ready for any discharge planning at this point. Time with Patient: Less than 30
--- NOTE | 2020-05-20 13:28 | CT ---
EXAMINATION TYPE: CT angio chest DATE OF EXAM: 05/20/2020 COMPARISON: None HISTORY: Cough and fever CT DLP: 305 mGycm CONTRAST: CT chest with contrast and 3D reconstruction with MIP imaging is performed with IV Contrast, patient injected with 78 mL of Isovue 370. Contrast-enhanced CT of the chest was performed through the course of the pulmonary arteries with preeti g and mediastinal window settings submitted. 3D reconstruction with MIP imaging was also performed. PULMONARY ARTERIES: The pulmonary arteries and their major tributaries are patent. I do not see eda dence for sizable filling defect to suggest pulmonary embolic process. LUNGS: Diffuse airspace and groundglass infiltrates are seen bilaterally compatible with Covid 19 pne umonia. No evidence for atelectasis. No pulmonary nodule or mass is detected. No pleural effusion. MEDIASTINUM: Thoracic aorta is of normal caliber,however, evaluation is limited given timing of the contrast bolus. If there is concern for thoracic aortic pathology consider MALISSA. Correlate clinicall y . The heart is not enlarged. No evidence for mediastinal mass. No mediastinal lymph nodes greater than 1cm. HILAR STRUCTURES: No evidence for mass. No hilar lymph nodes greater than 1 cm. UPPER ABDOMEN: No significant abnormality is seen. IMPRESSION: 1. No evidence for Pulmonary embolism at this time. 2.Diffuse airspace and groundglass infiltrates are seen bilaterally compatible with Covid 19 pneumoni a.
[2020-05-20] MEDS: PIPERACILLIN-TAZOBACTAM 3.375 GM in SODIUM CHLORIDE 0.9% 100 ML IVPB SCH ×2 (14:31→15:54)
[2020-05-20] MEDS ORDERED: SODIUM CHLORIDE 0.9% 500 ML 250 ML IV ONE (17:05)
--- NOTE | 2020-05-20 18:00 | ECHOF ---
Referral Reason:stroke MEASUREMENTS -------- HEIGHT: 175.3 cm WEIGHT: 74.8 kg BP: 92/61 MV E Michele: 0.39 m/s MV DecT: 153 ms MV Dec Day: 2.6 m/s MV A Michele: 0.60 m/s MV E/A Ratio: 0.65 MV PHT: 44 ms MR Vmax: 1.05 m/s MR maxP.42 mmHg AV Vmax: 0.65 m/s AV maxP.71 mmHg FINDINGS -------- This was a technically difficult study with suboptimal views. Limited Study This was a techncally difficult study with suboptimal views, lumason utilized for enhancement of images. Unable to visual ize heart Suboptimal test with Lumason. Unable to calculate EF. The RV was not well visualized. The left atrium was not well visualized. The right atrium was not well visualized. Lumason used The aortic valve was not well visualized. The mitral valve was not well visualized. The tricuspid valve was not well visualized. The pulmonic valve was not well visualized. IVC Not well visulized. CONCLUSIONS -------- 1. This was a technically difficult study with suboptimal views. 2. Limited Study 3. This was a techncally difficult study with suboptimal views, lumason utilized for enhancement of i mages. Unable to visualize heart 4. Suboptimal test with Lumason. Unable to calculate EF. CHILD [employer] PRIVATE HOME: Janet Banegas [facility]
--- NOTE | 2020-05-20 18:34 | PN ---
PROGRESS NOTE DATE OF SERVICE: 05/20/2020 This 64-year-old gentleman admitted acute COVID-19 pneumonia and acute hypoxic respiratory failure is on high-flow oxygen. The patient is confused. The patient also had elevated inflammatory markers of COVID-19. The most recent chest x-ray was reviewed personally by me. The patient also had a chest CTA which I just ordered. It showed no evidence of pulmonary embolism but diffuse bilateral infiltrates suggestive of COVID-19 pneumonia. Multiple consultants are following the patient closely, also. Past medical history reviewed. REVIEW OF SYSTEMS: CARDIOVASCULAR SYSTEM: No angina, palpitations. RESPIRATORY SYSTEM: As mentioned earlier. GI: As mentioned earlier. : No dysuria or retention. NERVOUS SYSTEM: No numbness, weakness. CURRENT MEDICATIONS: Reviewed. They include Tylenol, [place], vitamin C, Lipitor, Lovenox, Zofran, Zosyn IV. Doses are reviewed. PHYSICAL EXAMINATION: Patient is alert, oriented x2. Pulse 70, blood pressure 82/57, respiration 18, temperature 97.6, pulse ox 96% on 15 L. HEENT: Conjunctivae normal. NECK: No jugular venous distention. CARDIOVASCULAR SYSTEM: S1, S2 muffled. RESPIRATORY SYSTEM: Breath sounds diminished at the bases. A few scattered rhonchi. ABDOMEN: Soft, non-tender. LEGS: No edema. No swelling. NERVOUS SYSTEM: No focal deficit. LABS: D-dimer is 1.57. Plasma lactic acid 2.4. Other labs are noted. TSH is 0.220. Free T4 is normal. CT of the brain showed no other acute abnormality. ASSESSMENT: 1. Acute COVID-19 infection with acute COVID-19 bilateral interstitial pneumonia with acute hypoxic respiratory failure. 2. Change in mental status, metabolic encephalopathy. 3. Hypotension with possible sepsis. 4. Increased inflammatory markers. 5. History of nicotine dependence. 6. Constipation. 7. History of ETOH abuse. 8. History of rheumatoid arthritis. 9. History of chronic kidney disease, stage 3. 10.History of gout. 11.History of gastrointestinal bleed. RECOMMENDATIONS AND DISCUSSION: I recommend to continue current medications, continue with the monitoring, symptomatic treatment. At this time I would also recommend a serum procalcitonin. The patient is on Lovenox and dexamethasone, and IV Zosyn was also initiated. I would also recommend fluid boluses. I would recommend a set of cultures as well. Overall prognosis is guarded because of multiple complex medical issues. Further recommendations to follow. Neurology has also been consulted. MMODL / IJN: [id number] /
[2020-05-20 18:35] LABS: Appearance,Urine Clear (Clear); Bilirubin,Urine Negative (Negative); Blood,Urine Negative (Negative); Color,Urine Yellow; Glucose,Urine (UA) Negative (Negative); Ketones,Urine Negative (Negative); Leukocyte Esterase,Urine Negative (Negative); Nitrite,Urine Negative (Negative); PH, Urine 5.5 (5.0-8.0); Protein,Urine Trace (Negative)
[2020-05-20 18:45] LABS: Specific Gravity,Urine >1.050 (1.001-1.035)
[2020-05-20] MEDS: ATORVASTATIN 40 MG TAB PO SCH (20:28)
[2020-05-20] MEDS: allopurinoL 100 MG TAB PO SCH (20:28)
[2020-05-20] MEDS: SYMBICORT 160-4.5 MCG INHALER INHALATION SCH (21:33)
--- NOTE | 2020-05-20 21:58 | US ---
EXAMINATION TYPE: US venous doppler duplex LE DATE OF EXAM: 05/20/2020 5:58 PM COMPARISON: US CLINICAL HISTORY: r/o dvt. No hx of DVT. SIDE PERFORMED: Bilateral TECHNIQUE: The lower extremity deep venous system is examined utilizing real time linear array sonog jojo with graded compression, doppler sonography and color-flow sonography. VESSELS IMAGED: Common Femoral Vein Deep Femoral Vein Greater Saphenous Vein * Femoral Vein Popliteal Vein Small Saphenous Vein * Proximal Calf Veins (* superficial vessels) Right Leg: No evidence of DVT in veins imaged at this time from prox calf veins to CFV/GSV. Left Leg: No evidence of DVT in veins imaged at this time from prox calf veins to CFV/GSV. Hypoechoi c-anechoic area seen medial left popliteal fossa measuring 2.3 x 1.4 x 1.3 cm. IMPRESSION: No evidence of bilateral lower extremity DVT. Incidental 2.3 cm left Mitchell's cyst.
[2020-05-20] MEDS ORDERED: VANCOMYCIN 1,250 MG in SODIUM CHLORIDE 0.9% 250 ML IVPB SCH (22:00)
--- NOTE | 2020-05-20 23:33 | P.PN ---
Subjective Progress Note Date: 05/20/20 Patient was seen for a follow-up. Patient initially seen by Dr. Karan Shaffer. Please refer to his note for details. Patient had a stroke code activated yesterday in which his NIH stroke scale was 1. Patient has difficulty with word finding is was transient. Patient had received Ativan prior, therefore uncertain if it was related to Ativan. Patient was not given TPA. CTA of the head and neck revealed left ICA stenosis. However carotid Doppler has come back negative. Patient denies any problems with speech or language functions. Denies any focal symptoms. Denies double vision. Patient appears very sick. Patient short of breath, congested. Objective - Vital Signs Vital signs: Vital Signs Temp 97.6 F 05/20/20 14:00 Pulse 70 05/20/20 14:00 Resp 18 05/20/20 14:00 BP 82/57 05/20/20 14:00 Pulse Ox 96 05/20/20 14:00 Intake & Output 05/19/20 05/20/20 05/20/20 18:59 06:59 18:59 Intake Total 550 2200 Output Total 600 650 Balance -50 1550 Weight 74.843 kg Intake: Intake, IV Titration 1700 Amount Piperacillin-Tazobactam 3 100 .375 gm In Sodium Chloride 0.9% 100 ml @ 25 mls/hr IVPB Q8HR [facility] Rx# :[id number] Sodium Chloride 0.9% 1, 600 000 ml @ 50 mls/hr IV . Q20H [facility] Rx#:[id number] Sodium Chloride 0.9% 500 250 ml 250 ml @ 999 mls/hr IV .Q16M [facility] Rx#:[id number] Sodium Chloride 0.9% 500 500 ml 500 ml @ 999 mls/hr IV .Q31M [facility] Rx#:[id number] Vancomycin 1,250 mg In 250 Sodium Chloride 0.9% 250 ml @ 125 mls/hr IVPB Q16H [facility] Rx#:[id number] Oral 550 500 Output: Urine 600 650 Other: Voiding Method Urinal Urinal # Voids 3 1 4 - Exam On examination patient is alert and awake, in mild respiratory distress. Patient's mental status, speech and language functions are normal. Cranial nerves are normal. Visual shrestha are full, face is symmetric and tongue protrud es to the midline. Muscle strength is normal. Patient can name, repeat without any difficulty. Can follow directions. No paraphasic errors. No ataxia. Sensations are equal with no neglect. - Labs CBC & Chem 7: 05/20/20 10:13 05/20/20 09:00 Labs: Abnormal Lab Results - Last 24 Hours (Table) 05/20/20 05/20/20 05/20/20 Range/Units 09:09 10:13 10:13 Lymphocytes # 0.5 L (1.0-4.8) k/uL D-Dimer 1.57 H (<0.60) mg/L FEU Plasma Lactic Acid Oj 2.4 H* (0.7-2.0) mmol/L Microbiology - Last 24 Hours (Table) 05/13/20 18:22 Blood Culture - Final Blood No Growth after 144 hours Assessment and Plan Assessment: * Possible TIA manifesting with difficulty speaking, word finding difficulty, that seems to have resolved. Transient encephalopathy from pneumonia also a possibility. * Acute Covid 19 pneumonia. * History of rheumatoid arthritis. * History of GI bleed. Plan: * CTA of head and neck revealed possibility of stenosis of distal common carotid and proximal left ICA. Carotid Doppler was recommended. Patient had a carotid Doppler which is normal. No stenosis. * 2-D echo revealed technically difficult study with suboptimal views. Unable to visualize heart. Suggest repeating this study versus MALISSA. * Continue aspirin 81 mg and Lipitor 40 mg. Patient not on DAP because of history of GI bleed. * Patient's last hemoglobin A1c 5.6 on 11/22/2018. Total cholesterol 133, LDL 66, HDL 29 and triglycerides 187. * Please reconsult neurology if any other concerns.
[2020-05-21] MEDS: PIPERACILLIN-TAZOBACTAM 3.375 GM in SODIUM CHLORIDE 0.9% 100 ML IVPB SCH ×3 (00:12→17:16)
[2020-05-21] MEDS: SODIUM CHLORIDE 0.9% 1,000 ML IV SCH ×3 (01:13→17:49)
[2020-05-21] MEDS: SYMBICORT 160-4.5 MCG INHALER INHALATION SCH ×2 (07:20→20:37)
[2020-05-21] MEDS: ASCORBIC ACID 500 MG TAB PO SCH (09:04)
[2020-05-21] MEDS: polyethylene glycoL 3350 17 GM POWD.PACK PO SCH (09:05)
[2020-05-21] MEDS: THIAMINE 100 MG/ML 2 ML VIAL IVP SCH (09:05)
[2020-05-21] MEDS: ASPIRIN 81 MG PO SCH (09:05)
[2020-05-21] MEDS: allopurinoL 100 MG TAB PO SCH ×2 (09:05→20:39)
[2020-05-21] MEDS: ZINC SULFATE 220 MG CAP PO SCH (09:05)
[2020-05-21] MEDS: CHOLECALCIFEROL 25 MCG (1000 IU) TABLET PO SCH (09:05)
[2020-05-21] MEDS: ENOXAPARIN 40 MG/0.4 ML SYRINGE SQ SCH (09:06)
[2020-05-21] MEDS: FLUTICASONE 50MCG/SPRAY NASAL 16GM EA NOSTRIL SCH (09:07)
[2020-05-21 09:56] LABS: Basophils # (A) 0.01 X 10*3/uL (0.00-0.10); Basophils % (A) 0.1 %; Eosinophils # (A) 0 X 10*3/uL (0.04-0.35); Eosinophils % (A) 0 %; HCT 43.3 % (39.6-50.0); HGB 13.7 g/dL (13.0-17.0); Lymphocytes # (A) 0.52 X 10*3/uL (0.90-5.00); Lymphocytes % (A) 6.4 %; MCH 27.9 pg (27.0-32.0); MCHC 31.6 g/dL (32.0-37.0); MCV 88.2 fL (80.0-97.0); Mean Platelet Volume 9.9 fL (9.5-12.2); Monocytes # (A) 0.56 X 10*3/uL (0.20-1.00); Monocytes % (A) 6.9 %; Neutrophils # (A) 6.92 X 10*3/uL (1.80-7.70); Neutrophils % (A) 85.9 %; Platelet Count 317 X 10*3/uL (140-440); RBC 4.91 X 10*6/uL (4.40-5.60); RDW 13.6 % (11.5-14.5); WBC 8.07 X 10*3/uL (4.50-10.00)
[2020-05-21] MEDS: DEXAMETHASONE SOD PHOSPHATE 10 MG/ML 1 ML VIAL IV SCH (10:12)
[2020-05-21] MEDS: ACETAMINOPHEN TAB 325 MG TAB PO PRN (10:18)
[2020-05-21 10:38] LABS: African American GFR (CKD) 81.2 (60.0-200.0); Anion Gap 8.9 mmol/L (4.00-12.00); BUN/Creat Ratio 32.73 Ratio (12.00-20.00); Calcium 8.5 mg/dL (8.7-10.3); Carbon Dioxide 27.1 mmol/L (21.6-31.8); Non-African American GFR(CKD) 70.1 (60.0-200.0)
--- NOTE | 2020-05-21 11:58 | P.PN ---
Subjective Progress Note Date: 05/21/20 Principal diagnosis: Acute hypoxic respiratory failure secondary to acute covid 19 pneumonitis. 64-year-old male, who is seen in the emergency department for weakness, and the patient has additional symptoms including shortness of breath, cough, and muscle soreness. The patient tested positive for COVID 19 on May 09. He's been having symptoms so far about 14 days. He was hoping to be able to stay home. The patient does look chronically ill. His oral intake has been poor. His symptoms have worsened over the last 2 or 3 days. In addition, the patient has joint aches, some fever, and chills. He was seen in the emergency room by Dr. Redmond. The patient mentions that he has a number of different rheumatologic illnesses including rheumatoid arthritis, microscopic polyangiitis, and vasculitis. He apparently takes Rituxan for this. He also has a history of hemorrhoids, GI bleed, colonic polyps, gout, and rectal bleeding. White count is 7.3, hemoglobin 15.4, hematocrit 43.6, and platelet count 260,000. PT INR and PTT normal. D-dimer is 0.94. Sodium 133, potassium 4.7, chlorides 96, CO2 27, anion gap 10, BUN 26, and creatinine 1.26. C-reactive protein is 149.3. The patient is seen today 05/15/2020 in follow-up on the regular medical floor. He is currently sitting up in bed. Awake and alert in no acute distress. Maintaining O2 saturations in the 90s on 5 L/m per nasal cannula. No worsening shortness of breath, cough or congestion. He is receiving Lovenox, dexamethasone, multivitamins. Sodium 136. Potassium 4.4. Creatinine 1.3. Patient was reevaluated today on 05/16/2020, remains on the regular medical floor, remains on 5 L nasal cannula, O2 saturation is in the low 90s. Patient is feeling a bit better, continues to have some cough and shortness of breath. CBC is relatively normal, left was abnormal renal profile is abnormal with creatinine up to 1.3. Pro-calcitonin is 0.11 not considered to be clinically significant. Chest x-ray is basically the same, not much different compared to the chest x-ray on admission. Patient remains on the Covid 19 cocktail. Reevaluated today on 05/17/2020, patient remains on the regular medical floor, continues to have significant and intermittent cough, remains on oxygen at 5 L nasal cannula, O2 saturation is in the low 90s. Patient tells me that he feels much worse now that he felt before. Chest x-ray does not seem to be quite impressive. Nonetheless it showed groundglass opacities/bibasilar. Labs are relatively unremarkable. Creatinine is 1.2. Improving C-reactive protein is 3.4, and LDH was only 311. Patient was reevaluated today on 05/20/2020, remains on the regular medical floor, patient is coughing continuously almost. Continues to have increased shortness of breath. He is now on 15 L high flow nasal cannula. In spite of the fact that his chest x-ray doesn't show significant worsening. His d-dimer is 1.57 today, hence I'm seriously considering a CT angiogram of the chest on this patient. Again mostly because that his chest x-ray does not show significant airspace disease that correlates with his O2 requirement. Patient is on Lovenox at 40 mg subcu daily. He is on Zosyn and vancomycin however his blood cultures have been negative and I will discontinue vancomycin today. His inflammatory markers have not been significantly high. LDH was only 311. And CRP was only 3.4. Considering the rise in his d-dimer and the fact that the patient is having more symptoms, I would proceed with a CT angiogram of the chest on this patient. His creatinine is borderline elevated, I will go ahead and discontinue his vancomycin and increase his IV fluid. Patient was reevaluated today on 05/21/2020, remains on high flow oxygen. He is now on a nonrebreather mask and airvo 90% FiO2 O2 saturation is in the low 90s. Patient is coughing less, but he does have shortness of breath with any activity. CT angiogram of the chest yesterday failed to show any thromboembolic disease/pulmonary embolism. And his venous Doppler also came back negative for deep vein thrombosis. CBC is relatively normal electrocerebral normal renal profile is normal except for BUN of [address] of the chest actually showed significant airspace disease with multifocal peripheral infiltrates. Objective - Vital Signs Vital signs: Vital Signs Temp 99.0 F 05/21/20 10:15 Pulse 80 05/21/20 08:00 Resp 18 04/06/21 08:00 BP 118/68 05/21/20 08:00 Pulse Ox 89 L 05/21/20 10:15 Intake & Output 05/20/20 05/21/20 05/21/20 18:59 06:59 18:59 Intake Total 2200 Output Total 650 500 Balance 1550 -500 Weight 74.843 kg Intake: Intake, IV Titration 1700 Amount Piperacillin-Tazobactam 3 100 .375 gm In Sodium Chloride 0.9% 100 ml @ 25 mls/hr IVPB Q8HR [facility] Rx# :[id number] Sodium Chloride 0.9% 1, 600 000 ml @ 50 mls/hr IV . Q20H [facility] Rx#:[id number] Sodium Chloride 0.9% 500 250 ml 250 ml @ 999 mls/hr IV .Q16M [facility] Rx#:[id number] Sodium Chloride 0.9% 500 500 ml 500 ml @ 999 mls/hr IV .Q31M [facility] Rx#:[id number] Vancomycin 1,250 mg In 250 Sodium Chloride 0.9% 250 ml @ 125 mls/hr IVPB Q16H [facility] Rx#:[id number] Oral 500 Output: Urine 650 500 Other: Voiding Method Urinal Urinal # Voids 4 - Exam Physical Exam: Revealed a 64-year-old white male on high flow oxygen. Resting better today, less cough, no shortness of breath at rest but short of breath up on any activity. Head: Atraumatic, normocephalic. HEENT:[Neck is supple.] [No neck masses.] [No thyromegaly.] [No JVD.] Chest: [Fine crackles at the bases no rhonchi and no wheezes. Cardiac Exam: [Normal S1 and S2, no S3 gallop, no murmur.] Abdomen: [Soft, nontender, no megaly, no rebound, no guarding, normal bowel sounds.] Extremities: [No clubbing, no edema, no cyanosis.] Neurological Exam: [No focal neurologic deficit.] Alert oriented 3. Psychiatric: Normal mood affect and normal mental status examination. Skin: No rashes. [place] skeletal: No deformities noted limitation in range of motion. - Labs CBC & Chem 7: 05/21/20 05:52 05/21/20 05:52 Labs: Abnormal Lab Results - Last 24 Hours (Table) 05/20/20 05/20/20 05/20/20 Range/Units 10:13 12:51 14:00 MCHC (32.0-37.0) g/dL Immature Gran # (0.00-0.04) X 10*3/uL Lymphocytes # 0.5 L (1.0-4.8) k/uL Eosinophils # (0.04-0.35) X 10*3/uL BUN (9.0-27.0) mg/dL BUN/Creatinine Ratio (12.00-20.00) Ratio Glucose (70-110) mg/dL Calcium (8.7-10.3) mg/dL Procalcitonin 0.14 H (0.02-0.09) ng/mL Ur Specific [place] >1.050 H (1.001-1.035) Urine Protein Trace H (Negative) 05/21/20 05/21/20 Range/Units 05:52 05:52 MCHC 31.6 L (32.0-37.0) g/dL Immature Gran # 0.06 H (0.00-0.04) X 10*3/uL Lymphocytes # 0.52 L (1.0-4.8) k/uL Eosinophils # 0 L (0.04-0.35) X 10*3/uL BUN 36.0 H (9.0-27.0) mg/dL BUN/Creatinine Ratio 32.73 H (12.00-20.00) Ratio Glucose 114 H (70-110) mg/dL Calcium 8.5 L (8.7-10.3) mg/dL Procalcitonin (0.02-0.09) ng/mL Ur Specific [place] (1.001-1.035) Urine Protein (Negative) Microbiology - Last 24 Hours (Table) 05/20/20 09:09 Blood Culture - Preliminary Blood No Growth after 24 hours 05/20/20 09:00 Blood Culture - Preliminary Blood No Growth after 24 hours Assessment and Plan Assessment: Impression: Acute on chronic hypoxic respiratory failure secondary to covid 19 pneumonia. History of microscopic polyangiitis. History of rheumatoid arthritis. History of gout. History of hypertension. Previous history of GI bleeding. Recommendation: Reviewed the CT angiogram of the chest Reviewed the results of his venous Doppler Continue oxygen and titrate accordingly. Continue the present Covid 19 cocktails. Continue to monitor inflammatory markers Considering the patient is on antibiotics, not a candidate for toci Will recommend convalescent plasma for this patient today. We'll continue to follow, prognosis remains extremely guarded. Time with Patient: Less than 30
--- NOTE | 2020-05-21 16:13 | P.PN ---
Subjective Progress Note Date: 05/21/20 This is a 64-year-old male who was recently admitted with acute coma 19 pneumonia and acute hypoxic respiratory failure currently maintained on high flow oxygen along with nonrebreather and is being closely monitored. Patient continues to be extremely dyspneic with minimal exertion. Multiple medical con sultations including neurology and pulmonary following. Patient recently underwent chest CTA which shows no evidence of pulmonary embolism and bilateral lower extremity venous Dopplers ordered which were negative for DVTs. Patient is maintained on Lovenox along with dexamethasone, vitamin C, and zinc supplements and will continue at this time. Patient also maintained on IV antibiotic therapy in the form of Zosyn and will continue. 2-D echo was done although suboptimal and unable to determine EF and will evaluate further to repeat this echo. Patient is currently being considered for convalescent plasma recommended by pulmonary. Review of systems: Constitutional: fatigue, reports of fever, or chills Cardiovascular: No reports of chest pain or palpitations Respiratory: reports of shortness of breath and cough GI: No reports of nausea, vomiting, or diarrhea : No reports of dysuria or retention Neurovascular: Reports generalized weakness All medications have been reviewed Active Medications Acetaminophen (Acetaminophen Tab 325 Mg Tab) 650 mg PO Q6HR PRN PRN Reason: Fever and/ or Pain Last Admin: 05/21/20 10:18 Dose: 650 mg Documented by: Hydrocodone Bitart/Acetaminophen (Hydrocodone/Apap 5-325mg 1 Each Tab) 1 each PO Q4HR PRN PRN Reason: Pain Last Admin: 05/15/20 02:14 Dose: 1 each Documented by: Allopurinol (Allopurinol 100 Mg Tab) 100 mg PO BID [facility] Last Admin: 05/21/20 09:05 Dose: 100 mg Documented by: Ascorbic Acid (Ascorbic Acid 500 Mg Tab) 500 mg PO DAILY [facility] Last Admin: 05/21/20 09:04 Dose: 500 mg Documented by: Aspirin (Aspirin 81 Mg) 81 mg PO DAILY [facility] Last Admin: 05/21/20 09:05 Dose: 81 mg Documented by: Atorvastatin Calcium (Atorvastatin 40 Mg Tab) 40 mg PO HS [facility] Last Admin: 05/20/20 20:28 Dose: 40 mg Documented by: Budesonide/Formoterol Fumarate (Symbicort 160-4.5 Mcg Inhaler) 2 puff INHALAT ION RT-BID [facility] Last Admin: 05/21/20 07:20 Dose: 2 puff Documented by: Calcitriol (Calcitriol 0.25 Mcg Cap) 0.25 mcg PO QMONTHLY [facility] Cholecalciferol (Cholecalciferol 25 Mcg (1000 Iu) Tablet) 50 mcg PO DAILY [facility] Last Admin: 05/21/20 09:05 Dose: 50 mcg Documented by: Dexamethasone Sodium Phosphate (Dexamethasone Sod Phosphate 10 Mg/Ml 1 Ml Vial) 6 mg IV DAILY [facility] Last Admin: 05/21/20 10:12 Dose: 6 mg Documented by: Enoxaparin Sodium (Enoxaparin 40 Mg/0.4 Ml Syringe) 40 mg SQ DAILY [facility] Last Admin: 05/21/20 09:06 Dose: 40 mg Documented by: Fluticasone Propionate (Fluticasone 50mcg/[place] Nasal 16gm) 1 spray EA NOSTRIL DAILY [facility] Last Admin: 05/21/20 09:07 Dose: 1 spray Documented by: Sodium Chloride (Saline 0.9%) 1,000 mls @ 125 mls/hr IV .Q8H [facility] Last Admin: 05/21/20 04:51 Dose: 125 mls/hr Documented by: Piperacillin Sod/Tazobactam (Sod 3.375 gm/ Sodium Chloride) 100 mls @ 25 mls/hr IVPB Q8HR [facility] Last Admin: 05/21/20 09:04 Dose: 25 mls/hr Documented by: Lorazepam (Lorazepam 2 Mg/Ml Inj) 1 mg IV Q6HR PRN PRN Reason: Anxiety Last Admin: 05/18/20 16:39 Dose: 1 mg Documented by: Miscellaneous Information (Rx Info: Iv Contrast Was Given 1 Each Misc) 1 each MISCELLANE DAILY PRN PRN Reason: Per Protocol Stop: 05/22/20 12:39 Naloxone HCl (Naloxone 0.4 Mg/Ml 1 Ml Vial) 0.2 mg IV Q2M PRN PRN Reason: Opioid Reversal Ondansetron HCl (Ondansetron 4 Mg/2 Ml Vial) 4 mg IVP Q8HR PRN PRN Reason: Nausea And Vomiting Last Admin: 05/15/20 22:56 Dose: 4 mg Documented by: Polyethylene Glycol (Polyethylene Glycol 3350 17 Gm Powd.Pack) 17 gm PO DAILY [facility] Last Admin: 05/21/20 09:05 Dose: Not Given Documented by: Senna/Docusate Sodium (Sennosides-Docusate Sodium 1 Each Tab) 1 each PO BID PRN PRN Reason: Constipation Thiamine HCl (Thiamine 100 Mg/Ml 2 Ml Vial) 100 mg IVP DAILY [facility] Last Admin: 05/21/20 09:05 Dose: 100 mg Documented by: Zinc Sulfate (Zinc Sulfate 220 Mg Cap) 220 mg PO DAILY [facility] Last Admin: 05/21/20 09:05 Dose: 220 mg Documented by: Objective - Vital Signs Vital signs: Vital Signs Temp 97.4 F L 05/21/20 14:00 Pulse 88 05/21/20 14:00 Resp 18 05/21/20 14:00 BP 107/70 05/21/20 14:00 Pulse Ox 93 L 05/21/20 14:00 Intake & Output 05/20/20 05/21/20 05/21/20 18:59 06:59 18:59 Intake Total 2200 Output Total 650 500 Balance 1550 -500 Weight 74.843 kg Intake: Intake, IV Titration 1700 Amount Piperacillin-Tazobactam 3 100 .375 gm In Sodium Chloride 0.9% 100 ml @ 25 mls/hr IVPB Q8HR [facility] Rx# :[id number] Sodium Chloride 0.9% 1, 600 000 ml @ 50 mls/hr IV . Q20H [facility] Rx#:[id number] Sodium Chloride 0.9% 500 250 ml 250 ml @ 999 mls/hr IV .Q16M [facility] Rx#:[id number] Sodium Chloride 0.9% 500 500 ml 500 ml @ 999 mls/hr IV .Q31M [facility] Rx#:[id number] Vancomycin 1,250 mg In 250 Sodium Chloride 0.9% 250 ml @ 125 mls/hr IVPB Q16H [facility] Rx#:[id number] Oral 500 Output: Urine 650 500 Other: Voiding Method Urinal Urinal # Voids 4 - Exam Gen: This is a 64-year-old male asleep although arousable alert and oriented 2. Temp is 99F, pulse is 80, respirations are 18, blood pressure is 118/68, oxygen saturation is 89% on high flow cannula and nonrebreather at 15 L HEENT: Head is atraumatic, normocephalic. Pupils equal, round. Sclerae is anicteric. NECK: Supple. No JVD. No lymphadenopathy. No thyromegaly. LUNGS: Manage breath sounds bilaterally with a few scattered rhonchi noted. No intercostal retractions. HEART: S1, S2 are muffled ABDOMEN: Soft. Bowel sounds are present. No masses. No tenderness. EXTREMITIES: No pedal edema. No calf tenderness. NEUROLOGICAL: Patient is lethargic although arousable, alert and oriented x2. Diffusely weak. - Labs CBC & Chem 7: 05/21/20 05:52 05/21/20 05:52 Labs: Abnormal Lab Results - Last 24 Hours (Table) 05/20/20 05/20/20 05/21/20 Range/Units 12:51 14:00 05:52 MCHC 31.6 L (32.0-37.0) g/dL Immature Gran # 0.06 H (0.00-0.04) X 10*3/uL Lymphocytes # 0.52 L (0.90-5.00) X 10*3/uL Eosinophils # 0 L (0.04-0.35) X 10*3/uL BUN (9.0-27.0) mg/dL BUN/Creatinine Ratio (12.00-20.00) Ratio Glucose (70-110) mg/dL Calcium (8.7-10.3) mg/dL Procalcitonin 0.14 H (0.02-0.09) ng/mL Ur Specific [place] >1.050 H (1.001-1.035) Urine Protein Trace H (Negative) 05/21/20 Range/Units 05:52 MCHC (32.0-37.0) g/dL Immature Gran # (0.00-0.04) X 10*3/uL Lymphocytes # (0.90-5.00) X 10*3/uL Eosinophils # (0.04-0.35) X 10*3/uL BUN 36.0 H (9.0-27.0) mg/dL BUN/Creatinine Ratio 32.73 H (12.00-20.00) Ratio Glucose 114 H (70-110) mg/dL Calcium 8.5 L (8.7-10.3) mg/dL Procalcitonin (0.02-0.09) ng/mL Ur Specific [place] (1.001-1.035) Urine Protein (Negative) Microbiology - Last 24 Hours (Table) 05/20/20 09:09 Blood Culture - Preliminary Blood No Growth after 24 hours 05/20/20 09:00 Blood Culture - Preliminary Blood No Growth after 24 hours Assessment and Plan Assessment: Acute Covid 19 infection with acute: 19 bilateral interstitial pneumonia with acute hypoxic respiratory failure Change in mental status, metabolic encephalopathy Hypotension with possible sepsis [place] increased inflammatory markers History of nicotine dependence Constipation [place] history of EtOH abuse History of rheumatoid arthritis next line history of chronic kidney disease, stage III History of gout History of gastrointestinal bleed Full code Recommendations and discussion: Recommend to continue current medications, management, and symptomatic treatment. Patient is maintained on IV antibiotics and will continue. Patient to continue with vitamin and zinc supplements along with Lovenox and dexamethasone. Pulminary following with the possibility of convalescent plasma being given today. Neurology following and stroke workup has been negative thus far with the possibility of TIA. Patient underwent attempts at a 2-D echo although study was suboptimal and recommending repeat. Due to multiple complex medical issues, prognosis is guarded. Will continue to monitor vital signs and labs closely and repeat a.m. labs. Further recommendations to follow.
[2020-05-21] MEDS: ATORVASTATIN 40 MG TAB PO SCH (20:39)
--- NOTE | 2020-05-21 23:19 | P.PN ---
Subjective Progress Note Date: 05/21/20 05/21/2020: Patient continues to be very short of breath. Complains of coughing. Denies any focal symptoms. Denies any speech difficulty, slurred speech or word finding issues. 05/20/2020: Patient was seen for a follow-up. Patient initially seen by Dr. Karan Shaffer. Please refer to his note for details. Patient had a stroke code activated yesterday in which his NIH stroke scale was 1. Patient has difficulty with word finding is was transient. Patient had received Ativan prior, therefore uncertain if it was related to Ativan. Patient was not given TPA. CTA of the head and neck revealed left ICA stenosis. However carotid Doppler has come back negative. Patient denies any problems with speech or language functions. Denies any focal symptoms. Denies double vision. Patient appears very sick. Patient short of breath, congested. Objective - Vital Signs Vital signs: Vital Signs Temp 97.4 F L 05/21/20 14:00 Pulse 88 05/21/20 14:00 Resp 18 05/21/20 14:00 BP 107/70 05/21/20 14:00 Pulse Ox 93 L 05/21/20 14:00 Intake & Output 05/20/20 05/21/20 05/21/20 18:59 06:59 18:59 Intake Total 2200 Output Total 650 500 Balance 1550 -500 Weight 74.843 kg Intake: Intake, IV Titration 1700 Amount Piperacillin-Tazobactam 3 100 .375 gm In Sodium Chloride 0.9% 100 ml @ 25 mls/hr IVPB Q8HR [facility] Rx# :[id number] Sodium Chloride 0.9% 1, 600 000 ml @ 50 mls/hr IV . Q20H [facility] Rx#:[id number] Sodium Chloride 0.9% 500 250 ml 250 ml @ 999 mls/hr IV .Q16M [facility] Rx#:[id number] Sodium Chloride 0.9% 500 500 ml 500 ml @ 999 mls/hr IV .Q31M [facility] Rx#:[id number] Vancomycin 1,250 mg In 250 Sodium Chloride 0.9% 250 ml @ 125 mls/hr IVPB Q16H [facility] Rx#:[id number] Oral 500 Output: Urine 650 500 Other: Voiding Method Urinal Urinal # Voids 4 - Exam On examination patient is alert and awake, in moderate respiratory distress. Patient's mental status, speech and language functions are normal. Patient knows it is May 2020 and that he is in [facility]. Cranial nerves are normal. Visual shrestha are full, face is symmetric and tongue protrudes to the midline. Muscle strength is normal. Patient can name, repeat without any difficulty. Can follow directions. No paraphasic errors. No ataxia. Sensations are equal with no neglect. - Labs CBC & Chem 7: 05/21/20 05:52 05/21/20 05:52 Labs: Abnormal Lab Results - Last 24 Hours (Table) 05/20/20 05/20/20 05/21/20 Range/Units 12:51 14:00 05:52 MCHC 31.6 L (32.0-37.0) g/dL Immature Gran # 0.06 H (0.00-0.04) X 10*3/uL Lymphocytes # 0.52 L (0.90-5.00) X 10*3/uL Eosinophils # 0 L (0.04-0.35) X 10*3/uL BUN (9.0-27.0) mg/dL BUN/Creatinine Ratio (12.00-20.00) Ratio Glucose (70-110) mg/dL Calcium (8.7-10.3) mg/dL Procalcitonin 0.14 H (0.02-0.09) ng/mL Ur Specific [employer] >1.050 H (1.001-1.035) Urine Protein Trace H (Negative) 05/21/20 Range/Units 05:52 MCHC (32.0-37.0) g/dL Immature Gran # (0.00-0.04) X 10*3/uL Lymphocytes # (0.90-5.00) X 10*3/uL Eosinophils # (0.04-0.35) X 10*3/uL BUN 36.0 H (9.0-27.0) mg/dL BUN/Creatinine Ratio 32.73 H (12.00-20.00) Ratio Glucose 114 H (70-110) mg/dL Calcium 8.5 L (8.7-10.3) mg/dL Procalcitonin (0.02-0.09) ng/mL Ur Specific [employer] (1.001-1.035) Urine Protein (Negative) Microbiology - Last 24 Hours (Table) 05/20/20 09:09 Blood Culture - Preliminary Blood No Growth after 24 hours 05/20/20 09:00 Blood Culture - Preliminary Blood No Growth after 24 hours Assessment and Plan Assessment: * Possible TIA manifesting with difficulty speaking, word finding difficulty, that seems to have resolved. Transient encephalopathy from pneumonia also a possibility. * Acute Covid 19 pneumonia. * History of rheumatoid arthritis. * History of GI bleed. Plan: * CTA of head and neck revealed possibility of stenosis of distal common carotid and proximal left ICA. Carotid Doppler was recommended. Patient had a carotid Doppler which is normal. No stenosis. * 2-D echo revealed technically difficult study with suboptimal views. Unable to visualize heart. Recommend repeating this study versus MALISSA. * Continue aspirin 81 mg and Lipitor 40 mg. Patient not on DAP because of history of GI bleed. * Patient's last hemoglobin A1c 5.6 on 11/22/2018. Total cholesterol 133, LDL 66, HDL 29 and triglycerides 187. * Please reconsult neurology if any other concerns. Patient has been stable from neurology standpoint. Neurology will sign off.
[2020-05-22] MEDS: PIPERACILLIN-TAZOBACTAM 3.375 GM in SODIUM CHLORIDE 0.9% 100 ML IVPB SCH ×3 (00:48→18:35)
[2020-05-22] MEDS: ACETAMINOPHEN TAB 325 MG TAB PO PRN (02:50)
[2020-05-22] MEDS: SODIUM CHLORIDE 0.9% 1,000 ML IV SCH ×4 (02:54→20:03)
[2020-05-22] MEDS: SYMBICORT 160-4.5 MCG INHALER INHALATION SCH ×2 (07:25→19:27)
[2020-05-22] MEDS: THIAMINE 100 MG/ML 2 ML VIAL IVP SCH (07:56)
[2020-05-22] MEDS: DEXAMETHASONE SOD PHOSPHATE 10 MG/ML 1 ML VIAL IV SCH (07:58)
[2020-05-22] MEDS: allopurinoL 100 MG TAB PO SCH ×2 (08:52→20:03)
[2020-05-22] MEDS: ENOXAPARIN 40 MG/0.4 ML SYRINGE SQ SCH (08:52)
[2020-05-22] MEDS: ASPIRIN 81 MG PO SCH (08:52)
[2020-05-22] MEDS: ZINC SULFATE 220 MG CAP PO SCH (08:52)
[2020-05-22] MEDS: ASCORBIC ACID 500 MG TAB PO SCH (08:52)
[2020-05-22] MEDS: polyethylene glycoL 3350 17 GM POWD.PACK PO SCH ×2 (08:52→08:54)
[2020-05-22] MEDS: FLUTICASONE 50MCG/SPRAY NASAL 16GM EA NOSTRIL SCH (08:55)
[2020-05-22] MEDS: ONDANSETRON 4 MG/2 ML VIAL IVP PRN (08:59)
[2020-05-22] MEDS: CHOLECALCIFEROL 25 MCG (1000 IU) TABLET PO SCH (09:03)
--- NOTE | 2020-05-22 10:02 | P.PN ---
Subjective Progress Note Date: 05/22/20 Principal diagnosis: Acute hypoxic respiratory failure secondary to acute covid 19 pneumonitis. 64-year-old male, who is seen in the emergency department for weakness, and the patient has additional symptoms including shortness of breath, cough, and muscle soreness. The patient tested positive for COVID 19 on May 09. He's been having symptoms so far about 14 days. He was hoping to be able to stay home. The patient does look chronically ill. His oral intake has been poor. His symptoms have worsened over the last 2 or 3 days. In addition, the patient has joint aches, some fever, and chills. He was seen in the emergency room by Dr. Redmond. The patient mentions that he has a number of different rheumatologic illnesses including rheumatoid arthritis, microscopic polyangiitis, and vasculitis. He apparently takes Rituxan for this. He also has a history of hemorrhoids, GI bleed, colonic polyps, gout, and rectal bleeding. White count is 7.3, hemoglobin 15.4, hematocrit 43.6, and platelet count 260,000. PT INR and PTT normal. D-dimer is 0.94. Sodium 133, potassium 4.7, chlorides 96, CO2 27, anion gap 10, BUN 26, and creatinine 1.26. C-reactive protein is 149.3. The patient is seen today 05/15/2020 in follow-up on the regular medical floor. He is currently sitting up in bed. Awake and alert in no acute distress. Maintaining O2 saturations in the 90s on 5 L/m per nasal cannula. No worsening shortness of breath, cough or congestion. He is receiving Lovenox, dexamethasone, multivitamins. Sodium 136. Potassium 4.4. Creatinine 1.3. Patient was reevaluated today on 05/16/2020, remains on the regular medical floor, remains on 5 L nasal cannula, O2 saturation is in the low 90s. Patient is feeling a bit better, continues to have some cough and shortness of breath. CBC is relatively normal, left was abnormal renal profile is abnormal with creatinine up to 1.3. Pro-calcitonin is 0.11 not considered to be clinically significant. Chest x-ray is basically the same, not much different compared to the chest x-ray on admission. Patient remains on the Covid 19 cocktail. Reevaluated today on 05/17/2020, patient remains on the regular medical floor, continues to have significant and intermittent cough, remains on oxygen at 5 L nasal cannula, O2 saturation is in the low 90s. Patient tells me that he feels much worse now that he felt before. Chest x-ray does not seem to be quite impressive. Nonetheless it showed groundglass opacities/bibasilar. Labs are relatively unremarkable. Creatinine is 1.2. Improving C-reactive protein is 3.4, and LDH was only 311. Patient was reevaluated today on 05/20/2020, remains on the regular medical floor, patient is coughing continuously almost. Continues to have increased shortness of breath. He is now on 15 L high flow nasal cannula. In spite of the fact that his chest x-ray doesn't show significant worsening. His d-dimer is 1.57 today, hence I'm seriously considering a CT angiogram of the chest on this patient. Again mostly because that his chest x-ray does not show significant airspace disease that correlates with his O2 requirement. Patient is on Lovenox at 40 mg subcu daily. He is on Zosyn and vancomycin however his blood cultures have been negative and I will discontinue vancomycin today. His inflammatory markers have not been significantly high. LDH was only 311. And CRP was only 3.4. Considering the rise in his d-dimer and the fact that the patient is having more symptoms, I would proceed with a CT angiogram of the chest on this patient. His creatinine is borderline elevated, I will go ahead and discontinue his vancomycin and increase his IV fluid. Patient was reevaluated today on 05/21/2020, remains on high flow oxygen. He is now on a nonrebreather mask and airvo 90% FiO2 O2 saturation is in the low 90s. Patient is coughing less, but he does have shortness of breath with any activity. CT angiogram of the chest yesterday failed to show any thromboembolic disease/pulmonary embolism. And his venous Doppler also came back negative for deep vein thrombosis. CBC is relatively normal electrocerebral normal renal profile is normal except for BUN of [address] of the chest actually showed significant airspace disease with multifocal peripheral infiltrates. Patient was reevaluated today on 05/22/2020, remains on high flow oxygen, he is now on 15 L high flow cannula, we will improvement since yesterday, less shortness of breath, continues to have some vague lower abdominal pain, did not sleep well last night, patient has less cough, less wheezing, and definitely less shortness of breath. Denies any diarrhea. Again workup was negative for thromboembolic disease. Objective - Vital Signs Vital signs: Vital Signs Temp 99 F 05/22/20 08:00 Pulse 93 05/22/20 08:00 Resp 20 05/22/20 08:00 BP 92/54 05/22/20 08:00 Pulse Ox 87 L 05/22/20 08:00 Intake & Output 05/21/20 05/22/20 05/22/20 18:59 06:59 18:59 Output Total 250 Balance -250 Output: Urine 250 Other: Voiding Method Urinal Urinal Urinal # Voids 3 - Exam Physical Exam: Revealed a 64-year-old white male on high flow oxygen. Head: Atraumatic, normocephalic. HEENT:[Neck is supple.] [No neck masses.] [No thyromegaly.] [No JVD.] Chest: [Fine crackles at the bases no rhonchi and no wheezes. Cardiac Exam: [Normal S1 and S2, no S3 gallop, no murmur.] Abdomen: [Soft, nontender, no megaly, no rebound, no guarding, normal bowel sounds.] Extremities: [No clubbing, no edema, no cyanosis.] Neurological Exam: [No focal neurologic deficit.] Alert oriented 3. Psychiatric: Normal mood affect and normal mental status examination. Skin: No rashes. [place] skeletal: No deformities noted limitation in range of motion. - Labs CBC & Chem 7: 05/21/20 05:52 05/21/20 05:52 Labs: Abnormal Lab Results - Last 24 Hours (Table) 05/21/20 Range/Units 05:52 BUN 36.0 H (9.0-27.0) mg/dL BUN/Creatinine Ratio 32.73 H (12.00-20.00) Ratio Glucose 114 H (70-110) mg/dL Calcium 8.5 L (8.7-10.3) mg/dL Microbiology - Last 24 Hours (Table) 05/21/20 14:00 Urine Culture - Preliminary Urine,Voided 05/20/20 09:09 Blood Culture - Preliminary Blood No Growth after 24 hours 05/20/20 09:00 Blood Culture - Preliminary Blood No Growth after 24 hours Assessment and Plan Assessment: Impression: Acute on chronic hypoxic respiratory failure secondary to covid 19 pneumonia. History of microscopic polyangiitis. History of rheumatoid arthritis. History of gout. History of hypertension. Previous history of GI bleeding. Recommendation: Continue oxygen and titrate accordingly. Continue the present Covid 19 cocktails. Continue to monitor inflammatory markers Considering the patient is on antibiotics, not a candidate for toci Convalescent plasma was ordered but not received yet. We'll continue to follow, prognosis remains extremely guarded. Time with Patient: Less than 30
[2020-05-22] MEDS ORDERED: SIMETHICONE 80 MG CHEWABLE PO PRN (14:43)
--- NOTE | 2020-05-22 15:00 | P.PN ---
Subjective Progress Note Date: 05/22/20 This is a 64-year-old male who was recently admitted with acute Covid 19 pneumonia and acute hypoxic respiratory failure currently maintained on high flow oxygen along with nonrebreather and is being closely monitored. Patient continues to be extremely dyspneic with minimal exertion. Multiple medical co nsultations including neurology and pulmonary following. Patient recently underwent chest CTA which shows no evidence of pulmonary embolism and bilateral lower extremity venous Dopplers ordered which were negative for DVTs. Patient is maintained on Lovenox along with dexamethasone, vitamin C, and zinc supplements and will continue at this time. Patient also maintained on IV antibiotic therapy in the form of Zosyn and will continue. 2-D echo was done although suboptimal and unable to determine EF and will evaluate further to repeat this echo. Patient is currently being considered for convalescent plasma recommended by pulmonary. 05/22/2020 Patient is seen and evaluated and follow-up this morning continues to be severely dyspneic and is maintained on high flow nasal cannula 15 L along with periods of nonrebreather and is being closely monitored. Patient continues to be extremely dyspneic with minimal exertion along with generalized weakness and not feeling well. Per nursing staff patient had a large bowel movement yesterday and continues to have abdominal discomfort with bloating. Patient denies any nausea or vomiting and is tolerating diet but not eating very much. Patient continues to have intermittent low-grade fevers. Pulmonary is following and patient is awaiting to receive a unit of convalescent plasma which is pending at this time. Patient is maintained on IV Zosyn and will continue. Urine and blood cultures thus far remain negative will order sputum culture. Will order chest x-ray for the a.m. along with inflammatory markers and repeat labs. Review of systems: Constitutional: fatigue, reports of fever, or chills Cardiovascular: No reports of chest pain or palpitations Respiratory: reports of shortness of breath and cough GI: No reports of nausea, vomiting, or diarrhea, patient reports bloating and abdominal discomfort : No reports of dysuria or retention Neurovascular: Reports generalized weakness All medications have been reviewed Active Medications Acetaminophen (Acetaminophen Tab 325 Mg Tab) 650 mg PO Q6HR PRN PRN Reason: Fever and/ or Pain Last Admin: 05/22/20 02:50 Dose: 650 mg Documented by: Hydrocodone Bitart/Acetaminophen (Hydrocodone/Apap 5-325mg 1 Each Tab) 1 each PO Q4HR PRN PRN Reason: Pain Last Admin: 05/15/20 02:14 Dose: 1 each Documented by: Allopurinol (Allopurinol 100 Mg Tab) 100 mg PO BID [facility] Last Admin: 05/22/20 08:52 Dose: 100 mg Documented by: Ascorbic Acid (Ascorbic Acid 500 Mg Tab) 500 mg PO DAILY [facility] Last Admin: 05/22/20 08:52 Dose: 500 mg Documented by: Aspirin (Aspirin 81 Mg) 81 mg PO DAILY [facility] Last Admin: 05/22/20 08:52 Dose: 81 mg Documented by: Atorvastatin Calcium (Atorvastatin 40 Mg Tab) 40 mg PO HS [facility] Last Admin: 05/21/20 20:39 Dose: 40 mg Documented by: Budesonide/Formoterol Fumarate (Symbicort 160-4.5 Mcg Inhaler) 2 puff INHALATI ON RT-BID [facility] Last Admin: 05/22/20 07:25 Dose: 2 puff Documented by: Calcitriol (Calcitriol 0.25 Mcg Cap) 0.25 mcg PO QMONTHLY [facility] Cholecalciferol (Cholecalciferol 25 Mcg (1000 Iu) Tablet) 50 mcg PO DAILY [facility] Last Admin: 05/22/20 09:03 Dose: 50 mcg Documented by: Dexamethasone Sodium Phosphate (Dexamethasone Sod Phosphate 10 Mg/Ml 1 Ml Vial) 6 mg IV DAILY [facility] Last Admin: 05/22/20 07:58 Dose: 6 mg Documented by: Enoxaparin Sodium (Enoxaparin 40 Mg/0.4 Ml Syringe) 40 mg SQ DAILY [facility] Last Admin: 05/22/20 08:52 Dose: 40 mg Documented by: Fluticasone Propionate (Fluticasone 50mcg/[place] Nasal 16gm) 1 spray EA NOSTRIL DAILY [facility] Last Admin: 05/22/20 08:55 Dose: 1 spray Documented by: Sodium Chloride (Saline 0.9%) 1,000 mls @ 125 mls/hr IV .Q8H [facility] Last Admin: 05/22/20 05:42 Dose: Not Given Documented by: Piperacillin Sod/Tazobactam (Sod 3.375 gm/ Sodium Chloride) 100 mls @ 25 mls/hr IVPB Q8HR [facility] Last Admin: 05/22/20 08:54 Dose: 25 mls/hr Documented by: Lorazepam (Lorazepam 2 Mg/Ml Inj) 1 mg IV Q6HR PRN PRN Reason: Anxiety Last Admin: 05/18/20 16:39 Dose: 1 mg Documented by: Naloxone HCl (Naloxone 0.4 Mg/Ml 1 Ml Vial) 0.2 mg IV Q2M PRN PRN Reason: Opioid Reversal Ondansetron HCl (Ondansetron 4 Mg/2 Ml Vial) 4 mg IVP Q8HR PRN PRN Reason: Nausea And Vomiting Last Admin: 05/22/20 08:59 Dose: 4 mg Documented by: Polyethylene Glycol (Polyethylene Glycol 3350 17 Gm Powd.Pack) 17 gm PO DAILY [facility] Last Admin: 05/22/20 08:54 Dose: 17 gm Documented by: Senna/Docusate Sodium (Sennosides-Docusate Sodium 1 Each Tab) 1 each PO BID PRN PRN Reason: Constipation Simethicone (Simethicone 80 Mg Chewable) 80 mg PO QID PRN PRN Reason: Bloating Thiamine HCl (Thiamine 100 Mg/Ml 2 Ml Vial) 100 mg IVP DAILY [facility] Last Admin: 05/22/20 07:56 Dose: 100 mg Documented by: Zinc Sulfate (Zinc Sulfate 220 Mg Cap) 220 mg PO DAILY [facility] Last Admin: 05/22/20 08:52 Dose: 220 mg Documented by: Objective - Vital Signs Vital signs: Vital Signs Temp 99 F 05/22/20 08:00 Pulse 93 05/22/20 08:00 Resp 20 05/22/20 08:00 BP 92/54 05/22/20 08:00 Pulse Ox 87 L 05/22/20 08:00 Intake & Output 05/21/20 05/22/20 05/22/20 18:59 06:59 18:59 Output Total 250 Balance -250 Output: Urine 250 Other: Voiding Method Urinal Urinal # Voids 3 - Exam Gen: This is a 64-year-old male asleep although arousable alert and oriented 2. Temp is 99F, pulse is 93, respirations are 20, blood pressure is 92/54, oxygen saturation is 87% on high flow cannula and nonrebreather at 15 L HEENT: Head is atraumatic, normocephalic. Pupils equal, round. Sclerae is anicteric. NECK: Supple. No JVD. No lymphadenopathy. No thyromegaly. LUNGS: Diminished breath sounds bilaterally with a few scattered rhonchi and crackles noted. No intercostal retractions. HEART: S1, S2 are muffled ABDOMEN: Soft. Bowel sounds are present. No masses. No tenderness. EXTREMITIES: No pedal edema. No calf tenderness. NEUROLOGICAL: Patient is lethargic although arousable, alert and oriented x2. Diffusely weak. - Labs CBC & Chem 7: 05/21/20 05:52 05/21/20 05:52 Labs: Abnormal Lab Results - Last 24 Hours (Table) 05/21/20 05/21/20 Range/Units 05:52 05:52 MCHC 31.6 L (32.0-37.0) g/dL Immature Gran # 0.06 H (0.00-0.04) X 10*3/uL Lymphocytes # 0.52 L (0.90-5.00) X 10*3/uL Eosinophils # 0 L (0.04-0.35) X 10*3/uL BUN 36.0 H (9.0-27.0) mg/dL BUN/Creatinine Ratio 32.73 H (12.00-20.00) Ratio Glucose 114 H (70-110) mg/dL Calcium 8.5 L (8.7-10.3) mg/dL Microbiology - Last 24 Hours (Table) 05/21/20 14:00 Urine Culture - Preliminary Urine,Voided 05/20/20 09:09 Blood Culture - Preliminary Blood No Growth after 24 hours 05/20/20 09:00 Blood Culture - Preliminary Blood No Growth after 24 hours Assessment and Plan Assessment: Acute Covid 19 infection with acute Covid 19 bilateral interstitial pneumonia with acute hypoxic respiratory failure Change in mental status, metabolic encephalopathy Hypotension with possible sepsis increased inflammatory markers History of nicotine dependence Constipation history of EtOH abuse History of rheumatoid arthritis history of chronic kidney disease, stage III History of gout History of gastrointestinal bleed Full code Recommendations and discussion: Recommend to continue current medications, management, and symptomatic treatment. Patient is maintained on IV antibiotics and will continue. Sputum culture ordered and pending. Blood and urine cultures thus far remain negative. Patient continues with intermittent low-grade temps. Patient to continue with vitamin and zinc supplements along with Lovenox and dexamethasone. Pulminary following and have ordered a unit of convalescent plasma which is pending. Due to multiple complex medical issues, prognosis is guarded. Will continue to monitor vital signs and labs closely and repeat a.m. labs. Will repeat a.m. chest x-ray. Further recommendations to follow.
[2020-05-22] MEDS: ATORVASTATIN 40 MG TAB PO SCH (20:03)
[2020-05-23] MEDS: PIPERACILLIN-TAZOBACTAM 3.375 GM in SODIUM CHLORIDE 0.9% 100 ML IVPB SCH ×3 (00:55→16:28)
[2020-05-23] MEDS: SODIUM CHLORIDE 0.9% 1,000 ML IV SCH ×3 (03:20→16:29)
[2020-05-23] MEDS: ACETAMINOPHEN TAB 325 MG TAB PO PRN (08:10)
[2020-05-23] MEDS: SYMBICORT 160-4.5 MCG INHALER INHALATION SCH ×2 (08:10→19:58)
[2020-05-23] MEDS: polyethylene glycoL 3350 17 GM POWD.PACK PO SCH (08:12)
[2020-05-23] MEDS: ENOXAPARIN 40 MG/0.4 ML SYRINGE SQ SCH (08:12)
[2020-05-23] MEDS: ZINC SULFATE 220 MG CAP PO SCH (08:13)
[2020-05-23] MEDS: CHOLECALCIFEROL 25 MCG (1000 IU) TABLET PO SCH (08:13)
[2020-05-23] MEDS: allopurinoL 100 MG TAB PO SCH ×2 (08:13→21:22)
[2020-05-23] MEDS: ASPIRIN 81 MG PO SCH (08:13)
[2020-05-23] MEDS: ASCORBIC ACID 500 MG TAB PO SCH (08:13)
[2020-05-23] MEDS: FLUTICASONE 50MCG/SPRAY NASAL 16GM EA NOSTRIL SCH (08:13)
[2020-05-23] MEDS: THIAMINE 100 MG/ML 2 ML VIAL IVP SCH (08:14)
[2020-05-23 09:36] LABS: Basophils # (A) 0.01 X 10*3/uL (0.00-0.10); Basophils % (A) 0.1 %; Eosinophils # (A) 0 X 10*3/uL (0.04-0.35); Eosinophils % (A) 0 %; HCT 42.9 % (39.6-50.0); HGB 13.5 g/dL (13.0-17.0); Lymphocytes # (A) 0.73 X 10*3/uL (0.90-5.00); Lymphocytes % (A) 8.1 %; MCH 27.7 pg (27.0-32.0); MCHC 31.5 g/dL (32.0-37.0); MCV 87.9 fL (80.0-97.0); Mean Platelet Volume 10.2 fL (9.5-12.2); Monocytes # (A) 0.31 X 10*3/uL (0.20-1.00); Monocytes % (A) 3.4 %; Neutrophils # (A) 7.92 X 10*3/uL (1.80-7.70); Platelet Count 322 X 10*3/uL (140-440); RBC 4.88 X 10*6/uL (4.40-5.60); RDW 13.6 % (11.5-14.5); WBC 9.01 X 10*3/uL (4.50-10.00)
--- NOTE | 2020-05-23 09:37 | XR ---
EXAMINATION TYPE: XR chest 1V portable DATE OF EXAM: 05/23/2020 HISTORY: Shortness of breath. COMPARISON: 05/20/2020 TECHNIQUE: Single view of the chest is submitted. FINDINGS: Demonstrated are scattered senescent parenchymal change. Patchy perihilar and basilar infiltrates compatible with pneumonia. The heart is stable. Hilar and mediastinal structures are within normal limits. Degenerative changes are seen of the dorsal spine. IMPRESSION: 1. Patchy perihilar and basilar infiltrates compatible with pneumonia.
[2020-05-23] MEDS: DEXAMETHASONE SOD PHOSPHATE 10 MG/ML 1 ML VIAL IV SCH (09:39)
[2020-05-23 10:10] LABS: African American GFR (CKD) 73.1 (60.0-200.0); Anion Gap 8.3 mmol/L (4.00-12.00); BUN/Creat Ratio 24.17 Ratio (12.00-20.00); Calcium 8.2 mg/dL (8.7-10.3); Carbon Dioxide 27.7 mmol/L (21.6-31.8); Non-African American GFR(CKD) 63.1 (60.0-200.0); Potassium 4.9 mmol/L (3.5-5.5)
--- NOTE | 2020-05-23 10:53 | P.PN ---
Subjective Progress Note Date: 05/23/20 Principal diagnosis: Acute hypoxic respiratory failure secondary to acute covid 19 pneumonitis. 64-year-old male, who is seen in the emergency department for weakness, and the patient has additional symptoms including shortness of breath, cough, and muscle soreness. The patient tested positive for COVID 19 on May 09. He's been having symptoms so far about 14 days. He was hoping to be able to stay home. The patient does look chronically ill. His oral intake has been poor. His symptoms have worsened over the last 2 or 3 days. In addition, the patient has joint aches, some fever, and chills. He was seen in the emergency room by Dr. Redmond. The patient mentions that he has a number of different rheumatologic illnesses including rheumatoid arthritis, microscopic polyangiitis, and vasculitis. He apparently takes Rituxan for this. He also has a history of hemorrhoids, GI bleed, colonic polyps, gout, and rectal bleeding. White count is 7.3, hemoglobin 15.4, hematocrit 43.6, and platelet count 260,000. PT INR and PTT normal. D-dimer is 0.94. Sodium 133, potassium 4.7, chlorides 96, CO2 27, anion gap 10, BUN 26, and creatinine 1.26. C-reactive protein is 149.3. The patient is seen today 05/15/2020 in follow-up on the regular medical floor. He is currently sitting up in bed. Awake and alert in no acute distress. Maintaining O2 saturations in the 90s on 5 L/m per nasal cannula. No worsening shortness of breath, cough or congestion. He is receiving Lovenox, dexamethasone, multivitamins. Sodium 136. Potassium 4.4. Creatinine 1.3. Patient was reevaluated today on 05/16/2020, remains on the regular medical floor, remains on 5 L nasal cannula, O2 saturation is in the low 90s. Patient is feeling a bit better, continues to have some cough and shortness of breath. CBC is relatively normal, left was abnormal renal profile is abnormal with creatinine up to 1.3. Pro-calcitonin is 0.11 not considered to be clinically significant. Chest x-ray is basically the same, not much different compared to the chest x-ray on admission. Patient remains on the Covid 19 cocktail. Reevaluated today on 05/17/2020, patient remains on the regular medical floor, continues to have significant and intermittent cough, remains on oxygen at 5 L nasal cannula, O2 saturation is in the low 90s. Patient tells me that he feels much worse now that he felt before. Chest x-ray does not seem to be quite impressive. Nonetheless it showed groundglass opacities/bibasilar. Labs are relatively unremarkable. Creatinine is 1.2. Improving C-reactive protein is 3.4, and LDH was only 311. Patient was reevaluated today on 05/20/2020, remains on the regular medical floor, patient is coughing continuously almost. Continues to have increased shortness of breath. He is now on 15 L high flow nasal cannula. In spite of the fact that his chest x-ray doesn't show significant worsening. His d-dimer is 1.57 today, hence I'm seriously considering a CT angiogram of the chest on this patient. Again mostly because that his chest x-ray does not show significant airspace disease that correlates with his O2 requirement. Patient is on Lovenox at 40 mg subcu daily. He is on Zosyn and vancomycin however his blood cultures have been negative and I will discontinue vancomycin today. His inflammatory markers have not been significantly high. LDH was only 311. And CRP was only 3.4. Considering the rise in his d-dimer and the fact that the patient is having more symptoms, I would proceed with a CT angiogram of the chest on this patient. His creatinine is borderline elevated, I will go ahead and discontinue his vancomycin and increase his IV fluid. Patient was reevaluated today on 05/21/2020, remains on high flow oxygen. He is now on a nonrebreather mask and airvo 90% FiO2 O2 saturation is in the low 90s. Patient is coughing less, but he does have shortness of breath with any activity. CT angiogram of the chest yesterday failed to show any thromboembolic disease/pulmonary embolism. And his venous Doppler also came back negative for deep vein thrombosis. CBC is relatively normal electrocerebral normal renal profile is normal except for BUN of [address] of the chest actually showed significant airspace disease with multifocal peripheral infiltrates. Patient was reevaluated today on 05/22/2020, remains on high flow oxygen, he is now on 15 L high flow cannula, we will improvement since yesterday, less shortness of breath, continues to have some vague lower abdominal pain, did not sleep well last night, patient has less cough, less wheezing, and definitely less shortness of breath. Denies any diarrhea. Again workup was negative for thromboembolic disease. Reevaluated today on 05/23/2020, patient remains on high flow nasal cannula at 15 L/m. His oxygen saturation is not improving much. Clinically the patient is not improving much. He continues to have shortness of breath at rest and with any exertion. Patient is refusing now to take his Decadron he would like a lower dose because it's keeping him awake and making him anxious. I will cut down the Decadron to 4 mg orally daily instead of 6 mg IV push daily. Labs today were reviewed his d-dimer is 1.23 CBC is relatively normal elect lites are normal BUN is 29 creatinine is 1.2, LDH is 432 Objective - Vital Signs Vital signs: Vital Signs Temp 100.5 F H 05/23/20 08:00 Pulse 67 05/23/20 08:00 Resp 22 05/23/20 08:00 BP 109/64 05/23/20 08:00 Pulse Ox 82 L 05/23/20 08:00 Intake & Output 05/22/20 05/23/20 05/23/20 18:59 06:59 18:59 Intake Total 0 200 Output Total 200 600 Balance -200 -600 200 Intake: Oral 200 Blood Product 0 Ffp Pher Conval Covid19 0 Acda 2 Unit [id number] Output: Urine 200 600 Other: Voiding Method Urinal Bedside Commode Bedside Commode Urinal Urinal Diaper Diaper Incontinent Incontinent # Voids 2 # Bowel Movements 1 - Exam Physical Exam: Revealed a 64-year-old white male on 15 L high flow nasal cannula Head: Atraumatic, normocephalic. HEENT:[Neck is supple.] [No neck masses.] [No thyromegaly.] [No JVD.] Chest: [Fine crackles at the bases no rhonchi and no wheezes. Cardiac Exam: [Normal S1 and S2, no S3 gallop, no murmur.] Abdomen: [Soft, nontender, no megaly, no rebound, no guarding, normal bowel so unds.] Extremities: [No clubbing, no edema, no cyanosis.] Neurological Exam: [No focal neurologic deficit.] Alert oriented 3. Psychiatric: Normal mood affect and normal mental status examination. Skin: No rashes. Musko skeletal: No deformities noted limitation in range of motion. - Labs CBC & Chem 7: 05/23/20 05:22 05/23/20 05:22 Labs: Abnormal Lab Results - Last 24 Hours (Table) 05/23/20 05/23/20 05/23/20 Range/Units 05:22 05:22 05:22 MCHC 31.5 L (32.0-37.0) g/dL Neutrophils # 7.92 H (1.80-7.70) X 10*3/uL Lymphocytes # 0.73 L (0.90-5.00) X 10*3/uL Eosinophils # 0 L (0.04-0.35) X 10*3/uL D-Dimer 1.23 H (<0.60) mg/L FEU BUN 29.0 H (9.0-27.0) mg/dL BUN/Creatinine Ratio 24.17 H (12.00-20.00) Ratio Calcium 8.2 L (8.7-10.3) mg/dL Lactate Dehydrogenase 432 H (120-246) U/L Microbiology - Last 24 Hours (Table) 05/21/20 14:00 Urine Culture - Final Urine,Voided 05/20/20 09:09 Blood Culture - Preliminary Blood No Growth after 48 hours 05/20/20 09:00 Blood Culture - Preliminary Blood No Growth after 48 hours Assessment and Plan Assessment: Impression: Acute on chronic hypoxic respiratory failure secondary to covid 19 pneumonia. History of microscopic polyangiitis. History of rheumatoid arthritis. History of gout. History of hypertension. Previous history of GI bleeding. Recommendation: Continue oxygen and titrate accordingly. Continue the present Covid 19 cocktails. Continue to monitor inflammatory markers Considering the patient is on antibiotics, not a candidate for toci Convalescent plasma one unit, is being given today. Decrease Decadron to 4 mg by mouth daily We'll continue to follow, prognosis remains extremely guarded. Time with Patient: Less than 30
[2020-05-23] MEDS: dexAMETHasone 4 MG TAB PO SCH (11:02)
--- NOTE | 2020-05-23 13:06 | P.PN ---
Subjective Progress Note Date: 05/23/20 This is a 64-year-old male who was recently admitted with acute Covid 19 pneumonia and acute hypoxic respiratory failure currently maintained on high flow oxygen along with nonrebreather and is being closely monitored. Patient continues to be extremely dyspneic with minimal exertion. Multiple medical co nsultations including neurology and pulmonary following. Patient recently underwent chest CTA which shows no evidence of pulmonary embolism and bilateral lower extremity venous Dopplers ordered which were negative for DVTs. Patient is maintained on Lovenox along with dexamethasone, vitamin C, and zinc supplements and will continue at this time. Patient also maintained on IV antibiotic therapy in the form of Zosyn and will continue. 2-D echo was done although suboptimal and unable to determine EF and will evaluate further to repeat this echo. Patient is currently being considered for convalescent plasma recommended by pulmonary. 05/22/2020 Patient is seen and evaluated and follow-up this morning continues to be severely dyspneic and is maintained on high flow nasal cannula 15 L along with periods of nonrebreather and is being closely monitored. Patient continues to be extremely dyspneic with minimal exertion along with generalized weakness and not feeling well. Per nursing staff patient had a large bowel movement yesterday and continues to have abdominal discomfort with bloating. Patient denies any nausea or vomiting and is tolerating diet but not eating very much. Patient continues to have intermittent low-grade fevers. Pulmonary is following and patient is awaiting to receive a unit of convalescent plasma which is pending at this time. Patient is maintained on IV Zosyn and will continue. Urine and blood cultures thus far remain negative will order sputum culture. Will order chest x-ray for the a.m. along with inflammatory markers and repeat labs. 05/23/2020 Patient is seen and evaluated and follow-up currently sitting up in the chair continues to be short of breath and dyspneic with minimal exertion. Patient is maintained on esteem liters high flow along with nonrebreather and oxygen saturations have been in the low to mid 80s. Patient was on dexamethasone IV although stating it is making him worse and has been transitioned oral Decadron 4 mg. Patient has received 1 unit of convalescent plasma. A continues with low-grade intermittent fevers of 100.5F this morning. D-dimer is down at 1.23 today although inflammatory markers slightly elevated. BMP within normal limits and current creatinine is 1.2. White blood count is 9.01 NE globin is stable at 13.5. Patient is maintained on vitamin and zinc supplements and will continue. Patient also continues on IV Zosyn. Blood cultures remain negative and sputum culture pending. Patient is eating very minimally and denies any nausea or vomiting just not much of an appetite. Review of systems: Constitutional: fatigue, reports of fever, or chills Cardiovascular: No reports of chest pain or palpitations Respiratory: reports of shortness of breath and cough GI: No reports of nausea, vomiting, or diarrhea : No reports of dysuria or retention Neurovascular: Reports generalized weakness All medications have been reviewed Objective - Vital Signs Vital signs: Vital Signs Temp 100.5 F H 05/23/20 08:00 Pulse 67 05/23/20 08:00 Resp 22 05/23/20 08:00 BP 109/64 05/23/20 08:00 Pulse Ox 82 L 05/23/20 08:00 Intake & Output 05/22/20 05/23/20 05/23/20 18:59 06:59 18:59 Intake Total 0 Output Total 200 600 Balance -200 -600 Intake: Blood Product 0 Ffp Pher Conval Covid19 0 Acda 2 Unit [id number] Output: Urine 200 600 Other: Voiding Method Urinal Bedside Commode Bedside Commode Urinal Urinal Diaper Diaper Incontinent Incontinent - Exam Gen: This is a 64-year-old male awake, alert and oriented 3. HEENT: Head is atraumatic, normocephalic. Pupils equal, round. Sclerae is anic teric. NECK: Supple. No JVD. No lymphadenopathy. No thyromegaly. LUNGS: Diminished breath sounds bilaterally with a few scattered rhonchi and crackles noted. Mild expiratory wheezing noted on exam. No intercostal retractions. HEART: S1, S2 are muffled ABDOMEN: Soft. Bowel sounds are present. No masses. No tenderness. EXTREMITIES: No pedal edema. No calf tenderness. NEUROLOGICAL: Patient is lethargic although arousable, alert and oriented x3. Diffusely weak. - Labs CBC & Chem 7: 05/23/20 05:22 05/23/20 05:22 Labs: Abnormal Lab Results - Last 24 Hours (Table) 05/23/20 Range/Units 05:22 D-Dimer 1.23 H (<0.60) mg/L FEU Microbiology - Last 24 Hours (Table) 05/21/20 14:00 Urine Culture - Final Urine,Voided 05/20/20 09:09 Blood Culture - Preliminary Blood No Growth after 48 hours 05/20/20 09:00 Blood Culture - Preliminary Blood No Growth after 48 hours Assessment and Plan Assessment: Acute Covid 19 infection with acute Covid 19 bilateral interstitial pneumonia with acute hypoxic respiratory failure Change in mental status, metabolic encephalopathy, improved Hypotension with possible sepsis increased inflammatory markers History of nicotine dependence Constipation, resolved history of EtOH abuse History of rheumatoid arthritis history of chronic kidney disease, stage III History of gout History of gastrointestinal bleed Full code Plan: Continue with current medications and continue to wean FiO2 as tolerated. Patient did receive 1 unit of convalescent plasma yesterday and continues to be on 15 L high flow along with nonrebreather and continues to be dyspneic with minimal exertion. Patient was transitioned oral Decadron as he states he has complications with steroids. Pulmonary following. Patient is maintained on IV Zosyn and blood and urine cultures thus far have been negative and awaiting the sputum culture. Patient continues with low-grade intermittent fevers. Chest x- ray today shows patchy perihilar and basilar infiltrates compatible with pneumonia. Will repeat a.m. labs and monitor closely.
[2020-05-23 21:08] LABS: C Reactive Protein 6.3 mg/dL (0.0-0.8)
[2020-05-23] MEDS: ATORVASTATIN 40 MG TAB PO SCH (21:22)
[2020-05-24] MEDS: PIPERACILLIN-TAZOBACTAM 3.375 GM in SODIUM CHLORIDE 0.9% 100 ML IVPB SCH ×3 (00:50→22:07)
[2020-05-24] MEDS: SODIUM CHLORIDE 0.9% 1,000 ML IV SCH ×3 (05:11→22:07)
[2020-05-24] MEDS: ASPIRIN 81 MG PO SCH (08:51)
[2020-05-24] MEDS: CHOLECALCIFEROL 25 MCG (1000 IU) TABLET PO SCH (08:51)
[2020-05-24] MEDS: ASCORBIC ACID 500 MG TAB PO SCH (08:52)
[2020-05-24] MEDS: ENOXAPARIN 40 MG/0.4 ML SYRINGE SQ SCH (08:52)
[2020-05-24] MEDS: ZINC SULFATE 220 MG CAP PO SCH (08:52)
[2020-05-24] MEDS: dexAMETHasone 4 MG TAB PO SCH (08:52)
[2020-05-24] MEDS: allopurinoL 100 MG TAB PO SCH ×2 (08:52→22:07)
[2020-05-24] MEDS: THIAMINE 100 MG/ML 2 ML VIAL IVP SCH (08:52)
[2020-05-24] MEDS: FLUTICASONE 50MCG/SPRAY NASAL 16GM EA NOSTRIL SCH (08:55)
[2020-05-24] MEDS: polyethylene glycoL 3350 17 GM POWD.PACK PO SCH (08:56)
[2020-05-24] MEDS: SYMBICORT 160-4.5 MCG INHALER INHALATION SCH ×2 (09:30→20:50)
--- NOTE | 2020-05-24 11:47 | P.PN ---
Subjective Progress Note Date: 05/24/20 Principal diagnosis: Acute hypoxic respiratory failure secondary to acute covid 19 pneumonitis. 64-year-old male, who is seen in the emergency department for weakness, and the patient has additional symptoms including shortness of breath, cough, and muscle soreness. The patient tested positive for COVID 19 on May 09. He's been having symptoms so far about 14 days. He was hoping to be able to stay home. The patient does look chronically ill. His oral intake has been poor. His symptoms have worsened over the last 2 or 3 days. In addition, the patient has joint aches, some fever, and chills. He was seen in the emergency room by Dr. Redmond. The patient mentions that he has a number of different rheumatologic illnesses including rheumatoid arthritis, microscopic polyangiitis, and vasculitis. He apparently takes Rituxan for this. He also has a history of hemorrhoids, GI bleed, colonic polyps, gout, and rectal bleeding. White count is 7.3, hemoglobin 15.4, hematocrit 43.6, and platelet count 260,000. PT INR and PTT normal. D-dimer is 0.94. Sodium 133, potassium 4.7, chlorides 96, CO2 27, anion gap 10, BUN 26, and creatinine 1.26. C-reactive protein is 149.3. The patient is seen today 05/15/2020 in follow-up on the regular medical floor. He is currently sitting up in bed. Awake and alert in no acute distress. Maintaining O2 saturations in the 90s on 5 L/m per nasal cannula. No worsening shortness of breath, cough or congestion. He is receiving Lovenox, dexamethasone, multivitamins. Sodium 136. Potassium 4.4. Creatinine 1.3. Patient was reevaluated today on 05/16/2020, remains on the regular medical floor, remains on 5 L nasal cannula, O2 saturation is in the low 90s. Patient is feeling a bit better, continues to have some cough and shortness of breath. CBC is relatively normal, left was abnormal renal profile is abnormal with creatinine up to 1.3. Pro-calcitonin is 0.11 not considered to be clinically significant. Chest x-ray is basically the same, not much different compared to the chest x-ray on admission. Patient remains on the Covid 19 cocktail. Reevaluated today on 05/17/2020, patient remains on the regular medical floor, continues to have significant and intermittent cough, remains on oxygen at 5 L nasal cannula, O2 saturation is in the low 90s. Patient tells me that he feels much worse now that he felt before. Chest x-ray does not seem to be quite impressive. Nonetheless it showed groundglass opacities/bibasilar. Labs are relatively unremarkable. Creatinine is 1.2. Improving C-reactive protein is 3.4, and LDH was only 311. Patient was reevaluated today on 05/20/2020, remains on the regular medical floor, patient is coughing continuously almost. Continues to have increased shortness of breath. He is now on 15 L high flow nasal cannula. In spite of the fact that his chest x-ray doesn't show significant worsening. His d-dimer is 1.57 today, hence I'm seriously considering a CT angiogram of the chest on this patient. Again mostly because that his chest x-ray does not show significant airspace disease that correlates with his O2 requirement. Patient is on Lovenox at 40 mg subcu daily. He is on Zosyn and vancomycin however his blood cultures have been negative and I will discontinue vancomycin today. His inflammatory markers have not been significantly high. LDH was only 311. And CRP was only 3.4. Considering the rise in his d-dimer and the fact that the patient is having more symptoms, I would proceed with a CT angiogram of the chest on this patient. His creatinine is borderline elevated, I will go ahead and discontinue his vancomycin and increase his IV fluid. Patient was reevaluated today on 05/21/2020, remains on high flow oxygen. He is now on a nonrebreather mask and airvo 90% FiO2 O2 saturation is in the low 90s. Patient is coughing less, but he does have shortness of breath with any activity. CT angiogram of the chest yesterday failed to show any thromboembolic disease/pulmonary embolism. And his venous Doppler also came back negative for deep vein thrombosis. CBC is relatively normal electrocerebral normal renal profile is normal except for BUN of [address] of the chest actually showed significant airspace disease with multifocal peripheral infiltrates. Patient was reevaluated today on 05/22/2020, remains on high flow oxygen, he is now on 15 L high flow cannula, we will improvement since yesterday, less shortness of breath, continues to have some vague lower abdominal pain, did not sleep well last night, patient has less cough, less wheezing, and definitely less shortness of breath. Denies any diarrhea. Again workup was negative for thromboembolic disease. Reevaluated today on 05/23/2020, patient remains on high flow nasal cannula at 15 L/m. His oxygen saturation is not improving much. Clinically the patient is not improving much. He continues to have shortness of breath at rest and with any exertion. Patient is refusing now to take his Decadron he would like a lower dose because it's keeping him awake and making him anxious. I will cut down the Decadron to 4 mg orally daily instead of 6 mg IV push daily. Labs today were reviewed his d-dimer is 1.23 CBC is relatively normal elect lites are normal BUN is 29 creatinine is 1.2, LDH is 432 Reevaluated today on 05/24/2020, patient is basically about the same, still requiring 15 L high flow nasal cannula. Less cough, less shortness of breath, remained generally weak, patient was switched yesterday to Decadron 4 mg by mouth incentive IV, patient did not want to high dose of Decadron and he was refusing his IV dose. No labs drawn today, clinically the patient is about the same seems to be a bit more comfortable and more pleasant today for Objective - Vital Signs Vital signs: Vital Signs Temp 100.5 F H 05/24/20 08:00 Pulse 107 H 05/24/20 08:00 Resp 24 05/24/20 08:00 BP 104/68 05/24/20 08:00 Pulse Ox 92 L 05/24/20 08:00 Intake & Output 05/23/20 05/24/20 05/24/20 18:59 06:59 18:59 Intake Total 1025 Balance 1025 Intake: IV 625 Sodium Chloride 0.9% 1, 625 000 ml @ 125 mls/hr IV . Q8H [facility] Rx#:[id number] Oral 400 Other: Voiding Method Bedside Commode Bedside Commode Bedside Commode Urinal Urinal Urinal Diaper Diaper Diaper Incontinent Incontinent Incontinent # Voids 2 3 # Bowel Movements 1 - Exam Physical Exam: Revealed a 64-year-old white male on 15 L high flow nasal cannula Head: Atraumatic, normocephalic. HEENT:[Neck is supple.] [No neck masses.] [No thyromegaly.] [No JVD.] Chest: [Fine crackles at the bases no rhonchi and no wheezes. Cardiac Exam: [Normal S1 and S2, no S3 gallop, no murmur.] Abdomen: [Soft, nontender, no megaly, no rebound, no guarding, normal bowel sounds.] Extremities: [No clubbing, no edema, no cyanosis.] Neurological Exam: [No focal neurologic deficit.] Alert oriented 3. Psychiatric: Normal mood affect and normal mental status examination. Skin: No rashes. Musko skeletal: No deformities noted limitation in range of motion. - Labs CBC & Chem 7: 05/23/20 05:22 05/23/20 05:22 Labs: Abnormal Lab Results - Last 24 Hours (Table) 05/23/20 05/23/20 Range/Units 05:22 05:22 C-Reactive Protein 6.3 H (0.0-0.8) mg/dL Procalcitonin 0.12 H (0.02-0.09) ng/mL Microbiology - Last 24 Hours (Table) 05/20/20 09:09 Blood Culture - Preliminary Blood No Growth after 96 hours 05/20/20 09:00 Blood Culture - Preliminary Blood No Growth after 96 hours Assessment and Plan Assessment: Impression: Acute on chronic hypoxic respiratory failure secondary to covid 19 pneumonia. History of microscopic polyangiitis. History of rheumatoid arthritis. History of gout. History of hypertension. Previous history of GI bleeding. Recommendation: Continue high flow cannula and adjust/titrate accordingly. Continue the present Covid 19 cocktails. Continue to monitor inflammatory markers Considering the patient is on antibiotics, not a candidate for toci Convalescent plasma one unit, was transfused. Continue Decadron at 4 mg by mouth daily. We'll continue to follow, prognosis remains extremely guarded. Time with Patient: Less than 30
--- NOTE | 2020-05-24 12:58 | P.PN ---
Subjective Progress Note Date: 05/24/20 This is a 64-year-old male who was recently admitted with acute Covid 19 pneumonia and acute hypoxic respiratory failure currently maintained on high flow oxygen along with nonrebreather and is being closely monitored. Patient continues to be extremely dyspneic with minimal exertion. Multiple medical co nsultations including neurology and pulmonary following. Patient recently underwent chest CTA which shows no evidence of pulmonary embolism and bilateral lower extremity venous Dopplers ordered which were negative for DVTs. Patient is maintained on Lovenox along with dexamethasone, vitamin C, and zinc supplements and will continue at this time. Patient also maintained on IV antibiotic therapy in the form of Zosyn and will continue. 2-D echo was done although suboptimal and unable to determine EF and will evaluate further to repeat this echo. Patient is currently being considered for convalescent plasma recommended by pulmonary. 05/22/2020 Patient is seen and evaluated and follow-up this morning continues to be severely dyspneic and is maintained on high flow nasal cannula 15 L along with periods of nonrebreather and is being closely monitored. Patient continues to be extremely dyspneic with minimal exertion along with generalized weakness and not feeling well. Per nursing staff patient had a large bowel movement yesterday and continues to have abdominal discomfort with bloating. Patient denies any nausea or vomiting and is tolerating diet but not eating very much. Patient continues to have intermittent low-grade fevers. Pulmonary is following and patient is awaiting to receive a unit of convalescent plasma which is pending at this time. Patient is maintained on IV Zosyn and will continue. Urine and blood cultures thus far remain negative will order sputum culture. Will order chest x-ray for the a.m. along with inflammatory markers and repeat labs. 05/23/2020 Patient is seen and evaluated and follow-up currently sitting up in the chair continues to be short of breath and dyspneic with minimal exertion. Patient is maintained on 15 liters high flow along with nonrebreather and oxygen saturations have been in the low to mid 80s. Patient was on dexamethasone IV although stating it is making him worse and has been transitioned oral Decadron 4 mg. Patient has received 1 unit of convalescent plasma. A continues with low-grade intermittent fevers of 100.5F this morning. D-dimer is down at 1.23 today although inflammatory markers slightly elevated. BMP within normal limits and current creatinine is 1.2. White blood count is 9.01 NE globin is stable at 13.5. Patient is maintained on vitamin and zinc supplements and will continue. Patient also continues on IV Zosyn. Blood cultures remain negative and sputum culture pending. Patient is eating very minimally and denies any nausea or vomiting just not much of an appetite. 05/24/2020 Patient is seen and evaluated and follow-up this morning continues to be on 15 L high flow along with nonrebreather and is being closely monitored. No real improvement noted in respiratory status and patient continues to be weak with continued low-grade intermittent fevers and patient will continue on IV a ntibiotics. Patient is maintained on oral Decadron along with vitamin and zinc supplements and Lovenox and will continue at this time. Blood and urine cultures remain negative with sputum cultures still uncollected. Patient states his cough is less severe although continues with a cough. Incentive spirometer suggested although patient states he is unable to do this as he desats quickly off of nonrebreather. Patient is tolerating diet and continues to eat very little but denies any nausea or vomiting. Review of systems: Constitutional: fatigue, reports of fever, or chills Cardiovascular: No reports of chest pain or palpitations Respiratory: reports of shortness of breath and cough GI: No reports of nausea, vomiting, or diarrhea : No reports of dysuria or retention Neurovascular: Reports generalized weakness All medications have been reviewed Objective - Vital Signs Vital signs: Vital Signs Temp 100.5 F H 05/24/20 08:00 Pulse 107 H 05/24/20 08:00 Resp 24 05/24/20 08:00 BP 104/68 05/24/20 08:00 Pulse Ox 92 L 05/24/20 08:00 Intake & Output 05/23/20 05/24/20 05/24/20 18:59 06:59 18:59 Intake Total 1025 Balance 1025 Intake: IV 625 Sodium Chloride 0.9% 1, 625 000 ml @ 125 mls/hr IV . Q8H [facility] Rx#:[id number] Oral 400 Other: Voiding Method Bedside Commode Bedside Commode Urinal Urinal Diaper Diaper Incontinent Incontinent # Voids 2 3 # Bowel Movements 1 - Exam Gen: This is a 64-year-old male awake, alert and oriented 3. HEENT: Head is atraumatic, normocephalic. Pupils equal, round. Sclerae is anicteric. NECK: Supple. No JVD. No lymphadenopathy. No thyromegaly. LUNGS: Diminished breath sounds bilaterally with a few scattered rhonchi and crackles noted. No intercostal retractions. HEART: S1, S2 are muffled ABDOMEN: Soft. Bowel sounds are present. No masses. No tenderness. EXTREMITIES: No pedal edema. No calf tenderness. NEUROLOGICAL: Patient is lethargic although arousable, alert and oriented x3. Diffusely weak. - Labs CBC & Chem 7: 05/23/20 05:22 05/23/20 05:22 Labs: Abnormal Lab Results - Last 24 Hours (Table) 05/23/20 05/23/20 05/23/20 Range/Units 05:22 05:22 05:22 MCHC 31.5 L (32.0-37.0) g/dL Neutrophils # 7.92 H (1.80-7.70) X 10*3/uL Lymphocytes # 0.73 L (0.90-5.00) X 10*3/uL Eosinophils # 0 L (0.04-0.35) X 10*3/uL BUN 29.0 H (9.0-27.0) mg/dL BUN/Creatinine Ratio 24.17 H (12.00-20.00) Ratio Calcium 8.2 L (8.7-10.3) mg/dL Lactate Dehydrogenase 432 H (120-246) U/L C-Reactive Protein 6.3 H (0.0-0.8) mg/dL Procalcitonin 0.12 H (0.02-0.09) ng/mL Microbiology - Last 24 Hours (Table) 05/20/20 09:09 Blood Culture - Preliminary Blood No Growth after 72 hours 05/20/20 09:00 Blood Culture - Preliminary Blood No Growth after 72 hours Assessment and Plan Assessment: Acute Covid 19 infection with acute Covid 19 bilateral interstitial pneumonia with acute hypoxic respiratory failure Change in mental status, metabolic encephalopathy, improved Hypotension with possible sepsis increased inflammatory markers History of nicotine dependence Constipation, resolved history of EtOH abuse History of rheumatoid arthritis history of chronic kidney disease, stage III History of gout History of gastrointestinal bleed DVT prophylaxis: Lovenox Full code Plan: Continue with current medications and continue to wean FiO2 as tolerated. Patient did receive 1 unit of convalescent plasma yesterday and continues to be on 15 L high flow along with nonrebreather and continues to be dyspneic with minimal exertion. Patient remains on oral Decadron along with vitamin C, D, and zinc supplements and will continue. Continue with Lovenox. Pulmonary following. Patient is maintained on IV Zosyn and blood and urine cultures thus far have been negative and awaiting the sputum culture. Patient continues with low-grade intermittent fevers. Will repeat a.m. labs along with inflammatory markers and monitor closely.
--- NOTE | 2020-05-24 19:00 | ECHOF ---
Referral Reason:Shortness of breath, Covid MEASUREMENTS -------- HEIGHT: 175.3 cm WEIGHT: 74.8 kg BP: RVIDd: 3.1 cm (< 3.3) IVSd: 1.1 cm (0.6 - 1.1) LVIDd: 4.2 cm (3.9 - 5.3) LVPWd: 1.1 cm (0.6 - 1.1) IVSs: 1.7 cm LVIDs: 2.0 cm LVPWs: 1.6 cm LA Diam: 2.7 cm (2.7 - 3.8) Ao Diam: 2.7 cm (2.0 - 3.7) AV Cusp: 1.7 cm (1.5 - 2.6) MV EXCURSION: 11.453 mm (> 18.000) MV EF SLOPE: 52 mm/s (70 - 150) EPSS: 0.7 cm RAP: 5.00 mmHg RVSP: 31.05 mmHg FINDINGS -------- Sinus rhythm. This was a technically adequate study. The left ventricular size is normal. There is borderline concentric left ventricular hypertrophy. Overall left ventricular systolic function is normal with, an EF between 60 - 65 %. The right ventricle is normal in size. The left atrium is normal in size. The right atrium is normal in size. Interatrial and interventricular septum intact. The aortic valve is trileaflet, and appears structurally normal. No aortic stenosis or regurgitation. The mitral valve is normal. Trace tricuspid regurgitation present. Right ventricular systolic pressure is normal at < 35 mmHg. Trace/mild (physiologic) pulmonic regurgitation. The aortic root size is normal. Normal inferior vena cava with normal inspiratory collapse consistent with estimated right atrial pre ssure of 5 mmHg. There is no pericardial effusion. CONCLUSIONS -------- 1. The left ventricular size is normal. 2. There is borderline concentric left ventricular hypertrophy. 3. Overall left ventricular systolic function is normal with, an EF between 60 - 65 %. 4. Trace tricuspid regurgitation present. 5. Trace/mild (physiologic) pulmonic regurgitation. 6. There is no pericardial effusion. CELLAR HAND: Josefa Mccormick [facility]
[2020-05-24] MEDS: ATORVASTATIN 40 MG TAB PO SCH (22:06)
[2020-05-25] MEDS: SODIUM CHLORIDE 0.9% 1,000 ML IV SCH ×3 (03:37→20:13)
[2020-05-25] MEDS: PIPERACILLIN-TAZOBACTAM 3.375 GM in SODIUM CHLORIDE 0.9% 100 ML IVPB SCH ×3 (03:37→20:13)
[2020-05-25] MEDS: SYMBICORT 160-4.5 MCG INHALER INHALATION SCH ×2 (07:31→19:06)
[2020-05-25 07:41] LABS: African American GFR (CKD) 89 (>60 ml/min/1.73 sqM); Anion Gap 6 mmol/L; Blood Urea Nitrogen 25 mg/dL (9-20); Calcium 8.1 mg/dL (8.4-10.2); Carbon Dioxide 27 mmol/L (22-30); Chloride 100 mmol/L (98-107); Glucose 97 mg/dL (74-99); LDH 1055 U/L (313-618); Non-African American GFR(CKD) 77 (>60 ml/min/1.73 sqM); Potassium 4.3 mmol/L (3.5-5.1); Sodium 133 mmol/L (137-145)
[2020-05-25 07:57] LABS: Basophils % (A) 0 %; Eosinophils % (A) 0 %; HCT 41.1 % (39.0-53.0); HGB 13.4 gm/dL (13.0-17.5); Lymphocytes # (A) 0.7 k/uL (1.0-4.8); Lymphocytes % (A) 7 %; MCH 28.1 pg (25.0-35.0); MCHC 32.6 g/dL (31.0-37.0); MCV 86.1 fL (80.0-100.0); Mean Platelet Volume 8.1; Monocytes # (A) 0.2 k/uL (0-1.0); Monocytes % (A) 2 %; Neutrophils # (A) 8.7 k/uL (1.3-7.7); Neutrophils % (A) 91 %; Platelet Count 238 k/uL (150-450); RBC 4.77 m/uL (4.30-5.90); RDW 13.6 % (11.5-15.5); WBC 9.6 k/uL (3.8-10.6)
[2020-05-25] MEDS: ENOXAPARIN 40 MG/0.4 ML SYRINGE SQ SCH (10:00)
[2020-05-25] MEDS: polyethylene glycoL 3350 17 GM POWD.PACK PO SCH (10:01)
[2020-05-25] MEDS: allopurinoL 100 MG TAB PO SCH ×2 (10:01→20:13)
[2020-05-25] MEDS: ASCORBIC ACID 500 MG TAB PO SCH (10:01)
[2020-05-25] MEDS: ASPIRIN 81 MG PO SCH (10:01)
[2020-05-25] MEDS: CHOLECALCIFEROL 25 MCG (1000 IU) TABLET PO SCH (10:01)
[2020-05-25] MEDS: ZINC SULFATE 220 MG CAP PO SCH (10:01)
[2020-05-25] MEDS: THIAMINE 100 MG/ML 2 ML VIAL IVP SCH (10:02)
[2020-05-25] MEDS: dexAMETHasone 4 MG TAB PO SCH (10:07)
[2020-05-25] MEDS: FLUTICASONE 50MCG/SPRAY NASAL 16GM EA NOSTRIL SCH (10:07)
--- NOTE | 2020-05-25 10:43 | P.PN ---
Subjective Progress Note Date: 05/25/20 Principal diagnosis: Acute hypoxic respiratory failure secondary to acute covid 19 pneumonitis. 64-year-old male, who is seen in the emergency department for weakness, and the patient has additional symptoms including shortness of breath, cough, and muscle soreness. The patient tested positive for COVID 19 on May 09. He's been having symptoms so far about 14 days. He was hoping to be able to stay home. The patient does look chronically ill. His oral intake has been poor. His symptoms have worsened over the last 2 or 3 days. In addition, the patient has joint aches, some fever, and chills. He was seen in the emergency room by Dr. Redmond. The patient mentions that he has a number of different rheumatologic illnesses including rheumatoid arthritis, microscopic polyangiitis, and vasculitis. He apparently takes Rituxan for this. He also has a history of hemorrhoids, GI bleed, colonic polyps, gout, and rectal bleeding. White count is 7.3, hemoglobin 15.4, hematocrit 43.6, and platelet count 260,000. PT INR and PTT normal. D-dimer is 0.94. Sodium 133, potassium 4.7, chlorides 96, CO2 27, anion gap 10, BUN 26, and creatinine 1.26. C-reactive protein is 149.3. The patient is seen today 05/15/2020 in follow-up on the regular medical floor. He is currently sitting up in bed. Awake and alert in no acute distress. Maintaining O2 saturations in the 90s on 5 L/m per nasal cannula. No worsening shortness of breath, cough or congestion. He is receiving Lovenox, dexamethasone, multivitamins. Sodium 136. Potassium 4.4. Creatinine 1.3. Patient was reevaluated today on 05/16/2020, remains on the regular medical floor, remains on 5 L nasal cannula, O2 saturation is in the low 90s. Patient is feeling a bit better, continues to have some cough and shortness of breath. CBC is relatively normal, left was abnormal renal profile is abnormal with creatinine up to 1.3. Pro-calcitonin is 0.11 not considered to be clinically significant. Chest x-ray is basically the same, not much different compared to the chest x-ray on admission. Patient remains on the Covid 19 cocktail. Reevaluated today on 05/17/2020, patient remains on the regular medical floor, continues to have significant and intermittent cough, remains on oxygen at 5 L nasal cannula, O2 saturation is in the low 90s. Patient tells me that he feels much worse now that he felt before. Chest x-ray does not seem to be quite impressive. Nonetheless it showed groundglass opacities/bibasilar. Labs are relatively unremarkable. Creatinine is 1.2. Improving C-reactive protein is 3.4, and LDH was only 311. Patient was reevaluated today on 05/20/2020, remains on the regular medical floor, patient is coughing continuously almost. Continues to have increased shortness of breath. He is now on 15 L high flow nasal cannula. In spite of the fact that his chest x-ray doesn't show significant worsening. His d-dimer is 1.57 today, hence I'm seriously considering a CT angiogram of the chest on this patient. Again mostly because that his chest x-ray does not show significant airspace disease that correlates with his O2 requirement. Patient is on Lovenox at 40 mg subcu daily. He is on Zosyn and vancomycin however his blood cultures have been negative and I will discontinue vancomycin today. His inflammatory markers have not been significantly high. LDH was only 311. And CRP was only 3.4. Considering the rise in his d-dimer and the fact that the patient is having more symptoms, I would proceed with a CT angiogram of the chest on this patient. His creatinine is borderline elevated, I will go ahead and discontinue his vancomycin and increase his IV fluid. Patient was reevaluated today on 05/21/2020, remains on high flow oxygen. He is now on a nonrebreather mask and airvo 90% FiO2 O2 saturation is in the low 90s. Patient is coughing less, but he does have shortness of breath with any activity. CT angiogram of the chest yesterday failed to show any thromboembolic disease/pulmonary embolism. And his venous Doppler also came back negative for deep vein thrombosis. CBC is relatively normal electrocerebral normal renal profile is normal except for BUN of [address] of the chest actually showed significant airspace disease with multifocal peripheral infiltrates. Patient was reevaluated today on 05/22/2020, remains on high flow oxygen, he is now on 15 L high flow cannula, we will improvement since yesterday, less shortness of breath, continues to have some vague lower abdominal pain, did not sleep well last night, patient has less cough, less wheezing, and definitely less shortness of breath. Denies any diarrhea. Again workup was negative for thromboembolic disease. Reevaluated today on 05/23/2020, patient remains on high flow nasal cannula at 15 L/m. His oxygen saturation is not improving much. Clinically the patient is not improving much. He continues to have shortness of breath at rest and with any exertion. Patient is refusing now to take his Decadron he would like a lower dose because it's keeping him awake and making him anxious. I will cut down the Decadron to 4 mg orally daily instead of 6 mg IV push daily. Labs today were reviewed his d-dimer is 1.23 CBC is relatively normal elect lites are normal BUN is 29 creatinine is 1.2, LDH is 432 Reevaluated today on 05/24/2020, patient is basically about the same, still requiring 15 L high flow nasal cannula. Less cough, less shortness of breath, remained generally weak, patient was switched yesterday to Decadron 4 mg by mouth incentive IV, patient did not want to high dose of Decadron and he was refusing his IV dose. No labs drawn today, clinically the patient is about the same seems to be a bit more comfortable and more pleasant today Patient was reevaluated today on 05/25/2020, basically about the same, remains on 15 L high flow nasal cannula, intermittent cough, continues to have shortness of breath, remained generally weak. Labs today were basically unremarkable including relatively normal CBC and normal electrolytes, d-dimer is up to 2.47 e lect lites are normal BUN is normal creatinine is 1.02. LDH is up to 1055. Pro-calcitonin is relatively normal yesterday. Objective - Vital Signs Vital signs: Vital Signs Temp 100.4 F H 05/25/20 07:49 Pulse 88 05/25/20 07:49 Resp 24 05/25/20 07:49 BP 117/67 05/25/20 07:49 Pulse Ox 96 05/25/20 07:49 Intake & Output 05/24/20 05/25/20 05/25/20 18:59 06:59 18:59 Intake Total 420 0 Output Total 425 Balance -5 0 Intake: Intake, IV Titration 100 Amount Piperacillin-Tazobactam 3 100 .375 gm In Sodium Chloride 0.9% 100 ml @ 25 mls/hr IVPB Q8H [facility] Rx#: [id number] Oral 320 0 Output: Urine 425 Other: Voiding Method Bedside Commode Bedside Commode Urinal Urinal Diaper Diaper Incontinent Incontinent # Voids 2 - Exam Physical Exam: Revealed a 64-year-old white male on 15 L high flow nasal cannula Head: Atraumatic, normocephalic. HEENT:[Neck is supple.] [No neck masses.] [No thyromegaly.] [No JVD.] Chest: [Persistent crackles at the bases no rhonchi and no wheezes. Cardiac Exam: [Normal S1 and S2, no S3 gallop, no murmur.] Abdomen: [Soft, nontender, no megaly, no rebound, no guarding, normal bowel sounds.] Extremities: [No clubbing, no edema, no cyanosis.] Neurological Exam: [No focal neurologic deficit.] Alert oriented 3. Psychiatric: Normal mood affect and normal mental status examination. Skin: No rashes. [place] skeletal: No deformities noted limitation in range of motion. - Labs CBC & Chem 7: 05/25/20 06:24 05/25/20 06:24 Labs: Abnormal Lab Results - Last 24 Hours (Table) 05/25/20 05/25/20 05/25/20 Range/Units 06:24 06:24 06:24 Neutrophils # 8.7 H (1.3-7.7) k/uL Lymphocytes # 0.7 L (1.0-4.8) k/uL D-Dimer 2.47 H (<0.60) mg/L FEU Sodium 133 L (137-145) mmol/L BUN 25 H (9-20) mg/dL Calcium 8.1 L (8.4-10.2) mg/dL Lactate Dehydrogenase 1055 H (313-618) U/L Microbiology - Last 24 Hours (Table) 05/20/20 09:09 Blood Culture - Preliminary Blood No Growth after 96 hours 05/20/20 09:00 Blood Culture - Preliminary Blood No Growth after 96 hours Assessment and Plan Assessment: Impression: Acute on chronic hypoxic respiratory failure secondary to covid 19 pneumonia. History of microscopic polyangiitis. History of rheumatoid arthritis. History of gout. History of hypertension. Previous history of GI bleeding. Recommendation: Continue high flow cannula and adjust/titrate accordingly. Continue the present Covid 19 cocktails. Continue to monitor inflammatory markers Considering the patient is on antibiotics, not a candidate for toci Convalescent plasma one unit, was transfused. Continue Decadron at 4 mg by mouth daily. We'll continue to follow, prognosis remains extremely guarded. Time with Patient: Less than 30
[2020-05-25] MEDS: ACETAMINOPHEN TAB 325 MG TAB PO PRN (10:46)
--- NOTE | 2020-05-25 16:14 | P.PN ---
Subjective 64-year-old male who was recently admitted with acute Covid 19 pneumonia and acute hypoxic respiratory failure currently maintained on high flow oxygen along with nonrebreather and is being closely monitored. Patient continues to be extremely dyspneic with minimal exertion. Multiple medical consultations including neurology and pulmonary following. Patient recently underwent chest CTA which shows no evidence of pulmonary embolism and bilateral lower extremity venous Dopplers ordered which were negative for DVTs. Patient is maintained on Lovenox along with dexamethasone, vitamin C, and zinc supplements and will continue at this time. Patient also maintained on IV antibiotic therapy in the form of Zosyn and will continue. 2-D echo was done although suboptimal and unable to determine EF and will evaluate further to repeat this echo. Patient is currently being considered for convalescent plasma recommended by pulmonary. 05/22/2020 Patient is seen and evaluated and follow-up this morning continues to be severely dyspneic and is maintained on high flow nasal cannula 15 L along with periods of nonrebreather and is being closely monitored. Patient continues to be extremely dyspneic with minimal exertion along with generalized weakness and not feeling well. Per nursing staff patient had a large bowel movement yesterday and continues to have abdominal discomfort with bloating. Patient denies any nausea or vomiting and is tolerating diet but not eating very much. Patient continues to have intermittent low-grade fevers. Pulmonary is following and patient is awaiting to receive a unit of convalescent plasma which is pend ing at this time. Patient is maintained on IV Zosyn and will continue. Urine and blood cultures thus far remain negative will order sputum culture. Will order chest x-ray for the a.m. along with inflammatory markers and repeat labs. 05/23/2020 Patient is seen and evaluated and follow-up currently sitting up in the chair continues to be short of breath and dyspneic with minimal exertion. Patient is maintained on 15 liters high flow along with nonrebreather and oxygen saturations have been in the low to mid 80s. Patient was on dexamethasone IV although stating it is making him worse and has been transitioned oral Decadron 4 mg. Patient has received 1 unit of convalescent plasma. A continues with low-grade intermittent fevers of 100.5F this morning. D-dimer is down at 1.23 today although inflammatory markers slightly elevated. BMP within normal limits and current creatinine is 1.2. White blood count is 9.01 NE globin is stable at 13.5. Patient is maintained on vitamin and zinc supplements and will continue. Patient also continues on IV Zosyn. Blood cultures remain negative and sputum culture pending. Patient is eating very minimally and denies any nausea or vomiting just not much of an appetite. 05/24/2020 Patient is seen and evaluated and follow-up this morning continues to be on 15 L high flow along with nonrebreather and is being closely monitored. No real imp rovement noted in respiratory status and patient continues to be weak with continued low-grade intermittent fevers and patient will continue on IV antibiotics. Patient is maintained on oral Decadron along with vitamin and zinc supplements and Lovenox and will continue at this time. Blood and urine cultures remain negative with sputum cultures still uncollected. Patient states his cough is less severe although continues with a cough. Incentive spirometer suggested although patient states he is unable to do this as he desats quickly off of nonrebreather. Patient is tolerating diet and continues to eat very little but denies any nausea or vomiting. 05/25/2020 Patient remains on 15 L of oxygen by nasal cannula along with Ventimask. Patient d-dimer is still elevated actually worse than before and is around 2.47, basic metabolic profile is within normal limits Review of systems: Constitutional: fatigue, reports of fever, or chills Cardiovascular: No reports of chest pain or palpitations Respiratory: reports of shortness of breath and cough GI: No reports of nausea, vomiting, or diarrhea : No reports of dysuria or retention Neurovascular: Reports generalized weakness Objective - Vital Signs Vital signs: Vital Signs Temp 98.4 F 05/25/20 14:00 Pulse 104 H 05/25/20 14:00 Resp 18 05/25/20 14:00 BP 95/61 05/25/20 14:00 Pulse Ox 94 L 05/25/20 14:00 Intake & Output 05/24/20 05/25/20 05/25/20 18:59 06:59 18:59 Intake Total 420 0 100 Output Total 425 Balance -5 0 100 Intake: Intake, IV Titration 100 Amount Piperacillin-Tazobactam 3 100 .375 gm In Sodium Chloride 0.9% 100 ml @ 25 mls/hr IVPB Q8H [facility] Rx#: [id number] Oral 320 0 100 Output: Urine 425 Other: Voiding Method Bedside Commode Bedside Commode Bedside Commode Urinal Urinal Urinal Diaper Diaper Incontinent Incontinent # Voids 2 - Exam PHYSICAL EXAMINATION: GENERAL: The patient is alert and oriented x3, not in any acute distress. Well developed, well nourished. HEENT: Pupils are round and equally reacting to light. EOMI. No scleral icterus. No conjunctival pallor. Normocephalic, atraumatic. No pharyngeal erythema. No thyromegaly. CARDIOVASCULAR: S1 and S2 present. No murmurs, rubs, or gallops. PULMONARY: Chest is clear to auscultation, no wheezing or crackles. ABDOMEN: Soft, nontender, nondistended, normoactive bowel sounds. No palpable organomegaly. MUSCULOSKELETAL: No joint swelling or deformity. EXTREMITIES: No cyanosis, clubbing, or pedal edema. NEUROLOGICAL: Gross neurological examination did not reveal any focal deficits. SKIN: No rashes. Note: Because of COVID 19 isolation, some of the history and physical exam findings are indirect and obtained from nursing staff, and other physician examinations to avoid unnecessary contact with the patient. - Labs CBC & Chem 7: 05/25/20 06:24 05/25/20 06:24 Labs: Abnormal Lab Results - Last 24 Hours (Table) 05/25/20 05/25/20 05/25/20 Range/Units 06:24 06:24 06:24 Neutrophils # 8.7 H (1.3-7.7) k/uL Lymphocytes # 0.7 L (1.0-4.8) k/uL D-Dimer 2.47 H (<0.60) mg/L FEU Sodium (137-145) mmol/L BUN (9-20) mg/dL Calcium (8.4-10.2) mg/dL Lactate Dehydrogenase (313-618) U/L Procalcitonin 0.12 H (0.02-0.09) ng/mL 05/25/20 Range/Units 06:24 Neutrophils # (1.3-7.7) k/uL Lymphocytes # (1.0-4.8) k/uL D-Dimer (<0.60) mg/L FEU Sodium 133 L (137-145) mmol/L BUN 25 H (9-20) mg/dL Calcium 8.1 L (8.4-10.2) mg/dL Lactate Dehydrogenase 1055 H (313-618) U/L Procalcitonin (0.02-0.09) ng/mL Microbiology - Last 24 Hours (Table) 05/25/20 07:30 Sputum Culture - Preliminary Sputum 05/20/20 09:09 Blood Culture - Preliminary Blood No Growth after 120 hours 05/20/20 09:00 Blood Culture - Preliminary Blood No Growth after 120 hours Assessment and Plan Plan: Acute Covid 19 infection with acute Covid 19 bilateral interstitial pneumonia with acute hypoxic respiratory failure Change in mental status, metabolic encephalopathy, improved Hypotension with possible sepsis increased inflammatory markers History of nicotine dependence Constipation, resolved history of EtOH abuse History of rheumatoid arthritis history of chronic kidney disease, stage III History of gout History of gastrointestinal bleed DVT prophylaxis: Lovenox Full code Plan: Continue with current medications and continue to wean FiO2 as tolerated. Patient did receive 1 unit of convalescent plasma yesterday and continues to be on 15 L high flow along with nonrebreather and continues to be dyspneic with minimal exertion. Patient remains on oral Decadron along with vitamin C, D, and zinc supplements and will continue. Continue with Lovenox. Pulmonary following. Patient is maintained on IV Zosyn and blood and urine cultures thus far have been negative and awaiting the sputum culture. Patient continues with low-grade intermittent fevers. Will repeat a.m. labs along with inflammatory markers and monitor closely.
[2020-05-25] MEDS: ATORVASTATIN 40 MG TAB PO SCH (20:13)
[2020-05-25 20:40] LABS: Glucose,Whole Blood 202 mg/dL (75-99)
[2020-05-26] MEDS: PIPERACILLIN-TAZOBACTAM 3.375 GM in SODIUM CHLORIDE 0.9% 100 ML IVPB SCH ×3 (03:11→19:47)
[2020-05-26] MEDS: SODIUM CHLORIDE 0.9% 1,000 ML IV SCH ×3 (03:12→19:48)
[2020-05-26] MEDS: ENOXAPARIN 40 MG/0.4 ML SYRINGE SQ SCH (08:50)
[2020-05-26] MEDS: ACETAMINOPHEN TAB 325 MG TAB PO PRN (08:51)
[2020-05-26] MEDS: THIAMINE 100 MG/ML 2 ML VIAL IVP SCH (08:51)
[2020-05-26] MEDS: polyethylene glycoL 3350 17 GM POWD.PACK PO SCH ×2 (08:51→08:57)
[2020-05-26] MEDS: ZINC SULFATE 220 MG CAP PO SCH (08:52)
[2020-05-26] MEDS: allopurinoL 100 MG TAB PO SCH ×2 (08:52→21:02)
[2020-05-26] MEDS: ASPIRIN 81 MG PO SCH (08:52)
[2020-05-26] MEDS: CHOLECALCIFEROL 25 MCG (1000 IU) TABLET PO SCH (08:52)
[2020-05-26] MEDS: ASCORBIC ACID 500 MG TAB PO SCH (08:52)
[2020-05-26] MEDS: dexAMETHasone 4 MG TAB PO SCH (08:52)
[2020-05-26] MEDS: SYMBICORT 160-4.5 MCG INHALER INHALATION SCH ×2 (08:53→19:35)
[2020-05-26] MEDS: FLUTICASONE 50MCG/SPRAY NASAL 16GM EA NOSTRIL SCH (09:02)
--- NOTE | 2020-05-26 15:06 | P.PN ---
Subjective 64-year-old male who was recently admitted with acute Covid 19 pneumonia and acute hypoxic respiratory failure currently maintained on high flow oxygen along with nonrebreather and is being closely monitored. Patient continues to be extremely dyspneic with minimal exertion. Multiple medical consultations including neurology and pulmonary following. Patient recently underwent chest CTA which shows no evidence of pulmonary embolism and bilateral lower extremity venous Dopplers ordered which were negative for DVTs. Patient is maintained on Lovenox along with dexamethasone, vitamin C, and zinc supplements and will continue at this time. Patient also maintained on IV antibiotic therapy in the form of Zosyn and will continue. 2-D echo was done although suboptimal and unable to determine EF and will evaluate further to repeat this echo. Patient is currently being considered for convalescent plasma recommended by pulmonary. 05/22/2020 Patient is seen and evaluated and follow-up this morning continues to be severely dyspneic and is maintained on high flow nasal cannula 15 L along with periods of nonrebreather and is being closely monitored. Patient continues to be extremely dyspneic with minimal exertion along with generalized weakness and not feeling well. Per nursing staff patient had a large bowel movement yesterday and continues to have abdominal discomfort with bloating. Patient denies any nausea or vomiting and is tolerating diet but not eating very much. Patient continues to have intermittent low-grade fevers. Pulmonary is following and patient is awaiting to receive a unit of convalescent plasma which is pend ing at this time. Patient is maintained on IV Zosyn and will continue. Urine and blood cultures thus far remain negative will order sputum culture. Will order chest x-ray for the a.m. along with inflammatory markers and repeat labs. 05/23/2020 Patient is seen and evaluated and follow-up currently sitting up in the chair continues to be short of breath and dyspneic with minimal exertion. Patient is maintained on 15 liters high flow along with nonrebreather and oxygen saturations have been in the low to mid 80s. Patient was on dexamethasone IV although stating it is making him worse and has been transitioned oral Decadron 4 mg. Patient has received 1 unit of convalescent plasma. A continues with low-grade intermittent fevers of 100.5F this morning. D-dimer is down at 1.23 today although inflammatory markers slightly elevated. BMP within normal limits and current creatinine is 1.2. White blood count is 9.01 NE globin is stable at 13.5. Patient is maintained on vitamin and zinc supplements and will continue. Patient also continues on IV Zosyn. Blood cultures remain negative and sputum culture pending. Patient is eating very minimally and denies any nausea or vomiting just not much of an appetite. 05/24/2020 Patient is seen and evaluated and follow-up this morning continues to be on 15 L high flow along with nonrebreather and is being closely monitored. No real imp rovement noted in respiratory status and patient continues to be weak with continued low-grade intermittent fevers and patient will continue on IV antibiotics. Patient is maintained on oral Decadron along with vitamin and zinc supplements and Lovenox and will continue at this time. Blood and urine cultures remain negative with sputum cultures still uncollected. Patient states his cough is less severe although continues with a cough. Incentive spirometer suggested although patient states he is unable to do this as he desats quickly off of nonrebreather. Patient is tolerating diet and continues to eat very little but denies any nausea or vomiting. 05/25/2020 Patient remains on 15 L of oxygen by nasal cannula along with Ventimask. Patient d-dimer is still elevated actually worse than before and is around 2.47, basic metabolic profile is within normal limits 05/26/2020 Patient remains on 15 L of oxygen although not on Ventimask today saturating at 90%. Review of systems: Constitutional: fatigue, reports of fever, or chills Cardiovascular: No reports of chest pain or palpitations Respiratory: reports of shortness of breath and cough GI: No reports of nausea, vomiting, or diarrhea : No reports of dysuria or retention Neurovascular: Reports generalized weakness Objective - Vital Signs Vital signs: Vital Signs Temp 98.3 F 05/26/20 14:00 Pulse 92 05/26/20 14:00 Resp 22 05/26/20 14:00 BP 93/60 05/26/20 14:00 Pulse Ox 92 L 05/26/20 14:00 Intake & Output 05/25/20 05/26/20 05/26/20 18:59 06:59 18:59 Intake Total 1200 Output Total 1000 Balance 1200 -1000 Intake: IV 1100 Piperacillin-Tazobactam 3 100 .375 gm In Sodium Chloride 0.9% 100 ml @ 25 mls/hr IVPB Q8H [facility] Rx#: [id number] Sodium Chloride 0.9% 1, 1000 000 ml @ 125 mls/hr IV . Q8H [facility] Rx#:[id number] Oral 100 Output: Urine 1000 Other: Voiding Method Bedside Commode Bedside Commode Urinal Urinal - Exam PHYSICAL EXAMINATION: GENERAL: The patient is alert and oriented x3, not in any acute distress. Well developed, well nourished. HEENT: Pupils are round and equally reacting to light. EOMI. No scleral icterus. No conjunctival pallor. Normocephalic, atraumatic. No pharyngeal erythema. No thyromegaly. CARDIOVASCULAR: S1 and S2 present. No murmurs, rubs, or gallops. PULMONARY: Chest is clear to auscultation, no wheezing or crackles. ABDOMEN: Soft, nontender, nondistended, normoactive bowel sounds. No palpable organomegaly. MUSCULOSKELETAL: No joint swelling or deformity. EXTREMITIES: No cyanosis, clubbing, or pedal edema. NEUROLOGICAL: Gross neurological examination did not reveal any focal deficits. SKIN: No rashes. Note: Because of COVID 19 isolation, some of the history and physical exam findings are indirect and obtained from nursing staff, and other physician examinations to avoid unnecessary contact with the patient. - Labs CBC & Chem 7: 05/25/20 06:24 05/25/20 06:24 Labs: Abnormal Lab Results - Last 24 Hours (Table) 05/25/20 Range/Units 20:38 POC Glucose (mg/dL) 202 H (75-99) mg/dL Microbiology - Last 24 Hours (Table) 05/20/20 09:09 Blood Culture - Final Blood No Growth after 144 hours 05/20/20 09:00 Blood Culture - Final Blood No Growth after 144 hours 05/25/20 07:30 Gram Stain - Preliminary Sputum Sputum Culture - Preliminary Assessment and Plan Plan: Acute Covid 19 infection with acute Covid 19 bilateral interstitial pneumonia with acute hypoxic respiratory failure Change in mental status, metabolic encephalopathy, improved Hypotension with possible sepsis increased inflammatory markers History of nicotine dependence Constipation, resolved history of EtOH abuse History of rheumatoid arthritis history of chronic kidney disease, stage III History of gout History of gastrointestinal bleed DVT prophylaxis: Lovenox Full code Plan: Continue with current medications and continue to wean FiO2 as tolerated. Pat ient did receive 1 unit of convalescent plasma yesterday and continues to be on 15 L high flow . Patient remains on oral Decadron along with vitamin C, D, and zinc supplements and will continue. Continue with Lovenox. Pulmonary following. Patient is maintained on IV Zosyn and blood and urine cultures and sputum culture are negative. Patient last fever was yesterday morning
--- NOTE | 2020-05-26 15:58 | P.PN ---
Subjective Progress Note Date: 05/26/20 Principal diagnosis: Shortness of breath. 64-year-old male, who is seen in the emergency department for weakness, and the patient has additional symptoms including shortness of breath, cough, and muscle soreness. The patient tested positive for COVID 19 on May 09. He's been having symptoms so far about 14 days. He was hoping to be able to stay home. The patient does look chronically ill. His oral intake has been poor. His symptoms have worsened over the last 2 or 3 days. In addition, the patient has joint aches, some fever, and chills. He was seen in the emergency room by Dr. Redmond. The patient mentions that he has a number of different rheumatologic illnesses including rheumatoid arthritis, microscopic polyangiitis, and vasculitis. He apparently takes Rituxan for this. He also has a history of hemorrhoids, GI bleed, colonic polyps, gout, and rectal bleeding. White count is 7.3, hemoglobin 15.4, hematocrit 43.6, and platelet count 260,000. PT INR a nd PTT normal. D-dimer is 0.94. Sodium 133, potassium 4.7, chlorides 96, CO2 27, anion gap 10, BUN 26, and creatinine 1.26. C-reactive protein is 149.3. The patient is seen today 05/15/2020 in follow-up on the regular medical floor. He is currently sitting up in bed. Awake and alert in no acute distress. Maintaining O2 saturations in the 90s on 5 L/m per nasal cannula. No worsening shortness of breath, cough or congestion. He is receiving Lovenox, dexamethasone, multivitamins. Sodium 136. Potassium 4.4. Creatinine 1.3. Patient was reevaluated today on 05/16/2020, remains on the regular medical floor, remains on 5 L nasal cannula, O2 saturation is in the low 90s. Patient is feeli ng a bit better, continues to have some cough and shortness of breath. CBC is relatively normal, left was abnormal renal profile is abnormal with creatinine up to 1.3. Pro-calcitonin is 0.11 not considered to be clinically significant. Chest x-ray is basically the same, not much different compared to the chest x- ray on admission. Patient remains on the Covid 19 cocktail. Reevaluated today on 05/17/2020, patient remains on the regular medical floor, continues to have significant and intermittent cough, remains on oxygen at 5 L nasal cannula, O2 saturation is in the low 90s. Patient tells me that he feels much worse now that he felt before. Chest x-ray does not seem to be quite impressive. Nonetheless it showed groundglass opacities/bibasilar. Labs are relatively unremarkable. Creatinine is 1.2. Improving C-reactive protein is 3.4, and LDH was only 311. Progress note dated 05/18/2020. 64-year-old male initially seen in the emergency department, with complaints of shortness of breath, cough, and muscle soreness. He tested positive for Covid and May 09. When he was initially seen, he been having symptoms for about 14 days. He has a history of rheumatoid arthritis, microscopic polyangiitis, and vasculitis. Currently, he is on 5 L nasal cannula. He states he had a rough night last night. He is very frail appearing. He complained of shortness of breath, and cough. He's not receiving any IV fluids. No labs today. Chest x-ray today, which I could not see for myself, did reveal some slight worsening of his peripheral bilateral infiltrates. Progress note dated 05/19/2020. 64-year-old male, initially seen in the emergency department, with complaints of shortness of breath, cough, and muscle soreness. He tested positive for COVID 19 on May 09. Currently, the patient's on 5 L nasal cannula. He is not receiving any IV fluids. He states he feels a bit better today than he did yesterday. No new laboratory data today. The patient has a history of rhe umatoid arthritis, microscopic polyangiitis, and vasculitis. He remains on 5 L. Progress note dated 05/26/2020. 64-year-old, been here in the hospital now for almost 2 weeks. Currently, the patient is on 15 L high flow O2, and getting saline at 125 mL an hour. He is also receiving Zosyn. They have a hard time with his IVs, and I recommended a midline catheter for him. Currently, the patient does not appear to be very motivated and getting better. He's always lying in bed, and sulking. I asked him to move about in bed, when he doesn't want to. No new labs today to report. Chest x-ray from May 25 shows mild scattered bilateral infiltrates. Objective - Vital Signs Vital signs: Vital Signs Temp 98.3 F 05/26/20 14:00 Pulse 92 05/26/20 14:00 Resp 22 05/26/20 14:00 BP 93/60 05/26/20 14:00 Pulse Ox 92 L 05/26/20 14:00 Intake & Output 05/25/20 05/26/20 05/26/20 18:59 06:59 18:59 Intake Total 1200 Output Total 1000 Balance 1200 -1000 Intake: IV 1100 Piperacillin-Tazobactam 3 100 .375 gm In Sodium Chloride 0.9% 100 ml @ 25 mls/hr IVPB Q8H [facility] Rx#: [id number] Sodium Chloride 0.9% 1, 1000 000 ml @ 125 mls/hr IV . Q8H [facility] Rx#:[id number] Oral 100 Output: Urine 1000 Other: Voiding Method Bedside Commode Bedside Commode Urinal Urinal - Exam No acute distress, oriented 3. Currently, the patient's on 15 L. Saturation is 92%. No conversational dyspnea or use of accessory muscles. HEENT examination is grossly unremarkable. Mucous membranes are moist. No oral lesions. Neck supple. Full range of motion. No adenopathy thyromegaly or neck vein distention. Cardiovascular examination reveals regular rhythm rate. S1-S2 normal. No S3 or S4. No discernible murmur noted. Heart rate 70 bpm. Heart sounds are distant. Lungs reveal bilateral rhonchi and crackles. There are no wheezes. Breath sounds equal bilaterally. He does cough on deep inspiration. Abdomen soft bowel sounds are heard. No masses or tenderness. Extremities are intact. No cyanosis clubbing or edema. Skin is without rash or lesion. Neurologic examination is brief but nonfocal. - Labs CBC & Chem 7: 05/25/20 06:24 05/25/20 06:24 Labs: Abnormal Lab Results - Last 24 Hours (Table) 05/25/20 Range/Units 20:38 POC Glucose (mg/dL) 202 H (75-99) mg/dL Microbiology - Last 24 Hours (Table) 05/20/20 09:09 Blood Culture - Final Blood No Growth after 144 hours 05/20/20 09:00 Blood Culture - Final Blood No Growth after 144 hours 05/25/20 07:30 Gram Stain - Preliminary Sputum Sputum Culture - Preliminary Assessment and Plan Assessment: Acute hypoxemic, secondary to COVID 19 pneumonitis/pneumonia. Significant systemic symptoms including muscle aches, joint aches, fever, chills, etc., all secondary to COVID 19. History of rheumatoid arthritis. History of microscopic polyangiitis (MPO). History of hypertension. History of vasculitis. History of gout. History of GI bleed. Plan: Plan dated 05/18/2020. When initially seen, the patient was outside the window for REM. The patient was started on Lovenox, Decadron, vitamin C, vitamin D3, and zinc. Currently, he is on 5 L nasal cannula. He is very frail, and doesn't seem very motivated to get out of bed and try and get better. I did tell the patient that while in bed, he needs to not only be supine, but prone, as well as right side down and left side down. Additional recommendations and suggestions are forthcoming. Prognosis is poor. The patient really has not made any progress since being admitted in late April. Plan dated 05/19/2020. Currently, the patient's doing a bit better today than he did yesterday. He still on 5 L. Saturations are improved. The patient was outside the window for REM. He is receiving Lovenox, Decadron, vitamin C, vitamin D3, and zinc. I did tell him to move about in bed. I also asked him to get out of bed and sit up in the chair. His shortness of breath is clearly worse on exertion. Progress note dated 05/26/2020. Currently, the patient is really not showing much improvement. In fact when I saw him last on May 19, he was on 5 L nasal cannula. Currently he is on 15 L. He is getting saline at 125 mL an hour and dosing. I recommended a midline catheter since he is going to be here for that time. X-rays, labs, medications are all reviewed. He is receiving appropriate medications. We will continue to follow. Prognosis is guarded. Time with Patient: Less than 30
[2020-05-26] MEDS: ATORVASTATIN 40 MG TAB PO SCH (21:02)
[2020-05-27] MEDS: PIPERACILLIN-TAZOBACTAM 3.375 GM in SODIUM CHLORIDE 0.9% 100 ML IVPB SCH ×3 (04:50→20:08)
[2020-05-27] MEDS: ACETAMINOPHEN TAB 325 MG TAB PO PRN (06:25)
[2020-05-27] MEDS: THIAMINE 100 MG/ML 2 ML VIAL IVP SCH (08:47)
[2020-05-27] MEDS: ASPIRIN 81 MG PO SCH (08:47)
[2020-05-27] MEDS: allopurinoL 100 MG TAB PO SCH ×2 (08:47→20:09)
[2020-05-27] MEDS: ZINC SULFATE 220 MG CAP PO SCH (08:47)
[2020-05-27] MEDS: dexAMETHasone 4 MG TAB PO SCH (08:47)
[2020-05-27] MEDS: ASCORBIC ACID 500 MG TAB PO SCH (08:47)
[2020-05-27] MEDS: SYMBICORT 160-4.5 MCG INHALER INHALATION SCH ×2 (08:49→19:55)
[2020-05-27] MEDS: ENOXAPARIN 40 MG/0.4 ML SYRINGE SQ SCH (08:51)
[2020-05-27] MEDS: FLUTICASONE 50MCG/SPRAY NASAL 16GM EA NOSTRIL SCH (09:07)
[2020-05-27] MEDS: polyethylene glycoL 3350 17 GM POWD.PACK PO SCH (11:56)
[2020-05-27] MEDS: CHOLECALCIFEROL 25 MCG (1000 IU) TABLET PO SCH (11:56)
[2020-05-27] MEDS: SODIUM CHLORIDE 0.9% 1,000 ML IV SCH ×2 (12:18→23:58)
--- NOTE | 2020-05-27 13:25 | P.PN ---
Subjective Progress Note Date: 05/27/20 This is a 64-year-old male who was recently admitted with acute Covid 19 pneumonia and acute hypoxic respiratory failure currently maintained on high flow oxygen along with nonrebreather and is being closely monitored. Patient continues to be extremely dyspneic with minimal exertion. Multiple medical co nsultations including neurology and pulmonary following. Patient recently underwent chest CTA which shows no evidence of pulmonary embolism and bilateral lower extremity venous Dopplers ordered which were negative for DVTs. Patient is maintained on Lovenox along with dexamethasone, vitamin C, and zinc supplements and will continue at this time. Patient also maintained on IV antibiotic therapy in the form of Zosyn and will continue. 2-D echo was done although suboptimal and unable to determine EF and will evaluate further to repeat this echo. Patient is currently being considered for convalescent plasma recommended by pulmonary. 05/22/2020 Patient is seen and evaluated and follow-up this morning continues to be severely dyspneic and is maintained on high flow nasal cannula 15 L along with periods of nonrebreather and is being closely monitored. Patient continues to be extremely dyspneic with minimal exertion along with generalized weakness and not feeling well. Per nursing staff patient had a large bowel movement yesterday and continues to have abdominal discomfort with bloating. Patient denies any nausea or vomiting and is tolerating diet but not eating very much. Patient continues to have intermittent low-grade fevers. Pulmonary is following and patient is awaiting to receive a unit of convalescent plasma which is pending at this time. Patient is maintained on IV Zosyn and will continue. Urine and blood cultures thus far remain negative will order sputum culture. Will order chest x-ray for the a.m. along with inflammatory markers and repeat labs. 05/23/2020 Patient is seen and evaluated and follow-up currently sitting up in the chair continues to be short of breath and dyspneic with minimal exertion. Patient is maintained on 15 liters high flow along with nonrebreather and oxygen saturations have been in the low to mid 80s. Patient was on dexamethasone IV although stating it is making him worse and has been transitioned oral Decadron 4 mg. Patient has received 1 unit of convalescent plasma. A continues with low-grade intermittent fevers of 100.5F this morning. D-dimer is down at 1.23 today although inflammatory markers slightly elevated. BMP within normal limits and current creatinine is 1.2. White blood count is 9.01 NE globin is stable at 13.5. Patient is maintained on vitamin and zinc supplements and will continue. Patient also continues on IV Zosyn. Blood cultures remain negative and sputum culture pending. Patient is eating very minimally and denies any nausea or vomiting just not much of an appetite. 05/24/2020 Patient is seen and evaluated and follow-up this morning continues to be on 15 L high flow along with nonrebreather and is being closely monitored. No real improvement noted in respiratory status and patient continues to be weak with continued low-grade intermittent fevers and patient will continue on IV a ntibiotics. Patient is maintained on oral Decadron along with vitamin and zinc supplements and Lovenox and will continue at this time. Blood and urine cultures remain negative with sputum cultures still uncollected. Patient states his cough is less severe although continues with a cough. Incentive spirometer suggested although patient states he is unable to do this as he desats quickly off of nonrebreather. Patient is tolerating diet and continues to eat very little but denies any nausea or vomiting. 05/25/2020 Patient remains on 15 L of oxygen by nasal cannula along with Ventimask. Pat ient d-dimer is still elevated actually worse than before and is around 2.47, basic metabolic profile is within normal limits 05/26/2020 Patient remains on 15 L of oxygen although not on Ventimask today saturating at 90%. 05/27/2020 Patient is seen this morning continues to have low-grade intermittent fevers of 101.2 this morning and currently maintained on high flow nasal cannula at 15 L continues to be dyspneic. Will repeat some a.m. labs along with chest x-ray. Review of systems: Constitutional: fatigue, reports of fever, or chills Cardiovascular: No reports of chest pain or palpitations Respiratory: reports of shortness of breath and cough GI: No reports of nausea, vomiting, or diarrhea : No reports of dysuria or retention Neurovascular: Reports generalized weakness All medications have been reviewed Objective - Vital Signs Vital signs: Vital Signs Temp 99.0 F 05/27/20 08:00 Pulse 110 H 05/27/20 08:00 Resp 22 05/27/20 08:00 BP 101/62 05/27/20 08:00 Pulse Ox 92 L 05/27/20 08:00 Intake & Output 05/26/20 05/27/20 05/27/20 18:59 06:59 18:59 Intake Total 200 Output Total 750 850 Balance -750 -850 200 Intake: Oral 200 Output: Urine 750 850 Other: Voiding Method Bedside Commode Urinal - Exam Gen: This is a 64-year-old male awake, alert and oriented 3. Not in any acute distress. Well-developed, well-nourished. HEENT: Head is atraumatic, normocephalic. Pupils equal, round. Sclerae is anict ashley. NECK: Supple. No JVD. No lymphadenopathy. No thyromegaly. LUNGS: Diminished breath sounds bilaterally with a few scattered rhonchi noted. No intercostal retractions. HEART: S1, S2 are muffled ABDOMEN: Soft. Bowel sounds are present. No masses. No tenderness. EXTREMITIES: No pedal edema. No calf tenderness. NEUROLOGICAL: Patient is lethargic although arousable, alert and oriented x3. D iffusely weak. - Labs CBC & Chem 7: 05/25/20 06:24 05/25/20 06:24 Labs: Microbiology - Last 24 Hours (Table) 05/25/20 07:30 Gram Stain - Final Sputum Sputum Culture - Final 05/20/20 09:09 Blood Culture - Final Blood No Growth after 144 hours 05/20/20 09:00 Blood Culture - Final Blood No Growth after 144 hours Assessment and Plan Assessment: Acute Covid 19 infection with acute Covid 19 bilateral interstitial pneumonia with acute hypoxic respiratory failure Change in mental status, metabolic encephalopathy, improved Hypotension with possible sepsis increased inflammatory markers History of nicotine dependence Constipation, resolved history of EtOH abuse History of rheumatoid arthritis history of chronic kidney disease, stage III History of gout History of gastrointestinal bleed DVT prophylaxis: Lovenox Full code Plan: Continue with current medications and continue to wean FiO2 as tolerated. Patient did receive 1 unit of convalescent plasma yesterday and continues to be on 15 L high flow along with nonrebreather and continues to be dyspneic with minimal exertion. Patient remains on oral Decadron along with vitamin C, D, and zinc supplements and will continue. Continue with Lovenox. Pulmonary following. Patient is maintained on IV Zosyn and blood, sputum, and urine cultures thus far have been negative. Patient continues with low-grade intermittent fevers. Will repeat a.m. labs , chest x-ray, and inflammatory markers and monitor closely.
--- NOTE | 2020-05-27 14:39 | P.PN ---
Subjective Progress Note Date: 05/27/20 On 05/27/2020 the patient is on 15 liters of oxygen by nasal cannula. The patient has been in the hospital for the past 14 days. The patient had a fever this morning with a T-max of 11.2. His most recent chest x-ray was from 05/23/2020 and it showed patchy bilateral peripheral pulmonary infiltrates. No chest x-ray has been done since. Meanwhile, his blood work from today is not available. Last blood tests are from 05/25/2020. LDH was elevated at 1055 and the progesterone level was low at 0.12. The patient currently is on Lovenox 40 mg subcu for DVT prophylaxis. The patient is on IV Zosyn and the patient is also on Decadron 4 mg by mouth daily. Cultures of been all negative. His white cell count from 2 days ago was 9.6 and the levels need to be repeated. Objective - Vital Signs Vital signs: Vital Signs Temp 99.0 F 05/27/20 08:00 Pulse 110 H 05/27/20 08:00 Resp 18 05/27/20 08:00 BP 101/62 05/27/20 08:00 Pulse Ox 92 L 05/27/20 08:00 Intake & Output 05/26/20 05/27/20 05/27/20 18:59 06:59 18:59 Intake Total 200 Output Total 750 850 200 Balance -750 -850 0 Intake: Oral 200 Output: Urine 750 850 200 Other: Voiding Method Bedside Commode Urinal # Voids 1 - Exam No acute distress, oriented 3. Currently, the patient's on 15 L. Saturation is 92%. No conversational dyspnea or use of accessory muscles. HEENT examination is grossly unremarkable. Mucous membranes are moist. No oral lesions. Neck supple. Full range of motion. No adenopathy thyromegaly or neck vein distention. Cardiovascular examination reveals regular rhythm rate. S1-S2 normal. No S3 or S4. No discernible murmur noted. Heart sounds are distant. Lungs reveal bilateral rhonchi and crackles. There are no wheezes. Breath sounds equal bilaterally. He does cough on deep inspiration. Abdomen soft bowel sounds are heard. No masses or tenderness. Extremities are intact. No cyanosis clubbing or edema. Skin is without rash or lesion. Neurologic examination is brief but nonfocal. - Labs CBC & Chem 7: 05/25/20 06:24 05/25/20 06:24 Labs: Microbiology - Last 24 Hours (Table) 05/25/20 07:30 Gram Stain - Final Sputum Sputum Culture - Final 05/20/20 09:09 Blood Culture - Final Blood No Growth after 144 hours 05/20/20 09:00 Blood Culture - Final Blood No Growth after 144 hours Assessment and Plan Plan: 1 Acute hypoxemic, secondary to COVID 19 pneumonitis/pneumonia. The patient has been in the hospital for the past 2 weeks. Currently is having and running a low-grade fever. The patient is to be further investigated. Most recent pro- calcitonin level was low. A repeat chest x-ray will be done. A repeat blood work will be done. The patient remains on high flow oxygen 15 L per minute nasal cannula. 2 Significant systemic symptoms including muscle aches, joint aches, fever, chills, etc., all secondary to COVID 19. 3 History of rheumatoid arthritis. 4 History of microscopic polyangiitis (MPO). 5 History of hypertension. 6 History of vasculitis. 7 History of gout. 8 History of GI bleed. DORCAS Monitor fever pattern Check pro-calcitonin 2 sets of blood cultures and obtain also a urine analysis and urine culture Continued IV Zosyn Obtain a follow-up chest x-ray The patient has a new midline catheter today. Data spirometer and the patient is using it regularly, pulling approximately 700 Keep oxygen at 15 L and gradually wean it down to maintain a saturation above 90% We'll continue to follow.
--- NOTE | 2020-05-27 14:41 | XR ---
EXAMINATION TYPE: XR chest 1V portable DATE OF EXAM: 05/27/2020 COMPARISON: 05/23/2020 HISTORY: Supra TECHNIQUE: Single frontal view of the chest is obtained. FINDINGS: Diffuse bilateral airspace patchy interstitial alveolar infiltrates with tiny effusions. N o pneumothorax. Heart size normal. Hypertrophic and degenerative change of the spine. Arthropathy of the shoulders. Underlying COPD noted. IMPRESSION: Diffuse mixed interstitial alveolar infiltrate stable.
[2020-05-27 15:36] LABS: Basophils % (A) 0 %; Eosinophils % (A) 0 %; HCT 38.9 % (39.0-53.0); HGB 12.5 gm/dL (13.0-17.5); Lymphocytes # (A) 0.3 k/uL (1.0-4.8); Lymphocytes % (A) 4 %; MCH 27.6 pg (25.0-35.0); MCHC 32.2 g/dL (31.0-37.0); MCV 85.8 fL (80.0-100.0); Mean Platelet Volume 7.7; Monocytes # (A) 0.1 k/uL (0-1.0); Monocytes % (A) 1 %; Neutrophils # (A) 8.5 k/uL (1.3-7.7); Neutrophils % (A) 94 %; Platelet Count 219 k/uL (150-450); RBC 4.54 m/uL (4.30-5.90); RDW 13.9 % (11.5-15.5)
[2020-05-27 15:52] LABS: ALT 103 U/L (4-49); AST 63 U/L (17-59); African American GFR (CKD) >90 (>60 ml/min/1.73 sqM); Albumin 2.3 g/dL (3.5-5.0); Albumin/Globulin Ratio 1.1; Alkaline Phosphatase 71 U/L (38-126); Anion Gap 7 mmol/L; Blood Urea Nitrogen 28 mg/dL (9-20); Calcium 7.8 mg/dL (8.4-10.2); Carbon Dioxide 24 mmol/L (22-30); Chloride 100 mmol/L (98-107); Globulin 2.1 g/dL; Glucose 221 mg/dL (74-99); LDH 1132 U/L (313-618); Non-African American GFR(CKD) 80 (>60 ml/min/1.73 sqM); Potassium 4.3 mmol/L (3.5-5.1); Sodium 131 mmol/L (137-145); Total Bilirubin 0.6 mg/dL (0.2-1.3); Total Protein 4.4 g/dL (6.3-8.2)
[2020-05-27 16:05] LABS: C Reactive Protein 168.1 mg/L (<10.0)
[2020-05-27] MEDS: ATORVASTATIN 40 MG TAB PO SCH (20:09)
[2020-05-27] MEDS: ENOXAPARIN 80 MG/0.8 ML SYRINGE SQ SCH (20:10)
[2020-05-27 21:21] LABS: Appearance,Urine Clear (Clear); Bacteria,Urine Rare /hpf; Bilirubin,Urine Negative (Negative); Blood,Urine Trace (Negative); Color,Urine Light Yellow; Glucose,Urine (UA) Trace (Negative); Ketones,Urine Negative (Negative); Leukocyte Esterase,Urine Negative (Negative); Mucus,Urine Rare /hpf; Nitrite,Urine Negative (Negative); PH, Urine 5.5 (5.0-8.0); Protein,Urine Trace (Negative); RBC,Urine <1 /hpf (0-5); Specific Gravity,Urine 1.011 (1.001-1.035); Urobilinogen,Urine <2.0 mg/dL (<2.0); WBC,Urine <1 /hpf (0-5)
[2020-05-28] MEDS: ACETAMINOPHEN TAB 325 MG TAB PO PRN ×2 (02:59→08:50)
[2020-05-28] MEDS: PIPERACILLIN-TAZOBACTAM 3.375 GM in SODIUM CHLORIDE 0.9% 100 ML IVPB SCH ×2 (03:57→12:02)
[2020-05-28 05:46] LABS: Basophils % (A) 0 %; Eosinophils % (A) 0 %; HCT 39.5 % (39.0-53.0); HGB 13.4 gm/dL (13.0-17.5); Lymphocytes # (A) 0.6 k/uL (1.0-4.8); Lymphocytes % (A) 7 %; MCH 28.6 pg (25.0-35.0); MCHC 33.8 g/dL (31.0-37.0); MCV 84.4 fL (80.0-100.0); Mean Platelet Volume 7.5; Monocytes # (A) 0.2 k/uL (0-1.0); Monocytes % (A) 2 %; Neutrophils # (A) 7.9 k/uL (1.3-7.7); Neutrophils % (A) 90 %; Platelet Count 220 k/uL (150-450); RBC 4.68 m/uL (4.30-5.90); RDW 13.5 % (11.5-15.5); WBC 8.8 k/uL (3.8-10.6)
[2020-05-28 06:14] LABS: African American GFR (CKD) 74 (>60 ml/min/1.73 sqM); Anion Gap 6 mmol/L; Blood Urea Nitrogen 27 mg/dL (9-20); Carbon Dioxide 28 mmol/L (22-30); Chloride 99 mmol/L (98-107); Glucose 91 mg/dL (74-99); LDH 1122 U/L (313-618); Non-African American GFR(CKD) 64 (>60 ml/min/1.73 sqM); Potassium 4.6 mmol/L (3.5-5.1); Sodium 133 mmol/L (137-145)
[2020-05-28] MEDS: SYMBICORT 160-4.5 MCG INHALER INHALATION SCH ×2 (07:20→19:52)
[2020-05-28] MEDS: THIAMINE 100 MG/ML 2 ML VIAL IVP SCH (08:38)
[2020-05-28] MEDS: ENOXAPARIN 80 MG/0.8 ML SYRINGE SQ SCH ×2 (08:39→21:34)
[2020-05-28] MEDS: ASCORBIC ACID 500 MG TAB PO SCH (08:39)
[2020-05-28] MEDS: allopurinoL 100 MG TAB PO SCH ×2 (08:39→20:42)
[2020-05-28] MEDS: ZINC SULFATE 220 MG CAP PO SCH (08:39)
[2020-05-28] MEDS: ASPIRIN 81 MG PO SCH (08:39)
[2020-05-28] MEDS: CHOLECALCIFEROL 25 MCG (1000 IU) TABLET PO SCH (08:39)
[2020-05-28] MEDS: dexAMETHasone 4 MG TAB PO SCH (08:39)
[2020-05-28] MEDS: FLUTICASONE 50MCG/SPRAY NASAL 16GM EA NOSTRIL SCH (08:43)
[2020-05-28] MEDS: polyethylene glycoL 3350 17 GM POWD.PACK PO SCH (08:44)
--- NOTE | 2020-05-28 08:44 | XR ---
EXAMINATION TYPE: XR chest 1V portable DATE OF EXAM: 05/28/2020 COMPARISON: 05/27/2020 HISTORY: Shortness of breath TECHNIQUE: Single frontal view of the chest is obtained. FINDINGS: Diffuse bilateral airspace patchy interstitial alveolar infiltrates with tiny effusions. N o pneumothorax. Heart size normal. Hypertrophic and degenerative change of the spine. Arthropathy of the shoulders. Underlying COPD noted. Metallic density overlying the left first rib could be related to previous foreign body exposure correlate clinically. IMPRESSION: Bilateral patchy infiltrates stable correlate for CHF versus diffuse pneumonia.
[2020-05-28] MEDS ORDERED: FUROSEMIDE 10 MG/ML 2 ML VIAL IV ONE (13:31)
--- NOTE | 2020-05-28 13:31 | P.PN ---
Subjective Progress Note Date: 05/28/20 This is a 64-year-old male who was recently admitted with acute Covid 19 pneumonia and acute hypoxic respiratory failure currently maintained on high flow oxygen along with nonrebreather and is being closely monitored. Patient continues to be extremely dyspneic with minimal exertion. Multiple medical co nsultations including neurology and pulmonary following. Patient recently underwent chest CTA which shows no evidence of pulmonary embolism and bilateral lower extremity venous Dopplers ordered which were negative for DVTs. Patient is maintained on Lovenox along with dexamethasone, vitamin C, and zinc supplements and will continue at this time. Patient also maintained on IV antibiotic therapy in the form of Zosyn and will continue. 2-D echo was done although suboptimal and unable to determine EF and will evaluate further to repeat this echo. Patient is currently being considered for convalescent plasma recommended by pulmonary. 05/22/2020 Patient is seen and evaluated and follow-up this morning continues to be severely dyspneic and is maintained on high flow nasal cannula 15 L along with periods of nonrebreather and is being closely monitored. Patient continues to be extremely dyspneic with minimal exertion along with generalized weakness and not feeling well. Per nursing staff patient had a large bowel movement yesterday and continues to have abdominal discomfort with bloating. Patient denies any nausea or vomiting and is tolerating diet but not eating very much. Patient continues to have intermittent low-grade fevers. Pulmonary is following and patient is awaiting to receive a unit of convalescent plasma which is pending at this time. Patient is maintained on IV Zosyn and will continue. Urine and blood cultures thus far remain negative will order sputum culture. Will order chest x-ray for the a.m. along with inflammatory markers and repeat labs. 05/23/2020 Patient is seen and evaluated and follow-up currently sitting up in the chair continues to be short of breath and dyspneic with minimal exertion. Patient is maintained on 15 liters high flow along with nonrebreather and oxygen saturations have been in the low to mid 80s. Patient was on dexamethasone IV although stating it is making him worse and has been transitioned oral Decadron 4 mg. Patient has received 1 unit of convalescent plasma. A continues with low-grade intermittent fevers of 100.5F this morning. D-dimer is down at 1.23 today although inflammatory markers slightly elevated. BMP within normal limits and current creatinine is 1.2. White blood count is 9.01 NE globin is stable at 13.5. Patient is maintained on vitamin and zinc supplements and will continue. Patient also continues on IV Zosyn. Blood cultures remain negative and sputum culture pending. Patient is eating very minimally and denies any nausea or vomiting just not much of an appetite. 05/24/2020 Patient is seen and evaluated and follow-up this morning continues to be on 15 L high flow along with nonrebreather and is being closely monitored. No real improvement noted in respiratory status and patient continues to be weak with continued low-grade intermittent fevers and patient will continue on IV a ntibiotics. Patient is maintained on oral Decadron along with vitamin and zinc supplements and Lovenox and will continue at this time. Blood and urine cultures remain negative with sputum cultures still uncollected. Patient states his cough is less severe although continues with a cough. Incentive spirometer suggested although patient states he is unable to do this as he desats quickly off of nonrebreather. Patient is tolerating diet and continues to eat very little but denies any nausea or vomiting. 05/25/2020 Patient remains on 15 L of oxygen by nasal cannula along with Ventimask. Pat ient d-dimer is still elevated actually worse than before and is around 2.47, basic metabolic profile is within normal limits 05/26/2020 Patient remains on 15 L of oxygen although not on Ventimask today saturating at 90%. 05/27/2020 Patient is seen this morning continues to have low-grade intermittent fevers of 101.2 this morning and currently maintained on high flow nasal cannula at 15 L continues to be dyspneic. Will repeat some a.m. labs along with chest x-ray. 05/28/2020 Patient is seen and evaluated and follow-up continues to be on high flow nasal cannula at 15 L maintaining 91% and continues to be extremely dyspneic with minimal exertion having almost no reserve when moving around. Patient continues to be febrile with this morning being 103 and will continue with IV Zosyn. All cultures have remained negative. D-dimer redrawn today and is 8.34 and will continue on Lovenox subcutaneous twice a day. White blood count within normal limits at 8.8 and hemoglobin is stable at 13.4. Lactate dehydrogenase is 1122 and pro-calcitonin is 0.18. Pulmonary is following. Discussed with the patient about continuing to use incentive spirometer and increasing activity as tolerated. Patient states it takes a lot of effort to get from the bedside commode to the chair and back to the bed secondary to his respiratory status. Review of systems: Constitutional: fatigue, reports of fever, or chills Cardiovascular: No reports of chest pain or palpitations Respiratory: reports of shortness of breath and cough GI: No reports of nausea, vomiting, or diarrhea : No reports of dysuria or retention Neurovascular: Reports generalized weakness All medications have been reviewed Objective - Vital Signs Vital signs: Vital Signs Temp 103.0 F H 05/28/20 08:00 Pulse 105 H 05/28/20 08:00 Resp 22 05/28/20 08:00 BP 105/66 05/28/20 08:00 Pulse Ox 91 L 05/28/20 08:00 Intake & Output 05/27/20 05/28/20 05/28/20 18:59 06:59 18:59 Intake Total 200 Output Total 1200 450 Balance -1000 -450 Intake: Oral 200 Output: Urine 1200 450 Other: Voiding Method Bedside Commode Urinal # Voids 1 - Exam Gen: This is a 64-year-old male awake, alert and oriented 3. Not in any acute distress. Well-developed, well-nourished. HEENT: Head is atraumatic, normocephalic. Pupils equal, round. Sclerae is anicteric. NECK: Supple. No JVD. No lymphadenopathy. No thyromegaly. LUNGS: Diminished breath sounds bilaterally with no wheezing or rhonchi noted. No intercostal retractions. HEART: S1, S2 are muffled ABDOMEN: Soft. Bowel sounds are present. No masses. No tenderness. EXTREMITIES: No pedal edema. No calf tenderness. NEUROLOGICAL: Patient is lethargic although arousable, alert and oriented x3. Diffusely weak. - Labs CBC & Chem 7: 05/28/20 04:41 05/28/20 04:41 Labs: Abnormal Lab Results - Last 24 Hours (Table) 05/27/20 05/27/20 05/27/20 Range/Units 15:11 15:11 15:11 Hgb 12.5 L (13.0-17.5) gm/dL Hct 38.9 L (39.0-53.0) % Neutrophils # 8.5 H (1.3-7.7) k/uL Lymphocytes # 0.3 L (1.0-4.8) k/uL D-Dimer 20.53 H (<0.60) mg/L FEU Sodium 131 L (137-145) mmol/L BUN 28 H (9-20) mg/dL Glucose 221 H (74-99) mg/dL Calcium 7.8 L (8.4-10.2) mg/dL AST 63 H (17-59) U/L ALT 103 H (4-49) U/L Lactate Dehydrogenase 1132 H (313-618) U/L C-Reactive Protein 168.1 H (<10.0) mg/L Total Protein 4.4 L (6.3-8.2) g/dL Albumin 2.3 L (3.5-5.0) g/dL Urine Protein (Negative) Urine Glucose (UA) (Negative) Urine Blood (Negative) Urine Bacteria (None) /hpf Urine Mucus (None) /hpf 05/27/20 05/28/20 05/28/20 Range/Units 20:45 04:41 04:41 Hgb (13.0-17.5) gm/dL Hct (39.0-53.0) % Neutrophils # 7.9 H (1.3-7.7) k/uL Lymphocytes # 0.6 L (1.0-4.8) k/uL D-Dimer 8.34 H (<0.60) mg/L FEU Sodium (137-145) mmol/L BUN (9-20) mg/dL Glucose (74-99) mg/dL Calcium (8.4-10.2) mg/dL AST (17-59) U/L ALT (4-49) U/L Lactate Dehydrogenase (313-618) U/L C-Reactive Protein (<10.0) mg/L Total Protein (6.3-8.2) g/dL Albumin (3.5-5.0) g/dL Urine Protein Trace H (Negative) Urine Glucose (UA) Trace H (Negative) Urine Blood Trace H (Negative) Urine Bacteria Rare H (None) /hpf Urine Mucus Rare H (None) /hpf 05/28/20 Range/Units 04:41 Hgb (13.0-17.5) gm/dL Hct (39.0-53.0) % Neutrophils # (1.3-7.7) k/uL Lymphocytes # (1.0-4.8) k/uL D-Dimer (<0.60) mg/L FEU Sodium 133 L (137-145) mmol/L BUN 27 H (9-20) mg/dL Glucose (74-99) mg/dL Calcium 8.0 L (8.4-10.2) mg/dL AST (17-59) U/L ALT (4-49) U/L Lactate Dehydrogenase 1122 H (313-618) U/L C-Reactive Protein (<10.0) mg/L Total Protein (6.3-8.2) g/dL Albumin (3.5-5.0) g/dL Urine Protein (Negative) Urine Glucose (UA) (Negative) Urine Blood (Negative) Urine Bacteria (None) /hpf Urine Mucus (None) /hpf Microbiology - Last 24 Hours (Table) 05/25/20 07:30 Gram Stain - Final Sputum Sputum Culture - Final Assessment and Plan Assessment: Acute Covid 19 infection with acute Covid 19 bilateral interstitial pneumonia with acute hypoxic respiratory failure Change in mental status, metabolic encephalopathy, improved Hypotension with possible sepsis increased inflammatory markers History of nicotine dependence Constipation, resolved history of EtOH abuse History of rheumatoid arthritis history of chronic kidney disease, stage III History of gout History of gastrointestinal bleed DVT prophylaxis: Lovenox Full code Plan: Continue with current medications and continue to wean FiO2 as tolerated. Patient continues to be on 15 L high flow and continues to be dyspneic with minimal exertion. Patient remains on oral Decadron along with vitamin C, D, and zinc supplements and will continue. Continue with Lovenox twice daily. D-dimer trending down. Pulmonary following. Patient is maintained on IV Zosyn and will continue as patient continues to be febrile. blood, sputum, and urine cultures remain negative. Chest x-ray shows bilateral patchy infiltrates that are stable to correlate for CHF versus diffuse pneumonia. We'll discontinue IV fluids and will give a low-dose one-time Lasix and continue to monitor. .
--- NOTE | 2020-05-28 15:16 | P.PN ---
Subjective Progress Note Date: 05/28/20 Principal diagnosis: COVID 19 pneumonia On 05/27/2020 the patient is on 15 liters of oxygen by nasal cannula. The patient has been in the hospital for the past 14 days. The patient had a fever this morning with a T-max of 11.2. His most recent chest x-ray was from 05/23/2020 and it showed patchy bilateral peripheral pulmonary infiltrates. No chest x-ray has been done since. Meanwhile, his blood work from today is not available. Last blood tests are from 05/25/2020. LDH was elevated at 1055 and the progesterone level was low at 0.12. The patient currently is on Lovenox 40 mg subcu for DVT prophylaxis. The patient is on IV Zosyn and the patient is also on Decadron 4 mg by mouth daily. Cultures of been all negative. His white cell count from 2 days ago was 9.6 and the levels need to be repeated. On 05/28/2020 patient seen in follow-up on medical surgical floor, he is on 15 L high flow oxygen, his pulse oximetry 91-94%, he did have some spikes in the last 24 hours, fever was 10 3F this morning, afebrile this afternoon, looks comfortable, no altered mentation, no chest pain no chest discomfort or worsening dyspnea, chest x-ray today shows bilateral patchy infiltrates stable in appearance. Patient was given 20 mg of Lasix per the hospitalist. Blood cu ltures urine culture sputum cultures have been negative thus far. Procalcitonin level is low at 0.18. Urinalysis without clear evidence of urine infection. No nausea vomiting diarrhea, LDH this a is relatively stable at 1122, and CRP is level is still pending at this time. D-dimer today is improved, down to 8.34 from 20.5 Objective - Vital Signs Vital signs: Vital Signs Temp 97.8 F 05/28/20 14:10 Pulse 100 05/28/20 14:10 Resp 16 05/28/20 14:10 BP 97/60 05/28/20 14:10 Pulse Ox 94 L 05/28/20 14:10 Intake & Output 05/27/20 05/28/20 05/28/20 18:59 06:59 18:59 Intake Total 200 Output Total 1200 450 Balance -1000 -450 Intake: Oral 200 Output: Urine 1200 450 Other: Voiding Method Bedside Commode Urinal # Voids 1 - Exam GENERAL EXAM: Alert, very pleasant, 64-year-old white male, resting comfortably in bed, in 15 L of oxygen, with a pulse ox of 94%, comfortable in no apparent distress. HEAD: Normocephalic/atraumatic. EYES: Normal reaction of pupils, equal size. Conjunctiva pink, sclera white. NOSE: Clear with pink turbinates. THROAT: No erythema or exudates. NECK: No masses, no JVD, no thyroid enlargement, no adenopathy. CHEST: No chest wall deformity. Symmetrical expansion. LUNGS: Equal air entry with bilateral crackles CVS: Regular rate and rhythm, normal S1 and S2, no gallops, no murmurs, no rubs ABDOMEN: Soft, nontender. No hepatosplenomegaly, normal bowel sounds, no guarding or rigidity. EXTREMITIES: No clubbing, no edema, no cyanosis, 2+ pulses and upper and lower extremities. MUSCULOSKELETAL: Muscle strength and tone normal. SPINE: No scoliosis or deformity SKIN: No rashes CENTRAL NERVOUS SYSTEM: Alert and oriented -3. No focal deficits, tone is normal in all 4 extremities. PSYCHIATRIC: Alert and oriented -3. Appropriate affect. Intact judgment and insight. - Labs CBC & Chem 7: 05/28/20 04:41 05/28/20 04:41 Labs: Abnormal Lab Results - Last 24 Hours (Table) 05/27/20 05/27/20 05/27/20 Range/Units 15:11 15:11 15:11 Hgb 12.5 L (13.0-17.5) gm/dL Hct 38.9 L (39.0-53.0) % Neutrophils # 8.5 H (1.3-7.7) k/uL Lymphocytes # 0.3 L (1.0-4.8) k/uL D-Dimer 20.53 H (<0.60) mg/L FEU Sodium 131 L (137-145) mmol/L BUN 28 H (9-20) mg/dL Glucose 221 H (74-99) mg/dL Calcium 7.8 L (8.4-10.2) mg/dL AST 63 H (17-59) U/L ALT 103 H (4-49) U/L Lactate Dehydrogenase 1132 H (313-618) U/L C-Reactive Protein 168.1 H (<10.0) mg/L Total Protein 4.4 L (6.3-8.2) g/dL Albumin 2.3 L (3.5-5.0) g/dL Procalcitonin (0.02-0.09) ng/mL Urine Protein (Negative) Urine Glucose (UA) (Negative) Urine Blood (Negative) Urine Bacteria (None) /hpf Urine Mucus (None) /hpf 05/27/20 05/28/20 05/28/20 Range/Units 20:45 04:41 04:41 Hgb (13.0-17.5) gm/dL Hct (39.0-53.0) % Neutrophils # 7.9 H (1.3-7.7) k/uL Lymphocytes # 0.6 L (1.0-4.8) k/uL D-Dimer (<0.60) mg/L FEU Sodium (137-145) mmol/L BUN (9-20) mg/dL Glucose (74-99) mg/dL Calcium (8.4-10.2) mg/dL AST (17-59) U/L ALT (4-49) U/L Lactate Dehydrogenase (313-618) U/L C-Reactive Protein (<10.0) mg/L Total Protein (6.3-8.2) g/dL Albumin (3.5-5.0) g/dL Procalcitonin 0.18 H (0.02-0.09) ng/mL Urine Protein Trace H (Negative) Urine Glucose (UA) Trace H (Negative) Urine Blood Trace H (Negative) Urine Bacteria Rare H (None) /hpf Urine Mucus Rare H (None) /hpf 05/28/20 05/28/20 Range/Units 04:41 04:41 Hgb (13.0-17.5) gm/dL Hct (39.0-53.0) % Neutrophils # (1.3-7.7) k/uL Lymphocytes # (1.0-4.8) k/uL D-Dimer 8.34 H (<0.60) mg/L FEU Sodium 133 L (137-145) mmol/L BUN 27 H (9-20) mg/dL Glucose (74-99) mg/dL Calcium 8.0 L (8.4-10.2) mg/dL AST (17-59) U/L ALT (4-49) U/L Lactate Dehydrogenase 1122 H (313-618) U/L C-Reactive Protein (<10.0) mg/L Total Protein (6.3-8.2) g/dL Albumin (3.5-5.0) g/dL Procalcitonin (0.02-0.09) ng/mL Urine Protein (Negative) Urine Glucose (UA) (Negative) Urine Blood (Negative) Urine Bacteria (None) /hpf Urine Mucus (None) /hpf Assessment and Plan Plan: 1 Acute hypoxemic, secondary to COVID 19 pneumonitis/pneumonia. The patient has been in the hospital for the past 2 weeks. Currently is having and running a low-grade fever. The patient is to be further investigated. Most recent pro- calcitonin level was low. A repeat chest x-ray will be done. A repeat blood work will be done. The patient remains on high flow oxygen 15 L per minute nasal cannula. 2 Significant systemic symptoms including muscle aches, joint aches, fever, chills, etc., all secondary to COVID 19. 3 History of rheumatoid arthritis. 4 History of microscopic polyangiitis (MPO). 5 History of hypertension. 6 History of vasculitis. 7 History of gout. 8 History of GI bleed. Plan: Continue current medical treatment, chest x-ray has been reviewed, labs have been reviewed, fever continues to be intermittent, pro-calcitonin level is low, doubt bacterial infection, this is related to underlying viral pneumonia. Still requiring high flow oxygen but no worsening dyspnea, clinically patient looks comfortable, continue current dose Lovenox, CULTURES have been negative. We'll stop the Zosyn. We'll continue to follow, follow-up d-dimer, and inflammatory markers in the next 24 hours I performed a history & physical examination of the patient and discussed their management with my nurse practitioner, Jeanna Ortiz. I reviewed the nurse practitioner's note and agree with the documented findings and plan of care. Lung sounds are positive for diminished breath sounds. The findings and the impression was discussed with the patient. I attest to the documentation by the nurse practitioner. Time with Patient: Less than 30
[2020-05-28] MEDS: SODIUM CHLORIDE 0.9% 1,000 ML IV SCH (16:33)
[2020-05-28] MEDS: ATORVASTATIN 40 MG TAB PO SCH (20:42)
[2020-05-29] MEDS: ACETAMINOPHEN TAB 325 MG TAB PO PRN ×2 (02:01→09:01)
[2020-05-29 06:49] LABS: African American GFR (CKD) 85 (>60 ml/min/1.73 sqM); Anion Gap 3 mmol/L; Blood Urea Nitrogen 32 mg/dL (9-20); Calcium 7.9 mg/dL (8.4-10.2); Carbon Dioxide 28 mmol/L (22-30); Chloride 100 mmol/L (98-107); Glucose 89 mg/dL (74-99); LDH 1297 U/L (313-618); Non-African American GFR(CKD) 74 (>60 ml/min/1.73 sqM); Potassium 4.6 mmol/L (3.5-5.1); Sodium 131 mmol/L (137-145)
[2020-05-29 07:23] LABS: C Reactive Protein 182.9 mg/L (<10.0)
[2020-05-29] MEDS: ZINC SULFATE 220 MG CAP PO SCH (09:00)
[2020-05-29] MEDS: ASCORBIC ACID 500 MG TAB PO SCH (09:00)
[2020-05-29] MEDS: dexAMETHasone 4 MG TAB PO SCH (09:00)
[2020-05-29] MEDS: ASPIRIN 81 MG PO SCH (09:00)
[2020-05-29] MEDS: allopurinoL 100 MG TAB PO SCH ×2 (09:00→20:34)
[2020-05-29] MEDS: polyethylene glycoL 3350 17 GM POWD.PACK PO SCH (09:00)
[2020-05-29] MEDS: CHOLECALCIFEROL 25 MCG (1000 IU) TABLET PO SCH (09:00)
[2020-05-29] MEDS: THIAMINE 100 MG/ML 2 ML VIAL IVP SCH (09:00)
[2020-05-29] MEDS: ENOXAPARIN 80 MG/0.8 ML SYRINGE SQ SCH ×2 (09:01→20:34)
[2020-05-29] MEDS: FLUTICASONE 50MCG/SPRAY NASAL 16GM EA NOSTRIL SCH (09:02)
[2020-05-29] MEDS: SYMBICORT 160-4.5 MCG INHALER INHALATION SCH ×2 (09:08→21:12)
--- NOTE | 2020-05-29 13:09 | P.PN ---
Subjective Progress Note Date: 05/29/20 Principal diagnosis: Acute CoVID 19 pneumonia On 05/27/2020 the patient is on 15 liters of oxygen by nasal cannula. The patient has been in the hospital for the past 14 days. The patient had a fever this morning with a T-max of 11.2. His most recent chest x-ray was from 09/2020 and it showed patchy bilateral peripheral pulmonary infiltrates. No chest x-ray has been done since. Meanwhile, his blood work from today is not available. Last blood tests are from 05/25/2020. LDH was elevated at 1055 and the progesterone level was low at 0.12. The patient currently is on Lovenox 40 mg subcu for DVT prophylaxis. The patient is on IV Zosyn and the patient is also on Decadron 4 mg by mouth daily. Cultures of been all negative. His white cell count from 2 days ago was 9.6 and the levels need to be repeated. On 05/28/2020 patient seen in follow-up on medical surgical floor, he is on 15 L high flow oxygen, his pulse oximetry 91-94%, he did have some spikes in the last 24 hours, fever was 10 3F this morning, afebrile this afternoon, looks comfortable, no altered mentation, no chest pain no chest discomfort or worsening dyspnea, chest x-ray today shows bilateral patchy infiltrates stable in appearance. Patient was given 20 mg of Lasix per the hospitalist. Blood cultures urine culture sputum cultures have been negative thus far. Procalcitonin level is low at 0.18. Urinalysis without clear evidence of urine infection. No nausea vomiting diarrhea, LDH this a is relatively stable at 1122, and CRP is level is still pending at this time. D-dimer today is improved, down to 8.34 from 20.5 The patient is seen today 05/29/2020 in follow-up on the regular medical floor. He is currently sitting up in a chair at the bedside. Awake and alert. Still dyspneic with minimal exertion. Still requiring 15 L high flow nasal cannula along with a nonrebreather mask to maintain O2 saturations 90-91. Still with fever up to 103 early this morning. Follow-up blood cultures reveal no growth to date. Sputum culture no growth. D-dimer 6.03. Sodium 131. Potassium 4.6. Creatinine 1.06. LDH 1297. C-reactive protein 182. Pro-calcitonin 0.18. He remains on Symbicort, vitamin supplements, dexamethasone, therapeutic Lovenox. Objective - Vital Signs Vital signs: Vital Signs Temp 101.1 F H 05/29/20 08:00 Pulse 111 H 05/29/20 08:00 Resp 18 05/29/20 08:00 BP 113/73 05/29/20 08:00 Pulse Ox 90 L 05/29/20 09:10 Intake & Output 05/28/20 05/29/20 05/29/20 18:59 06:59 18:59 Intake Total 200 Output Total 500 Balance -500 200 Intake: Oral 200 Output: Urine 500 Other: Voiding Method Bedside Commode Bedside Commode Urinal Urinal # Voids 1 - Exam No acute distress, oriented 3. Chronically ill-appearing. Patient's currently on 15 L nasal cannula plus a nonrebreather mask. No audible wheezing, conversational dyspnea, or use of accessory muscles. HEENT examination is grossly unremarkable. Mucous membranes are moist. No oral lesions. Neck supple. Full range of motion. No adenopathy thyromegaly or neck vein distention. Cardiovascular examination reveals regular rhythm rate. S1-S2 normal. No S3 or S4. No discernible murmur noted. Heart sounds distant. Heart rate 78 bpm. Lungs reveal coarse crackles in the bilateral bases Abdomen soft bowel sounds are heard. No masses or tenderness. Extremities are intact. No cyanosis clubbing or edema. Skin is without rash or lesion. Neurologic examination is brief but nonfocal. - Labs CBC & Chem 7: 05/28/20 04:41 05/29/20 05:10 Labs: Abnormal Lab Results - Last 24 Hours (Table) 05/29/20 05/29/20 Range/Units 05:10 05:10 D-Dimer 6.03 H (<0.60) mg/L FEU Sodium 131 L (137-145) mmol/L BUN 32 H (9-20) mg/dL Calcium 7.9 L (8.4-10.2) mg/dL Lactate Dehydrogenase 1297 H (313-618) U/L C-Reactive Protein 182.9 H (<10.0) mg/L Microbiology - Last 24 Hours (Table) 05/27/20 15:11 Blood Culture - Preliminary Blood No Growth after 24 hours 05/27/20 15:19 Blood Culture - Preliminary Blood No Growth after 24 hours Assessment and Plan Assessment: 1 Acute on chronic hypoxemic respiratory failure secondary to CoVID 19 pneumonitis/pneumonia. Received convalescent plasma. Still requiring 15 L high flow nasal cannula plus a nonrebreather mask to maintain O2 saturations at 90% 2 History of microscopic polyangiitis 3 History of vasculitis 4 History of rheumatoid arthritis 5 History of gout 6 Hypertension 7 History of GI bleed Plan: The patient was seen and evaluated by Dr. Madden He has been quite slow to progress Still with fevers, no leukocytosis, pro-calcitonin 0.18 Continue with the current treatment plan Titrate down the FiO2 as tolerated We will continue to follow
--- NOTE | 2020-05-29 15:16 | P.PN ---
Subjective Progress Note Date: 05/29/20 This is a 64-year-old male who was recently admitted with acute Covid 19 pneumonia and acute hypoxic respiratory failure currently maintained on high flow oxygen along with nonrebreather and is being closely monitored. Patient continues to be extremely dyspneic with minimal exertion. Multiple medical co nsultations including neurology and pulmonary following. Patient recently underwent chest CTA which shows no evidence of pulmonary embolism and bilateral lower extremity venous Dopplers ordered which were negative for DVTs. Patient is maintained on Lovenox along with dexamethasone, vitamin C, and zinc supplements and will continue at this time. Patient also maintained on IV antibiotic therapy in the form of Zosyn and will continue. 2-D echo was done although suboptimal and unable to determine EF and will evaluate further to repeat this echo. Patient is currently being considered for convalescent plasma recommended by pulmonary. 05/22/2020 Patient is seen and evaluated and follow-up this morning continues to be severely dyspneic and is maintained on high flow nasal cannula 15 L along with periods of nonrebreather and is being closely monitored. Patient continues to be extremely dyspneic with minimal exertion along with generalized weakness and not feeling well. Per nursing staff patient had a large bowel movement yesterday and continues to have abdominal discomfort with bloating. Patient denies any nausea or vomiting and is tolerating diet but not eating very much. Patient continues to have intermittent low-grade fevers. Pulmonary is following and patient is awaiting to receive a unit of convalescent plasma which is pending at this time. Patient is maintained on IV Zosyn and will continue. Urine and blood cultures thus far remain negative will order sputum culture. Will order chest x-ray for the a.m. along with inflammatory markers and repeat labs. 05/23/2020 Patient is seen and evaluated and follow-up currently sitting up in the chair continues to be short of breath and dyspneic with minimal exertion. Patient is maintained on 15 liters high flow along with nonrebreather and oxygen saturations have been in the low to mid 80s. Patient was on dexamethasone IV although stating it is making him worse and has been transitioned oral Decadron 4 mg. Patient has received 1 unit of convalescent plasma. A continues with low-grade intermittent fevers of 100.5F this morning. D-dimer is down at 1.23 today although inflammatory markers slightly elevated. BMP within normal limits and current creatinine is 1.2. White blood count is 9.01 NE globin is stable at 13.5. Patient is maintained on vitamin and zinc supplements and will continue. Patient also continues on IV Zosyn. Blood cultures remain negative and sputum culture pending. Patient is eating very minimally and denies any nausea or vomiting just not much of an appetite. 05/24/2020 Patient is seen and evaluated and follow-up this morning continues to be on 15 L high flow along with nonrebreather and is being closely monitored. No real improvement noted in respiratory status and patient continues to be weak with continued low-grade intermittent fevers and patient will continue on IV a ntibiotics. Patient is maintained on oral Decadron along with vitamin and zinc supplements and Lovenox and will continue at this time. Blood and urine cultures remain negative with sputum cultures still uncollected. Patient states his cough is less severe although continues with a cough. Incentive spirometer suggested although patient states he is unable to do this as he desats quickly off of nonrebreather. Patient is tolerating diet and continues to eat very little but denies any nausea or vomiting. 05/25/2020 Patient remains on 15 L of oxygen by nasal cannula along with Ventimask. Pat ient d-dimer is still elevated actually worse than before and is around 2.47, basic metabolic profile is within normal limits 05/26/2020 Patient remains on 15 L of oxygen although not on Ventimask today saturating at 90%. 05/27/2020 Patient is seen this morning continues to have low-grade intermittent fevers of 101.2 this morning and currently maintained on high flow nasal cannula at 15 L continues to be dyspneic. Will repeat some a.m. labs along with chest x-ray. 05/28/2020 Patient is seen and evaluated and follow-up continues to be on high flow nasal cannula at 15 L maintaining 91% and continues to be extremely dyspneic with minimal exertion having almost no reserve when moving around. Patient continues to be febrile with this morning being 103 and will continue with IV Zosyn. All cultures have remained negative. D-dimer redrawn today and is 8.34 and will continue on Lovenox subcutaneous twice a day. White blood count within normal limits at 8.8 and hemoglobin is stable at 13.4. Lactate dehydrogenase is 1122 and pro-calcitonin is 0.18. Pulmonary is following. Discussed with the patient about continuing to use incentive spirometer and increasing activity as tolerated. Patient states it takes a lot of effort to get from the bedside commode to the chair and back to the bed secondary to his respiratory status. 05/29/2020 Patient is seen in follow-up this morning continues to be dyspneic with minimal exertion maintained on high flow along with nonrebreather at 15 L and very slow to progress. Patient continues with fevers and tachycardia although sputum, blood, urine cultures remain negative. D-dimer's trending down at 6.03. BMP within normal limits and inflammatory markers are elevated. IV antibiotics have been discontinued. Patient is maintained on Decadron, Lovenox, along with vitamin and zinc supplements and will continue. Review of systems: Constitutional: fatigue, reports of fever, or chills Cardiovascular: No reports of chest pain or palpitations Respiratory: reports of shortness of breath and cough GI: No reports of nausea, vomiting, or diarrhea : No reports of dysuria or retention Neurovascular: Reports generalized weakness All medications have been reviewed Objective - Vital Signs Vital signs: Vital Signs Temp 103.0 F H 05/29/20 01:55 Pulse 130 H 05/29/20 01:55 Resp 18 05/29/20 01:55 BP 112/75 05/29/20 01:55 Pulse Ox 90 L 05/29/20 01:55 Intake & Output 05/28/20 05/29/20 05/29/20 18:59 06:59 18:59 Output Total 500 Balance -500 Output: Urine 500 Other: Voiding Method Bedside Commode Urinal # Voids 1 - Exam Gen: This is a 64-year-old male awake, alert and oriented 3. Not in any acute distress. Well-developed, well-nourished. HEENT: Head is atraumatic, normocephalic. Pupils equal, round. Sclerae is anicteric. NECK: Supple. No JVD. No lymphadenopathy. No thyromegaly. LUNGS: Diminished breath sounds bilaterally with no wheezing or rhonchi noted. No intercostal retractions. HEART: S1, S2 are muffled ABDOMEN: Soft. Bowel sounds are present. No masses. No tenderness. EXTREMITIES: No pedal edema. No calf tenderness. NEUROLOGICAL: Patient is lethargic although arousable, alert and oriented x3. Diffusely weak. - Labs CBC & Chem 7: 05/28/20 04:41 05/29/20 05:10 Labs: Abnormal Lab Results - Last 24 Hours (Table) 05/28/20 05/29/20 05/29/20 Range/Units 04:41 05:10 05:10 D-Dimer 6.03 H (<0.60) mg/L FEU Sodium 131 L (137-145) mmol/L BUN 32 H (9-20) mg/dL Calcium 7.9 L (8.4-10.2) mg/dL Lactate Dehydrogenase 1297 H (313-618) U/L C-Reactive Protein 182.9 H (<10.0) mg/L Procalcitonin 0.18 H (0.02-0.09) ng/mL Microbiology - Last 24 Hours (Table) 05/27/20 15:11 Blood Culture - Preliminary Blood No Growth after 24 hours 05/27/20 15:19 Blood Culture - Preliminary Blood No Growth after 24 hours Assessment and Plan Assessment: Acute Covid 19 infection with acute Covid 19 bilateral interstitial pneumonia with acute hypoxic respiratory failure Change in mental status, metabolic encephalopathy, improved Hypotension with possible sepsis increased inflammatory markers History of nicotine dependence Constipation, resolved history of EtOH abuse History of rheumatoid arthritis history of chronic kidney disease, stage III History of gout History of gastrointestinal bleed DVT prophylaxis: Lovenox Full code Plan: Continue with current medications and continue to wean FiO2 as tolerated. Patient continues to be on 15 L high flow along with nonrebreather and continues to be dyspneic with minimal exertion. Patient remains on oral Decadron along with vitamin C, D, and zinc supplements and will continue. Continue with Lo venox twice daily. D-dimer trending down. Pulmonary following. Patient continues to be febrile. blood, sputum, and urine cultures remain negative. Prognosis is guarded.
[2020-05-29] MEDS: ATORVASTATIN 40 MG TAB PO SCH (20:34)
[2020-05-30] MEDS: ACETAMINOPHEN TAB 325 MG TAB PO PRN ×2 (02:25→08:47)
[2020-05-30] MEDS: SYMBICORT 160-4.5 MCG INHALER INHALATION SCH ×2 (07:18→19:50)
[2020-05-30] MEDS: THIAMINE 100 MG/ML 2 ML VIAL IVP SCH (08:35)
[2020-05-30] MEDS: ENOXAPARIN 80 MG/0.8 ML SYRINGE SQ SCH ×2 (08:35→20:01)
[2020-05-30] MEDS: ASPIRIN 81 MG PO SCH (08:36)
[2020-05-30] MEDS: allopurinoL 100 MG TAB PO SCH ×2 (08:36→20:01)
[2020-05-30] MEDS: FLUTICASONE 50MCG/SPRAY NASAL 16GM EA NOSTRIL SCH (08:36)
[2020-05-30] MEDS: dexAMETHasone 4 MG TAB PO SCH (08:36)
[2020-05-30] MEDS: CHOLECALCIFEROL 25 MCG (1000 IU) TABLET PO SCH (08:36)
[2020-05-30] MEDS: ZINC SULFATE 220 MG CAP PO SCH (08:36)
[2020-05-30] MEDS: polyethylene glycoL 3350 17 GM POWD.PACK PO SCH (08:36)
[2020-05-30] MEDS: ASCORBIC ACID 500 MG TAB PO SCH (08:36)
--- NOTE | 2020-05-30 13:22 | P.PN ---
Subjective Progress Note Date: 05/30/20 Principal diagnosis: Acute CoVID 19 pneumonia On 05/27/2020 the patient is on 15 liters of oxygen by nasal cannula. The patient has been in the hospital for the past 14 days. The patient had a fever this morning with a T-max of 11.2. His most recent chest x-ray was from 09/2020 and it showed patchy bilateral peripheral pulmonary infiltrates. No chest x-ray has been done since. Meanwhile, his blood work from today is not available. Last blood tests are from 05/25/2020. LDH was elevated at 1055 and the progesterone level was low at 0.12. The patient currently is on Lovenox 40 mg subcu for DVT prophylaxis. The patient is on IV Zosyn and the patient is also on Decadron 4 mg by mouth daily. Cultures of been all negative. His white cell count from 2 days ago was 9.6 and the levels need to be repeated. On 05/28/2020 patient seen in follow-up on medical surgical floor, he is on 15 L high flow oxygen, his pulse oximetry 91-94%, he did have some spikes in the last 24 hours, fever was 10 3F this morning, afebrile this afternoon, looks comfortable, no altered mentation, no chest pain no chest discomfort or worsening dyspnea, chest x-ray today shows bilateral patchy infiltrates stable in appearance. Patient was given 20 mg of Lasix per the hospitalist. Blood cultures urine culture sputum cultures have been negative thus far. Procalcitonin level is low at 0.18. Urinalysis without clear evidence of urine infection. No nausea vomiting diarrhea, LDH this a is relatively stable at 1122, and CRP is level is still pending at this time. D-dimer today is improved, down to 8.34 from 20.5 The patient is seen today 05/29/2020 in follow-up on the regular medical floor. He is currently sitting up in a chair at the bedside. Awake and alert. Still dyspneic with minimal exertion. Still requiring 15 L high flow nasal cannula along with a nonrebreather mask to maintain O2 saturations 90-91. Still with fever up to 103 early this morning. Follow-up blood cultures reveal no growth to date. Sputum culture no growth. D-dimer 6.03. Sodium 131. Potassium 4.6. Creatinine 1.06. LDH 1297. C-reactive protein 182. Pro-calcitonin 0.18. He remains on Symbicort, vitamin supplements, dexamethasone, therapeutic Lovenox. Patient is seen today 05/30/2020 in follow-up on the regular medical floor. Resting fairly comfortably in bed. He is somewhat depressed and frustrated in his extended length of stay and not much improvement. He does continue to require 15 L high flow nasal cannula +100% nonrebreather mask to maintain O2 saturations 88-92%. He did receive convalescent plasma. No new labs today. He remains on Lovenox 70 mg subcu twice a day, dexamethasone, vitamin supplements. Continues to spike temperatures currently 101.6. Last pro-calcitonin 0.18. He's been without leukocytosis. Second set of blood cultures continue to reveal no growth. Sputum culture no growth. Urine culture no growth. Objective - Vital Signs Vital signs: Vital Signs Temp 101.6 F H 05/30/20 08:35 Pulse 131 H 05/30/20 08:35 Resp 20 05/30/20 08:35 BP 106/69 05/30/20 08:35 Pulse Ox 91 L 05/30/20 08:35 Intake & Output 05/29/20 05/30/20 05/30/20 18:59 06:59 18:59 Intake Total 500 200 Output Total 825 Balance 500 -825 200 Intake: Oral 500 200 Output: Urine 825 Other: Voiding Method Bedside Commode Bedside Commode Bedside Commode Urinal Urinal Urinal # Voids 3 2 - Exam 64-year-old male patient, no acute distress, oriented 3. Chronically ill- appearing. Patient's currently on 15 L nasal cannula plus a nonrebreather mask. HEENT examination is grossly unremarkable. Mucous membranes are moist. No oral lesions. Neck supple. Full range of motion. No adenopathy thyromegaly or neck vein distention. Cardiovascular examination reveals regular rhythm rate. S1-S2 normal. No S3 or S4. No discernible murmur noted. Heart sounds distant. Heart rate 78 bpm. Lungs reveal coarse crackles in the bilateral bases Abdomen soft bowel sounds are heard. No masses or tenderness. Extremities are intact. No cyanosis clubbing or edema. Skin is without rash or lesion. Neurologic examination is brief but nonfocal. - Labs CBC & Chem 7: 05/28/20 04:41 05/29/20 05:10 Labs: Microbiology - Last 24 Hours (Table) 05/27/20 15:11 Blood Culture - Preliminary Blood No Growth after 48 hours 05/27/20 15:19 Blood Culture - Preliminary Blood No Growth after 48 hours Assessment and Plan Assessment: 1 Acute on chronic hypoxemic respiratory failure secondary to CoVID 19 pneumonitis/pneumonia. Received convalescent plasma. Still requiring 15 L high flow nasal cannula plus a nonrebreather mask to maintain O2 saturations at 90% 2 Febrile illness of unclear etiology. Blood, sputum, urine cultures reveal no growth. No leukocytosis. 3 History of microscopic polyangiitis 4 History of vasculitis 5 History of rheumatoid arthritis 6 History of gout 7 Hypertension 8 History of GI bleed Plan: The patient was seen and evaluated by Dr. Madden He has been quite slow to progress Still with fevers, no leukocytosis, pro-calcitonin 0.18 Blood, urine, sputum cultures reveal no growth Continue with the current treatment plan Titrate down the FiO2 as tolerated Increase his activity as tolerated Repeat chest x-ray and labs in a.m. We will continue to follow
--- NOTE | 2020-05-30 13:39 | P.PN ---
Subjective Progress Note Date: 05/30/20 This is a 64-year-old male who was recently admitted with acute Covid 19 pneumonia and acute hypoxic respiratory failure currently maintained on high flow oxygen along with nonrebreather and is being closely monitored. Patient continues to be extremely dyspneic with minimal exertion. Multiple medical co nsultations including neurology and pulmonary following. Patient recently underwent chest CTA which shows no evidence of pulmonary embolism and bilateral lower extremity venous Dopplers ordered which were negative for DVTs. Patient is maintained on Lovenox along with dexamethasone, vitamin C, and zinc supplements and will continue at this time. Patient also maintained on IV antibiotic therapy in the form of Zosyn and will continue. 2-D echo was done although suboptimal and unable to determine EF and will evaluate further to repeat this echo. Patient is currently being considered for convalescent plasma recommended by pulmonary. 05/22/2020 Patient is seen and evaluated and follow-up this morning continues to be severely dyspneic and is maintained on high flow nasal cannula 15 L along with periods of nonrebreather and is being closely monitored. Patient continues to be extremely dyspneic with minimal exertion along with generalized weakness and not feeling well. Per nursing staff patient had a large bowel movement yesterday and continues to have abdominal discomfort with bloating. Patient denies any nausea or vomiting and is tolerating diet but not eating very much. Patient continues to have intermittent low-grade fevers. Pulmonary is following and patient is awaiting to receive a unit of convalescent plasma which is pending at this time. Patient is maintained on IV Zosyn and will continue. Urine and blood cultures thus far remain negative will order sputum culture. Will order chest x-ray for the a.m. along with inflammatory markers and repeat labs. 05/23/2020 Patient is seen and evaluated and follow-up currently sitting up in the chair continues to be short of breath and dyspneic with minimal exertion. Patient is maintained on 15 liters high flow along with nonrebreather and oxygen saturations have been in the low to mid 80s. Patient was on dexamethasone IV although stating it is making him worse and has been transitioned oral Decadron 4 mg. Patient has received 1 unit of convalescent plasma. A continues with low-grade intermittent fevers of 100.5F this morning. D-dimer is down at 1.23 today although inflammatory markers slightly elevated. BMP within normal limits and current creatinine is 1.2. White blood count is 9.01 NE globin is stable at 13.5. Patient is maintained on vitamin and zinc supplements and will continue. Patient also continues on IV Zosyn. Blood cultures remain negative and sputum culture pending. Patient is eating very minimally and denies any nausea or vomiting just not much of an appetite. 05/24/2020 Patient is seen and evaluated and follow-up this morning continues to be on 15 L high flow along with nonrebreather and is being closely monitored. No real improvement noted in respiratory status and patient continues to be weak with continued low-grade intermittent fevers and patient will continue on IV a ntibiotics. Patient is maintained on oral Decadron along with vitamin and zinc supplements and Lovenox and will continue at this time. Blood and urine cultures remain negative with sputum cultures still uncollected. Patient states his cough is less severe although continues with a cough. Incentive spirometer suggested although patient states he is unable to do this as he desats quickly off of nonrebreather. Patient is tolerating diet and continues to eat very little but denies any nausea or vomiting. 05/25/2020 Patient remains on 15 L of oxygen by nasal cannula along with Ventimask. Pat ient d-dimer is still elevated actually worse than before and is around 2.47, basic metabolic profile is within normal limits 05/26/2020 Patient remains on 15 L of oxygen although not on Ventimask today saturating at 90%. 05/27/2020 Patient is seen this morning continues to have low-grade intermittent fevers of 101.2 this morning and currently maintained on high flow nasal cannula at 15 L continues to be dyspneic. Will repeat some a.m. labs along with chest x-ray. 05/28/2020 Patient is seen and evaluated and follow-up continues to be on high flow nasal cannula at 15 L maintaining 91% and continues to be extremely dyspneic with minimal exertion having almost no reserve when moving around. Patient continues to be febrile with this morning being 103 and will continue with IV Zosyn. All cultures have remained negative. D-dimer redrawn today and is 8.34 and will continue on Lovenox subcutaneous twice a day. White blood count within normal limits at 8.8 and hemoglobin is stable at 13.4. Lactate dehydrogenase is 1122 and pro-calcitonin is 0.18. Pulmonary is following. Discussed with the patient about continuing to use incentive spirometer and increasing activity as tolerated. Patient states it takes a lot of effort to get from the bedside commode to the chair and back to the bed secondary to his respiratory status. 05/29/2020 Patient is seen in follow-up this morning continues to be dyspneic with minimal exertion maintained on high flow along with nonrebreather at 15 L and very slow to progress. Patient continues with fevers and tachycardia although sputum, blood, urine cultures remain negative. D-dimer's trending down at 6.03. BMP within normal limits and inflammatory markers are elevated. IV antibiotics have been discontinued. Patient is maintained on Decadron, Lovenox, along with vitamin and zinc supplements and will continue. 05/30/2020 Patient is seen this morning continues to be on high flow along with nonrebreather with no improvement in respiratory status. Patient continues to be dyspneic and extremely weak requiring assistance to get up to the bedside commode with multiple breaks in between due to shortness of breath. Patient also continues with fevers intermittently. Will repeat chest x-ray along with a.m. labs and continue to monitor closely. A is maintained on oral Decadron along with Lovenox and vitamin and zinc supplements and will continue. Patient denies any chest pain or palpitations. Denies any abdominal discomfort. Hernan friend is tolerating diet with no reports of nausea or vomiting noted Review of systems: Constitutional: fatigue, reports of fever, or chills Cardiovascular: No reports of chest pain or palpitations Respiratory: reports of shortness of breath and cough GI: No reports of nausea, vomiting, or diarrhea : No reports of dysuria or retention Neurovascular: Reports generalized weakness All medications have been reviewed Objective - Vital Signs Vital signs: Vital Signs Temp 99.9 F H 05/30/20 03:59 Pulse 77 05/30/20 01:14 Resp 22 05/30/20 01:14 BP 104/67 05/30/20 01:14 Pulse Ox 90 L 05/30/20 07:19 Intake & Output 05/29/20 05/30/20 05/30/20 18:59 06:59 18:59 Intake Total 500 Output Total 825 Balance 500 -825 Intake: Oral 500 Output: Urine 825 Other: Voiding Method Bedside Commode Bedside Commode Urinal Urinal # Voids 3 2 - Exam Gen: This is a 64-year-old male awake, alert and oriented 3. Not in any acute distress. Well-developed, well-nourished. HEENT: Head is atraumatic, normocephalic. Pupils equal, round. Sclerae is anicteric. NECK: Supple. No JVD. No lymphadenopathy. No thyromegaly. LUNGS: Diminished breath sounds bilaterally with no wheezing or rhonchi noted. No intercostal retractions. HEART: S1, S2 are muffled ABDOMEN: Soft. Bowel sounds are present. No masses. No tenderness. EXTREMITIES: No pedal edema. No calf tenderness. NEUROLOGICAL: Patient is lethargic although arousable, alert and oriented x3. Diffusely weak. - Labs CBC & Chem 7: 05/28/20 04:41 05/29/20 05:10 Labs: Microbiology - Last 24 Hours (Table) 05/27/20 15:11 Blood Culture - Preliminary Blood No Growth after 48 hours 05/27/20 15:19 Blood Culture - Preliminary Blood No Growth after 48 hours Assessment and Plan Assessment: Acute Covid 19 infection with acute Covid 19 bilateral interstitial pneumonia with acute hypoxic respiratory failure Change in mental status, metabolic encephalopathy, improved Continued fevers possibly secondary to acute Covid 19, cultures of blood sputum and urine remain negative Hypotension with possible sepsis increased inflammatory markers History of nicotine dependence Constipation, resolved history of EtOH abuse History of rheumatoid arthritis history of chronic kidney disease, stage III History of gout History of gastrointestinal bleed DVT prophylaxis: Lovenox Full code Plan: Continue with current medications and continue to wean FiO2 as tolerated. Patient continues to be on 15 L high flow along with nonrebreather and continues to be dyspneic with minimal exertion. Patient remains on oral Decadron along with vitamin C, D, and zinc supplements and will continue. Continue with Lovenox twice daily. D-dimer trending down. Pulmonary following. Patient continues to be febrile. blood, sputum, and urine cultures remain negative. Encourage the patient to continue with incentive spirometer at least 10 times every hour and increasing activity as tolerated. Prognosis is guarded.
[2020-05-30] MEDS: ATORVASTATIN 40 MG TAB PO SCH (20:01)
[2020-05-31] MEDS: ACETAMINOPHEN TAB 325 MG TAB PO PRN (00:56)
[2020-05-31] MEDS ORDERED: DILTIAZEM DRIP BOLUS FROM BAG 1 MG SOLN IV ONE (04:10)
[2020-05-31] MEDS ORDERED: ACETAMINOPHEN IV (For NPO) 1,000 MG in EMPTY BAG 1 BAG IVPB ONE (04:12)
[2020-05-31] MEDS ORDERED: DILTIAZEM 5 MG/ML 10 ML VIAL IVP ONE (04:30)
[2020-05-31] MEDS ORDERED: niCARdipine 20 MG in SODIUM CHLORIDE 0.9% 192 ML IV ONE (04:30)
[2020-05-31] MEDS ORDERED: LORazepam 2 MG/ML INJ IV STA ×2 (04:50→04:52)
--- NOTE | 2020-05-31 05:18 | P.EN ---
A team called on this patient for heart rate in the 160-170 range patient has been hospitalized for over 2 weeks, admitted for COVID pneumonia, he also has history of arthritis and vasculitis. he is currently maintained on non rebreather. patient is shaking, with high temp, and tachycardic in the 160-170s range. Blood pressure in 130s systolic lungs audible breath sounds throughout, with diffuse rhonchi no leg edema patient awake, alert, follows commands, looks anxious and very uncomfortable, with rigors . reports diffuse aches. 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 and EKG showing SVT adenosin given twice, 6 mg and 12 mg, revealed background of sinus tachy patient allergic to metoprolol cardizem ordered due to persistent heart rate in the 160s, however it was not given eventually as he slowed down to the 130s range with sinus tachy 1 L bolus of normal saline given cooling packs acetaminophine 1000 mg IVPB after above measures , patient started showing some improvement ativan given 1mg , due to anxiety to help patient calm down CXR reviewed, no evidence of pleural effusion , however, persistent patchy infilterates, await official read patient spiking frequent high fevers, cultures reviewed and has been negative, he is currently not on antibiotics. he is receiving lovenox BID full theraputic dose due to elevated d dimer from recent COVID infection continue with supportive care Assessment physiologic reactive sinus tachycardia due to fever and systemic inflammatory response supportive care continue close monitoring on med surg unit, with tele current heart rate in the low 130s range , sinus tachy, I expect it to slow down more when his fever brakes. continue with IVF normal saline at 120 cc/hr 65 minutes were spent in providing critical care service in the care of this patient
[2020-05-31 05:45] LABS: Basophils % (A) 0 %; Eosinophils # (A) 0.1 k/uL (0-0.7); Eosinophils % (A) 1 %; HCT 37.9 % (39.0-53.0); HGB 12.9 gm/dL (13.0-17.5); Lymphocytes # (A) 0.2 k/uL (1.0-4.8); Lymphocytes % (A) 2 %; MCH 28.6 pg (25.0-35.0); MCV 84.2 fL (80.0-100.0); Mean Platelet Volume 7.8; Monocytes # (A) 0.3 k/uL (0-1.0); Monocytes % (A) 3 %; Neutrophils # (A) 9.7 k/uL (1.3-7.7); Neutrophils % (A) 94 %; Platelet Count 236 k/uL (150-450); RBC 4.51 m/uL (4.30-5.90); RDW 13.6 % (11.5-15.5); WBC 10.2 k/uL (3.8-10.6)
--- NOTE | 2020-05-31 05:48 | XR ---
EXAM: XR Chest, 1 View CLINICAL HISTORY: ITS.REASON XR Reason: Sob TECHNIQUE: Frontal view of the chest. COMPARISON: 05/28/2020 FINDINGS: Increased opacification of the right lung with similar appearance of patchy opacities in the left lung predominantly involving the left base. Blunting of the right costophrenic angle which may due to small pleural effusion. No pneumothorax. Unchanged cardiac contour and mediastinal silhouette. IMPRESSION: 1. Increased opacification of the right lung which may be due to worsening multifocal infection. 2. Blunting of the right costophrenic angle which may be due to small pleural effusion.
[2020-05-31 06:00] LABS: ALT 126 U/L (4-49); AST 77 U/L (17-59); African American GFR (CKD) >90 (>60 ml/min/1.73 sqM); Albumin 2.1 g/dL (3.5-5.0); Albumin/Globulin Ratio 1.1; Alkaline Phosphatase 105 U/L (38-126); Anion Gap 5 mmol/L; Blood Urea Nitrogen 29 mg/dL (9-20); Calcium 7.7 mg/dL (8.4-10.2); Carbon Dioxide 26 mmol/L (22-30); Chloride 100 mmol/L (98-107); Glucose 103 mg/dL (74-99); LDH 1515 U/L (313-618); Non-African American GFR(CKD) 85 (>60 ml/min/1.73 sqM); Potassium 4.4 mmol/L (3.5-5.1); Sodium 131 mmol/L (137-145); Total Bilirubin 0.8 mg/dL (0.2-1.3); Total Protein 4.1 g/dL (6.3-8.2)
[2020-05-31 06:13] LABS: C Reactive Protein 140.7 mg/L (<10.0)
[2020-05-31] MEDS: THIAMINE 100 MG/ML 2 ML VIAL IVP SCH (09:08)
[2020-05-31] MEDS: ASPIRIN 81 MG PO SCH (09:08)
[2020-05-31] MEDS: ENOXAPARIN 80 MG/0.8 ML SYRINGE SQ SCH ×2 (09:08→21:17)
[2020-05-31] MEDS: dexAMETHasone 4 MG TAB PO SCH (09:08)
[2020-05-31] MEDS: CHOLECALCIFEROL 25 MCG (1000 IU) TABLET PO SCH (09:08)
[2020-05-31] MEDS: ZINC SULFATE 220 MG CAP PO SCH (09:08)
[2020-05-31] MEDS: FLUTICASONE 50MCG/SPRAY NASAL 16GM EA NOSTRIL SCH (09:09)
[2020-05-31] MEDS: ASCORBIC ACID 500 MG TAB PO SCH (09:09)
[2020-05-31] MEDS: allopurinoL 100 MG TAB PO SCH ×2 (09:09→21:17)
[2020-05-31] MEDS: polyethylene glycoL 3350 17 GM POWD.PACK PO SCH (09:13)
[2020-05-31] MEDS: SYMBICORT 160-4.5 MCG INHALER INHALATION SCH ×2 (09:33→19:57)
[2020-05-31] MEDS: DEXAMETHASONE SOD PHOSPHATE 10 MG/ML 1 ML VIAL IV SCH (17:49)
--- NOTE | 2020-05-31 18:20 | P.PN ---
Subjective Progress Note Date: 05/31/20 Principal diagnosis: Acute hypoxemic, secondary to COVID 19 pneumonitis/pneumonia 64 years old male with past medical history of rheumatoid arthritis, gout and history of GI bleed.he Is a patient of Dr. Forde. Patient is lethargic and weak and is not very good historian. He states his main complaint was inability to eat and drink with dizziness and weakness for about a week or more, yesterday his sister convinced him to come to the hospital. Also patient can benefit from fever and mild dyspnea with, but no phlegm and no chest pain. Patient has diarrhea about 2-3 times per day with the total abdominal pain but no vomiting No headache or blurred vision or slurred speech or weakness or numbness Patient smokes about half pack per day and patient is consult but he does not want to quit and he declines nicotine patch, patient states he drinks every day but he states he drinks only one beer with no liquor or wine. No illicit tracts Patient states that he was diagnosed with Covid on 05/0905/17/2020, patient is seen and evaluated in room at bedside, continues to have significant and intermittent cough, remains on oxygen at 5 L nasal cannula, O2 saturation is in the low 90s. Patient tells me that he feels much worse now that he felt before. Chest x-ray does not seem to be quite impressive. Nonetheless it show ed groundglass opacities/bibasilar. Labs are relatively unremarkable. Creatinine is 1.2. Improving C-reactive protein is 3.4, and LDH was only 311. Patient remains on COVID19 cocktails; plan is to continue to titrate oxygen off as able; pulmonary recommending to continue to monitor for another 24 hours if possible discharge tomorrow morning 05/18/2020. Patient is seen and evaluated in room at bedside; Currently, he is on 5 L nasal cannula. He states he had a rough night last night. He is very frail appearing. He complained of shortness of breath, and cough. He's not receiving any IV fluids. No labs today. Chest x-ray today reveal some slight worsening of his peripheral bilateral infiltrates. Patient remains on Lovenox, Decadron, vitamin C, vitamin C and zinc sulfate; patient remains in bed; not motivated to try to get better; we will consult PT/OT to increase activity once clinically stable 05/19/2020 Patient is seen and evaluated in room at bedside; the patient's on 5 L nasal cannula. He is not receiving any IV fluids. He states he feels a bit better today than he did yesterday. No new laboratory data today. The patient has a history of rheumatoid arthritis, microscopic polyangiitis, and vasculitis. He remains on 5 L. The patient was outside the window for REM. He is receiving Lovenox, Decadron, vitamin C, vitamin D3, and zinc. Patient continues to have for activity despite being encouraged to get out of bed and sit up in chair; patient will have PT/OT evaluation once stable 05/31/2020 Patient had a rapid response this morning, 18 was called for a heart rate of 160s to 170s with high temperature and chills with systolic blood pressure 130s; EKG revealed SVT and patient was given 6 mg and 12 mg which revealed background sinus tachycardia; Cardizem was ordered due to persistent elevated heart rate in the 160s; patient was also given 1 L bolus of normal saline with: And IV acetaminophen; chest x-ray shows persistent patchy infiltrates; patient remains on Lovenox and twice a day dosing; continue with supportive care; patient remains on IV fluids normal saline at 20 mL Review of Systems CONSTITUTIONAL: No fever, no malaise, no fatigue. HEENT: No recent visual problems or hearing problems. Denied any sore throat. CARDIOVASCULAR: No orthopnea, PND, no palpitations, no syncope. PULMONARY: No chest pain and tenderness, no hemoptysis. GASTROINTESTINAL: No diarrhea, no nausea, no vomiting, no abdominal pain. Normoactive bowel sounds. NEUROLOGICAL: No headaches, no weakness, no numbness. Objective - Vital Signs Vital signs: Vital Signs Temp 97.9 F 05/31/20 08:00 Pulse 69 05/31/20 08:00 Resp 22 05/31/20 08:00 BP 93/54 05/31/20 08:00 Pulse Ox 88 L 05/31/20 09:36 Intake & Output 05/30/20 05/31/20 05/31/20 18:59 06:59 18:59 Intake Total 600 100 Output Total 400 500 300 Balance 200 -500 -200 Intake: Oral 600 100 Output: Urine 400 500 300 Other: Voiding Method Bedside Commode Bedside Commode Urinal Urinal # Voids 2 2 1 - Exam GENERAL: The patient is alert and oriented x3, not in any acute distress. Well developed, well nourished. HEENT: Pupils are round and equally reacting to light. EOMI. No scleral icterus. No conjunctival pallor. Normocephalic, atraumatic. No pharyngeal erythema. No thyromegaly. CARDIOVASCULAR: S1 and S2 present. No murmurs, rubs, or gallops. -PULMONARY: Chest is clear to auscultation, no wheezing. Bilateral mild crepitation ABDOMEN: Soft, nontender, nondistended, normoactive bowel sounds. No palpable organomegaly. MUSCULOSKELETAL: No joint swelling or deformity. EXTREMITIES: No cyanosis, clubbing, or pedal edema. NEUROLOGICAL: Gross neurological examination did not reveal any focal deficits. SKIN: No rashes. No petechiae - Labs CBC & Chem 7: 05/31/20 05:16 05/31/20 05:16 Labs: Abnormal Lab Results - Last 24 Hours (Table) 05/31/20 05/31/20 05/31/20 Range/Units 05:16 05:16 05:16 Hgb 12.9 L (13.0-17.5) gm/dL Hct 37.9 L (39.0-53.0) % Neutrophils # 9.7 H (1.3-7.7) k/uL Lymphocytes # 0.2 L (1.0-4.8) k/uL D-Dimer 14.37 H (<0.60) mg/L FEU Sodium 131 L (137-145) mmol/L BUN 29 H (9-20) mg/dL Glucose 103 H (74-99) mg/dL Plasma Lactic Acid Oj (0.7-2.0) mmol/L Calcium 7.7 L (8.4-10.2) mg/dL AST 77 H (17-59) U/L ALT 126 H (4-49) U/L Lactate Dehydrogenase 1515 H (313-618) U/L C-Reactive Protein 140.7 H (<10.0) mg/L Total Protein 4.1 L (6.3-8.2) g/dL Albumin 2.1 L (3.5-5.0) g/dL 05/31/20 05/31/20 Range/Units 05:33 08:42 Hgb (13.0-17.5) gm/dL Hct (39.0-53.0) % Neutrophils # (1.3-7.7) k/uL Lymphocytes # (1.0-4.8) k/uL D-Dimer (<0.60) mg/L FEU Sodium (137-145) mmol/L BUN (9-20) mg/dL Glucose (74-99) mg/dL Plasma Lactic Acid Oj 2.6 H* 2.4 H* (0.7-2.0) mmol/L Calcium (8.4-10.2) mg/dL AST (17-59) U/L ALT (4-49) U/L Lactate Dehydrogenase (313-618) U/L C-Reactive Protein (<10.0) mg/L Total Protein (6.3-8.2) g/dL Albumin (3.5-5.0) g/dL Microbiology - Last 24 Hours (Table) 05/27/20 15:11 Blood Culture - Preliminary Blood No Growth after 72 hours 05/27/20 15:19 Blood Culture - Preliminary Blood No Growth after 72 hours Assessment and Plan Assessment: Acute Covid pneumonia Acute hypoxic respiratory failure secondary to above Increase inflammatory markers Nicotine dependence Constipation Alcohol abuse at-risk of alcohol withdrawal Chronic rheumatoid arthritis Chronic kidney disease stage III Gout History of GI bleed Plan: 60 years old male who presents because of Covid and hypoxia. Continue zinc, vitamin C, steroids. Pulmonary consult. Some gentle hydration Labs and medication were reviewed.. Continue same treatment. Continue with symptomatic treatment. Resume home medication. Monitor lytes and vitals. DVT and GI prophylaxis. Further recommendations depends on the clinical course of the patient DVT prophylaxis: Subcutaneous Lovenox GI Prophylaxis: Pepcid Prognosis is guarded
[2020-05-31] MEDS ORDERED: TOCILIZUMAB 640 MG in SODIUM CHLORIDE 0.9% 68 ML IV ONE (18:30)
--- NOTE | 2020-05-31 19:05 | P.PN ---
Subjective Progress Note Date: 05/31/20 Principal diagnosis: COVID 19 pneumonia On 05/27/2020 the patient is on 15 liters of oxygen by nasal cannula. The patient has been in the hospital for the past 14 days. The patient had a fever this morning with a T-max of 11.2. His most recent chest x-ray was from 05/23/2020 and it showed patchy bilateral peripheral pulmonary infiltrates. No chest x-ray has been done since. Meanwhile, his blood work from today is not available. Last blood tests are from 05/25/2020. LDH was elevated at 1055 and the progesterone level was low at 0.12. The patient currently is on Lovenox 40 mg subcu for DVT prophylaxis. The patient is on IV Zosyn and the patient is also on Decadron 4 mg by mouth daily. Cultures of been all negative. His white cell count from 2 days ago was 9.6 and the levels need to be repeated. On 05/28/2020 patient seen in follow-up on medical surgical floor, he is on 15 L high flow oxygen, his pulse oximetry 91-94%, he did have some spikes in the last 24 hours, fever was 10 3F this morning, afebrile this afternoon, looks comfortable, no altered mentation, no chest pain no chest discomfort or worsening dyspnea, chest x-ray today shows bilateral patchy infiltrates stable in appearance. Patient was given 20 mg of Lasix per the hospitalist. Blood cu ltures urine culture sputum cultures have been negative thus far. Procalcitonin level is low at 0.18. Urinalysis without clear evidence of urine infection. No nausea vomiting diarrhea, LDH this a is relatively stable at 1122, and CRP is level is still pending at this time. D-dimer today is improved, down to 8.34 from 20.5 On 05/31/2020 patient seen in follow-up on medical surgical floor, still requiring high flow oxygen, currently on both 15 L per high flow nasal cannula and 100% nonrebreather mask, and his pulse ox is ranging between 86-95%,. He continues to be febrile with a T-max of 103.2F in the last 24 hours, last night rapid response team was called to the bedside in view of tachycardia, desaturation, increased shortness of breath. His pro calcitonin level was negative, last one from 05/28/2020 was 0.18, patient has had multiple pro calcitonin left posterior on since admission, and everyone will has been negative thus far. His inflammatory markers are on the rise, his LDH is up to 1501 5, and CRP of 140.7, his d-dimer is 14.37. His chest x-ray shows increased opacification of the right lung may be due to worsening multifocal infection, and blunting of the right costophrenic angle which may be due to small pleural effusion. he continued to be febrile on and off through the day, he looks weak, he is diaphoretic, but no altered mentation, he follows commands, looks fatigued, he was having diffuse aches, and it was quite shaky and uncomfortable when his fever was up, she was found to be in SVT, and received 2 doses of adenosine 6 mg 12 mg. Currently is still a tachycardic, with a rate of 95-106, lactic acid is 2.4 last night, down to 1.7 today. Objective - Vital Signs Vital signs: Vital Signs Temp 97.7 F 05/31/20 14:00 Pulse 108 H 05/31/20 14:00 Resp 30 H 05/31/20 14:00 BP 94/62 05/31/20 14:00 Pulse Ox 86 L 05/31/20 14:00 Intake & Output 05/30/20 05/31/20 05/31/20 18:59 06:59 18:59 Intake Total 600 340 Output Total 400 500 500 Balance 200 -500 -160 Intake: Oral 600 340 Output: Urine 400 500 500 Other: Voiding Method Bedside Commode Bedside Commode Urinal Urinal # Voids 2 2 1 - Exam GENERAL EXAM: Alert, very pleasant, 64-year-old white male, resting comfortably in bed, in 15 L of oxygen, with a pulse ox of 90%, comfortable in no apparent distress. HEAD: Normocephalic/atraumatic. EYES: Normal reaction of pupils, equal size. Conjunctiva pink, sclera white. NOSE: Clear with pink turbinates. THROAT: No erythema or exudates. NECK: No masses, no JVD, no thyroid enlargement, no adenopathy. CHEST: No chest wall deformity. Symmetrical expansion. LUNGS: Equal air entry with bilateral crackles CVS: Regular rate and rhythm, normal S1 and S2, no gallops, no murmurs, no rubs ABDOMEN: Soft, nontender. No hepatosplenomegaly, normal bowel sounds, no guarding or rigidity. EXTREMITIES: No clubbing, no edema, no cyanosis, 2+ pulses and upper and lower extremities. MUSCULOSKELETAL: Muscle strength and tone normal. SPINE: No scoliosis or deformity SKIN: No rashes CENTRAL NERVOUS SYSTEM: Alert and oriented -3. No focal deficits, tone is normal in all 4 extremities. PSYCHIATRIC: Alert and oriented -3. Appropriate affect. Intact judgment and insight. - Labs CBC & Chem 7: 05/31/20 05:16 05/31/20 05:16 Labs: Abnormal Lab Results - Last 24 Hours (Table) 05/31/20 05/31/20 05/31/20 Range/Units 05:16 05:16 05:16 Hgb 12.9 L (13.0-17.5) gm/dL Hct 37.9 L (39.0-53.0) % Neutrophils # 9.7 H (1.3-7.7) k/uL Lymphocytes # 0.2 L (1.0-4.8) k/uL D-Dimer 14.37 H (<0.60) mg/L FEU Sodium 131 L (137-145) mmol/L BUN 29 H (9-20) mg/dL Glucose 103 H (74-99) mg/dL Plasma Lactic Acid Oj (0.7-2.0) mmol/L Calcium 7.7 L (8.4-10.2) mg/dL AST 77 H (17-59) U/L ALT 126 H (4-49) U/L Lactate Dehydrogenase 1515 H (313-618) U/L C-Reactive Protein 140.7 H (<10.0) mg/L Total Protein 4.1 L (6.3-8.2) g/dL Albumin 2.1 L (3.5-5.0) g/dL 05/31/20 05/31/20 Range/Units 05:33 08:42 Hgb (13.0-17.5) gm/dL Hct (39.0-53.0) % Neutrophils # (1.3-7.7) k/uL Lymphocytes # (1.0-4.8) k/uL D-Dimer (<0.60) mg/L FEU Sodium (137-145) mmol/L BUN (9-20) mg/dL Glucose (74-99) mg/dL Plasma Lactic Acid Oj 2.6 H* 2.4 H* (0.7-2.0) mmol/L Calcium (8.4-10.2) mg/dL AST (17-59) U/L ALT (4-49) U/L Lactate Dehydrogenase (313-618) U/L C-Reactive Protein (<10.0) mg/L Total Protein (6.3-8.2) g/dL Albumin (3.5-5.0) g/dL Microbiology - Last 24 Hours (Table) 05/27/20 15:19 Blood Culture - Preliminary Blood No Growth after 96 hours 05/27/20 15:11 Blood Culture - Preliminary Blood No Growth after 96 hours Assessment and Plan Plan: 1 Acute hypoxemic, secondary to COVID 19 pneumonitis/pneumonia. The patient has been in the hospital for the past 2 weeks. Currently is having and running a low-grade fever. The patient is to be further investigated. Most recent pro- calcitonin level was low. A repeat chest x-ray will be done. A repeat blood work will be done. The patient remains on high flow oxygen 15 L per minute nasal cannula. 2 Significant systemic symptoms including muscle aches, joint aches, fever, chills, etc., all secondary to COVID 19. 3 History of rheumatoid arthritis. 4 History of microscopic polyangiitis (MPO). 5 History of hypertension. 6 History of vasculitis. 7 History of gout. 8 History of GI bleed. Plan: We'll give the patient 1 dose of Actemra He continues to have intermittent fevers, but no evidence of bacterial infection at this time Continue supplemental oxygen to maintain O2 saturation at or above 90% Continue current dose Lovenox Today's chest x-ray has been noted, labs have been reviewed We'll obtain follow-up chest x-ray and inflammatory markers and d-dimer tomorrow Continue to closely monitor I performed a history & physical examination of the patient and discussed their management with my nurse practitioner, Jeanna Ortiz. I reviewed the nurse practitioner's note and agree with the documented findings and plan of care. Lung sounds are positive for diminished breath sounds. The findings and the impression was discussed with the patient. I attest to the documentation by the nurse practitioner. Time with Patient: Less than 30
[2020-05-31] MEDS: ATORVASTATIN 40 MG TAB PO SCH (21:17)
[2020-06-01] MEDS: ACETAMINOPHEN TAB 325 MG TAB PO PRN ×4 (00:49→19:15)
[2020-06-01] MEDS: SYMBICORT 160-4.5 MCG INHALER INHALATION SCH ×2 (07:13→19:26)
[2020-06-01] MEDS: ASPIRIN 81 MG PO SCH (08:08)
[2020-06-01] MEDS: CHOLECALCIFEROL 25 MCG (1000 IU) TABLET PO SCH (08:08)
[2020-06-01] MEDS: THIAMINE 100 MG/ML 2 ML VIAL IVP SCH (08:08)
[2020-06-01] MEDS: ENOXAPARIN 80 MG/0.8 ML SYRINGE SQ SCH (08:08)
[2020-06-01] MEDS: ASCORBIC ACID 500 MG TAB PO SCH (08:08)
[2020-06-01] MEDS: ZINC SULFATE 220 MG CAP PO SCH (08:08)
[2020-06-01] MEDS: allopurinoL 100 MG TAB PO SCH ×2 (08:09→21:13)
[2020-06-01] MEDS: DEXAMETHASONE SOD PHOSPHATE 10 MG/ML 1 ML VIAL IV SCH ×2 (08:09→21:12)
[2020-06-01] MEDS: polyethylene glycoL 3350 17 GM POWD.PACK PO SCH (08:17)
[2020-06-01] MEDS: FLUTICASONE 50MCG/SPRAY NASAL 16GM EA NOSTRIL SCH (08:27)
--- NOTE | 2020-06-01 09:24 | XR ---
EXAMINATION TYPE: XR chest 1V portable DATE OF EXAM: 06/01/2020 CLINICAL HISTORY: Difficulty breathing progress study. TECHNIQUE: Single AP portable upright view of the chest is obtained. COMPARISON: Chest x-ray from one day earlier and older studies FINDINGS: Persistent focal and confluent opacities bilaterally. Cardiac silhouette size stable and w ithin normal limits. Osseous structures are intact. IMPRESSION: Bilateral focal and confluent opacities consistent with covid-19 infection, no significan t change from most recent x-ray one day earlier.
[2020-06-01 09:32] LABS: C Reactive Protein 18.8 mg/dL (0.0-0.8)
--- NOTE | 2020-06-01 16:27 | P.PN ---
Subjective Progress Note Date: 06/01/20 On 05/27/2020 the patient is on 15 liters of oxygen by nasal cannula. The patient has been in the hospital for the past 14 days. The patient had a fever this morning with a T-max of 11.2. His most recent chest x-ray was from 05/23/2020 and it showed patchy bilateral peripheral pulmonary infiltrates. No chest x-ray has been done since. Meanwhile, his blood work from today is not available. Last blood tests are from 05/25/2020. LDH was elevated at 1055 and the progesterone level was low at 0.12. The patient currently is on Lovenox 40 mg subcu for DVT prophylaxis. The patient is on IV Zosyn and the patient is also on Decadron 4 mg by mouth daily. Cultures of been all negative. His white cell count from 2 days ago was 9.6 and the levels need to be repeated. On 05/28/2020 patient seen in follow-up on medical surgical floor, he is on 15 L high flow oxygen, his pulse oximetry 91-94%, he did have some spikes in the last 24 hours, fever was 10 3F this morning, afebrile this afternoon, looks comfortable, no altered mentation, no chest pain no chest discomfort or worsening dyspnea, chest x-ray today shows bilateral patchy infiltrates stable in appearance. Patient was given 20 mg of Lasix per the hospitalist. Blood cultures urine culture sputum cultures have been negative thus far. Procalcitonin level is low at 0.18. Urinalysis without clear evidence of urine infection. No nausea vomiting diarrhea, LDH this a is relatively stable at 1122, and CRP is level is still pending at this time. D-dimer today is improved, down to 8.34 from 20.5 On 05/31/2020 patient seen in follow-up on medical surgical floor, still requiring high flow oxygen, currently on both 15 L per high flow nasal cannula and 100% nonrebreather mask, and his pulse ox is ranging between 86-95%,. He continues to be febrile with a T-max of 103.2F in the last 24 hours, last night rapid response team was called to the bedside in view of tachycardia, desaturation, increased shortness of breath. His pro calcitonin level was negative, last one from 05/28/2020 was 0.18, patient has had multiple pro calcit onin left posterior on since admission, and everyone will has been negative thus far. His inflammatory markers are on the rise, his LDH is up to 1501 5, and CRP of 140.7, his d-dimer is 14.37. His chest x-ray shows increased opacification of the right lung may be due to worsening multifocal infection, and blunting of the right costophrenic angle which may be due to small pleural effusion. he co ntinued to be febrile on and off through the day, he looks weak, he is diaphoretic, but no altered mentation, he follows commands, looks fatigued, he was having diffuse aches, and it was quite shaky and uncomfortable when his fever was up, she was found to be in SVT, and received 2 doses of adenosine 6 mg 12 mg. Currently is still a tachycardic, with a rate of 95-106, lactic acid is 2.4 last night, down to 1.7 today. On today's evaluation of 06/01/2020, the patient is currently on high flow o xygen 6 L with an FiO2 of 90% in addition to 100% V to facemask. He is resting comfortably in bed. He is short of breath with talking and movement and activity. His last temperatures white was yesterday when he spiked a temperature of 103.2. He has been afebrile since. Note that the patient had a pro calcitonin level that was low and the fever was attributed to his underlying viral infection. Most recent d-dimer level is at 6.24 and his LDH level is at 641 with a CRP of 18.8. Lactic acid level is at 1.7. Note that his inflammatory markers have been improving including the d-dimer and the LDH. The patient is still on Decadron and the dose was increased up to 60 mg IV every 12 hours. He is also on Lovenox 70 mg subcu every 12 hours. I also proceeded with treatment with Actemra History the treatment without any side effects and that is probably why he is not spiking any temperature since yesterday. Less other blood work is all within normal limits from yesterday. No follow-up blood work is been obtained. Cultures of been negative in terms of his series of blood cultures that were done since admission. He is awake. Is alert. . The follow- up chest x-ray was also done today that showed bilateral focal and confluent opacities consistent with COVID-19 related infection. No significant change compared to his earlier chest x-ray. Objective - Vital Signs Vital signs: Vital Signs Temp 97.1 F L 06/01/20 13:25 Pulse 118 H 06/01/20 13:25 Resp 20 06/01/20 13:25 BP 104/68 06/01/20 13:25 Pulse Ox 85 L 06/01/20 13:25 Intake & Output 05/31/20 06/01/20 06/01/20 18:59 06:59 18:59 Intake Total 340 Output Total 500 Balance -160 Intake: Oral 340 Output: Urine 500 Other: Voiding Method Bedside Commode Urinal # Voids 1 2 - Exam No acute distress, oriented 3. Currently, the patient's on 100% nonrebreather facemask addition to high flow oxygen 6 L with an FiO2 of 90%. Saturation is 92%. No conversational dyspnea or use of accessory muscles. HEENT examination is grossly unremarkable. Mucous membranes are moist. No oral lesions. Neck supple. Full range of motion. No adenopathy thyromegaly or neck vein distention. Cardiovascular examination reveals regular rhythm rate. S1-S2 normal. No S3 or S4. No discernible murmur noted. Heart sounds are distant. Lungs reveal bilateral rhonchi and crackles. There are no wheezes. Breath sounds equal bilaterally. He does cough on deep inspiration. Abdomen soft bowel sounds are heard. No masses or tenderness. Extremities are intact. No cyanosis clubbing or edema. Skin is without rash or lesion. Neurologic examination is brief but nonfocal. - Labs CBC & Chem 7: 05/31/20 05:16 05/31/20 05:16 Labs: Abnormal Lab Results - Last 24 Hours (Table) 05/31/20 06/01/20 06/01/20 Range/Units 05:16 06:26 06:26 D-Dimer 6.24 H (<0.60) mg/L FEU Lactate Dehydrogenase 641 H (120-246) U/L C-Reactive Protein 18.8 H (0.0-0.8) mg/dL Procalcitonin 0.42 H (0.02-0.09) ng/mL Microbiology - Last 24 Hours (Table) 05/27/20 15:19 Blood Culture - Preliminary Blood No Growth after 96 hours 05/27/20 15:11 Blood Culture - Preliminary Blood No Growth after 96 hours Assessment and Plan Plan: 1 Acute hypoxemic, secondary to COVID 19 pneumonitis/pneumonia. The patient has been in the hospital more than 2 weeks. Currently is having and running a low- grade fever. The patient is to be further investigated. Most recent pro- calcitonin level was low. The patient was offered Tocilizumab , and since then the patient hasn't had any temperature spikes. The patient remains on Decadron 6 g IV every 12 hours. No signs of any septicemia. Pro-calcitonin level was low. The patient is still requiring high flow oxygen at 6 L with an FiO2 of 90% in addition to 100% on a beta facemask. His oxidation has remained unchanged since yesterday. His chest x-ray still showing diffuse bilateral pulmonary infiltrates. 2 Significant systemic symptoms including muscle aches, joint aches, fever, chills, etc., all secondary to COVID 19. 3 History of rheumatoid arthritis. 4 History of microscopic polyangiitis (MPO). 5 History of hypertension. 6 History of vasculitis. 7 History of gout. 8 History of GI bleed. DORCAS Monitor fever pattern Continue Decadron Keep the patient on oxygen 6 L with an FiO2 of 90% in addition to 100% nonrebreather facemask Continue using incentive spirometer May wean off the 100% nonrebreather at a later stage of his oxygenation remains stable Condition overall is critical and the patient may easily decompensate and he remains to have risk of requiring intubation mechanical ventilation based on his very borderline respirator status. We'll continue to follow.
[2020-06-01] MEDS ORDERED: LORazepam 2 MG/ML INJ ONE (20:27)
[2020-06-01] MEDS ORDERED: LORazepam 2 MG/ML INJ IV STA (20:29)
[2020-06-01] MEDS: ENOXAPARIN 40 MG/0.4 ML SYRINGE SQ SCH (21:13)
[2020-06-01] MEDS: ATORVASTATIN 40 MG TAB PO SCH (21:13)
[2020-06-02] MEDS: ACETAMINOPHEN TAB 325 MG TAB PO PRN ×2 (00:16→12:10)
[2020-06-02] MEDS: SYMBICORT 160-4.5 MCG INHALER INHALATION SCH ×2 (08:57→20:21)
[2020-06-02] MEDS: ZINC SULFATE 220 MG CAP PO SCH (09:06)
[2020-06-02] MEDS: ASCORBIC ACID 500 MG TAB PO SCH (09:06)
[2020-06-02] MEDS: CHOLECALCIFEROL 25 MCG (1000 IU) TABLET PO SCH (09:06)
[2020-06-02] MEDS: DEXAMETHASONE SOD PHOSPHATE 10 MG/ML 1 ML VIAL IV SCH ×2 (09:06→20:45)
[2020-06-02] MEDS: allopurinoL 100 MG TAB PO SCH ×2 (09:06→20:45)
[2020-06-02] MEDS: THIAMINE 100 MG/ML 2 ML VIAL IVP SCH (09:06)
[2020-06-02] MEDS: FLUTICASONE 50MCG/SPRAY NASAL 16GM EA NOSTRIL SCH (09:07)
[2020-06-02] MEDS: ASPIRIN 81 MG PO SCH (09:08)
[2020-06-02] MEDS: ENOXAPARIN 40 MG/0.4 ML SYRINGE SQ SCH ×2 (09:15→20:45)
[2020-06-02] MEDS: polyethylene glycoL 3350 17 GM POWD.PACK PO SCH (09:17)
--- NOTE | 2020-06-02 13:09 | P.PN ---
Subjective Progress Note Date: 06/01/20 Principal diagnosis: Acute hypoxemic, secondary to COVID 19 pneumonitis/pneumonia 64 years old male with past medical history of rheumatoid arthritis, gout and history of GI bleed.he Is a patient of Dr. Forde. Patient is lethargic and weak and is not very good historian. He states his main complaint was inability to eat and drink with dizziness and weakness for about a week or more, yesterday his sister convinced him to come to the hospital. Also patient can benefit from fever and mild dyspnea with, but no phlegm and no chest pain. Patient has diarrhea about 2-3 times per day with the total abdominal pain but no vomiting No headache or blurred vision or slurred speech or weakness or numbness Patient smokes about half pack per day and patient is consult but he does not want to quit and he declines nicotine patch, patient states he drinks every day but he states he drinks only one beer with no liquor or wine. No illicit tracts Patient states that he was diagnosed with Covid on 05/0905/17/2020, patient is seen and evaluated in room at bedside, continues to have significant and intermittent cough, remains on oxygen at 5 L nasal cannula, O2 saturation is in the low 90s. Patient tells me that he feels much worse now that he felt before. Chest x-ray does not seem to be quite impressive. Nonetheless it show ed groundglass opacities/bibasilar. Labs are relatively unremarkable. Creatinine is 1.2. Improving C-reactive protein is 3.4, and LDH was only 311. Patient remains on COVID19 cocktails; plan is to continue to titrate oxygen off as able; pulmonary recommending to continue to monitor for another 24 hours if possible discharge tomorrow morning 05/18/2020. Patient is seen and evaluated in room at bedside; Currently, he is on 5 L nasal cannula. He states he had a rough night last night. He is very frail appearing. He complained of shortness of breath, and cough. He's not receiving any IV fluids. No labs today. Chest x-ray today reveal some slight worsening of his peripheral bilateral infiltrates. Patient remains on Lovenox, Decadron, vitamin C, vitamin C and zinc sulfate; patient remains in bed; not motivated to try to get better; we will consult PT/OT to increase activity once clinically stable 05/19/2020 Patient is seen and evaluated in room at bedside; the patient's on 5 L nasal cannula. He is not receiving any IV fluids. He states he feels a bit better today than he did yesterday. No new laboratory data today. The patient has a history of rheumatoid arthritis, microscopic polyangiitis, and vasculitis. He remains on 5 L. The patient was outside the window for REM. He is receiving Lovenox, Decadron, vitamin C, vitamin D3, and zinc. Patient continues to have for activity despite being encouraged to get out of bed and sit up in chair; patient will have PT/OT evaluation once stable 05/31/2020 Patient had a rapid response this morning, 18 was called for a heart rate of 160s to 170s with high temperature and chills with systolic blood pressure 130s; EKG revealed SVT and patient was given 6 mg and 12 mg which revealed background sinus tachycardia; Cardizem was ordered due to persistent elevated heart rate in the 160s; patient was also given 1 L bolus of normal saline with: And IV acetaminophen; chest x-ray shows persistent patchy infiltrates; patient remains on Lovenox and twice a day dosing; continue with supportive care; patient remains on IV fluids normal saline at 20 mL 06/01/2020 Patient is seen and evaluated in follow-up; remains on high flow oxygen 6 L with an FiO2 of 90% in addition to 100% V to facemask; gets short of breath with talking and movement and activity. Vital signs review reveals he spiked a temperature of 103.2. He has been afebrile since. Pro calcitonin level that was low and the fever was attributed to his underlying viral infection. Most recent d-dimer level is at 6.24 and his LDH level is at 641 with a CRP of 18.8. Lactic acid level is at 1.7. Note that his inflammatory markers have been improving including the d-dimer and the LDH. The patient remained on Decadron and the dose was increased up to 60 mg IV every 12 hours. He is also on Lovenox 70 mg subcu every 12 hours; received treatment with Actemra Cultures of been negative in terms of his series of blood cultures that were done since admission. He is awake. Is alert. . The follow-up chest x-ray was also done today that showed bilateral focal and confluent opacities consistent with COVID-19 related infection. No significant change compared to his earlier chest x-ray. Review of Systems CONSTITUTIONAL: No fever, no malaise, no fatigue. HEENT: No recent visual problems or hearing problems. Denied any sore throat. CARDIOVASCULAR: No orthopnea, PND, no palpitations, no syncope. PULMONARY: No chest pain and tenderness, no hemoptysis. GASTROINTESTINAL: No diarrhea, no nausea, no vomiting, no abdominal pain. Normoactive bowel sounds. NEUROLOGICAL: No headaches, no weakness, no numbness. Objective - Vital Signs Vital signs: Vital Signs Temp 97.8 F 06/01/20 07:25 Pulse 118 H 06/01/20 07:25 Resp 28 H 06/01/20 10:25 BP 99/66 06/01/20 07:25 Pulse Ox 86 L 06/01/20 11:14 Intake & Output 05/31/20 06/01/20 06/01/20 18:59 06:59 18:59 Intake Total 340 Output Total 500 Balance -160 Intake: Oral 340 Output: Urine 500 Other: Voiding Method Bedside Commode Urinal # Voids 1 2 - Exam GENERAL: The patient is alert and oriented x3, not in any acute distress. Well developed, well nourished. HEENT: Pupils are round and equally reacting to light. EOMI. No scleral icterus. No conjunctival pallor. Normocephalic, atraumatic. No pharyngeal erythema. No thyromegaly. CARDIOVASCULAR: S1 and S2 present. No murmurs, rubs, or gallops. -PULMONARY: Chest is clear to auscultation, no wheezing. Bilateral mild crepitation ABDOMEN: Soft, nontender, nondistended, normoactive bowel sounds. No palpable organomegaly. MUSCULOSKELETAL: No joint swelling or deformity. EXTREMITIES: No cyanosis, clubbing, or pedal edema. NEUROLOGICAL: Gross neurological examination did not reveal any focal deficits. SKIN: No rashes. No petechiae - Labs CBC & Chem 7: 05/31/20 05:16 05/31/20 05:16 Labs: Abnormal Lab Results - Last 24 Hours (Table) 05/31/20 06/01/20 06/01/20 Range/Units 05:16 06:26 06:26 D-Dimer 6.24 H (<0.60) mg/L FEU Lactate Dehydrogenase 641 H (120-246) U/L C-Reactive Protein 18.8 H (0.0-0.8) mg/dL Procalcitonin 0.42 H (0.02-0.09) ng/mL Microbiology - Last 24 Hours (Table) 05/27/20 15:19 Blood Culture - Preliminary Blood No Growth after 96 hours 05/27/20 15:11 Blood Culture - Preliminary Blood No Growth after 96 hours Assessment and Plan Assessment: Acute Covid pneumonia Acute hypoxic respiratory failure secondary to above Increase inflammatory markers Nicotine dependence Constipation Alcohol abuse at-risk of alcohol withdrawal Chronic rheumatoid arthritis Chronic kidney disease stage III Gout History of GI bleed Plan: 60 years old male who presents because of Covid and hypoxia. Continue zinc, vitamin C, steroids. Pulmonary consult. Some gentle hydration Labs and medication were reviewed.. Continue same treatment. Continue with symptomatic treatment. Resume home medication. Monitor lytes and vitals. DVT and GI prophylaxis. Further recommendations depends on the clinical course of the patient DVT prophylaxis: Subcutaneous Lovenox GI Prophylaxis: Pepcid Prognosis is guarded
[2020-06-02] MEDS: LORazepam 2 MG/ML INJ IV PRN (14:31)
[2020-06-02 15:09] LABS: African American GFR (CKD) >90 (>60 ml/min/1.73 sqM); Anion Gap 5 mmol/L; Blood Urea Nitrogen 38 mg/dL (9-20); Carbon Dioxide 30 mmol/L (22-30); Chloride 100 mmol/L (98-107); Glucose 136 mg/dL (74-99); LDH 1671 U/L (313-618); Non-African American GFR(CKD) 86 (>60 ml/min/1.73 sqM); Potassium 4.9 mmol/L (3.5-5.1); Sodium 135 mmol/L (137-145)
[2020-06-02 15:34] LABS: Basophils % (A) 0 %; Eosinophils % (A) 0 %; HCT 41.2 % (39.0-53.0); HGB 13.6 gm/dL (13.0-17.5); Lymphocytes # (A) 0.2 k/uL (1.0-4.8); Lymphocytes % (A) 3 %; MCH 28.1 pg (25.0-35.0); MCV 84.9 fL (80.0-100.0); Mean Platelet Volume 8.3; Monocytes # (A) 0.2 k/uL (0-1.0); Monocytes % (A) 3 %; Neutrophils % (A) 94 %; Platelet Count 207 k/uL (150-450); RBC 4.86 m/uL (4.30-5.90); RDW 13.8 % (11.5-15.5); WBC 7.4 k/uL (3.8-10.6)
--- NOTE | 2020-06-02 15:40 | P.PN ---
Subjective Progress Note Date: 06/02/20 06/02/2020, the patient is still doing very poor. His been on high flow oxygen at 6 L with an FiO2 of 90% in addition to 100% on a beta facemasks. His been the same setting for several days. I feel that he is gradually getting more weak and debilitated and deconditioned. Note that he has been offered aggressive treatment. The patient had follow-up blood work this is still showing elevated LDH level of 1671 and the level is higher compared to yesterday. CRP level is at 18.8. His current d-dimer is at 6.24. The white cell count is at 7.4 with a hemoglobin of 16.6. Renal function is stable. The patient remains on Lovenox 40 mg subcu every 12 hours. He is also on steroids in the patient is taking Decadron 63 g IV every 12 hours. Unfortunately, his current pulse ox is still running high 80s, mid 80s range. His chest x-ray from 2 days ago showed diffuse breath and pulmonary infiltrates consistent with COVID-19 pneumonia and the patient is not showing any signs of recovery. The patient has been in the hospital for almost 3 weeks. At times, the patient becomes more worked of an anxious and this obviously dropped his pulse ox before that reason, the patient is being given Ativan 0.5 g on as-needed basis. Oral intake is quite diminished and the patient is unable to eat more than 10% of the trace offered to him. As such, the patient is obviously an ongoing concern. Objective - Vital Signs Vital signs: Vital Signs Temp 98.1 F 06/02/20 13:30 Pulse 125 H 06/02/20 13:30 Resp 22 06/02/20 13:30 BP 112/69 06/02/20 13:30 Pulse Ox 85 L 06/02/20 15:31 Intake & Output 06/01/20 06/02/20 06/02/20 18:59 06:59 18:59 Intake Total 120 Balance 120 Intake: Oral 120 Other: Voiding Method Bedside Commode Urinal # Voids 1 # Bowel Movements 1 - Exam No acute distress, oriented 3. Currently, the patient's on 100% nonrebreather facemask addition to high flow oxygen 60 L with an FiO2 of 90%. Saturation is 92%. He is short of breath. He is using some abdominal muscles of breathing. He gets dyspneic and desaturates with talking and coughing. He is unable to complete full sentences. His become progressively more debilitated. HEENT examination is grossly unremarkable. Mucous membranes are moist. No oral lesions. Neck supple. Full range of motion. No adenopathy thyromegaly or neck vein distention. Cardiovascular examination reveals regular rhythm rate. S1-S2 normal. No S3 or S4. No discernible murmur noted. Heart sounds are distant. Lungs reveal bilateral rhonchi and crackles. There are no wheezes. Breath sounds equal bilaterally. He does cough on deep inspiration. Abdomen soft bowel sounds are heard. No masses or tenderness. Extremities are intact. No cyanosis clubbing or edema. Skin is without rash or lesion. Neurologic examination is brief but nonfocal.Motor weakness in all 4 extremities. Overall neurologic exam remains nonfocal and the patient will go 4 extremities without any limitation. - Labs CBC & Chem 7: 05/31/20 05:16 06/02/20 13:21 Labs: Abnormal Lab Results - Last 24 Hours (Table) 06/02/20 Range/Units 13:21 Sodium 135 L (137-145) mmol/L BUN 38 H (9-20) mg/dL Glucose 136 H (74-99) mg/dL Calcium 8.0 L (8.4-10.2) mg/dL Lactate Dehydrogenase 1671 H (313-618) U/L Microbiology - Last 24 Hours (Table) 05/27/20 15:11 Blood Culture - Preliminary Blood No Growth after 120 hours 05/27/20 15:19 Blood Culture - Preliminary Blood No Growth after 120 hours Assessment and Plan Plan: 1 Acute hypoxemic, secondary to COVID 19 pneumonitis/pneumonia. The patient has been in the hospital more than 2 weeks. Currently is having and running a low- grade fever. The patient is to be further investigated. Most recent pro- calcitonin level was low. The patient was offered Tocilizumab , and since then the patient hasn't had any temperature spikes. The patient remains on Decadron 6 g IV every 12 hours. No signs of any septicemia. Pro-calcitonin level was low. The patient is still requiring high flow oxygen at 60L with an FiO2 of 90% in addition to 100% on a beta facemask. The patient has poor oxygenation. The patient is dependent on high flow oxygen in addition to 100% on a beta facemask. Oxygenation is very borderline. The patient is clinically short of breath and is having labored breathing. I'm going to transfer the patient to the intensive care unit. He remains a full code at his young age. 2 Significant systemic symptoms including muscle aches, joint aches, fever, chills, etc., all secondary to COVID 19. 3 History of rheumatoid arthritis. 4 History of microscopic polyangiitis (MPO). 5 History of hypertension. 6 History of vasculitis. 7 History of gout. 8 History of GI bleed. DORCAS Monitor fever pattern Continue Decadron, 6 mg IV every 12 hours Keep the patient on oxygen 60 L with an FiO2 of 90% in addition to 100% nonrebre ather facemask Continue using incentive spirometer May wean off the 100% nonrebreather at a later stage of his oxygenation remains stable Condition overall is critical and the patient may easily decompensate and he remains to have risk of requiring intubation mechanical ventilation based on his very borderline respirator status. Based on this, I'm going to transfer this patient to the ICU for close monitoring. We'll continue same medication for now. No use BiPAP. We'll he is also to be within next 24 hours for incision supportive the patient is not meeting his caloric requirements. Continue Lovenox and the same dose Recheck from medical markers and chest x-ray in a.m. We'll continue to follow.
[2020-06-02 16:39] LABS: Glucose,Whole Blood 182 mg/dL (75-99)
[2020-06-02] MEDS: DEXMEDETOMIDINE/0.9% NACL(PMX) 400 MCG in EMPTY BAG 1 BAG IV SCH ×2 (17:12→22:17)
--- NOTE | 2020-06-02 17:59 | P.PN ---
Subjective Progress Note Date: 06/02/20 Principal diagnosis: Acute hypoxemic, secondary to COVID 19 pneumonitis/pneumonia 64 years old male with past medical history of rheumatoid arthritis, gout and history of GI bleed.he Is a patient of Dr. Forde. Patient is lethargic and weak and is not very good historian. He states his main complaint was inability to eat and drink with dizziness and weakness for about a week or more, yesterday his sister convinced him to come to the hospital. Also patient can benefit from fever and mild dyspnea with, but no phlegm and no chest pain. Patient has diarrhea about 2-3 times per day with the total abdominal pain but no vomiting No headache or blurred vision or slurred speech or weakness or numbness Patient smokes about half pack per day and patient is consult but he does not want to quit and he declines nicotine patch, patient states he drinks every day but he states he drinks only one beer with no liquor or wine. No illicit tracts Patient states that he was diagnosed with Covid on 05/0905/17/2020, patient is seen and evaluated in room at bedside, continues to have significant and intermittent cough, remains on oxygen at 5 L nasal cannula, O2 saturation is in the low 90s. Patient tells me that he feels much worse now that he felt before. Chest x-ray does not seem to be quite impressive. Nonetheless it show ed groundglass opacities/bibasilar. Labs are relatively unremarkable. Creatinine is 1.2. Improving C-reactive protein is 3.4, and LDH was only 311. Patient remains on COVID19 cocktails; plan is to continue to titrate oxygen off as able; pulmonary recommending to continue to monitor for another 24 hours if possible discharge tomorrow morning 05/18/2020. Patient is seen and evaluated in room at bedside; Currently, he is on 5 L nasal cannula. He states he had a rough night last night. He is very frail appearing. He complained of shortness of breath, and cough. He's not receiving any IV fluids. No labs today. Chest x-ray today reveal some slight worsening of his peripheral bilateral infiltrates. Patient remains on Lovenox, Decadron, vitamin C, vitamin C and zinc sulfate; patient remains in bed; not motivated to try to get better; we will consult PT/OT to increase activity once clinically stable 05/19/2020 Patient is seen and evaluated in room at bedside; the patient's on 5 L nasal cannula. He is not receiving any IV fluids. He states he feels a bit better today than he did yesterday. No new laboratory data today. The patient has a history of rheumatoid arthritis, microscopic polyangiitis, and vasculitis. He remains on 5 L. The patient was outside the window for REM. He is receiving Lovenox, Decadron, vitamin C, vitamin D3, and zinc. Patient continues to have for activity despite being encouraged to get out of bed and sit up in chair; patient will have PT/OT evaluation once stable 05/31/2020 Patient had a rapid response this morning, 18 was called for a heart rate of 160s to 170s with high temperature and chills with systolic blood pressure 130s; EKG revealed SVT and patient was given 6 mg and 12 mg which revealed background sinus tachycardia; Cardizem was ordered due to persistent elevated heart rate in the 160s; patient was also given 1 L bolus of normal saline with: And IV acetaminophen; chest x-ray shows persistent patchy infiltrates; patient remains on Lovenox and twice a day dosing; continue with supportive care; patient remains on IV fluids normal saline at 20 mL 06/01/2020 Patient is seen and evaluated in follow-up; remains on high flow oxygen 6 L with an FiO2 of 90% in addition to 100% V to facemask; gets short of breath with talking and movement and activity. Vital signs review reveals he spiked a temperature of 103.2. He has been afebrile since. Pro calcitonin level that was low and the fever was attributed to his underlying viral infection. Most recent d-dimer level is at 6.24 and his LDH level is at 641 with a CRP of 18.8. Lactic acid level is at 1.7. Note that his inflammatory markers have been improving including the d-dimer and the LDH. The patient remained on Decadron and the dose was increased up to 60 mg IV every 12 hours. He is also on Lovenox 70 mg subcu every 12 hours; received treatment with Actemra Cultures of been negative in terms of his series of blood cultures that were done since admission. He is awake. Is alert. . The follow-up chest x-ray was also done today that showed bilateral focal and confluent opacities consistent with COVID-19 related infection. No significant change compared to his earlier chest x-ray. 06/02/2020 Patient is seen and evaluated with nursing staff at bedside; continues to desaturate but refuses to be on BiPAP; requesting Ativan to be scheduled Patient has been on high flow nasal cannula with an FiO2 of 90% along with 100% Ventimask; patient remains on IV Decadron and subcu Lovenox and continues to deteriorate; remains to have risk of requiring intubation mechanical ventilation based on his very borderline respirator status. Pulmonary recommending to transfer this patient to the ICU for close monitoring. We'll continue same medication for now. No use BiPAP. We'll he is also to be within next 24 hours for incision supportive the patient is not meeting his caloric requirements. Review of Systems CONSTITUTIONAL: No fever, no malaise, no fatigue. HEENT: No recent visual problems or hearing problems. Denied any sore throat. CARDIOVASCULAR: No orthopnea, PND, no palpitations, no syncope. PULMONARY: No chest pain and tenderness, no hemoptysis. GASTROINTESTINAL: No diarrhea, no nausea, no vomiting, no abdominal pain. Normoactive bowel sounds. NEUROLOGICAL: No headaches, no weakness, no numbness. Objective - Vital Signs Vital signs: Vital Signs Temp 98.6 F 06/02/20 08:00 Pulse 120 H 06/02/20 08:00 Resp 28 H 06/02/20 08:00 BP 110/73 06/02/20 08:00 Pulse Ox 88 L 06/02/20 02:00 Intake & Output 06/01/20 06/02/20 06/02/20 18:59 06:59 18:59 Intake Total 120 Balance 120 Intake: Oral 120 Other: Voiding Method Bedside Commode Urinal # Voids 1 # Bowel Movements 1 - Exam GENERAL: The patient is alert and oriented x3, not in any acute distress. Well developed, well nourished. HEENT: Pupils are round and equally reacting to light. EOMI. No scleral icterus. No conjunctival pallor. Normocephalic, atraumatic. No pharyngeal erythema. No thyromegaly. CARDIOVASCULAR: S1 and S2 present. No murmurs, rubs, or gallops. -PULMONARY: Chest is clear to auscultation, no wheezing. Bilateral mild crepitation ABDOMEN: Soft, nontender, nondistended, normoactive bowel sounds. No palpable organomegaly. MUSCULOSKELETAL: No joint swelling or deformity. EXTREMITIES: No cyanosis, clubbing, or pedal edema. NEUROLOGICAL: Gross neurological examination did not reveal any focal deficits. SKIN: No rashes. No petechiae - Labs CBC & Chem 7: 06/02/20 13:21 06/02/20 13:21 Labs: Microbiology - Last 24 Hours (Table) 05/27/20 15:11 Blood Culture - Preliminary Blood No Growth after 120 hours 05/27/20 15:19 Blood Culture - Preliminary Blood No Growth after 120 hours Assessment and Plan Assessment: Acute Covid pneumonia Acute hypoxic respiratory failure secondary to above Increase inflammatory markers Nicotine dependence Constipation Alcohol abuse at-risk of alcohol withdrawal Chronic rheumatoid arthritis Chronic kidney disease stage III Gout History of GI bleed Plan: 60 years old male who presents because of Covid and hypoxia. Continue zinc, vitamin C, steroids. Pulmonary consult. Some gentle hydration Labs and medication were reviewed.. Continue same treatment. Continue with symptomatic treatment. Resume home medication. Monitor lytes and vitals. DVT and GI prophylaxis. Further recommendations depends on the clinical course of the patient DVT prophylaxis: Subcutaneous Lovenox GI Prophylaxis: Pepcid Prognosis is guarded
[2020-06-02] MEDS: ATORVASTATIN 40 MG TAB PO SCH (20:45)
[2020-06-03] MEDS: LORazepam 2 MG/ML INJ IV PRN (01:11)
[2020-06-03] MEDS ORDERED: CALCIUM CHLORIDE 100 MG/ML 10 ML SYRINGE ONE (02:55)
[2020-06-03] MEDS ORDERED: AMIODARONE 50 MG/ML 3 ML VIAL IV ONE (02:55)
[2020-06-03] MEDS ORDERED: SODIUM BICARB 8.4% 50 ML SYR (1 MEQ/ML) ONE ×2 (02:55→20:12)
[2020-06-03] MEDS ORDERED: EPINEPHrine 10 ML SYRINGE (0.1 MG/ML) ONE (02:55)
[2020-06-03 04:27] LABS: Basophils % (A) 0 %; Eosinophils % (A) 0 %; HCT 41.6 % (39.0-53.0); HGB 13.4 gm/dL (13.0-17.5); Lymphocytes # (A) 0.4 k/uL (1.0-4.8); Lymphocytes % (A) 7 %; MCH 27.8 pg (25.0-35.0); MCHC 32.1 g/dL (31.0-37.0); MCV 86.3 fL (80.0-100.0); Mean Platelet Volume 8.6; Monocytes # (A) 0.3 k/uL (0-1.0); Monocytes % (A) 4 %; Neutrophils # (A) 5.4 k/uL (1.3-7.7); Neutrophils % (A) 88 %; Platelet Count 164 k/uL (150-450); RBC 4.82 m/uL (4.30-5.90); WBC 6.1 k/uL (3.8-10.6)
[2020-06-03 04:45] LABS: African American GFR (CKD) >90 (>60 ml/min/1.73 sqM); Anion Gap 3 mmol/L; Blood Urea Nitrogen 48 mg/dL (9-20); Calcium 8.3 mg/dL (8.4-10.2); Carbon Dioxide 29 mmol/L (22-30); Chloride 101 mmol/L (98-107); Glucose 131 mg/dL (74-99); LDH 1629 U/L (313-618); Non-African American GFR(CKD) 81 (>60 ml/min/1.73 sqM); Potassium 5.2 mmol/L (3.5-5.1); Sodium 133 mmol/L (137-145)
[2020-06-03] MEDS: DEXMEDETOMIDINE/0.9% NACL(PMX) 400 MCG in EMPTY BAG 1 BAG IV SCH (05:50)
--- NOTE | 2020-06-03 08:39 | XR ---
EXAMINATION TYPE: XR chest 1V DATE OF EXAM: 06/03/2020 COMPARISON: Chest x-ray 06/01/2020 HISTORY: Covid pneumonia TECHNIQUE: Single frontal view of the chest is obtained. FINDINGS: Bilateral airspace disease is present. There is no evident pneumothorax or pleural effusio n. Cardiac mediastinal silhouette is stable. There are overlying leads. IMPRESSION: Findings consistent with patient's history of Covid pneumonia
[2020-06-03] MEDS: FLUTICASONE 50MCG/SPRAY NASAL 16GM EA NOSTRIL SCH (09:00)
[2020-06-03] MEDS ORDERED: ROCURONIUM 10 MG/ML (5 ML VIAL) IV ONE (09:00)
[2020-06-03] MEDS ORDERED: PROPOFOL 10 MG/ML 20 ML VIAL IV ONE (09:00)
[2020-06-03] MEDS ORDERED: SODIUM CHLORIDE 0.9% 1,000 ML IV ONE ×2 (09:30→11:00)
[2020-06-03] MEDS: SYMBICORT 160-4.5 MCG INHALER INHALATION SCH ×2 (09:51→20:36)
[2020-06-03] MEDS ORDERED: SODIUM CHLORIDE 0.9% 1,000 ML IV SCH (10:00)
[2020-06-03 10:13] LABS: ABG Base Excess 0.7 mmol/L; ABG HCO3 28 mmol/L (21-25); ABG Oxygen Saturation 86.5 % (94-97); ABG PCO2 63 mmHg (35-45); ABG PH 7.25 (7.35-7.45); ABG PO2 66 mmHg (83-108); ABG TCO2 30 mmol/L (19-24)
--- NOTE | 2020-06-03 10:57 | XR ---
EXAMINATION TYPE: XR chest 1V portable DATE OF EXAM: 06/03/2020 Comparison: 06/03/2020 Clinical History: 64-year-old male Tube placement Findings: ET tube is satisfactory. Tip of the NG tube is probably within the proximal duodenum. Heart upper fitch its of normal in size. Continued patchy and confluent bilateral airspace opacities. No pleural effusi on. Impression: 1. Satisfactory ET tube. NG tube tip probably within the proximal duodenum. 2. Continued patchy and confluent bilateral airspace disease.
--- NOTE | 2020-06-03 10:57 | P.PN ---
Subjective Progress Note Date: 06/03/20 Principal diagnosis: 06/02/2020, the patient is still doing very poor. His been on high flow oxygen at 6 L with an FiO2 of 90% in addition to 100% on a beta facemasks. His been t he same setting for several days. I feel that he is gradually getting more weak and debilitated and deconditioned. Note that he has been offered aggressive treatment. The patient had follow-up blood work this is still showing elevated LDH level of 1671 and the level is higher compared to yesterday. CRP level is at 18.8. His current d-dimer is at 6.24. The white cell count is at 7.4 with a hemoglobin of 16.6. Renal function is stable. The patient remains on Lovenox 40 mg subcu every 12 hours. He is also on steroids in the patient is taking Decadron 63 g IV every 12 hours. Unfortunately, his current pulse ox is still running high 80s, mid 80s range. His chest x-ray from 2 days ago showed diffuse breath and pulmonary infiltrates consistent with COVID-19 pneumonia and the patient is not showing any signs of recovery. The patient has been in the hospital for almost 3 weeks. At times, the patient becomes more worked of an anxious and this obviously dropped his pulse ox before that reason, the patient is being given Ativan 0.5 g on as-needed basis. Oral intake is quite diminished and the patient is unable to eat more than 10% of the trace offered to him. As such, the patient is obviously an ongoing concern. Patient was reevaluated today on 06/03/2020, a shunt is on BiPAP 01/22/100%, patient does not look good, he is breathing above 44/m. He is in moderate severe respiratory distress. Hence I recommended intubating the patient, his chest x-ray looks worse, and clinically he looks much worse. He is maintained on Precedex, and I will discontinue Precedex, intubated the patient sedated him and may have to paralyze him. Patient was intubated shortly after I saw him he was placed on assist control rate of 2410 volume 400 FiO2 100% and PEEP of 8. Objective - Vital Signs Vital signs: Vital Signs Temp 97.4 F L 06/03/20 08:00 Pulse 89 06/03/20 08:00 Resp 47 H 06/03/20 08:00 BP 118/77 06/03/20 08:00 Pulse Ox 82 L 06/03/20 08:00 Intake & Output 06/02/20 06/03/20 06/03/20 18:59 06:59 18:59 Intake Total 9.573 374.192 296 Output Total 620 70 Balance 9.573 -245.808 226 Weight 75 kg Intake: IV 225 75 Sodium Chloride 0.9% 1, 225 75 000 ml @ 75 mls/hr IV . [id number] [facility] Rx#:[id number] Intake, IV Titration 9.573 149.192 Amount Dexmedetomidine/0.9% NaCl 9.573 149.192 (Pmx) 400 mcg In Empty Bag 1 bag @ Titrate IV . Q0M [facility] Rx#:[id number] Blood Product 221 Ffp Pher Conval Covid19 221 Acda 2 Unit [id number] Output: Urine 620 70 Other: Voiding Method Indwelling Catheter # Voids 0 - Exam Physical Exam: Revealed a 64-year-old white male on BiPAP, in severe respiratory distress. Using his accessory muscles, he could not even finish a sentence or few words. Head: Atraumatic, normocephalic. HEENT:[Neck is supple.] [No neck masses.] [No thyromegaly.] [No JVD.] Chest: [Electrical expansion crackles at the bases and rhonchi bilaterally. Cardiac Exam: [Normal S1 and S2, no S3 gallop, no murmur.] Abdomen: [Soft, nontender, no megaly, no rebound, no guarding, normal bowel sounds.] Extremities: [No clubbing, no edema, no cyanosis.] Neurological Exam: [No focal neurologic deficit.] Alert and oriented 3. Psychiatric: Anxious mood, blunt affect, normal mental status examination. Skin: No rashes. Musculoskeletal, no deformities noted limitation in range of motion - Labs CBC & Chem 7: 06/03/20 03:33 06/03/20 03:33 Labs: Abnormal Lab Results - Last 24 Hours (Table) 06/02/20 06/02/20 06/02/20 Range/Units 13:21 13:21 16:38 Lymphocytes # 0.2 L (1.0-4.8) k/uL D-Dimer (<0.60) mg/L FEU ABG pH (7.35-7.45) ABG pCO2 (35-45) mmHg ABG pO2 (83-108) mmHg ABG HCO3 (21-25) mmol/L ABG Total CO2 (19-24) mmol/L ABG O2 Saturation (94-97) % Sodium 135 L (137-145) mmol/L Potassium (3.5-5.1) mmol/L BUN 38 H (9-20) mg/dL Glucose 136 H (74-99) mg/dL POC Glucose (mg/dL) 182 H (75-99) mg/dL Calcium 8.0 L (8.4-10.2) mg/dL Lactate Dehydrogenase 1671 H (313-618) U/L 06/03/20 06/03/20 06/03/20 Range/Units 03:33 03:33 03:33 Lymphocytes # 0.4 L (1.0-4.8) k/uL D-Dimer 25.50 H (<0.60) mg/L FEU ABG pH (7.35-7.45) ABG pCO2 (35-45) mmHg ABG pO2 (83-108) mmHg ABG HCO3 (21-25) mmol/L ABG Total CO2 (19-24) mmol/L ABG O2 Saturation (94-97) % Sodium 133 L (137-145) mmol/L Potassium 5.2 H (3.5-5.1) mmol/L BUN 48 H (9-20) mg/dL Glucose 131 H (74-99) mg/dL POC Glucose (mg/dL) (75-99) mg/dL Calcium 8.3 L (8.4-10.2) mg/dL Lactate Dehydrogenase 1629 H (313-618) U/L 06/03/20 Range/Units 10:10 Lymphocytes # (1.0-4.8) k/uL D-Dimer (<0.60) mg/L FEU ABG pH 7.25 L (7.35-7.45) ABG pCO2 63 H (35-45) mmHg ABG pO2 66 L (83-108) mmHg ABG HCO3 28 H (21-25) mmol/L ABG Total CO2 30 H (19-24) mmol/L ABG O2 Saturation 86.5 L (94-97) % Sodium (137-145) mmol/L Potassium (3.5-5.1) mmol/L BUN (9-20) mg/dL Glucose (74-99) mg/dL POC Glucose (mg/dL) (75-99) mg/dL Calcium (8.4-10.2) mg/dL Lactate Dehydrogenase (313-618) U/L Microbiology - Last 24 Hours (Table) 05/27/20 15:11 Blood Culture - Final Blood No Growth after 144 hours 05/27/20 15:19 Blood Culture - Final Blood No Growth after 144 hours Assessment and Plan Assessment: Impression: Acute hypoxic respiratory failure secondary to COVID-19 pneumonia, requiring intubation and mechanical ventilation on 06/03/2020. Patient received toci, remains on Decadron 6 mg IV push every 12 hours. His pro-calcitonin level remains low. His oxygenation and saturations have been borderline for quite some time. Today the patient is requiring intubation and mechanical ventilation. Multiple constitutional symptoms secondary to COVID-19 infection History of microscopic polyangiitis History of hypertension History of gout History of GI bleeding. Recommendation: Continue ventilatory support, patient was intubated and placed on mechanical ventilation this morning. Continue hemodynamic support if necessary start the patient on norepinephrine after fluid bolus. Continue nutritional support/enteral feeding. Continue Lovenox. Continue to monitor inflammatory markers. Continue to monitor daily labs and daily x-rays of the chest as well as daily ABGs. Continue GI and DVT prophylaxis. Prognosis is extremely poor and guarded. Critical care time is over 30 minutes Time with Patient: Greater than 30
[2020-06-03] MEDS ORDERED: CISATRACURIUM 2 MG/ML 5 ML VIAL IV ONE (11:26)
[2020-06-03] MEDS ORDERED: CISATRACURIUM 200 MG in SODIUM CHLORIDE 0.9% 180 ML IV SCH (11:30)
[2020-06-03] MEDS ORDERED: fentaNYL (PF). 1,000 MCG in SODIUM CHLORIDE 0.9% 80 ML IV SCH (11:30)
[2020-06-03 12:01] LABS: INR 1.1 (<1.2); Prothrombin Time 11.6 sec (9.0-12.0)
[2020-06-03] MEDS: ASCORBIC ACID 500 MG TAB PO SCH (12:10)
[2020-06-03] MEDS: CHOLECALCIFEROL 25 MCG (1000 IU) TABLET PO SCH (12:10)
[2020-06-03] MEDS: polyethylene glycoL 3350 17 GM POWD.PACK PO SCH (12:11)
[2020-06-03] MEDS: ZINC SULFATE 220 MG CAP PO SCH (12:11)
[2020-06-03] MEDS: ASPIRIN 81 MG PO SCH (13:00)
[2020-06-03] MEDS: ENOXAPARIN 40 MG/0.4 ML SYRINGE SQ SCH (13:01)
[2020-06-03] MEDS: allopurinoL 100 MG TAB PO SCH ×2 (13:01→19:51)
[2020-06-03] MEDS: DEXAMETHASONE SOD PHOSPHATE 10 MG/ML 1 ML VIAL IV SCH ×2 (13:01→19:50)
[2020-06-03] MEDS: ARTIFICIAL TEARS-HYPROMELLOSE DROPS 15 ML BTL BOTH EYES SCH ×2 (13:02→16:00)
[2020-06-03] MEDS: THIAMINE 100 MG/ML 2 ML VIAL IVP SCH (13:06)
[2020-06-03 13:21] LABS: ABG Base Excess -2.1 mmol/L; ABG HCO3 28 mmol/L (21-25); ABG Oxygen Saturation 83.9 % (94-97); ABG PO2 73 mmHg (83-108); ABG TCO2 32 mmol/L (19-24); Allen Test Performed? Yes
[2020-06-03 13:24] LABS: ABG PCO2 102 mmHg (35-45); ABG PH 7.05 (7.35-7.45)
[2020-06-03] MEDS ORDERED: SODIUM BICARB 8.4% 50 ML SYR (1 MEQ/ML) IV STA (13:26)
[2020-06-03 13:33] VITALS: BMI 24.4
[2020-06-03] MEDS ORDERED: HEPARIN SODIUM 1,000 UN/ML (10ML VL) IV PRN (13:52)
[2020-06-03] MEDS ORDERED: HEPARIN SODIUM 1,000 UN/ML (10ML VL) IV ONE (13:52)
--- NOTE | 2020-06-03 13:54 | XR ---
EXAMINATION TYPE: XR chest 1V portable DATE OF EXAM: 06/03/2020 Comparison: 06/03/2020, earlier today Clinical History: 64-year-old male covid, rule out pneumothorax Findings: ET tube satisfactory. NG tube courses below the diaphragm. Tip remains within the proximal duodenum. Heart upper limits of normal size. Continued bilateral airspace disease. There may be minimal improve ment in aeration at the left lower lung. No appreciable pneumothorax at this time. Impression: Continued bilateral airspace disease. There may be minimal improvement in aeration at the left lower lung. No appreciable pneumothorax at this time.
[2020-06-03] MEDS ORDERED: HEPARIN SOD,PORK IN 0.45% NACL 25,000 UNIT in 0.45% NACL 1 250ML.BAG IV SCH (14:00)
[2020-06-03] MEDS ORDERED: LIDOCAINE 1% INJ 10MG/ML (20 ML MDV) SQ ONE (14:58)
--- NOTE | 2020-06-03 15:27 | XR ---
EXAMINATION TYPE: XR chest 1V portable DATE OF EXAM: 06/03/2020 CLINICAL HISTORY: PICC line placement TECHNIQUE: Single AP portable semiupright view of the chest is obtained. COMPARISON: Chest x-ray from earlier today an older studies FINDINGS: Stable endotracheal and orogastric tubes. Right-sided PICC line partially coiled in the dis darryl internal jugular vein terminating in SVC. Persistent focal and confluent opacities bilaterally. Cardiac silhouette size stable and within norm al limits. Osseous structures are intact. IMPRESSION: As above.
--- NOTE | 2020-06-03 15:29 | P.PN ---
Subjective Progress Note Date: 06/03/20 This is a 64-year-old male who was recently admitted with increased lethargic and weakness with the inability to eat and drink that had been ongoing for over one week along with fevers and dyspnea and her being closely monitored. Patient was maintained on Airvo along with non-breather maxed out and continued to be extremely dyspneic while at rest. Patient was recently transferred to the ICU for closer monitoring as patient's respiratory status continues to deteriorate. Patient was found to be extremely tachycardic and in respiratory distress requiring intubation and mechanical ventilation. Patient is currently sedated and being closely monitored. LDH continues to be elevated at 1629, pro calc itonin today is 15.03, d-dimer is 25.5, CBC within normal limits with a hemoglobin of 13.4 and white blood count is 6.1. Review of systems: Unable to obtain as patient is now intubated and on mechani dipti ventilation Active Medications Acetaminophen (Acetaminophen Tab 325 Mg Tab) 650 mg PO Q6HR PRN PRN Reason: Fever and/ or Pain Last Admin: 06/02/20 12:10 Dose: 650 mg Documented by: Allopurinol (Allopurinol 100 Mg Tab) 100 mg PO BID [facility] Last Admin: 06/03/20 13:01 Dose: 100 mg Documented by: Artificial Tears (Artificial Tears-Hypromellose Drops 15 Ml Btl) 2 drops BOTH EYES Q4HR [facility] Last Admin: 06/03/20 13:02 Dose: 2 drops Documented by: Ascorbic Acid (Ascorbic Acid 500 Mg Tab) 500 mg PO DAILY [facility] Last Admin: 06/03/20 12:10 Dose: Not Given Documented by: Aspirin (Aspirin 81 Mg) 81 mg PO DAILY [facility] Last Admin: 06/03/20 13:00 Dose: 81 mg Documented by: Atorvastatin Calcium (Atorvastatin 40 Mg Tab) 40 mg PO HS [facility] Last Admin: 06/02/20 20:45 Dose: 40 mg Documented by: Budesonide/Formoterol Fumarate (Symbicort 160-4.5 Mcg Inhaler) 2 puff INHALATION RT-BID [facility] Last Admin: 06/03/20 09:51 Dose: Not Given Documented by: Calcitriol (Calcitriol 0.25 Mcg Cap) 0.25 mcg PO QMONTHLY [facility] Cholecalciferol (Cholecalciferol 25 Mcg (1000 Iu) Tablet) 50 mcg PO DAILY [facility] Last Admin: 06/03/20 12:10 Dose: Not Given Documented by: Dexamethasone Sodium Phosphate (Dexamethasone Sod Phosphate 10 Mg/Ml 1 Ml Vial) 6 mg IV BID [facility] Last Admin: 06/03/20 13:01 Dose: 6 mg Documented by: Fluticasone Propionate (Fluticasone 50mcg/[place] Nasal 16gm) 1 spray EA NOSTRIL DAILY [facility] Last Admin: 06/03/20 09:00 Dose: Not Given Documented by: Heparin Sodium (Porcine) (Heparin Sodium 1,000 Un/Ml (10ml Vl)) 0 unit IV PER PROTOCOL PRN; Protocol PRN Reason: Low PTT Dexmedetomidine HCl 400 mcg/ (IV Solution) 100 mls @ 0 mls/hr IV .Q0M [facility]; Pro tocol Stop: 06/03/20 16:42 Last Admin: 06/03/20 05:50 Dose: 0.7 mcg/kg/hr, 13.098 mls/hr Documented by: Propofol 1,000 mg/ IV Solution 100 mls @ 0 mls/hr IV .Q0M [facility]; Protocol Last Admin: 06/03/20 12:14 Dose: 50 mcg/kg/min, 22.5 mls/hr Documented by: Cisatracurium Besylate 200 mg/ (Sodium Chloride) 200 mls @ 4.5 mls/hr IV .Q24H [facility]; Protocol Last Titration: 06/03/20 14:38 Dose: 3 mcg/kg/min, 13.5 mls/hr Documented by: Fentanyl Citrate 1,000 mcg/ (Sodium Chloride) 100 mls @ 0 mls/hr IV .Q0M [facility]; Protocol Last Admin: 06/03/20 11:48 Dose: 0.25 mcg/kg/hr, 1.875 mls/hr Documented by: Sodium Chloride (Saline 0.9%) 1,000 mls @ 50 mls/hr IV .Q20H [facility] Last Admin: 06/03/20 10:00 Dose: 50 mls/hr Documented by: Heparin Sodium/Sodium Chloride (25,000 unit/ Sodium Chloride) 250 mls @ 13.5 mls/hr IV .[id number] [facility]; Protocol Lorazepam (Lorazepam 2 Mg/Ml Inj) 0.5 mg IV Q8HR PRN PRN Reason: Anxiety Last Admin: 06/03/20 01:11 Dose: 0.5 mg Documented by: Naloxone HCl (Naloxone 0.4 Mg/Ml 1 Ml Vial) 0.2 mg IV Q2M PRN PRN Reason: Opioid Reversal Ondansetron HCl (Ondansetron 4 Mg/2 Ml Vial) 4 mg IVP Q8HR PRN PRN Reason: Nausea And Vomiting Last Admin: 05/22/20 08:59 Dose: 4 mg Documented by: Polyethylene Glycol (Polyethylene Glycol 3350 17 Gm Powd.Pack) 17 gm PO DAILY [facility] Last Admin: 06/03/20 12:11 Dose: Not Given Documented by: Senna/Docusate Sodium (Sennosides-Docusate Sodium 1 Each Tab) 1 each PO BID PRN PRN Reason: Constipation Simethicone (Simethicone 80 Mg Chewable) 80 mg PO QID PRN PRN Reason: Bloating Thiamine HCl (Thiamine 100 Mg/Ml 2 Ml Vial) 100 mg IVP DAILY [facility] Last Admin: 06/03/20 13:06 Dose: Not Given Documented by: Zinc Sulfate (Zinc Sulfate 220 Mg Cap) 220 mg PO DAILY [facility] Last Admin: 06/03/20 12:11 Dose: Not Given Documented by: Objective - Vital Signs Vital signs: Vital Signs Temp 97.4 F L 06/03/20 08:00 Pulse 89 06/03/20 08:00 Resp 47 H 06/03/20 08:00 BP 118/77 06/03/20 08:00 Pulse Ox 82 L 06/03/20 08:00 Intake & Output 06/02/20 06/03/20 06/03/20 18:59 06:59 18:59 Intake Total 9.573 374.192 323 Output Total 620 70 Balance 9.573 -245.808 253 Weight 75 kg Intake: IV 225 75 Sodium Chloride 0.9% 1, 225 75 000 ml @ 75 mls/hr IV . [id number] [facility] Rx#:[id number] Intake, IV Titration 9.573 149.192 27 Amount Dexmedetomidine/0.9% NaCl 9.573 149.192 (Pmx) 400 mcg In Empty Bag 1 bag @ Titrate IV . Q0M [facility] Rx#:[id number] propofoL 1,000 mg In 27 Empty Bag 1 bag @ Titrate IV .Q0M [facility] Rx#: [id number] Blood Product 221 Ffp Pher Conval Covid19 221 Acda 2 Unit [id number] Output: Urine 620 70 Other: Voiding Method Indwelling Catheter # Voids 0 - Exam Gen: This is a 64-year-old male currently intubated and sedated. Temp is 97.4F axillary home heart rate is 110, respirations are 32-43, blood pressure is 91/66, oxygen saturations show 93% on mechanical vent at 100%. HEENT: Head is atraumatic, normocephalic. Pupils equal, round. Sclerae is anicteric. NECK: Supple. No JVD. No lymphadenopathy. No thyromegaly. LUNGS: Diminished breath sounds bilaterally with scattered rhonchi and crackles noted. Tachypneic. No intercostal retractions. HEART: S1, S2 are muffled ABDOMEN: Soft. Bowel sounds are present. No masses. No tenderness. EXTREMITIES: No pedal edema. No calf tenderness. NEUROLOGICAL: Patient is intubated and sedated. - Labs CBC & Chem 7: 06/03/20 03:33 06/03/20 03:33 Labs: Abnormal Lab Results - Last 24 Hours (Table) 06/02/20 06/02/20 06/02/20 Range/Units 13:21 13:21 16:38 Lymphocytes # 0.2 L (1.0-4.8) k/uL D-Dimer (<0.60) mg/L FEU ABG pH (7.35-7.45) ABG pCO2 (35-45) mmHg ABG pO2 (83-108) mmHg ABG HCO3 (21-25) mmol/L ABG Total CO2 (19-24) mmol/L ABG O2 Saturation (94-97) % Sodium 135 L (137-145) mmol/L Potassium (3.5-5.1) mmol/L BUN 38 H (9-20) mg/dL Glucose 136 H (74-99) mg/dL POC Glucose (mg/dL) 182 H (75-99) mg/dL Calcium 8.0 L (8.4-10.2) mg/dL Lactate Dehydrogenase 1671 H (313-618) U/L 06/03/20 06/03/20 06/03/20 Range/Units 03:33 03:33 03:33 Lymphocytes # 0.4 L (1.0-4.8) k/uL D-Dimer 25.50 H (<0.60) mg/L FEU ABG pH (7.35-7.45) ABG pCO2 (35-45) mmHg ABG pO2 (83-108) mmHg ABG HCO3 (21-25) mmol/L ABG Total CO2 (19-24) mmol/L ABG O2 Saturation (94-97) % Sodium 133 L (137-145) mmol/L Potassium 5.2 H (3.5-5.1) mmol/L BUN 48 H (9-20) mg/dL Glucose 131 H (74-99) mg/dL POC Glucose (mg/dL) (75-99) mg/dL Calcium 8.3 L (8.4-10.2) mg/dL Lactate Dehydrogenase 1629 H (313-618) U/L 06/03/20 Range/Units 10:10 Lymphocytes # (1.0-4.8) k/uL D-Dimer (<0.60) mg/L FEU ABG pH 7.25 L (7.35-7.45) ABG pCO2 63 H (35-45) mmHg ABG pO2 66 L (83-108) mmHg ABG HCO3 28 H (21-25) mmol/L ABG Total CO2 30 H (19-24) mmol/L ABG O2 Saturation 86.5 L (94-97) % Sodium (137-145) mmol/L Potassium (3.5-5.1) mmol/L BUN (9-20) mg/dL Glucose (74-99) mg/dL POC Glucose (mg/dL) (75-99) mg/dL Calcium (8.4-10.2) mg/dL Lactate Dehydrogenase (313-618) U/L Microbiology - Last 24 Hours (Table) 05/27/20 15:11 Blood Culture - Final Blood No Growth after 144 hours 05/27/20 15:19 Blood Culture - Final Blood No Growth after 144 hours Assessment and Plan Assessment: Acute Covid 19 infection with acute Covid 19 bilateral interstitial pneumonia with acute hypoxic respiratory failure Status post mechanical ventilation secondary to worsening hypoxic respiratory failure from COVID-19 bilateral interstitial pneumonia Change in mental status, metabolic encephalopathy Continued fevers possibly secondary to acute Covid 19, cultures of blood sputum and urine remain negative Hypotension with possible sepsis increased inflammatory markers History of nicotine dependence Constipation, resolved history of EtOH abuse History of rheumatoid arthritis history of chronic kidney disease, stage III History of gout History of gastrointestinal bleed DVT prophylaxis: Lovenox Full code Plan: Continue with current medications and continue to closely monitor in the ICU. Patient was intubated this morning is respiratory status continued to deteriorate and was 100% on BiPAP with oxygen saturations in the low 70s. Patient is maintained on heparin drip along with IV dexamethasone, and vitamin and zinc supplements and will continue. Continue to monitor blood sugars before meals and at bedtime per protocol as patient is not eating and intubated. Pulmonary following. Inflammatory markers elevated. Due to multiple complex medical issues, Prognosis is extremely guarded.
--- NOTE | 2020-06-03 15:46 | XR ---
EXAMINATION TYPE: XR chest 1V confirm line [facility] DATE OF EXAM: 06/03/2020 COMPARISON: Chest x-ray same dated earlier time HISTORY: PICC line reposition TECHNIQUE: Single frontal view of the chest is obtained. FINDINGS: There is been interval repositioning of the PICC line. Distal tip the catheter is overlyin g the cavoatrial junction. No other interval change. IMPRESSION: Interval PICC line reposition.
[2020-06-03 16:03] VITALS: TEMP 100.4
--- NOTE | 2020-06-03 16:34 | US ---
EXAMINATION TYPE: US venous doppler duplex LE BI DATE OF EXAM: 06/03/2020 4:26 PM COMPARISON: Prior ultrasound 2 weeks ago CLINICAL HISTORY: dvt. COVID. intubated ICU patient SIDE PERFORMED: bilateral TECHNIQUE: The lower extremity deep venous system is examined utilizing real time linear array sonog jojo with graded compression, doppler sonography and color-flow sonography. VESSELS IMAGED: Common Femoral Vein Deep Femoral Vein Greater Saphenous Vein * Femoral Vein Popliteal Vein Small Saphenous Vein * Proximal Calf Veins (* superficial vessels) Right Leg: no evidence of DVT as visualized Left Leg: no evidence of DVT as visualized. anechoic area left popliteal fossa = 3.4 x 0.9 x 2.0cm, Mitchell's cyst Grayscale, color doppler, spectral doppler imaging performed of the deep veins of the bilateral lower extremities. There is normal flow, compressibility, vascular waveforms. IMPRESSION: No acute DVT in either lower extremity. Small left-sided popliteal cyst redemonstrated t owards end of study. No significant change from prior.
[2020-06-03] MEDS ORDERED: NOREPINEPHRINE 4 MG in SODIUM CHLORIDE 0.9% 250 ML IV SCH (17:00)
--- NOTE | 2020-06-03 17:18 | IR ---
EXAMINATION TYPE: IR cvc insert >=5 years DATE OF EXAM: 06/03/2020 COMPARISON: NONE HISTORY: Covid pneumonia, needs long-term intravenous access for therapy FINDINGS: Maximal barrier technique was utilized. Hand hygiene obtained with soap and water and alco hol-based hand rub. The skin overlying the right brachial vein was localized with ultrasound and note d to be compressible and patent by ultrasound. An ultrasound image was obtained and submitted on pat ient's chart. Sterile technique utilized with the ultrasound machine. The skin overlying was prepped and draped and Lidocaine used for local anesthesia. A skin david was made with a scalpel. Access was gained to the vein under direct ultrasound guidance with a 21-gauge needle and a 0.018 inch wire was advanced. Access site was dilated with a peel-away sheath and the catheter tailored to length. Cat heter advanced centrally and a post procedure chest x-ray verified placement with tip in the right at rium, catheter withdrawn 2 cm. Catheter was fixed to the skin and a sterile dressing placed. Hemost asis achieved and the catheter was aspirated and flushed with sterile saline. The patient remained i n stable condition. IMPRESSION: STATUS POST ULTRASOUND GUIDED PICC LINE PLACEMENT, READY FOR USE. THIS PROCEDURE WAS PER FORMED BY THE UNDERSIGNED.
[2020-06-03 17:51] LABS: Glucose,Whole Blood 123 mg/dL (75-99)
[2020-06-03] MEDS ORDERED: INSULIN ASPART (NovoLOG) 100 UNIT/ML VIAL SQ SCH (18:00)
[2020-06-03] MEDS: ACETAMINOPHEN TAB 325 MG TAB PO PRN (18:37)
[2020-06-03 18:51] LABS: ABG Base Excess -4.3 mmol/L; ABG HCO3 27 mmol/L (21-25); ABG Oxygen Saturation 80.5 % (94-97); ABG PO2 63 mmHg (83-108); ABG TCO2 30 mmol/L (19-24)
[2020-06-03 18:53] LABS: ABG PCO2 103 mmHg (35-45); ABG PH 7.02 (7.35-7.45)
[2020-06-03] MEDS: ATORVASTATIN 40 MG TAB PO SCH (19:51)
[2020-06-03] MEDS ORDERED: DEXTROSE 5% IN WATER 1,000 ML with SODIUM BICARB (1 MEQ/ML) 100 ML IV SCH (20:00)
[2020-06-03] MEDS ORDERED: CHLORHEXIDINE GLUCONATE 15 ML CUP MUCOUS MEM SCH (21:00)
[2020-06-03] MEDS ORDERED: EPINEPHrine 4 MG in DEXTROSE 5% IN WATER 250 ML IV SCH ×2 (21:00)
--- NOTE | 2020-06-03 21:38 | P.EN ---
Code blue note, please refer to paper chart of the code blue event , for exact sequence of events and intervention delivered. patient 64 year old with vasculitis, arthritis, and hypertension , prolonged hospital course for COVID pneumonia without significant signs of improvement PEA cardiopulmonary arrest, CPR initiated following ACLS protocol, epi given and bicarb. he developed pulseless Vtach, patient was shocked and given 300 mg of amiodaron. patient achieved ROSC. however, now showing new 3rd degree AVB. cardiology was contacted and reviewed the case with Dr Gallegos. patient will be initiated on epi drip with goal heart rate of >45 bmp. he is currently transcutaneously paced awaiting epi drip. patient will be given another dose of epi push in the interim while waiting for the drip check labs cbc, cmp, Mg, and other electrolytes. LA, trop (expected to be elevated due to coding , but will assess the trend ) update ICU attending , to help with family decision regarding Goals of care, especially with anticipated poor prognosis due to above comorbidities and prolonged hospital course without improving. 40 minutes were spent in critical care time in the care of this patient
--- NOTE | 2020-06-03 23:18 | OP ---
OPERATIVE REPORT OPERATIVE REPORT: Placement of a right radial arterial line. PREOPERATIVE DIAGNOSIS: Acute hypoxic respiratory failure, Covid 19 pneumonia, hypotension, line was placed on emergent basis. PROCEDURE DETAILS: Patient was placed in a supine position, the right wrist was prepared in a sterile fashion. Drapes were applied, no anesthesia was given. The right radial artery was palpated, cannulated easily. Guidewire was placed. A Cook catheter inserted over the guidewire, and the guidewire was removed. Good blood flow, good waveform noted, line was secured using 3.0 silk sutures. No complications postoperatively. MMODL / IJN: [id number] /
[2020-06-04] VITALS: BP 62/43; PULSE 0; RESP 0
--- NOTE | 2020-06-04 17:52 | DS ---
DISCHARGE SUMMARY DATE OF SERVICE: 06/04/2020 FINAL DIAGNOSIS: 1. The primary cause of is acute COVID-19 infection with acute COVID-19 interstitial bilateral pneumonia with acute hypoxic respiratory failure. 2. Status post mechanical ventilation secondary to worsening hypoxic respiratory failure and COVID-19 bilateral interstitial pneumonia. 3. Change in mental status, acute metabolic encephalopathy. 4. Continued fevers post secondary to COVID-19. 5. Hypotension with possible sepsis. 6. Increased inflammatory markers. 7. History of nicotine dependence. 8. History of constipation. 9. History of EtOH abuse. 10.History of rheumatoid arthritis. 11.History of chronic kidney disease stage 3. 12.History of gout. 13.History of gastrointestinal bleed. 14.Deep vein thrombosis prophylaxis with Lovenox. HISTORY OF PRESENT ILLNESS: This is a 64-year-old gentleman with a past medical history of multiple medical problems was admitted with COVID-19 pneumonia. The patient was unable to eat or drink for 1 week prior to admission. The patient also developed bilateral pneumonia with acute respiratory failure with acute hypoxic respiratory failure. The patient was mechanically intubated. Patient closely monitored, but however the patient's condition worsened and the patient succumbed to the above illnesses. The prognosis was extremely guarded throughout the hospital stay and the patient has seen multiple consultants including Pulmonary Critical Care physicians. Please refer to their notes for further information. The patient is followed by Dr. Mcqueen in the outpatient setting. The prognosis was extremely guarded throughout the hospital stay. MMODL / IJN: [id number] /
--- NOTE | 2020-06-05 20:59 | CDI ---
Documentation Clarification Form Mortality Review Date: 06/05/2020 08:32:23 PM From: Mily Martin RN, CCDS Admit Date: 05/13/2020 08:50:00 PM Patient Name: Isra Tanner Visit Number: [id number] Discharge Date: 06/03/2020 09:12:00 PM ATTENTION: The Clinical Documentation Specialists (CDI) and [facility] Coding Staff appreciate your assistance in clarifying documentation. Please respond to the clarification below the line at the bottom and electronically sign. The CDI & [facility] Coding staff will review the response and follow-up if needed. Please note: Queries are made part of the Legal Health Record. If you have any questions, please contact the author of this message via ITS. Dr. Debby Crowe "Possible Sepsis" has been documented throughout the medical record and requires definitive diagnosis after study if able to provide. Additional clarification regarding the etiology/cause of the clinical indicators is requested. History/Risk Factors: RA, Vasculitis, Former smoker Clinical Indicators: 05/20-05/30 Attending progress notes: "Hypotension with possible sepsis." 05/31 A-Team call: "patient is shaking, with high temp, and tachycardic in the 160-170s range. Blood pressure in 130s systolic, lungs audible breath sounds throughout, with diffuse rhonchi no leg edema patient awake, alert, follows commands, looks anxious and very uncomfortable, with rigors. Reports diffuse aches." 05/14 -06/03 WBC: 7.3/9.8/8.3/8.07/9.01/9.6/8.8/10.2/7.4/6.1 05/20-05/31 Lactic acid: 1/1.7 05/14 Coronavirus PCR detected Blood cultures: negative x 5 sets 05/18 1914 Vital signs: temp 103, HR 101, RR 16, B/P 117/70, Spo2 92% on 5L NC End Organ Dysfunction: Metabolic Encephalopathy, Acute hypoxic respiratory failure Treatment: No ID Consult Placed 05/20 Vanco 1500mg IVPB OT 05/20-05/28 Zosyn 3.375 gm IVPB Q8hrs. 05/13-05/14 Remdesivir 200mg x 1 IVPB followed by 100 mg IVPB 05/30 750cc 0.9% NS IV fluid bolus 06/03 2L 0.9% NS IVPB In your professional opinion, please clarify if these findings signify one of the following conditions: [ ] Sepsis POA [ ] Sepsis, Not POA [ ] Sepsis ruled out WITH [ ] Severe Sepsis with organ failure [ ] Septic Shock [ ] Other, please specify [ ] Unable to determine SIRS Criteria: 2 or more of the following may indicate SIRS -Temperature < 96.8F (36C) or > 101.0F (38.3C) -Heart Rate > 90 bpm -Respiratory Rate > 20 breaths/min or PaCO2 < 32 mmHg -White Blood Cell Count > 12,000 or < 4,000 cells/mm3 or > 10% bands (Template Last Reviewed: March 2020) Sepsis POA MTDD
== END 2020-06-03 21:12 | disposition expired | DRG 871 ==
LOC: EC 17:18 → 4SSUR 20:50 → 6NMEDSUR 05-14 23:28 → 2SICU 06-02 16:23
PROVIDERS: ADMIT Hospitalist; ATTEND Hospitalist
PROC: XW033E5 Introduction of Remdesivir Anti-infective into Peripheral Vein, Percutaneous Approach, New Technology Group 5 (ICD-10-PCS; 2020-05-13)
PROC: 3E0333Z Introduction of Anti-inflammatory into Peripheral Vein, Percutaneous Approach (ICD-10-PCS; 2020-05-14)
PROC: 5A0945A Assistance with Respiratory Ventilation, 24-96 Consecutive Hours, High Flow/Velocity Cannula (ICD-10-PCS; 2020-05-20)
PROC: 0BH17EZ Insertion of Endotracheal Airway into Trachea, Via Natural or Artificial Opening (ICD-10-PCS; 2020-06-03)
PROC: 5A12012 Performance of Cardiac Output, Single, Manual (ICD-10-PCS; 2020-06-03)
PROC: 3E043XZ Introduction of Vasopressor into Central Vein, Percutaneous Approach (ICD-10-PCS; 2020-06-03)
PROC: 02HV33Z Insertion of Infusion Device into Superior Vena Cava, Percutaneous Approach (ICD-10-PCS; 2020-06-03)
PROC: 03HY32Z Insertion of Monitoring Device into Upper Artery, Percutaneous Approach (ICD-10-PCS; 2020-06-03)
PROC: 4A133B1 Monitoring of Arterial Pressure, Peripheral, Percutaneous Approach (ICD-10-PCS; 2020-06-03)
PROC: 4A133J1 Monitoring of Arterial Pulse, Peripheral, Percutaneous Approach (ICD-10-PCS; 2020-06-03)
PROC: 5A1935Z Respiratory Ventilation, Less than 24 Consecutive Hours (ICD-10-PCS; principal; 2020-06-03 20:25)
DX: A41.89 Other specified sepsis (principal); U07.1 COVID-19; J12.82 Pneumonia due to coronavirus disease 2019; J96.21 Acute and chronic respiratory failure with hypoxia; G93.41 Metabolic encephalopathy; M31.7 Microscopic polyangiitis; I47.1 Supraventricular tachycardia; I44.2 Atrioventricular block, complete; G45.9 Transient cerebral ischemic attack, unspecified; I47.2 Ventricular tachycardia; M06.9 Rheumatoid arthritis, unspecified; Z83.3 Family history of diabetes mellitus; Z82.3 Family history of stroke; Z80.0 Family history of malignant neoplasm of digestive organs; Z79.899 Other long term (current) drug therapy; Z88.1 Allergy status to other antibiotic agents; Z88.2 Allergy status to sulfonamides; Z88.8 Allergy status to other drugs, medicaments and biological substances; I46.8 Cardiac arrest due to other underlying condition; N18.30 Chronic kidney disease, stage 3 unspecified; M10.9 Gout, unspecified; Z95.5 Presence of coronary angioplasty implant and graft; F41.9 Anxiety disorder, unspecified; F10.10 Alcohol abuse, uncomplicated; F17.200 Nicotine dependence, unspecified, uncomplicated; I12.9 Hypertensive chronic kidney disease with stage 1 through stage 4 chronic kidney disease, or unspecified chronic kidney disease; Z86.010 Personal history of colon polyps; I65.22 Occlusion and stenosis of left carotid artery; K59.00 Constipation, unspecified; I95.9 Hypotension, unspecified; Z79.01 Long term (current) use of anticoagulants; Z87.19 Personal history of other diseases of the digestive system; R74.02 Elevation of levels of lactic acid dehydrogenase [LDH]; I77.6 Arteritis, unspecified
CPT/HCPCS: 36410; 36415; 36573; 36600; 70450; 70496; 70498; 71045; 71275; 76937; 80048; 80053; 80061; 81001; 81003; 82533; 82550; 82553; 82565; 82805; 83605; 83615; 83735; 84145; 84439; 84443; 84484; 85025; 85379; 85610; 85730; 86140; 86850; 86900; 86901; 87040; 87070; 87086; 87205; 87324; 87635; 93005; 93306; 93880; 93970; 94002; 94640; 94660; 94760; 99285